=== PATIENT | male | born 1940 | race Caucasian/White ===

== ENCOUNTER 2017-06-04 19:51 | Emergency (ER) | payer MEDICARE, OTHER ==
[2017-06-04 20:18] VITALS: BP 134/57; PULSE 78; TEMP 98
[2017-06-04 20:57] VITALS: RESP 22
--- NOTE | 2017-06-04 21:20 | ED ---
General Adult HPI - General Chief complaint: Upper Respiratory Infection Stated complaint: SOB Time Seen by Provider: 06/04/17 20:15 Source: patient, RN notes reviewed Mode of arrival: ambulatory Limitations: no limitations - History of Present Illness Initial comments: This is a 77-year-old male who presents emergency department stating that he has a sinus infection. Patient states the drainage is making him cough and when he coughs short of breath. Patient states when he is not coughing is not short of breath. Patient states he lies back and it does get worse because of drainage gets worse. Patient states his been ongoing for 3 days. Patient denies any fever chills. Patient denies any chest pain or palpitations. Patient denies any abdominal pain patient denies nausea vomiting diarrhea. Patient states she's not taking anything [id number] at this time. - Related Data Home Medications Medication Instructions Recorded Confirmed Ranitidine HCl 150 mg PO BID 11/23/15 06/04/17 Tamsulosin [Flomax] 0.4 mg PO DAILY 11/23/15 06/04/17 Albuterol Sulfate [Proair Hfa] 2 puff INHALATION RT-Q4H PRN 11/24/15 06/04/17 Allopurinol [Zyloprim] 100 mg PO DAILY 11/24/15 06/04/17 Atorvastatin [Lipitor] 20 mg PO DAILY 11/24/15 06/04/17 Celecoxib [CeleBREX] 200 mg PO DAILY 11/24/15 06/04/17 Finasteride [Proscar] 5 mg PO DAILY 11/24/15 06/04/17 Fluticasone Propionate 1 - 2 sprays EA NOSTRIL DAILY PRN 11/24/15 06/04/17 Lisinopril [Prinivil] 10 mg PO DAILY 06/04/17 06/04/17 Losartan Potassium 50 mg PO DAILY 06/04/17 06/04/17 Previous Rx's Medication Instructions Recorded Levofloxacin [Levaquin] 750 mg PO DAILY #10 tab 06/04/17 Allergies Allergy/AdvReac Type Severity Reaction Status Date / Time No Known Allergies Allergy Verified 11/23/15 19:53 Review of Systems ROS Statement: Those systems with pertinent positive or pertinent negative responses have been documented in the HPI. ROS Other: All systems not noted in ROS Statement are negative. Past Medical History Past Medical History: GERD/Reflux, Hyperlipidemia, Prostate Disorder History of Any Multi-Drug Resistant Organisms: None Reported Past Surgical History: Orthopedic Surgery, Prostate Surgery Additional Past Surgical History / Comment(s): scopes bilat knees Past Anesthesia/Blood Transfusion Reactions: No Reported Reaction Past Psychological History: No Psychological Hx Reported Smoking Status: Former smoker Past Alcohol Use History: Occasional Past Drug Use History: None Reported - Past Family History Father Family Medical History: Pneumonia General Exam - General Exam Comments Initial Comments: GENERAL: Patient is well-developed and well-nourished. Patient is nontoxic and well- hydrated and is in mild distress. ENT: Neck is soft and supple. No significant lymphadenopathy is noted. Oropharynx is clear. Moist mucous membranes. Neck has full range of motion without eliciting any pain. Patient has some facial tenderness over the frontomaxillary sinuses. EYES: The sclera were anicteric and conjunctiva were pink and moist. Extraocular movements were intact and pupils were equal round and reactive to light. Eyelids were unremarkable. PULMONARY: Unlabored respirations. Good breath sounds bilaterally. No audible rales rhonchi or wheezing was noted. CARDIOVASCULAR: There is a regular rate and rhythm without any murmurs gallops or rubs. ABDOMEN: Soft and nontender with normal bowel sounds. No palpable organomegaly was noted. There is no palpable pulsatile mass. SKIN: Skin is clear with no lesions or rashes and otherwise unremarkable. NEUROLOGIC: Patient is alert and oriented x3. Cranial nerves II through XII are grossly intact. Motor and sensory are also intact. Normal speech, volume and content. Symmetrical smile. MUSCULOSKELETAL: Normal extremities with adequate strength and full range of motion. LYMPHATICS: No significant lymphadenopathy is noted PSYCHIATRIC: Normal psychiatric evaluation. Normal interpersonal interactions appears functionally intact in deals appropriately with others. No signs of depression. No signs of anxiety. Limitations: no limitations Course Vital Signs 06/04/17 06/04/17 20:15 20:55 Temperature 98.0 F Pulse Rate 78 Respiratory 18 22 Rate Blood Pressure 134/57 O2 Sat by Pulse 96 Oximetry Disposition Clinical Impression: Sinusitis Disposition: HOME SELF-CARE Condition: Good Instructions: Sinusitis (ED) Additional Instructions: Patient should take a decongestant along with the antibiotic. Prescriptions: Levofloxacin [Levaquin] 750 mg PO DAILY #10 tab Referrals: Abner Davenport MD [Primary Care Provider] - 1-2 days Time of Disposition: 21:19
== END 2017-06-04 21:33 | disposition home or self-care (01) ==
LOC: EC 19:51
DX: J32.9 Chronic sinusitis, unspecified (principal); E78.5 Hyperlipidemia, unspecified; K21.9 Gastro-esophageal reflux disease without esophagitis; Z83.6 Family history of other diseases of the respiratory system; Z87.891 Personal history of nicotine dependence; Z79.899 Other long term (current) drug therapy
CPT/HCPCS: 99283

== ENCOUNTER 2017-06-05 19:01 | Inpatient (IN) | payer MEDICARE, OTHER ==
[2017-06-05] MEDS ORDERED: ACETAMINOPHEN TAB 500 MG TAB PO STA (19:44)
[2017-06-05] MEDS ORDERED: IPRATROPIUM-ALBUTEROL 3 ML NEB INHALATION STA (19:44)
--- NOTE | 2017-06-05 19:50 | ED ---
General Adult HPI - General Chief complaint: Upper Respiratory Infection Stated complaint: JASON Time Seen by Provider: 06/05/17 19:27 Source: patient, family, RN notes reviewed, old records reviewed Mode of arrival: ambulatory Limitations: no limitations - History of Present Illness Initial comments: Chief complaint and history of present illness a 77-year-old male who was seen emergency room recently placed on Levaquin because sinusitis. The patient took 1 pill yesterday 1 pill today. He continues to cough. Complains discomfort to the chest wall with coughing. No radiation of pain. Feel short of breath with coughing. Denies fever - Related Data Home Medications Medication Instructions Recorded Confirmed Ranitidine HCl 150 mg PO BID 11/23/15 06/05/17 Tamsulosin [Flomax] 0.4 mg PO DAILY 11/23/15 06/05/17 Albuterol Sulfate [Proair Hfa] 2 puff INHALATION RT-Q4H PRN 11/24/15 06/05/17 Allopurinol [Zyloprim] 100 mg PO DAILY 11/24/15 06/05/17 Atorvastatin [Lipitor] 20 mg PO DAILY 11/24/15 06/05/17 Celecoxib [CeleBREX] 200 mg PO DAILY 11/24/15 06/05/17 Finasteride [Proscar] 5 mg PO DAILY 11/24/15 06/05/17 Fluticasone Propionate 1 - 2 sprays EA NOSTRIL DAILY PRN 11/24/15 06/05/17 Losartan Potassium 50 mg PO DAILY 06/04/17 06/05/17 metroNIDAZOLE 0.75% CREAM 1 applic TOPICAL HS 06/05/17 06/05/17 [Metrocream] Previous Rx's Medication Instructions Recorded Levofloxacin [Levaquin] 750 mg PO DAILY #10 tab 06/04/17 Allergies Allergy/AdvReac Type Severity Reaction Status Date / Time No Known Allergies Allergy Verified 06/05/17 19:43 Review of Systems ROS Statement: Those systems with pertinent positive or pertinent negative responses have been documented in the HPI. Review of systems. No headache or visual acuity changes he does complain of sinus pressure. Complains chest wall pain with frequent deep coughing mildly productive. No radiation of pain otherwise. No nausea no vomiting no diarrhea no neuro deficits complained of. All systems are reviewed. Past medical problems significant for GERD, leaky valve, hyperlipidemia and benign prostatic hypertrophy. The patient's surgeries include arthroscopic surgery for meniscus removal, prostate surgery for BPH,. The patient's family history significant for lung cancer. He states quit smoking 40 years ago denies any ALLERGIES drinks beer . ROS Other: All systems not noted in ROS Statement are negative. Past Medical History Past Medical History: GERD/Reflux, Hyperlipidemia, Prostate Disorder History of Any Multi-Drug Resistant Organisms: None Reported Past Surgical History: Orthopedic Surgery, Prostate Surgery Additional Past Surgical History / Comment(s): scopes bilat knees Past Anesthesia/Blood Transfusion Reactions: No Reported Reaction Past Psychological History: No Psychological Hx Reported Smoking Status: Former smoker Past Alcohol Use History: Occasional Past Drug Use History: None Reported - Past Family History Father Family Medical History: Pneumonia General Exam - General Exam Comments Initial Comments: General: The patient is awake and alert, frequent deep coughs, these cause anterior chest wall pain. A deep breath or dry cough causes pain to. No sweats no nausea no vomiting. No radiation of chest discomfort. Vital signs shows temperature 97.4 pulse 72 respiratory rate 18 pulse ox 97% room air blood pressure 121/60 Eye: Pupils are equal, round and reactive to light, extra-ocular movements are intact ; there is normal conjunctiva bilaterally. No signs of icterus. Ears, nose, mouth and throat: There are moist mucous membranes and no oral lesions. Neck: The neck is supple, there is no tenderness, no anterior cervical lymphadenopathy. Cardiovascular: There is a regular rate and rhythm. No murmur, rub or gallop is appreciated. Respiratory: Lungs are clear to auscultation, respirations are non-labored, breath sounds are equal. No wheezes, stridor, rales, or rhonchi. Frequent harsh cough with anterior chest wall pain all coughing. Gastrointestinal: Soft, non-distended, non-tender abdomen without masses or organomegaly noted. There is no rebound or guarding present. No CVA tenderness. Bowel sounds are unremarkable. Back: There is no tenderness to palpation in the midline. There is no obvious deformity. No rashes noted. Musculoskeletal: Normal ROM, no tenderness, There is no pedal edema. There is no calf tenderness or swelling. Sensation intact. Pulses equal bilaterally 2+. Neurological: CN II-XII intact, legs mildly swollen but no edema.. Coordination appears grossly intact. Speech is normal. Skin: Skin is warm and dry and no rashes or lesions are noted. Psychiatric: Cooperative, no complaints of anxiety or depression. Limitations: no limitations Course Vital Signs 06/05/17 06/05/17 06/05/17 19:05 20:35 20:43 Temperature 97.4 F L Pulse Rate 72 64 67 Respiratory 18 Rate Blood Pressure 121/60 O2 Sat by Pulse 97 Oximetry EKG Findings - EKG Comments: EKG Findings:: EKG was done in 1917 shows occasional PVCs sinus rhythm. Incomplete right bundle branch block. Some ST-T wave changes with flipped T waves in V4 5 and 6. Rate 63 PA interval is 162 QRS and 96 QT 428 QTc 437. This EKG was compared to one done on 11/23/2015 and the rest similar except for the ischemic changes laterally. Medical Decision Making - Medical Decision Making Medical decision making; this is a 77-year-old male here with his . The patient was diagnosis sinusitis yesterday and placed on Levaquin. Patient reports he continues to cough and has chest wall pain with coughing which is reproducible. Denies fever. Labs were drawn showing white count 6.5 hemoglobin 12 hematocrit 37. Potassium 3.8 BUN at 22 creatinine 1.17 the GFR greater than 60. Influenza AB reported to be negative. The patient's CK 677 MB is mildly elevated 3.2 and a troponin of 0.028. Chest x-ray is done and reviewed by radiologist's chest x-ray done AP and lateral view. Findings there is no heart failure nor confluent pneumonic infiltrate. There are no hilar masses. Costophrenic angles are clear. There are chest leads. Bony thorax intact. Impression no active cardiopulmonary disease. Atheromatous aorta. No change. As read by Dr. Gordon has had cardiac problems in the past. Today's EKG does show strain pattern some ischemic changes on V4 5 and 6. Thickening consideration with this chest discomfort and mildly elevated MB and troponin though still within normal range the patient will be started on nitro paste, heparin and admitted for repeat cardiac enzymes. And cardiology consultation. - Lab Data Result diagrams: 06/05/17 19:59 06/05/17 19:59 Lab Results 06/05/17 06/05/17 06/05/17 Range/Units 19:59 19:59 19:59 WBC 6.5 (3.8-10.6) k/uL RBC 4.08 L (4.30-5.90) m/uL Hgb 12.7 L (13.0-17.5) gm/dL Hct 37.7 L (39.0-53.0) % MCV 92.3 (80.0-100.0) fL MCH 31.0 (25.0-35.0) pg MCHC 33.6 (31.0-37.0) g/dL RDW 14.4 (11.5-15.5) % Plt Count 162 (150-450) k/uL Neutrophils % 68 % Lymphocytes % 15 % Monocytes % 10 % Eosinophils % 4 % Basophils % 1 % Neutrophils # 4.4 (1.3-7.7) k/uL Lymphocytes # 1.0 (1.0-4.8) k/uL Monocytes # 0.7 (0-1.0) k/uL Eosinophils # 0.3 (0-0.7) k/uL Basophils # 0.0 (0-0.2) k/uL Sodium 140 (137-145) mmol/L Potassium 3.8 (3.5-5.1) mmol/L Chloride 107 (98-107) mmol/L Carbon Dioxide 26 (22-30) mmol/L Anion Gap 7 mmol/L BUN 22 H (9-20) mg/dL Creatinine 1.17 (0.66-1.25) mg/dL Est GFR (MDRD) Af Amer >60 (>60 ml/min/1.73 sqM) Est GFR (MDRD) Non-Af >60 (>60 ml/min/1.73 sqM) Glucose 112 H (74-99) mg/dL Calcium 9.1 (8.4-10.2) mg/dL Total Creatine Kinase 677 H (55-170) U/L CK-MB (CK-2) 3.2 H* (0.0-2.4) ng/mL CK-MB (CK-2) Rel Index 0.5 Troponin I 0.028 (0.000-0.034) ng/mL Influenza Type A RNA (Not Detectd) Influenza Type B (PCR) (Not Detectd) 06/05/17 Range/Units 19:59 WBC (3.8-10.6) k/uL RBC (4.30-5.90) m/uL Hgb (13.0-17.5) gm/dL Hct (39.0-53.0) % MCV (80.0-100.0) fL MCH (25.0-35.0) pg MCHC (31.0-37.0) g/dL RDW (11.5-15.5) % Plt Count (150-450) k/uL Neutrophils % % Lymphocytes % % Monocytes % % Eosinophils % % Basophils % % Neutrophils # (1.3-7.7) k/uL Lymphocytes # (1.0-4.8) k/uL Monocytes # (0-1.0) k/uL Eosinophils # (0-0.7) k/uL Basophils # (0-0.2) k/uL Sodium (137-145) mmol/L Potassium (3.5-5.1) mmol/L Chloride (98-107) mmol/L Carbon Dioxide (22-30) mmol/L Anion Gap mmol/L BUN (9-20) mg/dL Creatinine (0.66-1.25) mg/dL Est GFR (MDRD) Af Amer (>60 ml/min/1.73 sqM) Est GFR (MDRD) Non-Af (>60 ml/min/1.73 sqM) Glucose (74-99) mg/dL Calcium (8.4-10.2) mg/dL Total Creatine Kinase (55-170) U/L CK-MB (CK-2) (0.0-2.4) ng/mL CK-MB (CK-2) Rel Index Troponin I (0.000-0.034) ng/mL Influenza Type A RNA Not Detected (Not Detectd) Influenza Type B (PCR) Not Detected (Not Detectd) Disposition Clinical Impression: Unstable angina Disposition: ADMITTED IP TO THIS HOSP Condition: Fair Referrals: Abner Davenport MD [Primary Care Provider] - 1-2 days
[2017-06-05 20:12] LABS: Basophils % (A) 1 %; Eosinophils # (A) 0.3 k/uL (0-0.7); Eosinophils % (A) 4 %; HCT 37.7 % (39.0-53.0); HGB 12.7 gm/dL (13.0-17.5); Lymphocytes % (A) 15 %; MCHC 33.6 g/dL (31.0-37.0); MCV 92.3 fL (80.0-100.0); Mean Platelet Volume 8.3; Monocytes # (A) 0.7 k/uL (0-1.0); Monocytes % (A) 10 %; Neutrophils # (A) 4.4 k/uL (1.3-7.7); Neutrophils % (A) 68 %; Platelet Count 162 k/uL (150-450); RBC 4.08 m/uL (4.30-5.90); RDW 14.4 % (11.5-15.5); WBC 6.5 k/uL (3.8-10.6)
--- NOTE | 2017-06-05 20:15 | XR ---
EXAMINATION TYPE: XR chest 2V DATE OF EXAM: 06/05/2017 COMPARISON: 11/23/2015 HISTORY: Cough TECHNIQUE: Frontal and lateral views of the chest are obtained. FINDINGS: There is no heart failure nor confluent pneumonic infiltrate. There are no hilar masses. C ostophrenic angles are clear. There are chest leads. Bony thorax is intact. IMPRESSION: No active cardiopulmonary disease. Atheromatous aorta. No change.
[2017-06-05 20:24] LABS: Anion Gap 7 mmol/L; Blood Urea Nitrogen 22 mg/dL (9-20); Calcium 9.1 mg/dL (8.4-10.2); Carbon Dioxide 26 mmol/L (22-30); Chloride 107 mmol/L (98-107); Glucose 112 mg/dL (74-99); Potassium 3.8 mmol/L (3.5-5.1); Sodium 140 mmol/L (137-145)
[2017-06-05 20:39] LABS: Troponin I 0.028 ng/mL (0.000-0.034)
[2017-06-05 20:49] LABS: Creatine Kinase MB 3.2 ng/mL (0.0-2.4)
[2017-06-05] MEDS ORDERED: HEPARIN SODIUM,PORCINE 5,000 UNIT/ML 1 ML VIAL IV ONE (21:02)
[2017-06-05] MEDS ORDERED: ACETAMINOPHEN TAB 325 MG TAB PO PRN (21:05)
[2017-06-05] MEDS ORDERED: NALOXONE 0.4 MG/ML 1 ML VIAL IV PRN (21:05)
[2017-06-05] MEDS ORDERED: ALBUTEROL NEBULIZED 2.5 MG/3 ML INHALATION PRN (21:11)
[2017-06-05] MEDS ORDERED: FLUTICASONE 50MCG/SPRAY NASAL 16GM EA NOSTRIL PRN (21:11)
[2017-06-05] MEDS: NITROGLYCERIN OINT 1 INCH/GM PACKET TOPICAL SCH (21:18)
[2017-06-05] MEDS: HEPARIN SOD,PORK IN 0.45% NACL 25,000 UNIT in 0.45% NACL 1 500ML.BAG IV SCH (21:18)
[2017-06-05] MEDS ORDERED: HYDROcodone/APAP 5-325MG 1 EACH TAB PO PRN (23:02)
--- NOTE | 2017-06-05 23:36 | HP ---
HISTORY AND PHYSICAL I am covering for Dr. Abner Davenport. DATE OF SERVICE: 06/05/2017 CHIEF COMPLAINT: Chest pain. HISTORY OF PRESENT ILLNESS: This 77-year-old gentleman with past medical history of hyperlipidemia, CAD, GERD, DJD being followed by Dr. Abner Davenport in the outpatient setting, also had previously multiple mild valvular abnormalities, including mild mitral regurgitation, moderate aortic regurgitation as well as some thickening of the mitral valve and aortic valve sclerosis also on the previous 2D echo. The patient had upper respiratory symptoms and cough and some shortness of breath for the last 2 days. Subsequently today, the patient had pains especially felt in the front of the chest with some pressure type of feeling and the patient came to [facility] and admitted for further evaluation and treatment. The patient was recently started on Levaquin for a sinusitis from the ER. The initial labs show hemoglobin 12.7 and creatine kinase 677. Influenza is negative. Troponin 0.028 and EKG showed incomplete right bundle block and ST changes also. The chest x-ray showed no active pulmonary disease. There is no history of fever, rigors. No history of headache, loss of consciousness, seizures. PAST MEDICAL HISTORY: History of GERD, hyperlipidemia, history of prostate disorder, mild valvular abnormalities previously on the 2D echo. MEDICATIONS PRIOR TO ADMISSION: 1. Metro cream 1 application topically at bedtime. 2. Flomax 0.4 mg daily. 3. Ranitidine 150 mg b.i.d. 4. Losartan 50 mg p.o. daily. 5. Levaquin 750 daily. 6. Fluticasone 1-2 sprays daily p.r.n. 7. Proscar 5 mg p.o. daily. 8. Celebrex 200 mg p.o. daily. 9. Lipitor 20 mg daily. 10.Zyloprim 100 mg p.o. daily. 11.ProAir HFA 2 puffs q.4h p.r.n. ALLERGIES: None. FAMILY HISTORY: History of asthma, pneumonia, DJD. SOCIAL HISTORY: History of alcohol, previous history of smoking. REVIEW OF SYSTEMS: ENT: No diminished hearing, diminished vision. CARDIOVASCULAR: As mentioned earlier. RESPIRATORY: As mentioned earlier. GI: No nausea, vomiting. : No dysuria. NERVOUS: No numbness, weakness. ALLERGY/IMMUNOLOGY: No asthma or hay fever. MUSCULOSKELETAL: As mentioned earlier. HEMATOLOGY/ONCOLOGY: No history of anemia. ENDOCRINE: No history of diabetes, hypothyroidism. CONSTITUTIONAL: As mentioned earlier. DERMATOLOGY: Negative. RHEUMATOLOGY: Negative. PSYCHIATRY: As mentioned earlier. PHYSICAL EXAMINATION: Alert, oriented x3. Pulse 68, blood pressure 123/59, respirations 20, temperature 96.3, pulse ox 94% on 2L. HEENT: Conjunctivae normal. Oral mucosa moist. NECK: No jugular venous distention. No carotid bruits. No lymph node enlargement. CARDIOVASCULAR: S1, S2 muffled. RESPIRATORY: Breath sounds diminished in the bases. Bilateral scattered rhonchi and crackles. ABDOMEN: Soft, nontender. No mass palpable. LEGS: No edema. No swelling. NERVOUS SYSTEM: Higher functions as mentioned earlier. Moves all 4 limbs. No focal deficits. LYMPHATIC: No lymphadenopathy in neck or axillae. SKIN: No ulcer, rash or bleeding. LABS: Hemoglobin 12.7. Troponins are noted. Creatine kinase 677. ASSESSMENT: 1. Chest pain, possible unstable angina. 2. Upper respiratory infection on Levaquin. 3. Increased creatine kinase with troponin 0.028. 4. ST changes on the EKG. 5. Mild mitral regurgitation, moderate aortic regurgitation, mild mitral valve thickening and aortic sclerosis on the previous 2D echocardiogram. 6. Hyperlipidemia. 7. History of prostate disorder. 8. History of gastroesophageal reflux disease. 9. History of degenerative joint disease. 10.Remote history of nicotine dependence. RECOMMENDATIONS AND DISCUSSION: In this 77-year-old gentleman who presented with multiple complex medical issues, will monitor the patient closely, continue the current medical management, symptomatic treatment. Continue with IV heparin protocol. Cardiology consultation. Resume the home medications. Prognosis guarded. Recommend close followup with Dr. Davenport in the outpatient setting. Further recommendations to follow. MMODL / IJN: [id number] /
[2017-06-06] MEDS: ALPRAZolam 0.25 MG TAB PO PRN ×2 (00:12→23:59)
[2017-06-06 03:18] LABS: Basophils % (A) 0 %; Eosinophils # (A) 0.3 k/uL (0-0.7); Eosinophils % (A) 5 %; HCT 38.2 % (39.0-53.0); HGB 12.7 gm/dL (13.0-17.5); Lymphocytes # (A) 1.1 k/uL (1.0-4.8); Lymphocytes % (A) 19 %; MCH 31.1 pg (25.0-35.0); MCHC 33.4 g/dL (31.0-37.0); MCV 93.1 fL (80.0-100.0); Mean Platelet Volume 7.4; Monocytes # (A) 0.5 k/uL (0-1.0); Monocytes % (A) 9 %; Neutrophils # (A) 3.7 k/uL (1.3-7.7); Neutrophils % (A) 65 %; Platelet Count 163 k/uL (150-450); WBC 5.7 k/uL (3.8-10.6)
[2017-06-06 03:27] LABS: Anion Gap 8 mmol/L; Blood Urea Nitrogen 18 mg/dL (9-20); Calcium 8.9 mg/dL (8.4-10.2); Carbon Dioxide 23 mmol/L (22-30); Chloride 110 mmol/L (98-107); Glucose 97 mg/dL (74-99); Potassium 4.2 mmol/L (3.5-5.1); Sodium 141 mmol/L (137-145)
[2017-06-06 03:54] LABS: Troponin I 0.023 ng/mL (0.000-0.034)
[2017-06-06 04:32] LABS: INR 1.1 (<1.2); Prothrombin Time 10.8 sec (9.0-12.0)
[2017-06-06] MEDS: NITROGLYCERIN OINT 1 INCH/GM PACKET TOPICAL SCH ×3 (06:12→23:52)
[2017-06-06] MEDS: SODIUM CHLORIDE 0.9% 1,000 ML IV SCH ×3 (06:12→23:53)
[2017-06-06] MEDS ORDERED: NON-FORMULARY DRUG (Ranitidine Hcl [Ranitidine Hcl] 150 MG) PO SCH (09:00)
[2017-06-06] MEDS: LEVOFLOXACIN 750 MG TAB PO SCH (09:04)
[2017-06-06] MEDS: ATORVASTATIN 20 MG TAB PO SCH (09:04)
[2017-06-06] MEDS: FAMOTIDINE 20 MG TAB PO SCH ×2 (09:04→23:52)
[2017-06-06] MEDS: ALLOPURINOL 100 MG TAB PO SCH (09:04)
[2017-06-06] MEDS: FINASTERIDE 5 MG TAB PO SCH (09:05)
[2017-06-06] MEDS: MELOXICAM 7.5 MG TAB PO SCH (09:06)
[2017-06-06] MEDS: LOSARTAN 50 MG TAB PO SCH (09:06)
[2017-06-06] MEDS: TAMSULOSIN 0.4 MG CAP.ER.24H PO SCH (09:09)
[2017-06-06 09:38] LABS: Troponin I 0.021 ng/mL (0.000-0.034)
[2017-06-06 09:46] LABS: Creatine Kinase MB 2.7 ng/mL (0.0-2.4)
[2017-06-06 09:52] VITALS: RESP 18
--- NOTE | 2017-06-06 10:52 | P.CRDCN ---
History of Present Illness Consult date: 06/06/17 Requesting physician: Anayeli Horta Consult reason: chest pain Chief complaint: Chest pain History of present illness: This is a pleasant 77-year-old gentleman who used to follow with Dr. Bear in the office, now follows with Dr. Gupta. He has history of hypertension, hyperlipidemia, GERD, prior history of smoking. He states that he developed upper respiratory 3 days ago, was started on Levaquin as an outpatient. He's been coughing significant amounts, nonproductive. No fever or chills. Mild shortness of breath. Presented to the hospital with these symptoms, he states that he's been experiencing chest pain, only when he coughs , worsened with coughing. The patient was examined further, he states that approximately one week ago , he had an episode while driving where he felt unwell, he did have pressure in his chest with some shortness of breath at that time. As was before his upper respiratory symptoms started. Patient states that he has had stress tests in the past, and has and told to have a leaky heart valves. He also states that multiple years ago he underwent a cardiac catheterization which did not reveal any significant obstructive disease. His EKG on arrival here showed a normal sinus rhythm with an incomplete right bundle branch block pattern and ST-T wave changes noted in the anterior lateral leads. Subsequent EKG performed this morning shows a sinus bradycardia with mild improvement in ST T changes in the anterior lateral leads , however persistence in those changes. Chest X-ray did not reveal any active cardiopulmonary disease. At pressure on arrival here 120/60 with a heart rate in the 70s, afebrile, 97% on room air. White blood cell count is normal, hemoglobin 12.7, platelet count 163. Sodium 141, potassium 4.2, BUN 18, creatinine 1.1. CK 677, 668, 660, MB 3.2, 3.0, 2.7, troponin 0.028, 0.023, 0.021. Fluids and B are negative. At the tTime of my examination this morning, patient denies any chest discomfort, states he's been up ambulating in the [place] without any difficulty, still has mild sinus congestion with occasional nonproductive cough. Past Medical History Past Medical History: GERD/Reflux, Hyperlipidemia, Prostate Disorder Additional Past Medical History / Comment(s): LEAKY VALVES History of Any Multi-Drug Resistant Organisms: None Reported Past Surgical History: Orthopedic Surgery, Prostate Surgery Additional Past Surgical History / Comment(s): scopes bilat knees Past Anesthesia/Blood Transfusion Reactions: No Reported Reaction Past Psychological History: No Psychological Hx Reported Smoking Status: Former smoker Past Alcohol Use History: Occasional Past Drug Use History: None Reported - Past Family History Father Family Medical History: Asthma, Pneumonia Additional Family Medical History / Comment(s): ARTHRITIS Mother Additional Family Medical History / Comment(s): BRAIN ANUYRUSM Medications and Allergies Home Medications Medication Instructions Recorded Confirmed Type Ranitidine HCl 150 mg PO BID 11/23/15 06/05/17 History Tamsulosin [Flomax] 0.4 mg PO DAILY 11/23/15 06/05/17 History Albuterol Sulfate [Proair Hfa] 2 puff INHALATION RT-Q4H PRN 11/24/15 06/05/17 History Allopurinol [Zyloprim] 100 mg PO DAILY 11/24/15 06/05/17 History Atorvastatin [Lipitor] 20 mg PO DAILY 11/24/15 06/05/17 History Celecoxib [CeleBREX] 200 mg PO DAILY 11/24/15 06/05/17 History Finasteride [Proscar] 5 mg PO DAILY 11/24/15 06/05/17 History Fluticasone Propionate 1 - 2 sprays EA NOSTRIL DAILY PRN 11/24/15 06/05/17 History Levofloxacin [Levaquin] 750 mg PO DAILY #10 tab 06/04/17 06/05/17 Rx Losartan Potassium 50 mg PO DAILY 06/04/17 06/05/17 History metroNIDAZOLE 0.75% CREAM 1 applic TOPICAL HS 06/05/17 06/05/17 History [Metrocream] Allergies Allergy/AdvReac Type Severity Reaction Status Date / Time No Known Allergies Allergy Verified 06/05/17 19:43 Physical Exam Vitals: Vital Signs Temp Pulse Pulse Resp BP BP Pulse Ox 06/06/17 08:00 97.6 F 68 18 118/63 96 06/06/17 04:00 97.3 F L 63 20 134/61 93 L 06/05/17 22:25 96.3 F L 68 20 123/59 94 L 06/05/17 22:23 96.3 F L 68 20 123/59 94 L 06/05/17 21:24 69 20 136/63 96 06/05/17 20:43 67 06/05/17 20:35 64 06/05/17 19:05 97.4 F L 72 18 121/60 97 Intake and Output 06/05/17 06/06/17 06/06/17 22:59 06:59 14:59 Intake Total 183.333 125 Output Total 300 Balance -300 183.333 125 Intake: Intake, IV Titration 183.333 Amount Heparin Sod,Pork in 0.45% 183.333 NaCl 25,000 unit In 0.45 % NaCl 1 500ml.bag @ 9. 186 UNITS/KG/HR 20 mls/hr IV .Q24H [facility] Rx#: [id number] Oral 125 Output: Urine 300 Other: Voiding Method Urinal Urinal Urinal # Voids 1 Weight 108.862 kg 110.7 kg PHYSICAL EXAMINATION: HEENT: Head is atraumatic, normocephalic. Pupils equal, round. Neck is supple. There is no elevated jugular venous pressure. HEART EXAMINATION: Heart S1 S2 1 diastolic murmur is heard CHEST EXAMINATION: Lungs are clear to auscultation and precussion. No chest wall tenderness is noted on palpation or with deep breathing. ABDOMEN: Soft, nontender. Bowel sounds are heard. No organomegaly noted. EXTREMITIES: 2+ peripheral pulses with no evidence of peripheral edema and no calf tenderness noted. NEUROLOGIC patient is awake, alert and oriented -3. . Results 06/06/17 02:56 06/06/17 02:56 Cardiac Enzymes 06/05/17 06/06/17 06/06/17 Range/Units 19:59 02:56 08:39 CK-MB (CK-2) 3.2 H* 3.0 H* 2.7 H* (0.0-2.4) ng/mL Troponin I 0.028 0.023 0.021 (0.000-0.034) ng/mL Coagulation 06/06/17 06/06/17 06/06/17 Range/Units 02:56 02:56 08:39 PT 10.8 (9.0-12.0) sec APTT 35.0 H 38.9 H (22.0-30.0) sec CBC 06/05/17 06/06/17 Range/Units 19:59 02:56 WBC 6.5 5.7 (3.8-10.6) k/uL RBC 4.08 L 4.10 L (4.30-5.90) m/uL Hgb 12.7 L 12.7 L (13.0-17.5) gm/dL Hct 37.7 L 38.2 L (39.0-53.0) % Plt Count 162 163 (150-450) k/uL Comprehensive Metabolic Panel 06/05/17 06/06/17 Range/Units 19:59 02:56 Sodium 140 141 (137-145) mmol/L Potassium 3.8 4.2 (3.5-5.1) mmol/L Chloride 107 110 H (98-107) mmol/L Carbon Dioxide 26 23 (22-30) mmol/L BUN 22 H 18 (9-20) mg/dL Creatinine 1.17 1.10 (0.66-1.25) mg/dL Glucose 112 H 97 (74-99) mg/dL Calcium 9.1 8.9 (8.4-10.2) mg/dL Current Medications Generic Name Dose Route Start Last Admin Trade Name Freq PRN Reason Stop Dose Admin Acetaminophen 650 mg 06/05/17 21:05 Tylenol Tab PO Q6HR PRN Mild Pain or Fever > 100.5 Hydrocodone Bitart/Acetaminophen 1 each 06/05/17 23:02 [place] 5-325 PO Q6HR PRN Pain Albuterol Sulfate 2.5 mg 06/05/17 21:11 Ventolin Nebulized INHALATION RT-Q4H PRN Shortness Of Breath Allopurinol 100 mg 06/06/17 09:00 06/06/17 09:04 Zyloprim PO 100 mg DAILY [facility] Administration Alprazolam 0.25 mg 06/05/17 23:02 06/06/17 00:12 Xanax PO 0.25 mg TID PRN Administration Anxiety Atorvastatin Calcium 20 mg 06/06/17 09:00 06/06/17 09:04 Lipitor PO 20 mg DAILY [facility] Administration Famotidine 20 mg 06/06/17 09:00 06/06/17 09:04 Pepcid PO 20 mg BID [facility] Administration Finasteride 5 mg 06/06/17 09:00 06/06/17 09:05 Proscar PO 5 mg DAILY [facility] Administration Fluticasone Propionate 1 - 2 spray 06/05/17 21:11 Flonase Nasal [place] EA NOSTRIL DAILY PRN Allergy Symptoms Heparin Sodium/Sodium Chloride 500 mls @ 20 mls/hr 06/05/17 21:15 06/06/17 06 :28 25,000 unit/ Sodium Chloride IV 12.1 units/kg/hr .Q24H [facility] 26.34 mls/hr Protocol Titration 9.186 UNITS/KG/HR Sodium Chloride 1,000 mls @ 80 mls/hr 06/05/17 21:15 06/06/17 09:07 Saline 0.9% IV 80 mls/hr .[id number] [facility] Administration Levofloxacin 750 mg 06/06/17 09:00 06/06/17 09:04 Levaquin PO 750 mg DAILY [facility] Administration Losartan Potassium 50 mg 06/06/17 09:00 06/06/17 09:06 Cozaar PO 50 mg DAILY [facility] Administration Meloxicam 15 mg 06/06/17 09:00 06/06/17 09:06 Mobic PO 15 mg DAILY [facility] Administration Metronidazole 1 applic 06/06/17 21:30 Metrocream TOPICAL HS [facility] Naloxone HCl 0.2 mg 06/05/17 21:05 Narcan IV Q2M PRN Opioid Reversal Nitroglycerin 1 inch 06/05/17 21:00 06/06/17 06:12 Nitro-Bid Oint TOPICAL 1 inch Q8H [facility] Administration Tamsulosin HCl 0.4 mg 06/06/17 09:00 06/06/17 09:09 Flomax PO 0.4 mg DAILY [facility] Administration Temazepam 15 mg 06/05/17 23:02 Restoril PO HS PRN Insomnia Intake and Output 06/05/17 06/06/17 06/06/17 22:59 06:59 14:59 Intake Total 183.333 125 Output Total 300 Balance -300 183.333 125 Intake: Intake, IV Titration 183.333 Amount Heparin Sod,Pork in 0.45% 183.333 NaCl 25,000 unit In 0.45 % NaCl 1 500ml.bag @ 9. 186 UNITS/KG/HR 20 mls/hr IV .Q24H [facility] Rx#: [id number] Oral 125 Output: Urine 300 Other: Voiding Method Urinal Urinal Urinal # Voids 1 Weight 108.862 kg 110.7 kg 06/06/17 02:56 06/06/17 02:56 EKG Interpretations (text) EKG shows normal sinus rhythm with ST-T wave changes in the anterior lateral leads Assessment and Plan Plan: Assessment and plan #1 symptoms of sinus and upper respiratory infection, nonproductive cough, sinus congestion. Pleuritic type chest pain with coughing. Atypical for acute coronary syndrome. #2 episode of chest heaviness and pressure, approximately one week ago . EKG shows normal sinus rhythm with anterior lateral ST-T wave changes. Troponin 0.028, 0.0-3, 0.021. CK MB abnormal with a downward trend. #3 hypertension #4 hyperlipidemia #5 moderate aortic regurgitation, normal LV function by echo performed here in 2015 Plan Obtain an echocardiogram with Doppler study. Give the patient an aspirin. Continue IV heparin. Patient has been advised that he may need to undergo further testing to rule out underlying coronary artery disease. We will obtain Dr. Young's note from the office. The patient's chest pain with coughing is very atypical, he did have an episode of chest discomfort one week ago concerning for angina. Patient does have abnormal troponins with associated EKG changes. Further recommendations to follow. DNP note has been reviewed, I agree with a documented findings and plan of care. Patient was seen and examined.
[2017-06-06] MEDS: guaiFENesin 600 MG TABLET.ER PO PRN (18:13)
[2017-06-06] MEDS: TEMAZEPAM 15 MG CAP PO PRN (23:59)
[2017-06-07] MEDS: NITROGLYCERIN OINT 1 INCH/GM PACKET TOPICAL SCH ×3 (06:06→22:12)
[2017-06-07] MEDS: HEPARIN SOD,PORK IN 0.45% NACL 25,000 UNIT in 0.45% NACL 1 500ML.BAG IV SCH (06:06)
[2017-06-07 07:00] LABS: Basophils % (A) 0 %; Eosinophils # (A) 0.3 k/uL (0-0.7); Eosinophils % (A) 6 %; HCT 36.3 % (39.0-53.0); HGB 12.1 gm/dL (13.0-17.5); Lymphocytes # (A) 1.3 k/uL (1.0-4.8); Lymphocytes % (A) 25 %; MCHC 33.3 g/dL (31.0-37.0); Mean Platelet Volume 8.1; Monocytes # (A) 0.5 k/uL (0-1.0); Monocytes % (A) 10 %; Neutrophils # (A) 2.8 k/uL (1.3-7.7); Neutrophils % (A) 55 %; Platelet Count 146 k/uL (150-450); RDW 14.1 % (11.5-15.5); WBC 5.2 k/uL (3.8-10.6)
--- NOTE | 2017-06-07 07:11 | PN ---
PROGRESS NOTE DATE OF SERVICE: 06/06/2017 This 77-year-old gentleman admitted with chest pain has more of a cough today. The patient has some ST-T changes in the EKG. No chest pain. No palpitation. Currently cardiology is following the patient closely. PHYSICAL EXAM: Alert and oriented x3. Pulse 65, blood pressure 140/67, respiration 18, temperature 98.4, pulse ox 98% on 2 L. HEENT: Conjunctivae normal. Oral mucosa moist. Neck is no jugular venous distention. No carotid bruit. No lymph node enlargement. CARDIOVASCULAR: S1, S2. RESPIRATORY: Breath sounds diminished in the bases. A few scattered rhonchi and crackles. ABDOMEN: Soft, nontender. LEGS: No edema. No swelling. CENTRAL NERVOUS SYSTEM: No focal deficits. LABS: WBC 5.8, hemoglobin 12.7, sodium 140, potassium 4.2, creatine kinase 660. ASSESSMENT: 1. Chest pain possible unstable angina possibly musculoskeletal. 2. Upper respiratory infection on Levaquin. 3. Increased creatine kinase with troponin 0.028. 4. ST changes in the EKG. 5. Mild mitral regurgitation, moderate aortic regurgitation, mild mitral valve thickening and aortic stenosis in the previous 2D echo. 6. Hyperlipidemia. 7. History of prostate disorder. 8. History of gastroesophageal reflux disease. 9. History of degenerative joint disease. 10.Remote history of nicotine dependence. RECOMMENDATIONS AND DISCUSSION: I recommend to continue current management and symptomatic treatment. The cough has features more like a bronchitis at this time, but however the possibility of underlying heart disease needs to be considered and ruled out. Will closely follow with Cardiology, who is evaluating the patient closely. Prognosis guarded. Discussed with the patient who understands and further recommendations to follow. MMODL / IJN: [id number] /
[2017-06-07 07:24] LABS: Anion Gap 6 mmol/L; Blood Urea Nitrogen 14 mg/dL (9-20); Carbon Dioxide 26 mmol/L (22-30); Chloride 110 mmol/L (98-107); Glucose 92 mg/dL (74-99); Potassium 4.1 mmol/L (3.5-5.1); Sodium 142 mmol/L (137-145)
[2017-06-07] MEDS: MELOXICAM 7.5 MG TAB PO SCH (08:43)
[2017-06-07] MEDS: TAMSULOSIN 0.4 MG CAP.ER.24H PO SCH (08:43)
[2017-06-07] MEDS: FINASTERIDE 5 MG TAB PO SCH (08:44)
[2017-06-07] MEDS: LEVOFLOXACIN 750 MG TAB PO SCH (08:44)
[2017-06-07] MEDS: ALLOPURINOL 100 MG TAB PO SCH (08:44)
[2017-06-07] MEDS: LOSARTAN 50 MG TAB PO SCH (08:45)
[2017-06-07] MEDS: ATORVASTATIN 20 MG TAB PO SCH (08:45)
[2017-06-07] MEDS: FAMOTIDINE 20 MG TAB PO SCH ×2 (08:45→22:12)
[2017-06-07] MEDS: SODIUM CHLORIDE 0.9% 1,000 ML IV SCH ×2 (08:46→22:13)
--- NOTE | 2017-06-07 13:10 | P.PN ---
Subjective Patient is doing a bit better today. He is somewhat less short of breath but he still has cough and a little bit of expectoration and is recovering from his upper respiratory infection. He has no chest discomfort no undue shortness of breath On examination he is afebrile 96.2F pulse rate in the 60s, blood pressure 141/ 64 mmHg Breath sounds are reduced bilaterally with some crackles at the bases bilaterally Heart sounds S1 and S2 are soft no murmurs no gallops no rub Abdomen is soft nontender Extremities are warm no edema Twelve-lead ECG from yesterday showed T-wave inversions which are clearly new His CPKs are elevated at 677, 668 and 660 with a corresponding troponins are 0.028, 0.023 and 0.021 The [place] curves of the troponins do not match the DeKay curves of CPK MB and the enzyme elevations do not appear cardiac. More consistent with skeletal muscle inflammation and injury He does have EKG changes and this could well be related to his flu but does not correlate with the cardiac enzyme pattern. Suggest continue symptomatic treatment for upper respiratory infection/flu, continue atorvastatin the cardiac medications Will discuss this with the cardiac team tomorrow Objective - Vital Signs Vital signs: Vital Signs Temp 96.2 F L 06/07/17 12:00 Pulse 60 06/07/17 12:00 Resp 18 06/07/17 12:00 BP 141/64 06/07/17 12:00 Pulse Ox 96 06/07/17 12:00 Intake & Output 06/06/17 06/07/17 06/07/17 18:59 06:59 18:59 Intake Total 1001.667 Output Total 300 Balance 1001.667 -300 Weight 111 kg Intake: Intake, IV Titration 316.667 Amount Heparin Sod,Pork in 0.45% 316.667 NaCl 25,000 unit In 0.45 % NaCl 1 500ml.bag @ 9. 186 UNITS/KG/HR 20 mls/hr IV .Q24H [facility] Rx#: [id number] Oral 685 Output: Urine 300 Other: Voiding Method Urinal Urinal Urinal # Voids 2 - Labs CBC & Chem 7: 06/07/17 06:09 06/07/17 06:09 Labs: Abnormal Lab Results - Last 24 Hours (Table) 06/06/17 06/07/17 06/07/17 Range/Units 18:05 06:09 06:09 RBC 3.90 L (4.30-5.90) m/uL Hgb 12.1 L (13.0-17.5) gm/dL Hct 36.3 L (39.0-53.0) % Plt Count 146 L (150-450) k/uL APTT 58.5 H (22.0-30.0) sec Chloride 110 H (98-107) mmol/L 06/07/17 Range/Units 06:09 RBC (4.30-5.90) m/uL Hgb (13.0-17.5) gm/dL Hct (39.0-53.0) % Plt Count (150-450) k/uL APTT 82.8 H (22.0-30.0) sec Chloride (98-107) mmol/L
[2017-06-07] MEDS: guaiFENesin 600 MG TABLET.ER PO PRN (15:46)
--- NOTE | 2017-06-07 19:29 | PN ---
PROGRESS NOTE DATE OF SERVICE: 06/07/2017 This 77-year-old gentleman admitted with chest pain also had ST changes in the EKG. Patient also had apparent flu-like syndrome. Influenza test negative. No chest pain. No palpitations. Incessant cough is reported. Cardiology is following the patient closely. EXAM: Alert and oriented times three. Pulse 62, blood pressure 160/58, respiration 18, temp 98.2, pulse ox 100% on 2 L. HEENT: Conjunctivae normal. Neck is no jugular venous distention. Cardiovascular: S1, S2 muffled. Respirations: Breath sounds diminished in the bases. A few scattered rhonchi and crackles. Abdomen is soft, nontender. Legs are no edema. No swelling. Central nervous system: No focal deficits. LABS: WBC 5.2, hemoglobin 12.1. Troponins are noted. Influenza negative. CK 660. ASSESSMENT: 1. Chest pain possible unstable angina possibly musculoskeletal. 2. Upper respiratory infection and flu-like syndrome on Levaquin. 3. Increased creatinine kinase with troponin at 0.028. 4. ST changes in the EKG. 5. Mild mitral regurgitation, moderate aortic regurgitation mild mitral wall thickening and aortic sclerosis in the previous 2D echo. 6. Hyperlipidemia. 7. History of prostate disorder. 8. History of gastroesophageal reflux disease. 9. History of degenerative joint disease. 10.Remote history of nicotine dependence. RECOMMENDATIONS AND DISCUSSION: Recommend to continue current medications, monitoring, symptomatic treatment. Otherwise at this time, we will monitor the patient closely. Otherwise closely monitor with Cardiology. Continue the conservative line of management. The patient has multiple complicated medical illness including acute flu-like syndrome and possible cardiac etiology. We will continue to monitor. Further recommendations to follow. MMODL / IJN: [id number] /
[2017-06-07] MEDS: TEMAZEPAM 15 MG CAP PO PRN (22:11)
[2017-06-07] MEDS: ALPRAZolam 0.25 MG TAB PO PRN (22:11)
[2017-06-08 02:14] LABS: Basophils % (A) 1 %; Eosinophils # (A) 0.2 k/uL (0-0.7); Eosinophils % (A) 5 %; HCT 35.3 % (39.0-53.0); HGB 11.4 gm/dL (13.0-17.5); Lymphocytes # (A) 1.5 k/uL (1.0-4.8); Lymphocytes % (A) 35 %; MCH 30.7 pg (25.0-35.0); MCHC 32.4 g/dL (31.0-37.0); MCV 94.8 fL (80.0-100.0); Mean Platelet Volume 8.2; Monocytes # (A) 0.4 k/uL (0-1.0); Monocytes % (A) 9 %; Neutrophils % (A) 47 %; Platelet Count 149 k/uL (150-450); RBC 3.72 m/uL (4.30-5.90); RDW 14.6 % (11.5-15.5); WBC 4.3 k/uL (3.8-10.6)
[2017-06-08 02:40] LABS: Anion Gap 6 mmol/L; Blood Urea Nitrogen 15 mg/dL (9-20); Calcium 8.6 mg/dL (8.4-10.2); Carbon Dioxide 24 mmol/L (22-30); Chloride 112 mmol/L (98-107); Glucose 97 mg/dL (74-99); Sodium 142 mmol/L (137-145)
[2017-06-08] MEDS: HEPARIN SOD,PORK IN 0.45% NACL 25,000 UNIT in 0.45% NACL 1 500ML.BAG IV SCH (07:01)
[2017-06-08] MEDS: NITROGLYCERIN OINT 1 INCH/GM PACKET TOPICAL SCH ×2 (07:01→11:57)
[2017-06-08] MEDS: LOSARTAN 50 MG TAB PO SCH (08:30)
[2017-06-08] MEDS: FINASTERIDE 5 MG TAB PO SCH (08:30)
[2017-06-08] MEDS: ALLOPURINOL 100 MG TAB PO SCH (08:30)
[2017-06-08] MEDS: ATORVASTATIN 20 MG TAB PO SCH (08:30)
[2017-06-08] MEDS: FAMOTIDINE 20 MG TAB PO SCH (08:30)
[2017-06-08] MEDS: LEVOFLOXACIN 750 MG TAB PO SCH (08:30)
[2017-06-08] MEDS: TAMSULOSIN 0.4 MG CAP.ER.24H PO SCH (08:31)
[2017-06-08] MEDS: MELOXICAM 7.5 MG TAB PO SCH (08:31)
--- NOTE | 2017-06-08 14:34 | ECHOF ---
Referral Reason:chest pain MEASUREMENTS -------- HEIGHT: 182.9 cm WEIGHT: 110.7 kg BP: 118/63 LAESV Index (A-L): 31.44 ml/m Ao Diam: 4.8 cm (2.0 - 3.7) AV Cusp: 1.7 cm (1.5 - 2.6) LA Diam: 3.2 cm (2.7 - 3.8) MV E Shane: 0.71 m/s MV DecT: 418 ms MV A Shane: 0.87 m/s MV E/A Ratio: 0.82 AR PHT: 491 ms RAP: 5.00 mmHg RVSP: 18.85 mmHg FINDINGS -------- Sinus rhythm. This was a technically difficult study with suboptimal views. The left ventricular size is normal. Overall left ventricular systolic function is low-normal with, an EF between 50 - 55 %. The right ventricle is normal in size and function. LA is midly dilated 29-33ml/m2. RA appears enlarged. 1.5mg of Definity was utilized for enhancement of images There is mild aortic valve sclerosis. There is [id number] aortic regurgitation. There is no evidence of aortic stenosis. The mitral valve leaflets are mildly thickened. Mild mitral regurgitation is present. Trace tricuspid regurgitation present. Right ventricular systolic pressure is normal at < 35 mmHg. There is no evidence of pulmonary hypertension. The pulmonic valve was not well visualized. The aortic root is mildy dilated. IVC Not well visulized. The pericardium is normal. There is no pericardial effusion. CONCLUSIONS -------- 1. Sinus rhythm. 2. This was a technically difficult study with suboptimal views. 3. The left ventricular size is normal. 4. Overall left ventricular systolic function is low-normal with, an EF between 50 - 55 %. 5. LA is midly dilated 29-33ml/m2. 6. RA appears enlarged. 7. 1.5mg of Definity was utilized for enhancement of images 8. There is mild aortic valve sclerosis. 9. There is [id number] aortic regurgitation. 10. The mitral valve leaflets are mildly thickened. 11. Mild mitral regurgitation is present. 12. Trace tricuspid regurgitation present. 13. Right ventricular systolic pressure is normal at < 35 mmHg. 14. There is no evidence of pulmonary hypertension. 15. The pulmonic valve was not well visualized. 16. IVC Not well visulized. 17. There is no pericardial effusion. MANAGER SHAREPOINT: Wesley Navarro RDCS
[2017-06-08 16:56] VITALS: BP 131/61; PULSE 67; TEMP 97.1
[2017-06-08] MEDS: SODIUM CHLORIDE 0.9% 1,000 ML IV SCH (17:14)
--- NOTE | 2017-06-08 18:04 | PN ---
PROGRESS NOTE The patient's medical records reviewed. Patient has been admitted with symptoms of upper respiratory tract infection. Patient's chest pain was clearly related to the episodes of coughing. EKG shows some mild T-wave changes in the lateral leads. Echocardiogram is normal. The patient has had elevated CPK which could be secondary to possibly most likely skeletal muscle. The 3 sets of troponin are almost flat without any significant rise and fall and it is not suggestive of acute coronary syndrome. Associated mild myocarditis cannot be entirely excluded. The patient's echocardiogram reveals normal left ventricular systolic function. We will continue the current medications and patient will be evaluated with a stress test as an outpatient. MMODL / IJN: [id number] /
--- NOTE | 2017-06-09 09:43 | DS ---
DISCHARGE SUMMARY FINAL DIAGNOSES: 1. Chest pain, possible unstable angina possibly musculoskeletal pain. 2. Upper respiratory infection with flu-like syndrome on Levaquin. 3. Increased creatine kinase with troponin at 0.028. 4. ST-T changes on the EKG. 5. Mild mitral regurgitation, moderate aortic regurgitation, mitral valve thickening and as well as aortic sclerosis on the previous 2D echo. 6. Hyperlipidemia. 7. History of prostate disorder. 8. Gastroesophageal reflux disease. 9. History of degenerative joint disease. 10.Remote history of nicotine dependence. DISCHARGE DISPOSITION: The patient will be discharged in stable condition with guarded prognosis. Cardiology cleared the patient for discharge. HISTORY OF PRESENT ILLNESS: This 77-year-old gentleman with past medical history of multiple medical problems admitted with features of chest pain and ST-T changes on the EKG and a significant upper respiratory infection. Flu was negative. Treated symptomatically. Cardiology saw the patient, recommended outpatient followup. Otherwise, the patient is able to ambulate without any symptoms. ON EXAM: Vitals are stable. CARDIOVASCULAR: S1 and S2 muffled. RESPIRATORY: A few rhonchi, no crackles. ABDOMEN: Soft. NERVOUS SYSTEM: No focal deficits. DISCHARGE ADVICE: 1. Diet is cardiac. 2. Activity limited until followup. 3. Follow up with Dr. Davenport in 2 to 3 days. 4. Follow up with Cardiology as advised. Medications are: 1. Tylenol 650 q.6 p.r.n. 2. ProAir HFA 2 puffs q.i.d. and p.r.n. 3. Zyloprim 100 mg p.o. daily. 4. Xanax 0.25 t.i.d. 5. Ecotrin 81 mg p.o. daily. 6. Lipitor 20 mg p.o. daily. 7. Celebrex 200 mg p.o. daily. 8. Proscar 5 mg p.o. daily. 9. Fluticasone 1 to 2 spaces daily. 10.Mucinex 600 mg p.o. b.i.d. 11.Levaquin 750 mg daily. 12.Losartan 50 mg p.o. daily. 13.Metronidazole cream 0.75% topically. 14.Ranitidine 150 mg p.o. b.i.d. 15.Flomax 0.4 daily noted. Once again, the patient will be discharged in stable condition with guarded prognosis. MMODL / IJN: [id number] /
== END 2017-06-08 17:41 | disposition home or self-care (01) | DRG 303 ==
LOC: EC 19:01 → 6SEL 21:11
PROVIDERS: ADMIT Family Medicine; ATTEND Family Medicine
DX: I25.110 Atherosclerotic heart disease of native coronary artery with unstable angina pectoris (principal); I08.3 Combined rheumatic disorders of mitral, aortic and tricuspid valves; I45.10 Unspecified right bundle-branch block; R00.1 Bradycardia, unspecified; R07.89 Other chest pain; E78.5 Hyperlipidemia, unspecified; I10 Essential (primary) hypertension; J06.9 Acute upper respiratory infection, unspecified; K21.9 Gastro-esophageal reflux disease without esophagitis; M19.90 Unspecified osteoarthritis, unspecified site; R74.8 Abnormal levels of other serum enzymes; N40.0 Benign prostatic hyperplasia without lower urinary tract symptoms; Z79.899 Other long term (current) drug therapy; Z87.891 Personal history of nicotine dependence
CPT/HCPCS: 36415; 71046; 80048; 82550; 82553; 84484; 85025; 85610; 85730; 87502; 93005; 93306; 94640; 94760; 96365; 96376; 99283; 99285

== ENCOUNTER → 2017-10-07 | Outpatient (CLI) | payer MEDICARE, OTHER ==
[2017-10-07 08:25] LABS: HGB 14.2 gm/dL (13.0-17.5); MCH 30.7 pg (25.0-35.0); MCHC 33.7 g/dL (31.0-37.0); Mean Platelet Volume 7.2; Platelet Count 197 k/uL (150-450); RBC 4.61 m/uL (4.30-5.90); RDW 13.4 % (11.5-15.5)
[2017-10-07 08:39] LABS: Potassium 4.7 mmol/L (3.5-5.1)
== END | disposition home or self-care (01) ==
LOC: LABPAT 07:34
PROVIDERS: ATTEND Internal Medicine Cardiovascular Disease
DX: Z01.812 Encounter for preprocedural laboratory examination (principal); I25.10 Atherosclerotic heart disease of native coronary artery without angina pectoris
CPT/HCPCS: 36415; 80051; 82565; 84520; 85027

== ENCOUNTER 2017-10-14 10:19 | Day surgery (SDC) | payer MEDICARE, OTHER ==
[~2017-10-14 10:19] MED LIST: ALPRAZolam 0.25 MG TAB PO PRN; ALPRAZolam 0.5 MG TAB PO PRN; ASPIRIN 325 MG TAB PO STA; ATORVASTATIN 80 MG TAB PO STA; NITROGLYCERIN SL TABS 0.4 MG TAB SUBLINGUAL PRN; SODIUM CHLORIDE 0.9% 1,000 ML in EMPTY BAG 1 BAG IV ONE
[2017-10-14] MEDS ORDERED: MIDAZOLAM 2 MG/2 ML VIAL IVP ONE (11:48)
[2017-10-14] MEDS ORDERED: fentaNYL (PF) 50 MCG/ML 2 ML AMP IV ONE (11:48)
[2017-10-14] MEDS ORDERED: LIDOCAINE 2% INJ 20 MG/ML SQ ONE (11:55)
[2017-10-14] MEDS ORDERED: IOPAMIDOL-370 50ML BTL INJ ONE (12:06)
[2017-10-14] MEDS ORDERED: IOPAMIDOL-370 125ML BTL INJ ONE (12:07)
[2017-10-14] MEDS ORDERED: RX INFO: IV CONTRAST WAS GIVEN 1 EACH MISC MISCELLANE PRN (12:20)
[2017-10-14] MEDS ORDERED: SODIUM CHLORIDE 0.9% 1,000 ML IV SCH (12:30)
[2017-10-14] MEDS ORDERED: ALBUTEROL NEBULIZED 2.5 MG/3 ML INHALATION PRN (13:37)
[2017-10-14] MEDS ORDERED: guaiFENesin 600 MG TABLET.ER PO PRN (13:37)
--- NOTE | 2017-10-14 16:13 | P.GSCN ---
History of Present Illness Consult date: 10/14/17 Reason for Consult: Severe aortic valve regurgitation. Requesting physician: Hima Young History of present illness: This is a 77-year-old gentleman who is followed by Dr. Abner Davenport on an outpatient basis. His past medical history is significant for essential hypertension, dyslipidemia, GERD, osteoarthritis, BPH, gout, nonsustained ventricular tachycardia, asymptomatic bilateral carotid artery stenosis, remote history of tobacco abuse quit over 40 years ago and non-rheumatologic aortic valve insufficiency. In May 2017 patient had an episode of chest pressure and subsequently underwent a 12-lead EKG which was abnormal. He also reports that he has had some episodes of dizziness, fatigue and progressive shortness of breath with exertion. He denies any complaints of fever, nausea, vomiting, diarrhea or loss of bowel and bladder function. On July 012017 the patient underwent a stress test which showed no definite ECG evidence for ischemia, although during his recovery period the patient had an episode of nonsustained ventricular tachycardia. Due to the recent symptoms of chest pressure and episode of nonsustained ventricular tachycardia the patient was recommended to undergo an elective heart catheterization. On 10/14/2017 the patient underwent a cardiac catheterization which demonstrated nonocclusive coronary arteries, and 4+ aortic valve regurgitation. Also during that heart catheterization a left ventriculogram was completed which showed an ejection fraction of 55%. The patient's last 2-D echocardiogram was completed on December 2016 which showed mild mitral valve regurgitation, moderate aortic valve regurgitation, mild tricuspid valve regurgitation, and mild pulmonic valve regurgitation. The 2-D echocardiogram also demonstrated a mildly dilated left ventricle with a normal systolic function with an ejection fraction of 55%. Subsequently due to the 4+ aortic valve regurgitation demonstrated on the cardiac catheterization a consult was placed to Dr. Dl Smith from cardiothoracic surgery for further recommendations. Review of Systems A 14 point review of systems was completed and was negative except as mentioned in the HPI. Past Medical History Past Medical History: GERD/Reflux, Hyperlipidemia, Hypertension, Osteoarthritis (OA), Prostate Disorder Additional Past Medical History / Comment(s): CURRENT: ABN STRESS TEST PER PATIENT. Gout History of Any Multi-Drug Resistant Organisms: None Reported Past Surgical History: Orthopedic Surgery, Prostate Surgery, Tonsillectomy Additional Past Surgical History / Comment(s): scopes bilat knees. BPH. Past Anesthesia/Blood Transfusion Reactions: No Reported Reaction Past Psychological History: No Psychological Hx Reported Smoking Status: Former smoker Past Alcohol Use History: Occasional Additional Past Alcohol Use History / Comment(s): QUIT ABOUT 43 YRS AGO, MOSTLY SMOKED PIPE, CIGARS Past Drug Use History: None Reported - Past Family History Father Family Medical History: Asthma, Pneumonia Additional Family Medical History / Comment(s): ARTHRITIS Mother Additional Family Medical History / Comment(s): BRAIN ANUYRUSM Medications and Allergies Home Medications Medication Instructions Recorded Confirmed Type Ranitidine HCl 150 mg PO BID 11/23/15 10/14/17 History Tamsulosin [Flomax] 0.4 mg PO HS 11/23/15 10/14/17 History Allopurinol [Zyloprim] 100 mg PO DAILY 11/24/15 10/14/17 History Atorvastatin [Lipitor] 20 mg PO QAM 11/24/15 10/14/17 History Celecoxib [CeleBREX] 200 mg PO QAM 11/24/15 10/14/17 History Finasteride [Proscar] 5 mg PO QAM 11/24/15 10/14/17 History Fluticasone Propionate 1 - 2 sprays EA NOSTRIL DAILY PRN 11/24/15 10/07/17 History Losartan Potassium 50 mg PO HS 06/04/17 10/14/17 History metroNIDAZOLE 0.75% CREAM 1 applic TOPICAL HS PRN 06/05/17 10/07/17 History [Metrocream] guaiFENesin [Mucinex] 600 mg PO Q12HR PRN #40 tablet.er 06/08/17 10/14/17 Rx Albuterol Sulfate [Proair Hfa] 2 puff INHALATION RT-Q6H PRN 10/07/17 10/14/17 History Allergies Allergy/AdvReac Type Severity Reaction Status Date / Time No Known Allergies Allergy Verified 10/07/17 10:01 Surgical - Exam Vital Signs Temp Pulse Resp BP Pulse Ox 97.8 F 68 18 135/64 96 10/14/17 10:43 10/14/17 10:43 10/14/17 10:43 10/14/17 10:43 10/14/17 10:43 - General well developed, well nourished, no distress, moderate distress, no pain, obese - Eyes PERRL, normal ocular movement - ENT normal pinna, normal nares, normal mucosa, no hearing loss, no congestion - Neck No lymphadenopathy. no masses, no bruits, trachea midline, no venous distension - Respiratory Lung sounds essentially clear throughout. Respirations are symmetrical and nonlabored. - Cardiovascular Regular rhythm and rate. S1 and S2 present, systolic murmur 1/6 present. No edema present. Peripheral pulses palpable. - Abdomen Abdomen is soft, nontender and nondistended. No organomegaly. Active bowel sounds all 4, quadrants. No guarding or rigidity. - Genitourinary Deferred - Rectum Deferred - Integumentary no rash, no growths, no abnormal pigmentation - Neurologic normal coordination, normal sensation - Musculoskeletal normal gait, normal posture - Psychiatric oriented to time, oriented to person, oriented to place, speech is normal, memory intact Results - Imaging Additional studies: Cardiac catheterization films and report was reviewed by Dr. Dl Smith. Assessment and Plan (1) Aortic valve insufficiency Current Visit: Yes Status: Acute Code(s): I35.1 - NONRHEUMATIC AORTIC (VALVE ) INSUFFICIENCY SNOMED Code(s): 41116884 (2) Hypertension Current Visit: Yes Status: Acute Code(s): I10 - ESSENTIAL (PRIMARY) HYPERTENSION SNOMED Code(s): 64670985 (3) Dyslipidemia Current Visit: Yes Status: Acute Code(s): E78.5 - HYPERLIPIDEMIA, UNSPECIFIED SNOMED Code(s): 285031431 (4) GERD (gastroesophageal reflux disease) Current Visit: Yes Status: Acute Code(s): K21.9 - GASTRO-ESOPHAGEAL REFLUX DISEASE WITHOUT ESOPHAGITIS SNOMED Code(s): 555411220 (5) BPH (benign prostatic hyperplasia) Current Visit: Yes Status: Acute Code(s): N40.0 - BENIGN PROSTATIC HYPERPLASIA WITHOUT LOWER URINRY TRACT SYMP SNOMED Code(s): 242040189 Plan: The patient was seen and examined. His chart and diagnostics were reviewed. Dr. Smith has reviewed the patient's cardiac catheterization films and has discussed the results with the patient and his family. Dr. Smith did offer the patient and elective aortic valve surgery, at this time the patient would like to wait until December 2017. The patient will follow up with Dr. Young his credit controller and will further discuss preparation for an aortic valve replacement. The patient will obtain dental clearance in the meantime and will call Dr. Smith's office to further discuss surgical options. Thank you Dr. Young for this consult and we'll look forward to working with you in the care of your patient. Time with Patient: Greater than 30
[2017-10-14 17:51] VITALS: BMI 32.5
[2017-10-14] MEDS: FAMOTIDINE 20 MG TAB PO SCH (20:33)
[2017-10-14] MEDS ORDERED: LOSARTAN 50 MG TAB PO SCH (21:00)
[2017-10-14] MEDS ORDERED: TAMSULOSIN 0.4 MG CAP.ER.24H PO SCH (21:00)
[2017-10-15 07:58] LABS: Anion Gap 9 mmol/L; Blood Urea Nitrogen 19 mg/dL (9-20); Calcium 9.1 mg/dL (8.4-10.2); Carbon Dioxide 25 mmol/L (22-30); Chloride 108 mmol/L (98-107); Glucose 89 mg/dL (74-99); Potassium 4.5 mmol/L (3.5-5.1); Sodium 142 mmol/L (137-145)
[2017-10-15 08:27] VITALS: BP 139/63; PULSE 63; RESP 18; TEMP 97.5
[2017-10-15] MEDS: FAMOTIDINE 20 MG TAB PO SCH (08:35)
[2017-10-15] MEDS ORDERED: FINASTERIDE 5 MG TAB PO SCH (09:00)
[2017-10-15] MEDS ORDERED: ATORVASTATIN 20 MG TAB PO SCH (09:00)
[2017-10-15] MEDS ORDERED: ALLOPURINOL 100 MG TAB PO SCH (09:00)
[2017-10-15] MEDS ORDERED: MELOXICAM 7.5 MG TAB PO SCH (09:00)
--- NOTE | 2017-10-15 10:13 | P.DS ---
Providers Expected date of discharge: 10/15/17 Attending physician: Cathy Hein Primary care physician: Abner Davenport [place] Course: Mr. Werner is a pleasant 77-year-old male who came to the hospital for an elective left heart catheterization. The procedure was performed yesterday via the right femoral artery and revealed non-obstructive coronary artery disease with significant aortic valve regurgitation and ejection fraction 55%. Cardiothoracic surgery was consulted for evaluation. Dr. Smith saw the patient and discussed his options for valve replacement. An elective approach was offered to the patient and his family. He is appropriate for discharge home to follow up with Dr. Young, Dr. Davenport and Dr. Smith with tenative plans for surgery in December. He has been up ambulating without difficulty and denies symptoms of chest pain, shortness of breath, dizziness, nausea, vomiting or diaphoresis. He also denies pain to the right groin or right leg. There has been no bleeding from the groin. Laboratory data from this morning reviewed, sodium 142, potassium 4.5, creatinine 0.9 with GFR 83. Blood pressure 139/63 heart rate 63 afebrile and maintaining oxygen saturation on room air. GENERAL: Well-appearing, well-nourished and in no acute distress. NECK: Supple without JVD or thyromegaly. LUNGS: Breath sounds clear to auscultation bilaterally. Respiration equal and unlabored. No wheezes, rales or rhonchi. HEART: Regular rate and rhythm without murmurs, rubs or gallops. S1 and S2 heard. EXTREMITIES: Normal range of motion, no edema. No clubbing or cyanosis. Peripheral pulses intact and strong. Right groin clean, dry and intact with no evidence of hematoma, ecchymosis or bleeding. Plan - Discharge Summary Discharge Rx Participant: No New Discharge Prescriptions: Continue Ranitidine HCl 150 mg PO BID Tamsulosin [Flomax] 0.4 mg PO HS Celecoxib [CeleBREX] 200 mg PO QAM Atorvastatin [Lipitor] 20 mg PO QAM Allopurinol [Zyloprim] 100 mg PO DAILY Finasteride [Proscar] 5 mg PO QAM Fluticasone Propionate 1 - 2 sprays EA NOSTRIL DAILY PRN PRN Reason: Allergy Symptoms Losartan Potassium 50 mg PO HS metroNIDAZOLE 0.75% CREAM [Metrocream] 1 applic TOPICAL HS PRN PRN Reason: Rash guaiFENesin [Mucinex] 600 mg PO Q12HR PRN #40 tablet.er PRN Reason: Cough Albuterol Sulfate [Proair Hfa] 2 puff INHALATION RT-Q6H PRN PRN Reason: Shortness Of Breath Or Wheezing Discharge Medication List Ranitidine HCl 150 mg PO BID 11/23/15 [History] Tamsulosin [Flomax] 0.4 mg PO HS 11/23/15 [History] Allopurinol [Zyloprim] 100 mg PO DAILY 11/24/15 [History] Atorvastatin [Lipitor] 20 mg PO QAM 11/24/15 [History] Celecoxib [CeleBREX] 200 mg PO QAM 11/24/15 [History] Finasteride [Proscar] 5 mg PO QAM 11/24/15 [History] Fluticasone Propionate 1 - 2 sprays EA NOSTRIL DAILY PRN 11/24/15 [History] Losartan Potassium 50 mg PO HS 06/04/17 [History] metroNIDAZOLE 0.75% CREAM [Metrocream] 1 applic TOPICAL HS PRN 06/05/17 [History ] guaiFENesin [Mucinex] 600 mg PO Q12HR PRN #40 tablet.er 06/08/17 [Rx] Albuterol Sulfate [Proair Hfa] 2 puff INHALATION RT-Q6H PRN 10/07/17 [History] Follow up Appointment(s)/Referral(s): Hima Young MD [STAFF PHYSICIAN] - 1 Week Dl Smith MD [STAFF PHYSICIAN] - 2 Weeks Patient Instructions/Handouts: Left Heart Catheterization (DC), Aortic Regurgitation (DC) Discharge Disposition: HOME SELF-CARE
--- NOTE | 2017-10-16 13:32 | P.PCN ---
Date of Procedure: 10/13/17 Preoperative Diagnosis: Nonsustained ventricular tachycardia, exertional shortness of breath and aortic regurgitation Postoperative Diagnosis: Normal coronary arteries. Severe aortic regurgitation of 4+. Dilated left ventricle Procedure(s) Performed: Left heart catheterization with aortic root injection Description of Procedure: HISTORY: This is a 77-year-old gentleman followed by Dr. Young. This patient has history of of rheumatic high aortic regurgitation. Recently patient has been experiencing increasing shortness of breath. He developed an episode of nonsustained V. tach on the stress test. Patient is advised to have cardiac catheterization CONSENT:I have discussed the risks, benefits and alternative therapies for the above-mentioned procedure and for both sedation/analgesia as well as necessary blood product administration, if indicated, as they pertain to this patient. The patient has indicated understanding and acceptance of the risks and procedures discussed. PROCEDURE: Patient was brought to the lab in a fasting state. Patient was given some IV sedation. The right groin is infiltrated with lidocaine and right femoral artery was entered using Seldinger technique. A 6-Chinese catheter was left in place and selective coronary arteriography and aortic root injection was performed. Patient tolerated the procedure well. Femoral angiogram was performed and Angio-Seal was applied for hemostasis. No immediate complications were noted and patient was transferred to [facility] in a stable condition Conscious Sedation: Versed 1mg Fentanyl 25 g Duration 22minutes HEMODYNAMICS: The aortic pressure is about 150/70. The left ventricle end- diastolic pressure is about 716. There was no gradient across the aortic valve SELECTIVE CORONARY ARTERIOGRAPHY: LEFT MAIN: Normal length and free of occlusive disease THE LEFT ANTERIOR DESCENDING CORONARY ARTERY: Fair caliber vessel giving rise to 2 diagonal and septal branches. The LAD and branches are free of occlusive disease THE LEFT CIRCUMFLEX AND IS CORONARY ARTERY: This is a moderate caliber vessel giving rise good-sized OM branch. Seems to be codominant be of any occlusive disease THE RIGHT CORONARY ARTERY: This is a dominant vessel giving rise to PDA and PLV. Free of any occlusive disease LEFT VENTRICULOGRAPHY: Not performed. He however left ventricle seems dilated with preserved LV function. Left ventricle is seen by aortic root injection associated with aortic regurgitation. No AORTIC ROOT INJECTION: This was performed in the left oblique projection. This revealed 4+ regurgitation with evidence of left ventricular dilation dictation. FINAL IMPRESSION: Normal coronary arteries. 4+ aortic regurgitation PLAN: Aortic valve replacement PROGNOSIS: Fair
== END 2017-10-15 10:50 | disposition home or self-care (01) ==
LOC: CATHCVL 10:19 → 3OBS 12:21 → CATHCVL 10-15 10:50
PROVIDERS: ATTEND Internal Medicine Cardiovascular Disease
DX: I35.1 Nonrheumatic aortic (valve) insufficiency (principal); I10 Essential (primary) hypertension; K21.9 Gastro-esophageal reflux disease without esophagitis; N40.0 Benign prostatic hyperplasia without lower urinary tract symptoms; I47.2 Ventricular tachycardia; Z87.891 Personal history of nicotine dependence; Z79.82 Long term (current) use of aspirin; Z79.1 Long term (current) use of non-steroidal anti-inflammatories (NSAID); Z79.899 Other long term (current) drug therapy; I65.23 Occlusion and stenosis of bilateral carotid arteries; M19.90 Unspecified osteoarthritis, unspecified site; M10.9 Gout, unspecified; Z82.61 Family history of arthritis
CPT/HCPCS: 93458; 80048; C1760; C1894; C1769; J2001; J2250; J3010; Q9967 ×2

== ENCOUNTER → 2017-11-27 | Outpatient (CLI) | payer MEDICARE, OTHER ==
--- NOTE | 2017-11-27 11:30 | ECHOF ---
Referral Reason:Aortic Valve Stenosis Insufficiency I35.2 MEASUREMENTS -------- HEIGHT: 182.9 cm WEIGHT: 110.2 kg BP: RVIDd: 3.2 cm (< 3.3) IVSd: 1.4 cm (0.6 - 1.1) LVIDd: 4.7 cm (3.9 - 5.3) LVPWd: 1.3 cm (0.6 - 1.1) IVSs: 1.7 cm LVIDs: 3.8 cm LVPWs: 1.9 cm LAESV Index (A-L): 29.81 ml/m Ao Diam: 3.3 cm (2.0 - 3.7) AV Cusp: 2.6 cm (1.5 - 2.6) LA Diam: 4.9 cm (2.7 - 3.8) MV EXCURSION: 14.447 mm (> 18.000) MV EF SLOPE: 61 mm/s (70 - 150) EPSS: 1.6 cm MV E Shane: 0.88 m/s MV DecT: 190 ms MV A Shane: 0.39 m/s MV E/A Ratio: 2.23 RAP: 5.00 mmHg RVSP: 14.73 mmHg FINDINGS -------- Undetermined rhythm. This was a techncally difficult study with suboptimal views, , Definity utilized for enhancement of i mages. The left ventricular size is normal. There is moderate concentric left ventricular hypertrophy. O verall left ventricular systolic function is low-normal with, an EF between 50 - 55 %. The right ventricle is normal in size. The left atrial size is normal. LA is midly dilated 29-33ml/m2. The right atrial size is normal. Lumason used There is mild aortic valve sclerosis. There is moderate aortic regurgitation. Mild mitral annular calcification present. Mild mitral regurgitation is present. Mild tricuspid regurgitation present. There is no evidence of pulmonary hypertension. The right v entricular systolic pressure, as measured by Doppler, is 14.73mmHg. There is no pulmonic regurgitation present. The aortic root size is normal. Echo free space indicative of a pericardial fat pad. CONCLUSIONS -------- 1. This was a techncally difficult study with suboptimal views, , Definity utilized for enhancement o f images. 2. The left ventricular size is normal. 3. There is moderate concentric left ventricular hypertrophy. 4. Overall left ventricular systolic function is low-normal with, an EF between 50 - 55 %. 5. The right ventricle is normal in size. 6. The left atrial size is normal. 7. LA is midly dilated 29-33ml/m2. 8. The right atrial size is normal. 9. Lumason used 10. There is mild aortic valve sclerosis. 11. There is moderate aortic regurgitation. 12. Mild mitral annular calcification present. 13. Mild mitral regurgitation is present. 14. Mild tricuspid regurgitation present. 15. There is no evidence of pulmonary hypertension. 16. The right ventricular systolic pressure, as measured by Doppler, is 14.73mmHg. 17. There is no pulmonic regurgitation present. 18. The aortic root size is normal. 19. Echo free space indicative of a pericardial fat pad. RADIO REPAIRER: Andree Nunn RDCS
== END | disposition home or self-care (01) ==
LOC: RADECHMAIN 09:32
PROVIDERS: ATTEND Surgery
DX: Z01.810 Encounter for preprocedural cardiovascular examination (principal); I08.3 Combined rheumatic disorders of mitral, aortic and tricuspid valves
CPT/HCPCS: C8929; Q9950; 93306

== ENCOUNTER → 2017-12-01 | Outpatient (CLI) | payer MEDICARE, OTHER ==
[2017-12-01 09:43] LABS: Appearance,Urine Clear (Clear); Bilirubin,Urine Negative (Negative); Blood,Urine Negative (Negative); Color,Urine Yellow; Glucose,Urine (UA) Negative (Negative); Ketones,Urine Negative (Negative); Leukocyte Esterase,Urine Negative (Negative); Nitrite,Urine Negative (Negative); Protein,Urine Negative (Negative); Specific Gravity,Urine 1.011 (1.001-1.035); Urobilinogen,Urine <2.0 mg/dL (<2.0)
[2017-12-01 10:02] LABS: ALT 32 U/L (21-72); AST 23 U/L (17-59); Albumin 3.7 g/dL (3.5-5.0); Alkaline Phosphatase 51 U/L (38-126); Anion Gap 5 mmol/L; Blood Urea Nitrogen 23 mg/dL (9-20); Calcium 9.3 mg/dL (8.4-10.2); Carbon Dioxide 27 mmol/L (22-30); Chloride 108 mmol/L (98-107); Cholesterol 148 mg/dL (<200); Glucose 85 mg/dL (74-99); HDL Cholesterol 53 mg/dL (40-60); LDL Cholesterol,Calculated 68 mg/dL (0-99); Potassium 4.6 mmol/L (3.5-5.1); Sodium 140 mmol/L (137-145); Total Bilirubin 0.8 mg/dL (0.2-1.3); Total Protein 6.3 g/dL (6.3-8.2); Triglycerides 133 mg/dL (<150)
[2017-12-01 10:06] LABS: HCT 40.5 % (39.0-53.0); HGB 13.5 gm/dL (13.0-17.5); MCH 30.9 pg (25.0-35.0); MCHC 33.4 g/dL (31.0-37.0); MCV 92.6 fL (80.0-100.0); Mean Platelet Volume 7.6; Partial Thromboplastin Time 22.9 sec (22.0-30.0); Platelet Count 177 k/uL (150-450); Prothrombin Time 9.9 sec (9.0-12.0); RBC 4.37 m/uL (4.30-5.90); RDW 13.2 % (11.5-15.5); WBC 5.7 k/uL (3.8-10.6)
--- NOTE | 2017-12-01 12:01 | XR ---
EXAMINATION TYPE: XR chest 2V DATE OF EXAM: 12/01/2017 COMPARISON: CXR from 06/05/2017 HISTORY: Presurgical study. TECHNIQUE: Frontal and lateral views of the chest are obtained. FINDINGS: There is no focal air space opacity, pleural effusion, or pneumothorax seen. The cardiac silhouette size is enlarged. The osseous structures are intact. IMPRESSION: Cardiomegaly without acute pulmonary process.
--- NOTE | 2017-12-01 13:04 | P.PN ---
Progress Note - Text Progress Note Date: 12/01/17 5 meter walk test completed: #1 4.82 sec #2 4.43 sec #3 4.86 sec
[2017-12-01 17:34] LABS: Hepatitis A Antibody IgM Non-Reactive (Non-Reactive); Hepatitis B Core IgM Non-Reactive (Non-Reactive)
[2017-12-01 20:15] LABS: Hemoglobin A1C 5.4 % (4.0-6.0)
--- NOTE | 2017-12-08 10:53 | P.VSCSTY ---
Greater Saphenous Vein Mapping This is bilateral lower extremity greater saphenous vein mapping. Date of service 12/01/2017 Vein quality and ultrasound appearance there was no intraluminal thrombus or wall changes. Please note that there was an area in the right mid thigh that could not be visualized.. Vein size groin right 4.7 x 5.4 groin left 4.1 x 3.8 High thigh right 4.4 x 3.5 high thigh left 2.9 x 3.4 Mid thigh right not visualized mid thigh left 2.4 x 2.9 Above-knee right 2.5 x 3.1 above-knee left 2.0 x 2.5 Below knee right 2.6 x 3.1 below-knee left 2.4 x 2.3 Mid calf right to 2.1 x 2.8 mid calf left 2.4 x 2.1 Ankle right 1.8 x 1.8 ankle left 2.5 x 2.1 Impression usable bilateral greater saphenous vein. Lower areas that may be somewhat small for use as conduit. Also please note there is an area in the mid right thigh that was unable to be visualized and is of questionable use..
== END | disposition home or self-care (01) ==
LOC: LABPAT 08:00
PROVIDERS: ATTEND Surgery
DX: Z01.818 Encounter for other preprocedural examination (principal)
CPT/HCPCS: 36415; 71046; 80053; 80061; 80074; 81003; 83036; 83735; 83880; 84443; 84484; 85027; 85610; 85730; 87070; 87086; 93005; 93970; 94150

== ENCOUNTER 2017-12-07 08:00 | Inpatient (IN) | payer MEDICARE, OTHER ==
[2017-12-09] MEDS ORDERED: MANNITOL 25% 12.5 GM/50 ML VIAL IV ONE (05:00)
[2017-12-09] MEDS ORDERED: ALBUMIN HUMAN 25% 50 ML IV ONE (05:00)
[2017-12-09] MEDS ORDERED: CALCIUM CHLORIDE 100 MG/ML 10 ML SYRINGE IV ONE (05:00)
[2017-12-09] MEDS ORDERED: NITROGLYCERIN SL TABS 0.4 MG TAB SUBLINGUAL ONE (05:00)
[2017-12-09] MEDS ORDERED: TRANEXAMIC ACID 2,000 MG in SODIUM CHLORIDE 0.9% 180 ML IV ONE (05:00)
[2017-12-09] MEDS ORDERED: NITROGLYCERIN-D5W PMX 50 MG in DEXTROSE/WATER 1 250ML.BAG IV ONE (05:00)
[2017-12-09] MEDS ORDERED: LACTATED RINGERS 1,000 ML IV ONE (05:00)
[2017-12-09] MEDS ORDERED: PROPOFOL 1,000 MG/100 ML VIAL IV ONE (05:00)
[2017-12-09] MEDS ORDERED: ceFAZolin 1,000 MG in SODIUM CHLORIDE 0.9% IRRIGATIO 1,000 ML IRRIGATION ONE (05:00)
[2017-12-09] MEDS ORDERED: ceFAZolin 2,000 MG in SODIUM CHLORIDE 0.9% 30 ML IVPB ONE ×4 (05:00)
[2017-12-09] MEDS ORDERED: SODIUM CHLORIDE 0.9% 1,000 ML IV ONE (05:00)
[2017-12-09] MEDS ORDERED: CHLORHEXIDINE GLUCONATE 15 ML CUP MUCOUS MEM ONE (05:00)
[2017-12-09] MEDS ORDERED: INSULIN REGULAR 100 UNIT in SODIUM CHLORIDE 0.9% 100 ML IV ONE (05:00)
[2017-12-09] MEDS ORDERED: PHENYLEPHRINE-0.9% NACL SYG 1 MG/10 ML SYRINGE IV ONE (05:00)
[2017-12-09] MEDS ORDERED: DEXTROSE 5% IN WATER 1,000 ML with POTASSIUM CHLORIDE 25 MEQ, SODIUM CHLORIDE 2.5MEQ/ML... IRRIGATION ONE ×6 (05:00)
[2017-12-09] MEDS ORDERED: METOPROLOL TARTRATE 12.5 MG TAB PO ONE (05:00)
[2017-12-09] MEDS ORDERED: HEPARIN SODIUM,PORCINE 5,000 UNIT in SODIUM CHLORIDE 0.9% 500 ML IV ONE (05:00)
[2017-12-09] MEDS ORDERED: DEXTROSE 5% IN WATER 1,000 ML with POTASSIUM CHLORIDE 110 MEQ, MAGNESIUM SULFATE 16 MEQ... IV ONE ×5 (05:00)
[2017-12-09] MEDS ORDERED: ALBUMIN HUMAN 5% 500 ML IVPB ONE (05:00)
[2017-12-09] MEDS ORDERED: MAGNESIUM SULFATE MG 500 MG/ML VIAL IV ONE (05:00)
[2017-12-09] MEDS ORDERED: NOREPINEPHRINE 4 MG in DEXTROSE 5% IN WATER 250 ML IV ONE ×2 (05:00)
[2017-12-09] MEDS ORDERED: CLEVIDIPINE BUTYRATE 25 MG in EMPTY BAG 1 BAG IV ONE (05:00)
[2017-12-09] MEDS ORDERED: HEPARIN SODIUM 1,000 UN/ML (10ML VL) IV ONE (05:00)
[2017-12-09] MEDS ORDERED: PROTAMINE SULFATE 250 MG in EMPTY BAG 1 BAG IV ONE (05:00)
[2017-12-09] MEDS ORDERED: MUPIROCIN 2% OINT 22 GM TUBE NASAL ONE (05:00)
[2017-12-09] MEDS ORDERED: ATORVASTATIN 10 MG TAB PO ONE (05:00)
[2017-12-09] MEDS ORDERED: PHENYLEPHRINE 40 MG in SODIUM CHLORIDE 0.9% 250 ML IV ONE (05:00)
[2017-12-09] MEDS ORDERED: PROTAMINE SULFATE 10 MG/ML 25 ML VIAL IV ONE ×2 (05:00→07:51)
[2017-12-09] MEDS ORDERED: ASPIRIN 325 MG TAB PO ONE (05:00)
[2017-12-09] MEDS ORDERED: SODIUM BICARB 8.4% 50 ML SYR (1 MEQ/ML) IV ONE (05:00)
[2017-12-09] MEDS ORDERED: NITROGLYCERIN-D5W PMX 25 MG/250 ML BTL IV ONE (05:00)
[2017-12-09] MEDS ORDERED: ePHEDrine SULFATE/0.9% NACL/PF 50 MG/5 ML SYRINGE IV ONE (07:51)
[2017-12-09] MEDS ORDERED: PROPOFOL 10 MG/ML 20 ML VIAL IV ONE (07:51)
[2017-12-09] MEDS ORDERED: TRANEXAMIC ACID 1,000 MG/10 ML VIAL ONE (07:51)
[2017-12-09] MEDS ORDERED: SODIUM CHLORIDE 0.9% IRRIG 1,000 ML BTL IRRIGATION ONE (07:51)
[2017-12-09] MEDS ORDERED: fentaNYL (PF) 50 MCG/ML 2 ML AMP ONE (07:51)
[2017-12-09] MEDS ORDERED: SODIUM CHLORIDE 0.9% 250 ML BAG ONE (07:51)
[2017-12-09] MEDS ORDERED: PHENYLEPHRINE-0.9% NACL SYG 1 MG/10 ML SYRINGE ONE (07:51)
[2017-12-09] MEDS ORDERED: fentaNYL (PF) 50 MCG/ML 50 ML VIAL ONE (07:51)
[2017-12-09] MEDS ORDERED: VECURONIUM 10 MG VIAL IV ONE (07:51)
[2017-12-09] MEDS ORDERED: CALCIUM CHLORIDE 100 MG/ML 10 ML SYRINGE ONE (07:51)
[2017-12-09] MEDS ORDERED: LIDOCAINE 2% SYG (PF) 100 MG/5 ML ONE (07:51)
[2017-12-09] MEDS ORDERED: ELECTROLYTE-R (PH 7.4) 1,000 ML IV.SOLN IV ONE (07:51)
[2017-12-09] MEDS ORDERED: MAGNESIUM SULFATE 4 MEQ/ML 2 ML VIAL ONE (07:51)
[2017-12-09] MEDS ORDERED: MIDAZOLAM 2 MG/2 ML VIAL ONE (07:51)
[2017-12-09 08:42] LABS: ABG Base Excess -1.5 mmol/L; ABG HCO3 24 mmol/L (21-25); ABG PCO2 41 mmHg (35-45); ABG PH 7.37 (7.35-7.45); ABG PO2 101 mmHg (83-108); ABG Potassium Whole Blood 4.1 mmol/L (3.4-4.5); ABG Sodium Whole Blood 141 mmol/L (135-146); ABG TCO2 25 mmol/L (19-24)
[2017-12-09 09:50] LABS: ABG Base Excess -1.9 mmol/L; ABG HCO3 24 mmol/L (21-25); ABG Oxygen Saturation 99.4 % (94-97); ABG PCO2 45 mmHg (35-45); ABG PH 7.33 (7.35-7.45); ABG PO2 180 mmHg (83-108); ABG Potassium Whole Blood 4.3 mmol/L (3.4-4.5); ABG Sodium Whole Blood 141 mmol/L (135-146); ABG TCO2 26 mmol/L (19-24)
[2017-12-09 10:27] LABS: ABG Base Excess -2.3 mmol/L; ABG HCO3 23 mmol/L (21-25); ABG PCO2 42 mmHg (35-45); ABG PH 7.35 (7.35-7.45); ABG PO2 398 mmHg (83-108); ABG Potassium Whole Blood 4.8 mmol/L (3.4-4.5); ABG Sodium Whole Blood 136 mmol/L (135-146); ABG TCO2 24 mmol/L (19-24)
[2017-12-09 10:59] LABS: ABG Base Excess 0.5 mmol/L; ABG HCO3 26 mmol/L (21-25); ABG PCO2 46 mmHg (35-45); ABG PH 7.36 (7.35-7.45); ABG PO2 325 mmHg (83-108); ABG Potassium Whole Blood 5.3 mmol/L (3.4-4.5); ABG Sodium Whole Blood 137 mmol/L (135-146); ABG TCO2 28 mmol/L (19-24)
[2017-12-09 11:26] LABS: ABG Base Excess -2.2 mmol/L; ABG HCO3 24 mmol/L (21-25); ABG Oxygen Saturation 99.9 % (94-97); ABG PCO2 45 mmHg (35-45); ABG PH 7.33 (7.35-7.45); ABG PO2 275 mmHg (83-108); ABG Potassium Whole Blood 4.9 mmol/L (3.4-4.5); ABG Sodium Whole Blood 138 mmol/L (135-146); ABG TCO2 25 mmol/L (19-24)
[2017-12-09 12:17] LABS: ABG Base Excess -2.8 mmol/L; ABG HCO3 24 mmol/L (21-25); ABG Oxygen Saturation 94.9 % (94-97); ABG PCO2 51 mmHg (35-45); ABG PH 7.28 (7.35-7.45); ABG PO2 82 mmHg (83-108); ABG Potassium Whole Blood 3.8 mmol/L (3.4-4.5); ABG Sodium Whole Blood 141 mmol/L (135-146); ABG TCO2 26 mmol/L (19-24)
[2017-12-09] MEDS ORDERED: DEXTROSE 5% IN WATER 100 ML with AMIODARONE 150 MG IV PRN (12:55)
[2017-12-09] MEDS ORDERED: INSULIN REGULAR 100 UNIT in SODIUM CHLORIDE 0.9% 100 ML IV SCH (12:55)
[2017-12-09] MEDS ORDERED: Potassium Replacement Protocol 1 EACH MISC MISCELLANE PRN (12:55)
[2017-12-09] MEDS ORDERED: IPRATROPIUM-ALBUTEROL 3 ML NEB INHALATION PRN (12:55)
[2017-12-09] MEDS ORDERED: CALCIUM CHLORIDE 1,000 MG in SODIUM CHLORIDE 0.9% 100 ML IV PRN (12:55)
[2017-12-09] MEDS ORDERED: PROPOFOL 1,000 MG in EMPTY BAG 1 BAG IV SCH (12:55)
[2017-12-09] MEDS ORDERED: METOCLOPRAMIDE 5 MG/ML 2 ML VIAL IVP PRN (12:55)
[2017-12-09] MEDS ORDERED: Phosphorus Replacement Protoco 1 EACH MISC MISCELLANE PRN (12:55)
[2017-12-09] MEDS ORDERED: NITROGLYCERIN-D5W PMX 50 MG in DEXTROSE/WATER 1 250ML.BAG IV SCH (12:55)
[2017-12-09] MEDS ORDERED: ONDANSETRON 4 MG/2 ML VIAL IVP PRN (12:55)
[2017-12-09] MEDS ORDERED: Magnesium Replacement Protocol 1 EACH MISC MISCELLANE PRN (12:55)
[2017-12-09 13:34] LABS: Glucose,Whole Blood 97 mg/dL (75-99)
[2017-12-09 13:44] LABS: Basophils % (A) 0 %; Eosinophils # (A) 0.1 k/uL (0-0.7); Eosinophils % (A) 1 %; Lymphocytes % (A) 14 %; MCH 31.6 pg (25.0-35.0); MCHC 33.9 g/dL (31.0-37.0); MCV 93.3 fL (80.0-100.0); Mean Platelet Volume 7.4; Monocytes # (A) 0.5 k/uL (0-1.0); Monocytes % (A) 6 %; Neutrophils # (A) 5.6 k/uL (1.3-7.7); Neutrophils % (A) 77 %; Platelet Count 117 k/uL (150-450); RBC 3.21 m/uL (4.30-5.90); RDW 13.7 % (11.5-15.5); WBC 7.2 k/uL (3.8-10.6)
[2017-12-09 13:52] LABS: HGB 10.2 gm/dL (13.0-17.5)
[2017-12-09 13:56] LABS: INR 1.2 (<1.2); Ionized Calcium 5.1 mg/dL (4.5-5.3); Partial Thromboplastin Time 26.3 sec (22.0-30.0); Prothrombin Time 11.4 sec (9.0-12.0)
[2017-12-09 14:03] LABS: ABG Base Excess -2.2 mmol/L; ABG HCO3 24 mmol/L (21-25); ABG PCO2 43 mmHg (35-45); ABG PH 7.34 (7.35-7.45); ABG PO2 188 mmHg (83-108); ABG TCO2 25 mmol/L (19-24)
[2017-12-09 14:05] LABS: ALT 32 U/L (21-72); AST 34 U/L (17-59); Albumin 2.5 g/dL (3.5-5.0); Alkaline Phosphatase 28 U/L (38-126); Anion Gap 4 mmol/L; Blood Urea Nitrogen 14 mg/dL (9-20); Calcium 7.8 mg/dL (8.4-10.2); Carbon Dioxide 25 mmol/L (22-30); Chloride 111 mmol/L (98-107); Glucose 97 mg/dL (74-99); Magnesium 2.5 mg/dL (1.6-2.3); Potassium 4.4 mmol/L (3.5-5.1); Sodium 140 mmol/L (137-145); Total Bilirubin 0.7 mg/dL (0.2-1.3); Total Protein 4.4 g/dL (6.3-8.2)
[2017-12-09 14:05] LABS: Glucose,Whole Blood 114 mg/dL (75-99)
[2017-12-09] MEDS: MORPHINE SULFATE 2 MG/ML SYRINGE IVP PRN ×4 (14:18→20:35)
[2017-12-09] MEDS: LACTATED RINGERS 1,000 ML IV SCH (14:28)
[2017-12-09] MEDS: ALBUMIN HUMAN 5% 250 ML in EMPTY BAG 1 BAG IVPB PRN ×2 (14:32→15:12)
--- NOTE | 2017-12-09 14:50 | XR ---
EXAMINATION TYPE: XR chest 1V portable DATE OF EXAM: 12/09/2017 COMPARISON: 12/01/2017 INDICATION: Postop cardiac surgery TECHNIQUE: Single frontal view of the chest is obtained. FINDINGS: The heart size is normal. The pulmonary vasculature is normal. Mild left perihilar infiltrate may be present. Endotracheal tube is present with the tip above the jc. Nasogastric tube transverses the thorax. Mediastinal tube is present. Dundee-Carlos catheter is present with the tip in the region of the main pul monary artery IMPRESSION: 1. Lines and catheters discussed above.
[2017-12-09] MEDS: CLEVIDIPINE BUTYRATE 25 MG in EMPTY BAG 1 BAG IV SCH (15:15)
[2017-12-09 15:16] LABS: Glucose,Whole Blood 137 mg/dL (75-99)
[2017-12-09] MEDS: ceFAZolin IN SWFI 2 GM/20 ML SYRINGE IVP SCH (15:45)
[2017-12-09] MEDS ORDERED: IPRATROPIUM-ALBUTEROL 3 ML NEB INHALATION SCH (16:00)
--- NOTE | 2017-12-09 16:06 | P.CNPUL ---
History of Present Illness Consult date: 12/09/17 Requesting physician: Dl Smith Reason for consult: other Chief complaint: Aortic valve insufficiency, status post aortic valve replacement History of present illness: Mr. Hernandez is a 77-year-old patient of Dr. Davenport, who underwent aortic valve replacement with exclusion of left atrial appendage today, on 12/09/[address] Farris, for a diagnosis of severe aortic valve insufficiency. Past medical history includes hypertension, dyslipidemia, GERD, ulcer arthritis, BPH, gout, nonsustained V. tach, asymptomatic bilateral carotid artery stenosis, remote history of smoking, and non-rheumatologic aortic valve insufficiency. Patient has had episodes of dizziness, fatigue, and progressive shortness of breath with exertion. Stress test on 07/01/2017 showed no definite ECG evidence of ischemia, the patient did have an episode of nonsustained V. tach after the procedure. Patient had an elective heart catheterization for his persisting symptoms, and on 10/14/2017, patient had a heart cath which showed nonocclusive coronary arteries, and 4+ aortic valve regurgitation, LV vent true Q low Juan Carlos showed an EF of 55%. Patient was recommended aortic valve replacement, and the patient opted for the procedure. Today worsening the patient postop after his surgery, sedated on mechanical ventilation, current vent settings SIMV mode with a rate of 12, tidal volume of 600, FiO2 of 100% and PEEP of 10. Postop blood gases showed pO2 of 188, pCO2 43, and pH of 7.34, and we recommended to decrease the FiO2 down to 60%, and subsequently down to 50%. Patient is sinus rhythm on the monitor, with a rate of 65 BPM, he has a atrioventricular epicardial wires in place connected to an external pacemaker, with a backup rate of VVI 40 BPM. Hemodynamically stable, blood pressure is 110/58, PA pressures 41/20, with a CVP of 14, cardiac outputs in index, is 6.1 and 2.6 respectively. Patient has a mediastinal chest tube, with sanguinous output, and there has been a total of 250 of sanguious output since OR exit time at 1319 p.m. patient was given 750 ML of Cell Saver, 2 L of lactated Ringer's, and 250 mL of albumin. Patient was given additional 500 mL of 5% albumin in the intensive care. His current maintenance IV is LR at a rate of 50 ML per hour, Diprivan is a 45 mics per kilo per minute, nitroglycerin is at 5 mics per minute , insulin is on hold, and clevidipine is currently on hold. Postop blood work showed WBC of 7.2, hemoglobin of 10.2, INR is 1.2, sodium is 140, potassium is 4.4, chloride is 111, BUN is 14, creatinine 0.72. Postop chest x-ray was reviewed by Dr. Mahmood, and shows endotracheal tube with the tip of above the jc, the heart size is normal, pulmonary mass culture is normal. Indwelling catheter is in place, and patient is nonoliguric. Review of Systems Patient is sedated on mechanical ventilation, review of systems obtained from chart All systems: negative Constitutional: Denies chills, Denies fever Eyes: denies blurred vision, denies pain Ears, nose, mouth and throat: Denies headache, Denies sore throat Cardiovascular: Reports dyspnea on exertion, Denies chest pain, Denies shortness of breath Respiratory: Denies cough Gastrointestinal: Denies abdominal pain, Denies diarrhea, Denies nausea, Denies vomiting Musculoskeletal: Denies myalgias Integumentary: Denies pruritus, Denies rash Neurological: Denies numbness, Denies weakness Psychiatric: Denies anxiety, Denies depression Endocrine: Denies fatigue, Denies weight change Past Medical History Past Medical History: GERD/Reflux, Hyperlipidemia, Hypertension, Osteoarthritis (OA), Prostate Disorder Additional Past Medical History / Comment(s): hx. gout, occasional SOB w/ exertion,sciatica, left leg numb/tingling-supposed to have MRI History of Any Multi-Drug Resistant Organisms: None Reported Past Surgical History: Heart Catheterization, Orthopedic Surgery, Prostate Surgery, Tonsillectomy Additional Past Surgical History / Comment(s): scopes bilat knees, TURP Past Anesthesia/Blood Transfusion Reactions: No Reported Reaction Smoking Status: Former smoker - Past Family History Father Family Medical History: Asthma, Pneumonia Additional Family Medical History / Comment(s): ARTHRITIS Mother Additional Family Medical History / Comment(s): BRAIN ANEURYSM Medications and Allergies Home Medications Medication Instructions Recorded Confirmed Type Ranitidine HCl 150 mg PO BID 11/23/15 12/09/17 History Tamsulosin [Flomax] 0.4 mg PO HS 11/23/15 12/09/17 History Allopurinol [Zyloprim] 100 mg PO DAILY 11/24/15 12/09/17 History Atorvastatin [Lipitor] 20 mg PO QAM 11/24/15 12/09/17 History Celecoxib [CeleBREX] 200 mg PO QAM 11/24/15 12/09/17 History Finasteride [Proscar] 5 mg PO QAM 11/24/15 12/09/17 History Fluticasone Propionate 1 - 2 sprays EA NOSTRIL DAILY PRN 11/24/15 12/09/17 History Losartan Potassium 50 mg PO HS 06/04/17 12/09/17 History metroNIDAZOLE 0.75% CREAM 1 applic TOPICAL HS PRN 06/05/17 12/09/17 History [Metrocream] Albuterol Sulfate [Proair Hfa] 2 puff INHALATION RT-Q6H PRN 10/07/17 12/09/17 History Allergies Allergy/AdvReac Type Severity Reaction Status Date / Time No Known Allergies Allergy Verified 12/09/17 14:20 Physical Exam Vitals: Vital Signs Temp Pulse Pulse Pulse Resp BP BP 12/09/17 15:28 62 12/09/17 15:01 66 12/09/17 15:00 72 12 12/09/17 14:30 62 12 12/09/17 14:15 63 12 12/09/17 14:00 66 12 12/09/17 13:45 65 12 12/09/17 13:30 96.4 F L 64 12 12/09/17 13:25 69 12/09/17 12:55 12/09/17 06:08 98.0 F 63 62 16 182/76 177/75 Pulse Ox 12/09/17 15:28 12/09/17 15:01 12/09/17 15:00 99 12/09/17 14:30 100 12/09/17 14:15 100 12/09/17 14:00 97 12/09/17 13:45 12/09/17 13:30 97 12/09/17 13:25 12/09/17 12:55 100 12/09/17 06:08 97 Intake and Output 12/09/17 12/09/17 12/09/17 06:59 14:59 22:59 Intake Total 107 50 Output Total 3660 290 Balance -3553 -240 Intake: IV 107 50 Lactated Ringers 1,000 ml 75 50 @ 50 mls/hr IV .Q20H [facility] Rx#:[id number] Output: Chest Tube Drainage 75 115 Mediastinal 75 115 Urine 1085 175 Estimated Blood Loss 2500 Other: Weight 111.7 kg ABP, PAP, CO, CI - Last 8 Hours Arterial Blood Pressure 110/58 Arterial Blood Pressure 108/59 Arterial Blood Pressure 117/61 Arterial Blood Pressure 134/66 Arterial Blood Pressure 143/73 Pulmonary Artery Pressure 41/20 Pulmonary Artery Pressure 38/19 Pulmonary Artery Pressure 36/18 Pulmonary Artery Pressure 36/18 Pulmonary Artery Pressure 39/20 Pulmonary Artery Pressure 46/25 Cardiac Output 6.1 Cardiac Output 6.8 Cardiac Output 6.8 Cardiac Output 6 Cardiac Output 6 Cardiac Output 6 Cardiac Index 2.6 Cardiac Index 2.9 Cardiac Index 2.6 GENERAL EXAM: Sedated, intubated, on mechanical ventilator, calm and comfortable comfortable in no apparent distress. HEAD: Normocephalic/atraumatic. EYES: Normal reaction of pupils, equal size. Conjunctiva pink, sclera white. NOSE: Clear with pink turbinates. THROAT: No erythema or exudates. NECK: No masses, no JVD, no thyroid enlargement, no adenopathy. CHEST: No chest wall deformity. Symmetrical expansion. Midsternal incision is clean dry and intact, covered with a surgical dressing, mediastinal chest tube site is clean dry and intact, atrioventricular epicardial wires are connected to an external pacemaker, with a backup rate of VVI 40 BPM. Adal rate is sinus rhythm with a rate of 65 BPM. Mediastinal chest tube is draining sanguinous drainage, there is a total of 200 and the 50th seeing this drainage in the collection chamber, and it is connected to wall suction LUNGS: Equal air entry with no crackles, wheeze, rhonchi or dullness. CVS: Regular rate and rhythm, normal S1 and S2, no gallops, no murmurs, no rubs ABDOMEN: Soft, nontender. No hepatosplenomegaly, normal bowel sounds, no guarding or rigidity. EXTREMITIES: No clubbing, no edema, no cyanosis, 2+ pulses and upper and lower extremities. MUSCULOSKELETAL: Muscle strength and tone normal. SPINE: No scoliosis or deformity SKIN: No rashes CENTRAL NERVOUS SYSTEM: Sedated. No focal deficits, tone is normal in all 4 extremities. PSYCHIATRIC: Sedated. Results - Laboratory Findings CBC and BMP: 12/09/17 13:30 12/09/17 13:30 ABG ABG pH 7.34 (7.35-7.45) L 12/09/17 13:56 ABG pCO2 43 mmHg (35-45) 12/09/17 13:56 ABG pO2 188 mmHg (83-108) H 12/09/17 13:56 ABG O2 Saturation 100.0 % (94-97) H 12/09/17 13:56 PT/INR, D-dimer PT 11.4 sec (9.0-12.0) 12/09/17 13:30 INR 1.2 (<1.2) H 12/09/17 13:30 Abnormal lab findings: Abnormal Labs 12/01/17 12/09/17 12/09/17 08:31 08:44 09:52 RBC Hgb Hct Plt Count INR ABG pH 7.33 L ABG pCO2 ABG pO2 180 H ABG HCO3 ABG Total CO2 25 H 26 H ABG O2 Saturation 98.0 H 99.4 H ABG Hematocrit ABG Potassium ABG Ionized Calcium ABG Glucose 103 H ABG Lactic Acid Hemoglobin 11.5 L 11.4 L Chloride POC Glucose (mg/dL) Calcium Magnesium Alkaline Phosphatase Total Protein Albumin Arterial Blood Potassium Arterial Blood Glucose 103 H Crossmatch See Detail 12/09/17 12/09/17 12/09/17 10:29 11:01 11:01 RBC Hgb Hct Plt Count INR ABG pH 7.33 L ABG pCO2 46 H ABG pO2 398 H 325 H 275 H ABG HCO3 26 H ABG Total CO2 28 H 25 H ABG O2 Saturation 100.0 H 100.0 H 99.9 H ABG Hematocrit 27 L 27 L 27 L ABG Potassium 4.8 H 5.3 H 4.9 H ABG Ionized Calcium 4.3 L 4.3 L 4.4 L ABG Glucose 160 H 188 H 161 H ABG Lactic Acid 2.0 H Hemoglobin 8.7 L 8.7 L 8.8 L Chloride POC Glucose (mg/dL) Calcium Magnesium Alkaline Phosphatase Total Protein Albumin Arterial Blood Potassium 4.8 H 5.3 H 4.9 H Arterial Blood Glucose 160 H 188 H 161 H Crossmatch 12/09/17 12/09/17 12/09/17 11:28 13:30 13:30 RBC 3.21 L Hgb 10.2 L D Hct 30.0 L Plt Count 117 L INR ABG pH 7.28 L ABG pCO2 51 H ABG pO2 82 L ABG HCO3 ABG Total CO2 26 H ABG O2 Saturation ABG Hematocrit 30 L ABG Potassium ABG Ionized Calcium ABG Glucose 117 H ABG Lactic Acid Hemoglobin 9.9 L Chloride 111 H POC Glucose (mg/dL) Calcium 7.8 L Magnesium 2.5 H Alkaline Phosphatase 28 L Total Protein 4.4 L Albumin 2.5 L Arterial Blood Potassium Arterial Blood Glucose 117 H Crossmatch 12/09/17 12/09/17 12/09/17 13:30 13:56 14:04 RBC Hgb Hct Plt Count INR 1.2 H ABG pH 7.34 L ABG pCO2 ABG pO2 188 H ABG HCO3 ABG Total CO2 25 H ABG O2 Saturation 100.0 H ABG Hematocrit ABG Potassium ABG Ionized Calcium ABG Glucose ABG Lactic Acid Hemoglobin Chloride POC Glucose (mg/dL) 114 H Calcium Magnesium Alkaline Phosphatase Total Protein Albumin Arterial Blood Potassium Arterial Blood Glucose Crossmatch 12/09/17 15:09 RBC Hgb Hct Plt Count INR ABG pH ABG pCO2 ABG pO2 ABG HCO3 ABG Total CO2 ABG O2 Saturation ABG Hematocrit ABG Potassium ABG Ionized Calcium ABG Glucose ABG Lactic Acid Hemoglobin Chloride POC Glucose (mg/dL) 137 H Calcium Magnesium Alkaline Phosphatase Total Protein Albumin Arterial Blood Potassium Arterial Blood Glucose Crossmatch - Diagnostic Findings Chest x-ray: report reviewed, image reviewed Assessment and Plan Plan: Assessment: #1. Severe aortic valve insufficiency, status post bioprosthetic aortic valve replacement, with exclusion of left atrial appendage, and intraoperative ODETTE with bilateral pulmonary vein isolation, we'll stop the 0 #2. Routine postoperative ventilator management #3. Essential hypertension #4. Hyperlipidemia #5. Remote history of smoking, preop bedside spirometry showed normal lung function, with FEV1 of 3.14 L or 94% of predicted #6. GERD/reflux #7. Benign prostatic hyperplasia #8. Osteoarthritis Plan: Continue weaning FiO2 to keep O2 sat at 92-94%, his PEEP remains at 10 for increased chest tube output, which is now tapering down, otherwise patient remains stable, we'll proceed with the spontaneous breathing trial once the patient is awake, and following commands. Continue nebulized bronchodilators, incentive spirometry after extubation. Deep breathing coughing. Continue close hemodynamic monitoring, urine output, chest tube output, repeat CBC, and BMP per CT surgery protocol, and daily. Daily chest x-rays. I performed a history & physical examination of the patient and discussed their management with my nurse practitioner, Amaris Rangel. I reviewed the nurse practitioner's note and agree with the documented findings and plan of care. Lung sounds are clear. The findings and the impression was discussed with the patient. I attest to the documentation by the nurse practitioner. Time with Patient: Greater than 30
[2017-12-09 16:13] LABS: Glucose,Whole Blood 133 mg/dL (75-99)
[2017-12-09] MEDS ORDERED: ALBUMIN HUMAN 5% 250 ML IVPB ONE (16:17)
[2017-12-09 16:20] LABS: Basophils % (A) 0 %; Eosinophils % (A) 0 %; HCT 27.7 % (39.0-53.0); HGB 9.4 gm/dL (13.0-17.5); Lymphocytes # (A) 0.4 k/uL (1.0-4.8); Lymphocytes % (A) 8 %; MCH 31.1 pg (25.0-35.0); MCV 91.4 fL (80.0-100.0); Mean Platelet Volume 9.9; Monocytes # (A) 0.4 k/uL (0-1.0); Monocytes % (A) 8 %; Neutrophils # (A) 4.5 k/uL (1.3-7.7); Neutrophils % (A) 83 %; Platelet Count 100 k/uL (150-450); RBC 3.03 m/uL (4.30-5.90); RDW 13.4 % (11.5-15.5); WBC 5.5 k/uL (3.8-10.6)
--- NOTE | 2017-12-09 16:43 | OP ---
OPERATIVE REPORT DATE OF THE SURGERY: 12/09/2017. SURGEON: Dr. Smith. HIGHWAY PAINTER HELPER: Phan Hamilton Nurse practitioner and Massimo ARELLANO. PREOPERATIVE DIAGNOSES: 1. Severe aortic valve regurgitation. 2. Mild left ventricular dysfunction. 3. Supraventricular tachycardia. 4. Obesity. 5. Hypertension. 6. Hyperlipidemia. POSTOPERATIVE DIAGNOSES: 1. Severe aortic valve regurgitation. 2. Mild left ventricular dysfunction. 3. Supraventricular tachycardia. 4. Obesity. 5. Hypertension. 6. Hyperlipidemia. PROCEDURE: 1. Aortic valve replacement using a 27 mm Inspiris Bovine bioprosthesis. 2. Exclusion of the left atrial appendage using a 45 mm AtriClip. 3. Partial sternal plating. 4. Intraoperative transesophageal echocardiogram and epiaortic scanning. INDICATION FOR SURGERY: The patient is a 77-year-old gentleman of Dr. Young who is known to have severe aortic valve regurgitation and has been followed. The patient failed the stress test as his effort was suboptimal. He underwent a ODETTE that confirmed severe aortic valve regurgitation. There was mild mitral valve regurgitation. His cardiac catheterization had showed normal coronaries and a mildly dilated ascending aorta. A devoted CT chest showed mild dilatation of the root at 4.2 cm and normal size ascending aorta. The patient is brought in today for aortic valve replacement using bioprosthesis. The SDS risk was discussed with him. He understood it and agreed to proceed. DESCRIPTION OF THE PROCEDURE: The patient in supine position. The right internal jugular Erie-Carlos catheter and right radial arterial line were placed in the preoperative holding area. Subsequently, he was brought to the operating room. Normal PA pressure and good cardiac index. General endotracheal anesthesia was induced uneventfully. A Trinidad catheter was inserted. The chest, abdomen and both lower extremities were prepped and draped using ChloraPrep. Ioban was used to cover the skin. Patient received 2 g of cefazolin intravenously. Transesophageal echocardiogram confirmed the preoperative finding with severe aortic valve regurgitation and mild mitral valve regurgitation with mild left ventricular dysfunction. Midline sternotomy was performed and no bone wax was used. Both pleura remained intact. Mediastinal fat was transected between 2 ties and epiaortic scanning revealed concentric intimal thickening but no protruding atheroma in the ascending aorta. Pericardium was opened in an inverted T-fashion and a pericardial cradle was created. Findings included an enlarged heart, short soft aorta of normal size. The root was mildly dilated once the aorta was opened subsequently, in the case. After systemic heparinization after placement of respective pledgeted pursestring, aortic cannulation with a 21-Citizen [place] soft flow cannula, venous cannulation via the right atrial appendage with a dual stage cannula was performed. Antegrade as well as retrograde cardioplegia catheter were placed. Cardiopulmonary bypass was initiated and patient temperature was allowed to drift down to 34 degrees Celsius. During 75 mm of aortic clamping myocardial protection was achieved at an initial dose of 1.5 L of combined antegrade and retrograde cardioplegia with adequate arrest at 500 mL in view of his severe aortic valve regurgitation. All subsequent doses were given retrograde at 15 minute interval. The last dose was 1 L of warmed blood via the retrograde route. We started by clipping the left atrial appendage using a 45 mm AtriClip. The aorta was opened in a hockey-stick fashion and inspection revealed a trileaflet floppy aortic valve. There was mild dilatation of the root. There was some shrinking of the right coronary cusp. Both coronary ostia were normal position. The valve was excised and it was sized to a 27 mm bovine Inspiris prosthesis which was selected and prepared on the back table. We passed a total of 18 sutures of pledgeted 2-0 Tycron with pledgets on the ventricular side all along the aortic anulus. Those were passed, respectively and symmetrically into the valve cuff which was seated nicely in a supra-annular position. All the needles were cut and the suture tied using the core knot device. Both coronary ostia were clear. The valve appeared to be sitting in a good position. Thorough irrigation was performed. Rewarming was started as we closed the aortotomy using Prolene 4-0 pledgeted on each corner and in 2 layers, the 1st layer in a horizontal mattress and the 2nd layer in an [id number] technique. CO2 was flowing over the field as long as the aorta was open. Warm blood was given at this point. The patient was given lidocaine and magnesium and de-airing maneuvers were followed before unclamping the aorta. I reinforced the aortotomy with Coseal. After a period of reperfusion, we were able to wean off the coronary bypass without the need of any inotropic support. ODETTE showed normal functioning aortic valve with no paravalvular leak and very minimal gradient. De-airing was adequate. Test was then full dose protamine was given. The retrograde cannulation site and the right atrial appendage venous cannulation site needed to be reinforced as the tissue were friable. Two monopolar atrial pace wires were affixed to the Specter purse string of the right atrium and 1 bipolar ventricular pacing wires was driven via the inferior aspect of the right ventricle. 136 Citizen [place] chest tube was placed substernally. The pericardial fat was approximated over the heart and over the aorta. After ensuring adequate hemostasis and hemodynamics and after correct sponge, instrument, and needle count, the sternum was closed using 5 [id number] Pionneer cable reinforced by 2 V shaped plates ([employer]), one at the level of the manubrium and one at the level of the mid sternal body. Thorough irrigation of cefazolin followed. The rest of the closure proceeded in layers. Skin glue was applied. Patient did not receive any blood bank product but received 700 mL of Cell Saver blood. He was sent to the ICU in normal sinus rhythm, excellent hemodynamics on no drips. MMODL / IJN: [id number] / WILFRID
[2017-12-09] MEDS ORDERED: KETOROLAC 30 MG/ML 1 ML VIAL IVP STA (16:50)
[2017-12-09 17:10] LABS: Glucose,Whole Blood 135 mg/dL (75-99)
[2017-12-09] MEDS: ACETAMINOPHEN IV (For NPO) 1,000 MG in EMPTY BAG 1 BAG IVPB SCH (17:16)
[2017-12-09 18:09] LABS: Glucose,Whole Blood 131 mg/dL (75-99)
[2017-12-09 18:19] LABS: ABG Base Excess -1.4 mmol/L; ABG HCO3 23 mmol/L (21-25); ABG Oxygen Saturation 98.9 % (94-97); ABG PCO2 34 mmHg (35-45); ABG PH 7.44 (7.35-7.45); ABG PO2 117 mmHg (83-108); ABG TCO2 24 mmol/L (19-24)
--- NOTE | 2017-12-09 18:31 | P.PN ---
Progress Note - Text Procedure performed: Transesophageal echocardiography Indication for the procedure: Aortic valve replacement surgery, ischemia monitoring, assessment of valvular function, intracardiac air monitoring, assessment of regional wall motion abnormalities and hemodynamic monitoring. Probe insertion: Under general anesthesia, uneventful. Pre-bypass findings: Left ventricle is moderately hypertrophied and LV ejection fraction is approximately 55 - 60%. No regional wall motion abnormalities observed. Left atrium Normal in size. No thrombus seen in the appendage. Right atrium normal in size. No patent foramen ovale or ASD seen. Right ventricle normal in structure and function. Aortic while appears to be sclerotic. There is moderate to severe aortic regurgitation seen. The right coronary cusp appears to be fibrosed. Mitral valve normal in anatomy and mild calcification seen.. Mild mitral regurgitation seen. Trivial tricuspid regurgitation seen. Pulmonic valve appears to be normal. Descending aorta grade 2 atheroma seen. No pericardial effusion noted. Post-bypass findings: There is a new bioprosthetic valve in the aortic position. No paravalvular leak noted. The valve seems to be seated well and gradient across the prostatic valve is 5 mmHg (mean). LV ejection fraction is 55-60%. No new regional wall motion abnormalities seen. Rest of the examination is same as pre -bypass.
[2017-12-09 19:33] LABS: Glucose,Whole Blood 148 mg/dL (75-99)
[2017-12-09] MEDS: IPRATROPIUM-ALBUTEROL 3 ML NEB INHALATION SCH ×2 (19:37)
[2017-12-09 19:57] LABS: Basophils % (A) 0 %; Eosinophils % (A) 0 %; HCT 26.8 % (39.0-53.0); HGB 9.3 gm/dL (13.0-17.5); Lymphocytes # (A) 0.4 k/uL (1.0-4.8); Lymphocytes % (A) 7 %; MCHC 34.7 g/dL (31.0-37.0); MCV 92.2 fL (80.0-100.0); Mean Platelet Volume 7.8; Monocytes # (A) 0.4 k/uL (0-1.0); Monocytes % (A) 6 %; Neutrophils # (A) 4.8 k/uL (1.3-7.7); Neutrophils % (A) 85 %; Platelet Count 114 k/uL (150-450); RBC 2.91 m/uL (4.30-5.90); RDW 13.8 % (11.5-15.5); WBC 5.6 k/uL (3.8-10.6)
[2017-12-09] MEDS: MUPIROCIN 2% OINT 22 GM TUBE NASAL SCH (20:07)
[2017-12-09 20:53] LABS: Glucose,Whole Blood 138 mg/dL (75-99)
[2017-12-09] MEDS ORDERED: HEPARIN SODIUM,PORCINE 5,000 UNIT/ML 1 ML VIAL ONE (23:00)
[2017-12-09 23:09] LABS: Glucose,Whole Blood 134 mg/dL (75-99)
[2017-12-09 23:09] LABS: Glucose,Whole Blood 137 mg/dL (75-99)
[2017-12-10 03:44] LABS: Glucose,Whole Blood 137 mg/dL (75-99)
[2017-12-10 03:44] LABS: Glucose,Whole Blood 135 mg/dL (75-99)
[2017-12-10 03:44] LABS: Glucose,Whole Blood 138 mg/dL (75-99)
[2017-12-10 03:56] LABS: Glucose,Whole Blood 133 mg/dL (75-99)
[2017-12-10] MEDS ORDERED: ALBUMIN HUMAN 5% 250 ML IVPB ONE (04:04)
[2017-12-10 04:54] LABS: Basophils % (A) 0 %; Eosinophils % (A) 0 %; HCT 25.3 % (39.0-53.0); HGB 8.7 gm/dL (13.0-17.5); Lymphocytes # (A) 0.5 k/uL (1.0-4.8); Lymphocytes % (A) 9 %; MCH 31.5 pg (25.0-35.0); MCHC 34.3 g/dL (31.0-37.0); MCV 91.8 fL (80.0-100.0); Mean Platelet Volume 8.1; Monocytes # (A) 0.5 k/uL (0-1.0); Monocytes % (A) 10 %; Neutrophils # (A) 4.5 k/uL (1.3-7.7); Neutrophils % (A) 79 %; Platelet Count 104 k/uL (150-450); RBC 2.76 m/uL (4.30-5.90); RDW 13.9 % (11.5-15.5); WBC 5.7 k/uL (3.8-10.6)
[2017-12-10] MEDS ORDERED: ALBUMIN HUMAN 5% 250 ML in EMPTY BAG 1 BAG IVPB ONE ×2 (05:00→08:27)
[2017-12-10 05:17] LABS: Ionized Calcium 4.9 mg/dL (4.5-5.3)
[2017-12-10 05:24] LABS: Glucose,Whole Blood 132 mg/dL (75-99)
[2017-12-10 05:49] LABS: INR 1.1 (<1.2); Partial Thromboplastin Time 25.8 sec (22.0-30.0); Prothrombin Time 10.7 sec (9.0-12.0)
[2017-12-10 05:50] LABS: ALT 30 U/L (21-72); AST 39 U/L (17-59); Albumin 2.9 g/dL (3.5-5.0); Alkaline Phosphatase 26 U/L (38-126); Anion Gap 6 mmol/L; Blood Urea Nitrogen 17 mg/dL (9-20); Calcium 8.1 mg/dL (8.4-10.2); Carbon Dioxide 24 mmol/L (22-30); Chloride 108 mmol/L (98-107); Glucose 112 mg/dL (74-99); Magnesium 2.2 mg/dL (1.6-2.3); Potassium 4.3 mmol/L (3.5-5.1); Sodium 138 mmol/L (137-145); Total Bilirubin 0.9 mg/dL (0.2-1.3); Total Protein 4.7 g/dL (6.3-8.2)
[2017-12-10] MEDS: ACETAMINOPHEN IV (For NPO) 1,000 MG in EMPTY BAG 1 BAG IVPB SCH ×4 (06:18→19:03)
[2017-12-10] MEDS: ceFAZolin IN SWFI 2 GM/20 ML SYRINGE IVP SCH ×2 (06:18→10:15)
[2017-12-10] MEDS: HEPARIN SODIUM,PORCINE 5,000 UNIT/ML 1 ML VIAL SQ SCH ×4 (06:18→20:16)
[2017-12-10 06:28] LABS: Glucose,Whole Blood 128 mg/dL (75-99)
[2017-12-10] MEDS: IPRATROPIUM-ALBUTEROL 3 ML NEB INHALATION SCH ×4 (07:19→19:32)
[2017-12-10 07:39] LABS: Glucose,Whole Blood 117 mg/dL (75-99)
--- NOTE | 2017-12-10 07:43 | P.PN ---
Subjective Progress Note Date: 12/10/17 Principal diagnosis: Status post aortic valve replacement Progress note dated 12/10/2017 77-year-old male who is postop day #1 status post aortic valve replacement for aortic valve insufficiency. He had a bile is prostatic aortic valve replacement. He also had excision of left atrial appendage. He had an intraoperative ODETTE. The patient was on the ventilator post operatively and was able to be extubated within 6 hours. The patient has a history of essential hypertension hyperlipidemia remote history of tobacco use GERD and BPH and DJD. Currently the patient is doing relatively well. Resting comfortably. Working on deep breathing coughing clearing his secretions as well as incentive spirometer. Current laboratory data includes a white count of 5.7 hemoglobin 8.7 hematocrit 25.3 platelet count 104,000. PT INR and PTT are normal. Sodium and potassium are normal. Chlorides 108 CO2 24 BUN and creatinine were normal. Chest x-ray has not yet been done. Objective - Vital Signs Vital signs: Vital Signs Temp 96.4 F L 12/09/17 13:30 Pulse 70 12/10/17 07:31 Resp 22 12/10/17 07:21 BP 100/55 12/10/17 07:00 Pulse Ox 97 12/10/17 07:00 Intake & Output 12/09/17 12/10/17 12/10/17 18:59 06:59 18:59 Intake Total 052.377 1555.903 Output Total 4520 1390 Balance -3972.217 330.903 Weight 111.7 kg 115.5 kg Intake: IV 502 1068 0.9NS Pressure Bag 45 108 ACETAMINOPHEN IV (For NPO 100 200 ) 1,000 mg In Empty Bag 1 bag @ 400 mls/hr IVPB Q6HR [facility] Rx#:[id number] Cardiac Output 50 160 Lactated Ringers 1,000 ml 275 600 @ 50 mls/hr IV .Q20H [facility] Rx#:[id number] Intake, IV Titration 45.783 12.903 Amount Insulin Regular 100 unit 8.380 In Sodium Chloride 0.9% 100 ml @ Per Protocol IV .Q0M [facility] Rx#:[id number] Propofol 1,000 mg In 45.783 4.523 Empty Bag 1 bag @ Titrate IV .Q0M [facility]LE Rx#: [id number] Oral 390 Albumin 250 Albumin Human 5% 250 ml 250 In Empty Bag 1 bag @ 250 mls/hr IVPB Q1HR PRN Rx#: [id number] Output: Chest Tube Drainage 470 760 Mediastinal 470 760 Urine 1550 630 Estimated Blood Loss 2500 Other: Voiding Method Indwelling Catheter Indwelling Catheter # Bowel Movements 0 ABP, PAP, CO, CI - Last Documented Arterial Blood Pressure 124/54 Pulmonary Artery Pressure 35/15 Cardiac Output 7.5 Cardiac Index 3.2 - Exam No acute distress, oriented 3. Nasal O2 in place. HEENT examination is grossly unremarkable. Mucous membranes are moist. No oral lesions. Neck supple. Full range of motion. No adenopathy thyromegaly or neck vein distention. Cardiovascular examination reveals regular rhythm rate. S1-S2 normal. No S3 or S4. No discernible murmur noted. Lungs reveal mostly clear breath sounds. A few scattered rhonchi noted. The patient doesn't really take deep breaths. Breath sounds equal bilaterally. Abdomen soft bowel sounds are heard. No masses or tenderness. Extremities are intact. No cyanosis clubbing or edema. Skin is without rash or lesion. Neurologic examination is brief but nonfocal. - Labs CBC & Chem 7: 12/10/17 04:30 12/10/17 04:30 Labs: Abnormal Lab Results - Last 24 Hours (Table) 12/01/17 12/09/17 12/09/17 Range/Units 08:31 08:44 09:52 RBC (4.30-5.90) m/uL Hgb (13.0-17.5) gm/dL Hct (39.0-53.0) % Plt Count (150-450) k/uL Lymphocytes # (1.0-4.8) k/uL INR (<1.2) ABG pH 7.33 L (7.35-7.45) ABG pCO2 (35-45) mmHg ABG pO2 180 H (83-108) mmHg ABG HCO3 (21-25) mmol/L ABG Total CO2 25 H 26 H (19-24) mmol/L ABG O2 Saturation 98.0 H 99.4 H (94-97) % ABG Hematocrit (34.0-46.0) % ABG Potassium (3.4-4.5) mmol/L ABG Ionized Calcium (4.5-5.3) mg/dL ABG Glucose 103 H (75-99) mg/dL ABG Lactic Acid (0.5-1.6) mmol/L Hemoglobin 11.5 L 11.4 L (13.0-17.5) gm/dL Chloride (98-107) mmol/L Glucose (74-99) mg/dL POC Glucose (mg/dL) (75-99) mg/dL Calcium (8.4-10.2) mg/dL Magnesium (1.6-2.3) mg/dL Alkaline Phosphatase (38-126) U/L Total Protein (6.3-8.2) g/dL Albumin (3.5-5.0) g/dL Arterial Blood Potassium (3.4-4.5) mmol/L Arterial Blood Glucose 103 H (75-99) mg/dL Crossmatch See Detail 12/09/17 12/09/17 12/09/17 Range/Units 10:29 11:01 11:01 RBC (4.30-5.90) m/uL Hgb (13.0-17.5) gm/dL Hct (39.0-53.0) % Plt Count (150-450) k/uL Lymphocytes # (1.0-4.8) k/uL INR (<1.2) ABG pH 7.33 L (7.35-7.45) ABG pCO2 46 H (35-45) mmHg ABG pO2 398 H 325 H 275 H (83-108) mmHg ABG HCO3 26 H (21-25) mmol/L ABG Total CO2 28 H 25 H (19-24) mmol/L ABG O2 Saturation 100.0 H 100.0 H 99.9 H (94-97) % ABG Hematocrit 27 L 27 L 27 L (34.0-46.0) % ABG Potassium 4.8 H 5.3 H 4.9 H (3.4-4.5) mmol/L ABG Ionized Calcium 4.3 L 4.3 L 4.4 L (4.5-5.3) mg/dL ABG Glucose 160 H 188 H 161 H (75-99) mg/dL ABG Lactic Acid 2.0 H (0.5-1.6) mmol/L Hemoglobin 8.7 L 8.7 L 8.8 L (13.0-17.5) gm/dL Chloride (98-107) mmol/L Glucose (74-99) mg/dL POC Glucose (mg/dL) (75-99) mg/dL Calcium (8.4-10.2) mg/dL Magnesium (1.6-2.3) mg/dL Alkaline Phosphatase (38-126) U/L Total Protein (6.3-8.2) g/dL Albumin (3.5-5.0) g/dL Arterial Blood Potassium 4.8 H 5.3 H 4.9 H (3.4-4.5) mmol/L Arterial Blood Glucose 160 H 188 H 161 H (75-99) mg/dL Crossmatch 12/09/17 12/09/17 12/09/17 Range/Units 11:28 13:30 13:30 RBC 3.21 L (4.30-5.90) m/uL Hgb 10.2 L D (13.0-17.5) gm/dL Hct 30.0 L (39.0-53.0) % Plt Count 117 L (150-450) k/uL Lymphocytes # (1.0-4.8) k/uL INR (<1.2) ABG pH 7.28 L (7.35-7.45) ABG pCO2 51 H (35-45) mmHg ABG pO2 82 L (83-108) mmHg ABG HCO3 (21-25) mmol/L ABG Total CO2 26 H (19-24) mmol/L ABG O2 Saturation (94-97) % ABG Hematocrit 30 L (34.0-46.0) % ABG Potassium (3.4-4.5) mmol/L ABG Ionized Calcium (4.5-5.3) mg/dL ABG Glucose 117 H (75-99) mg/dL ABG Lactic Acid (0.5-1.6) mmol/L Hemoglobin 9.9 L (13.0-17.5) gm/dL Chloride 111 H (98-107) mmol/L Glucose (74-99) mg/dL POC Glucose (mg/dL) (75-99) mg/dL Calcium 7.8 L (8.4-10.2) mg/dL Magnesium 2.5 H (1.6-2.3) mg/dL Alkaline Phosphatase 28 L (38-126) U/L Total Protein 4.4 L (6.3-8.2) g/dL Albumin 2.5 L (3.5-5.0) g/dL Arterial Blood Potassium (3.4-4.5) mmol/L Arterial Blood Glucose 117 H (75-99) mg/dL Crossmatch 12/09/17 12/09/17 12/09/17 Range/Units 13:30 13:56 14:04 RBC (4.30-5.90) m/uL Hgb (13.0-17.5) gm/dL Hct (39.0-53.0) % Plt Count (150-450) k/uL Lymphocytes # (1.0-4.8) k/uL INR 1.2 H (<1.2) ABG pH 7.34 L (7.35-7.45) ABG pCO2 (35-45) mmHg ABG pO2 188 H (83-108) mmHg ABG HCO3 (21-25) mmol/L ABG Total CO2 25 H (19-24) mmol/L ABG O2 Saturation 100.0 H (94-97) % ABG Hematocrit (34.0-46.0) % ABG Potassium (3.4-4.5) mmol/L ABG Ionized Calcium (4.5-5.3) mg/dL ABG Glucose (75-99) mg/dL ABG Lactic Acid (0.5-1.6) mmol/L Hemoglobin (13.0-17.5) gm/dL Chloride (98-107) mmol/L Glucose (74-99) mg/dL POC Glucose (mg/dL) 114 H (75-99) mg/dL Calcium (8.4-10.2) mg/dL Magnesium (1.6-2.3) mg/dL Alkaline Phosphatase (38-126) U/L Total Protein (6.3-8.2) g/dL Albumin (3.5-5.0) g/dL Arterial Blood Potassium (3.4-4.5) mmol/L Arterial Blood Glucose (75-99) mg/dL Crossmatch 12/09/17 12/09/17 12/09/17 Range/Units 15:09 16:11 16:15 RBC 3.03 L (4.30-5.90) m/uL Hgb 9.4 L (13.0-17.5) gm/dL Hct 27.7 L (39.0-53.0) % Plt Count 100 L (150-450) k/uL Lymphocytes # 0.4 L (1.0-4.8) k/uL INR (<1.2) ABG pH (7.35-7.45) ABG pCO2 (35-45) mmHg ABG pO2 (83-108) mmHg ABG HCO3 (21-25) mmol/L ABG Total CO2 (19-24) mmol/L ABG O2 Saturation (94-97) % ABG Hematocrit (34.0-46.0) % ABG Potassium (3.4-4.5) mmol/L ABG Ionized Calcium (4.5-5.3) mg/dL ABG Glucose (75-99) mg/dL ABG Lactic Acid (0.5-1.6) mmol/L Hemoglobin (13.0-17.5) gm/dL Chloride (98-107) mmol/L Glucose (74-99) mg/dL POC Glucose (mg/dL) 137 H 133 H (75-99) mg/dL Calcium (8.4-10.2) mg/dL Magnesium (1.6-2.3) mg/dL Alkaline Phosphatase (38-126) U/L Total Protein (6.3-8.2) g/dL Albumin (3.5-5.0) g/dL Arterial Blood Potassium (3.4-4.5) mmol/L Arterial Blood Glucose (75-99) mg/dL Crossmatch 12/09/17 12/09/17 12/09/17 Range/Units 17:08 18:06 18:18 RBC (4.30-5.90) m/uL Hgb (13.0-17.5) gm/dL Hct (39.0-53.0) % Plt Count (150-450) k/uL Lymphocytes # (1.0-4.8) k/uL INR (<1.2) ABG pH (7.35-7.45) ABG pCO2 34 L (35-45) mmHg ABG pO2 117 H (83-108) mmHg ABG HCO3 (21-25) mmol/L ABG Total CO2 (19-24) mmol/L ABG O2 Saturation 98.9 H (94-97) % ABG Hematocrit (34.0-46.0) % ABG Potassium (3.4-4.5) mmol/L ABG Ionized Calcium (4.5-5.3) mg/dL ABG Glucose (75-99) mg/dL ABG Lactic Acid (0.5-1.6) mmol/L Hemoglobin (13.0-17.5) gm/dL Chloride (98-107) mmol/L Glucose (74-99) mg/dL POC Glucose (mg/dL) 135 H 131 H (75-99) mg/dL Calcium (8.4-10.2) mg/dL Magnesium (1.6-2.3) mg/dL Alkaline Phosphatase (38-126) U/L Total Protein (6.3-8.2) g/dL Albumin (3.5-5.0) g/dL Arterial Blood Potassium (3.4-4.5) mmol/L Arterial Blood Glucose (75-99) mg/dL Crossmatch 12/09/17 12/09/17 12/09/17 Range/Units 19:30 19:34 20:52 RBC 2.91 L (4.30-5.90) m/uL Hgb 9.3 L (13.0-17.5) gm/dL Hct 26.8 L (39.0-53.0) % Plt Count 114 L (150-450) k/uL Lymphocytes # 0.4 L (1.0-4.8) k/uL INR (<1.2) ABG pH (7.35-7.45) ABG pCO2 (35-45) mmHg ABG pO2 (83-108) mmHg ABG HCO3 (21-25) mmol/L ABG Total CO2 (19-24) mmol/L ABG O2 Saturation (94-97) % ABG Hematocrit (34.0-46.0) % ABG Potassium (3.4-4.5) mmol/L ABG Ionized Calcium (4.5-5.3) mg/dL ABG Glucose (75-99) mg/dL ABG Lactic Acid (0.5-1.6) mmol/L Hemoglobin (13.0-17.5) gm/dL Chloride (98-107) mmol/L Glucose (74-99) mg/dL POC Glucose (mg/dL) 148 H 138 H (75-99) mg/dL Calcium (8.4-10.2) mg/dL Magnesium (1.6-2.3) mg/dL Alkaline Phosphatase (38-126) U/L Total Protein (6.3-8.2) g/dL Albumin (3.5-5.0) g/dL Arterial Blood Potassium (3.4-4.5) mmol/L Arterial Blood Glucose (75-99) mg/dL Crossmatch 12/09/17 12/09/17 12/10/17 Range/Units 22:06 23:07 00:18 RBC (4.30-5.90) m/uL Hgb (13.0-17.5) gm/dL Hct (39.0-53.0) % Plt Count (150-450) k/uL Lymphocytes # (1.0-4.8) k/uL INR (<1.2) ABG pH (7.35-7.45) ABG pCO2 (35-45) mmHg ABG pO2 (83-108) mmHg ABG HCO3 (21-25) mmol/L ABG Total CO2 (19-24) mmol/L ABG O2 Saturation (94-97) % ABG Hematocrit (34.0-46.0) % ABG Potassium (3.4-4.5) mmol/L ABG Ionized Calcium (4.5-5.3) mg/dL ABG Glucose (75-99) mg/dL ABG Lactic Acid (0.5-1.6) mmol/L Hemoglobin (13.0-17.5) gm/dL Chloride (98-107) mmol/L Glucose (74-99) mg/dL POC Glucose (mg/dL) 137 H 134 H 138 H (75-99) mg/dL Calcium (8.4-10.2) mg/dL Magnesium (1.6-2.3) mg/dL Alkaline Phosphatase (38-126) U/L Total Protein (6.3-8.2) g/dL Albumin (3.5-5.0) g/dL Arterial Blood Potassium (3.4-4.5) mmol/L Arterial Blood Glucose (75-99) mg/dL Crossmatch 12/10/17 12/10/17 12/10/17 Range/Units 01:28 02:42 03:55 RBC (4.30-5.90) m/uL Hgb (13.0-17.5) gm/dL Hct (39.0-53.0) % Plt Count (150-450) k/uL Lymphocytes # (1.0-4.8) k/uL INR (<1.2) ABG pH (7.35-7.45) ABG pCO2 (35-45) mmHg ABG pO2 (83-108) mmHg ABG HCO3 (21-25) mmol/L ABG Total CO2 (19-24) mmol/L ABG O2 Saturation (94-97) % ABG Hematocrit (34.0-46.0) % ABG Potassium (3.4-4.5) mmol/L ABG Ionized Calcium (4.5-5.3) mg/dL ABG Glucose (75-99) mg/dL ABG Lactic Acid (0.5-1.6) mmol/L Hemoglobin (13.0-17.5) gm/dL Chloride (98-107) mmol/L Glucose (74-99) mg/dL POC Glucose (mg/dL) 137 H 135 H 133 H (75-99) mg/dL Calcium (8.4-10.2) mg/dL Magnesium (1.6-2.3) mg/dL Alkaline Phosphatase (38-126) U/L Total Protein (6.3-8.2) g/dL Albumin (3.5-5.0) g/dL Arterial Blood Potassium (3.4-4.5) mmol/L Arterial Blood Glucose (75-99) mg/dL Crossmatch 12/10/17 12/10/17 12/10/17 Range/Units 04:30 04:30 05:22 RBC 2.76 L (4.30-5.90) m/uL Hgb 8.7 L (13.0-17.5) gm/dL Hct 25.3 L (39.0-53.0) % Plt Count 104 L (150-450) k/uL Lymphocytes # 0.5 L (1.0-4.8) k/uL INR (<1.2) ABG pH (7.35-7.45) ABG pCO2 (35-45) mmHg ABG pO2 (83-108) mmHg ABG HCO3 (21-25) mmol/L ABG Total CO2 (19-24) mmol/L ABG O2 Saturation (94-97) % ABG Hematocrit (34.0-46.0) % ABG Potassium (3.4-4.5) mmol/L ABG Ionized Calcium (4.5-5.3) mg/dL ABG Glucose (75-99) mg/dL ABG Lactic Acid (0.5-1.6) mmol/L Hemoglobin (13.0-17.5) gm/dL Chloride 108 H (98-107) mmol/L Glucose 112 H (74-99) mg/dL POC Glucose (mg/dL) 132 H (75-99) mg/dL Calcium 8.1 L (8.4-10.2) mg/dL Magnesium (1.6-2.3) mg/dL Alkaline Phosphatase 26 L (38-126) U/L Total Protein 4.7 L (6.3-8.2) g/dL Albumin 2.9 L (3.5-5.0) g/dL Arterial Blood Potassium (3.4-4.5) mmol/L Arterial Blood Glucose (75-99) mg/dL Crossmatch 12/10/17 Range/Units 06:27 RBC (4.30-5.90) m/uL Hgb (13.0-17.5) gm/dL Hct (39.0-53.0) % Plt Count (150-450) k/uL Lymphocytes # (1.0-4.8) k/uL INR (<1.2) ABG pH (7.35-7.45) ABG pCO2 (35-45) mmHg ABG pO2 (83-108) mmHg ABG HCO3 (21-25) mmol/L ABG Total CO2 (19-24) mmol/L ABG O2 Saturation (94-97) % ABG Hematocrit (34.0-46.0) % ABG Potassium (3.4-4.5) mmol/L ABG Ionized Calcium (4.5-5.3) mg/dL ABG Glucose (75-99) mg/dL ABG Lactic Acid (0.5-1.6) mmol/L Hemoglobin (13.0-17.5) gm/dL Chloride (98-107) mmol/L Glucose (74-99) mg/dL POC Glucose (mg/dL) 128 H (75-99) mg/dL Calcium (8.4-10.2) mg/dL Magnesium (1.6-2.3) mg/dL Alkaline Phosphatase (38-126) U/L Total Protein (6.3-8.2) g/dL Albumin (3.5-5.0) g/dL Arterial Blood Potassium (3.4-4.5) mmol/L Arterial Blood Glucose (75-99) mg/dL Crossmatch Assessment and Plan Assessment: Assessment Postop day #1 status post aortic valve replacement secondary to aortic insufficiency Postoperative respiratory failure, resolved, extubated within 6 hours. Status post left atrial appendage excision History of essential hypertension History of hyperlipidemia Previous history of tobacco use. History of GERD BPH by history DJD Plan: Plan dated 12/10/2017 The patient remains on breathing treatments. We'll recommend incentive spirometry use every hour. Chest x-rays yet to be done. In addition, the patient will need deep breathing coughing and clearing secretions to be a priority. We'll continue to watch the patient very carefully. Prognosis is guarded. Patient has done well in the first postoperative day. Additional recommendations and suggestions are forthcoming. Critical care time 33 minute Time with Patient: Greater than 30
[2017-12-10] MEDS ORDERED: FUROSEMIDE 10 MG/ML 2 ML VIAL IV ONE (07:52)
[2017-12-10 08:07] LABS: Glucose,Whole Blood 115 mg/dL (75-99)
[2017-12-10] MEDS ORDERED: ALBUMIN HUMAN 5% 250 ML in EMPTY BAG 1 BAG IVPB STA ×3 (08:29→15:21)
[2017-12-10 09:05] LABS: Glucose,Whole Blood 153 mg/dL (75-99)
--- NOTE | 2017-12-10 09:12 | CONS ---
CONSULTATION Mr. Hernandez is a 77-year-old male who has underwent aortic valve replacement yesterday. He is extubated in bed, hemodynamically stable. He has been followed by Dr. Young on a regular basis and has a history of severe aortic regurgitation with progressive symptoms of dyspnea. He had no evidence of obstructive coronary artery disease. He had mild dilatation of the ascending aorta. He has some chest soreness this morning but no other symptoms. Hemodynamically, he is stable and he is in sinus mechanism. His coronary risk factors are remarkable for history of hyperlipidemia, hypertension. He is nonsmoker, nondiabetic. MEDICATION: Preoperatively included losartan, Proscar, Celebrex, Lipitor 20 mg daily, allopurinol, albuterol, and Flomax. REVIEW OF SYSTEMS: RESPIRATORY SYSTEM: He has some dyspnea on exertion, but no history of documented obstructive lung disease. GI SYSTEM: No recent GI bleed. No peptic ulcer disease. SYSTEM: No dysuria or hematuria. NERVOUS SYSTEM: No history of stroke or seizure. PHYSICAL EXAMINATION: A 77-year-old male, alert, oriented, in no apparent distress. Blood pressure 140/50 with a heart rate in 70s. HEAD: Normocephalic. EYES: Sclerae nonicteric. NECK: [place] catheter noted in the right IJ. LUNGS: With mild decrease in breath sounds at bases, no wheezes. HEART: Regular rate and rhythm. S1, S2. No S3 with a systolic murmur and a rub. ABDOMEN: Soft, nontender. Positive bowel sounds. EXTREMITIES: No edema. LAB DATA: Revealed BUN and creatinine 17 and 0.7, potassium of 4.3, hemoglobin of 8.7. IMPRESSION: 1. Status post aortic valve replacement for severe aortic regurgitation. 2. History of hypertension. 3. History of hyperlipidemia. RECOMMENDATION: From the cardiac standpoint, he is stable. Will continue incentive spirometry. Increase his level of activity and depending on his progress, further recommendation will be made. Thank you for this consult. Will follow with you. MMODL / IJN: [id number] /
--- NOTE | 2017-12-10 09:48 | P.PN ---
Subjective Progress Note Date: 12/10/17 Principal diagnosis: Severe aortic valve regurgitation. Mild left ventricular dysfunction. Supraventricular tachycardia. Obesity. Hypertension. Hyperlipidemia. GERD. Osteoporosis. BPH. Gout. Previous tobacco dependence with preoperative FEV1 94% of predicted. POD #1 aortic valve replacement using a 27 mm Inspiris bovine bioprosthesis. Exclusion of the left atrial appendage using a 45 mm Atriclip. Partial sternal plating. Intraoperative transesophageal echocardiogram and epi-aortic scanning. Postoperative diagnosis, normochromic anemia, an expected outcome of surgery secondary to cardiopulmonary bypass and hemodilution. Postoperative thrombocytopenia, an expected outcome of surgery. Patient is currently sitting up in the chair in no acute distress. Does complain of some chest discomfort. Was successfully extubated last night at 1830. Hemodynamically stable. Objective - Vital Signs Vital signs: Vital Signs Temp 96.4 F L 12/09/17 13:30 Pulse 70 12/10/17 07:31 Resp 22 12/10/17 07:21 BP 100/55 12/10/17 07:00 Pulse Ox 97 12/10/17 07:00 Intake & Output 12/09/17 12/10/17 12/10/17 18:59 06:59 18:59 Intake Total 547.079 0673.903 43.956 Output Total 4520 1390 Balance -3972.217 330.903 43.956 Weight 111.7 kg 115.5 kg Intake: IV 502 1068 0.9NS Pressure Bag 45 108 ACETAMINOPHEN IV (For NPO 100 200 ) 1,000 mg In Empty Bag 1 bag @ 400 mls/hr IVPB Q6HR [facility] Rx#:[id number] Cardiac Output 50 160 Lactated Ringers 1,000 ml 275 600 @ 50 mls/hr IV .Q20H [facility] Rx#:[id number] Intake, IV Titration 45.783 12.903 43.956 Amount Insulin Regular 100 unit 8.380 15.956 In Sodium Chloride 0.9% 100 ml @ Per Protocol IV .Q0M [facility] Rx#:[id number] Nitroglycerin-D5w Pmx 50 28 mg In Dextrose/Water 1 250ml.bag @ 5 MCG/MIN 1.5 mls/hr IV .Q24H [facility] Rx#: [id number] Propofol 1,000 mg In 45.783 4.523 Empty Bag 1 bag @ Titrate IV .Q0M [facility] Rx#: [id number] Oral 390 Albumin 250 Albumin Human 5% 250 ml 250 In Empty Bag 1 bag @ 250 mls/hr IVPB Q1HR PRN Rx#: [id number] Output: Chest Tube Drainage 470 760 Mediastinal 470 760 Urine 1550 630 Estimated Blood Loss 2500 Other: Voiding Method Indwelling Catheter Indwelling Catheter # Bowel Movements 0 ABP, PAP, CO, CI - Last Documented Arterial Blood Pressure 124/54 Pulmonary Artery Pressure 35/15 Cardiac Output 7.5 Cardiac Index 3.2 - Constitutional General appearance: Present: cooperative, no acute distress, obese - Respiratory Details: Lungs sounds diminished bilaterally. Respirations even, nonlabored. Currently on 3 L nasal cannula with oxygen saturation 98%. Able to achieve 3130-4952 mL on his incentive spirometry. Weak cough. - Cardiovascular Details: S1, S2 present. Regular rate and rhythm, sinus rhythm on telemetry. Sternum stable. A/V epicardial make pacemaker wires present, connected to generator, VVI mode with backup rate of 40 bpm. Palpable peripheral pulses bilaterally. No edema present. No calf pain or tenderness noted. Right internal jugular Clemons/Cordis, right radial arterial line present. Last CO/CI 7.5/3.2 on no inotropes. Heart hugger in place with patient demonstrating appropriate use. Antiembolism stockings, SCDs present. - Gastrointestinal Gastrointestinal Comment(s): Abdomen soft, nontender, nondistended, obese. Hypoactive bowel sounds present 4 quadrants. Tolerating clear liquids. Negative flatus. - Genitourinary Genitourinary Comment(s): Trinidad present draining clear, yellow urine. Output 60 mL/h overnight. - Integumentary Integumentary Comment(s): Skin is warm and dry with evidence of good perfusion. Anterior chest incision well approximated and covered with dry intact dressing. - Neurologic Neurologic: Present: CNII-XII intact - Musculoskeletal Musculoskeletal: Present: generalized weakness, strength equal bilaterally - Psychiatric Psychiatric: Present: A&O x's 3, appropriate affect, intact judgment & insight - Allied health notes Allied health notes reviewed: nursing - Labs CBC & Chem 7: 12/10/17 04:30 12/10/17 04:30 Labs: Abnormal Lab Results - Last 24 Hours (Table) 12/01/17 12/09/17 12/09/17 Range/Units 08:31 09:52 10:29 RBC (4.30-5.90) m/uL Hgb (13.0-17.5) gm/dL Hct (39.0-53.0) % Plt Count (150-450) k/uL Lymphocytes # (1.0-4.8) k/uL INR (<1.2) ABG pH 7.33 L (7.35-7.45) ABG pCO2 (35-45) mmHg ABG pO2 180 H 398 H (83-108) mmHg ABG HCO3 (21-25) mmol/L ABG Total CO2 26 H (19-24) mmol/L ABG O2 Saturation 99.4 H 100.0 H (94-97) % ABG Hematocrit 27 L (34.0-46.0) % ABG Potassium 4.8 H (3.4-4.5) mmol/L ABG Ionized Calcium 4.3 L (4.5-5.3) mg/dL ABG Glucose 103 H 160 H (75-99) mg/dL ABG Lactic Acid (0.5-1.6) mmol/L Hemoglobin 11.4 L 8.7 L (13.0-17.5) gm/dL Chloride (98-107) mmol/L Glucose (74-99) mg/dL POC Glucose (mg/dL) (75-99) mg/dL Calcium (8.4-10.2) mg/dL Magnesium (1.6-2.3) mg/dL Alkaline Phosphatase (38-126) U/L Total Protein (6.3-8.2) g/dL Albumin (3.5-5.0) g/dL Arterial Blood Potassium 4.8 H (3.4-4.5) mmol/L Arterial Blood Glucose 103 H 160 H (75-99) mg/dL Crossmatch See Detail 12/09/17 12/09/17 12/09/17 Range/Units 11:01 11:01 11:28 RBC (4.30-5.90) m/uL Hgb (13.0-17.5) gm/dL Hct (39.0-53.0) % Plt Count (150-450) k/uL Lymphocytes # (1.0-4.8) k/uL INR (<1.2) ABG pH 7.33 L 7.28 L (7.35-7.45) ABG pCO2 46 H 51 H (35-45) mmHg ABG pO2 325 H 275 H 82 L (83-108) mmHg ABG HCO3 26 H (21-25) mmol/L ABG Total CO2 28 H 25 H 26 H (19-24) mmol/L ABG O2 Saturation 100.0 H 99.9 H (94-97) % ABG Hematocrit 27 L 27 L 30 L (34.0-46.0) % ABG Potassium 5.3 H 4.9 H (3.4-4.5) mmol/L ABG Ionized Calcium 4.3 L 4.4 L (4.5-5.3) mg/dL ABG Glucose 188 H 161 H 117 H (75-99) mg/dL ABG Lactic Acid 2.0 H (0.5-1.6) mmol/L Hemoglobin 8.7 L 8.8 L 9.9 L (13.0-17.5) gm/dL Chloride (98-107) mmol/L Glucose (74-99) mg/dL POC Glucose (mg/dL) (75-99) mg/dL Calcium (8.4-10.2) mg/dL Magnesium (1.6-2.3) mg/dL Alkaline Phosphatase (38-126) U/L Total Protein (6.3-8.2) g/dL Albumin (3.5-5.0) g/dL Arterial Blood Potassium 5.3 H 4.9 H (3.4-4.5) mmol/L Arterial Blood Glucose 188 H 161 H 117 H (75-99) mg/dL Crossmatch 12/09/17 12/09/17 12/09/17 Range/Units 13:30 13:30 13:30 RBC 3.21 L (4.30-5.90) m/uL Hgb 10.2 L D (13.0-17.5) gm/dL Hct 30.0 L (39.0-53.0) % Plt Count 117 L (150-450) k/uL Lymphocytes # (1.0-4.8) k/uL INR 1.2 H (<1.2) ABG pH (7.35-7.45) ABG pCO2 (35-45) mmHg ABG pO2 (83-108) mmHg ABG HCO3 (21-25) mmol/L ABG Total CO2 (19-24) mmol/L ABG O2 Saturation (94-97) % ABG Hematocrit (34.0-46.0) % ABG Potassium (3.4-4.5) mmol/L ABG Ionized Calcium (4.5-5.3) mg/dL ABG Glucose (75-99) mg/dL ABG Lactic Acid (0.5-1.6) mmol/L Hemoglobin (13.0-17.5) gm/dL Chloride 111 H (98-107) mmol/L Glucose (74-99) mg/dL POC Glucose (mg/dL) (75-99) mg/dL Calcium 7.8 L (8.4-10.2) mg/dL Magnesium 2.5 H (1.6-2.3) mg/dL Alkaline Phosphatase 28 L (38-126) U/L Total Protein 4.4 L (6.3-8.2) g/dL Albumin 2.5 L (3.5-5.0) g/dL Arterial Blood Potassium (3.4-4.5) mmol/L Arterial Blood Glucose (75-99) mg/dL Crossmatch 12/09/17 12/09/17 12/09/17 Range/Units 13:56 14:04 15:09 RBC (4.30-5.90) m/uL Hgb (13.0-17.5) gm/dL Hct (39.0-53.0) % Plt Count (150-450) k/uL Lymphocytes # (1.0-4.8) k/uL INR (<1.2) ABG pH 7.34 L (7.35-7.45) ABG pCO2 (35-45) mmHg ABG pO2 188 H (83-108) mmHg ABG HCO3 (21-25) mmol/L ABG Total CO2 25 H (19-24) mmol/L ABG O2 Saturation 100.0 H (94-97) % ABG Hematocrit (34.0-46.0) % ABG Potassium (3.4-4.5) mmol/L ABG Ionized Calcium (4.5-5.3) mg/dL ABG Glucose (75-99) mg/dL ABG Lactic Acid (0.5-1.6) mmol/L Hemoglobin (13.0-17.5) gm/dL Chloride (98-107) mmol/L Glucose (74-99) mg/dL POC Glucose (mg/dL) 114 H 137 H (75-99) mg/dL Calcium (8.4-10.2) mg/dL Magnesium (1.6-2.3) mg/dL Alkaline Phosphatase (38-126) U/L Total Protein (6.3-8.2) g/dL Albumin (3.5-5.0) g/dL Arterial Blood Potassium (3.4-4.5) mmol/L Arterial Blood Glucose (75-99) mg/dL Crossmatch 12/09/17 12/09/17 12/09/17 Range/Units 16:11 16:15 17:08 RBC 3.03 L (4.30-5.90) m/uL Hgb 9.4 L (13.0-17.5) gm/dL Hct 27.7 L (39.0-53.0) % Plt Count 100 L (150-450) k/uL Lymphocytes # 0.4 L (1.0-4.8) k/uL INR (<1.2) ABG pH (7.35-7.45) ABG pCO2 (35-45) mmHg ABG pO2 (83-108) mmHg ABG HCO3 (21-25) mmol/L ABG Total CO2 (19-24) mmol/L ABG O2 Saturation (94-97) % ABG Hematocrit (34.0-46.0) % ABG Potassium (3.4-4.5) mmol/L ABG Ionized Calcium (4.5-5.3) mg/dL ABG Glucose (75-99) mg/dL ABG Lactic Acid (0.5-1.6) mmol/L Hemoglobin (13.0-17.5) gm/dL Chloride (98-107) mmol/L Glucose (74-99) mg/dL POC Glucose (mg/dL) 133 H 135 H (75-99) mg/dL Calcium (8.4-10.2) mg/dL Magnesium (1.6-2.3) mg/dL Alkaline Phosphatase (38-126) U/L Total Protein (6.3-8.2) g/dL Albumin (3.5-5.0) g/dL Arterial Blood Potassium (3.4-4.5) mmol/L Arterial Blood Glucose (75-99) mg/dL Crossmatch 12/09/17 12/09/17 12/09/17 Range/Units 18:06 18:18 19:30 RBC (4.30-5.90) m/uL Hgb (13.0-17.5) gm/dL Hct (39.0-53.0) % Plt Count (150-450) k/uL Lymphocytes # (1.0-4.8) k/uL INR (<1.2) ABG pH (7.35-7.45) ABG pCO2 34 L (35-45) mmHg ABG pO2 117 H (83-108) mmHg ABG HCO3 (21-25) mmol/L ABG Total CO2 (19-24) mmol/L ABG O2 Saturation 98.9 H (94-97) % ABG Hematocrit (34.0-46.0) % ABG Potassium (3.4-4.5) mmol/L ABG Ionized Calcium (4.5-5.3) mg/dL ABG Glucose (75-99) mg/dL ABG Lactic Acid (0.5-1.6) mmol/L Hemoglobin (13.0-17.5) gm/dL Chloride (98-107) mmol/L Glucose (74-99) mg/dL POC Glucose (mg/dL) 131 H 148 H (75-99) mg/dL Calcium (8.4-10.2) mg/dL Magnesium (1.6-2.3) mg/dL Alkaline Phosphatase (38-126) U/L Total Protein (6.3-8.2) g/dL Albumin (3.5-5.0) g/dL Arterial Blood Potassium (3.4-4.5) mmol/L Arterial Blood Glucose (75-99) mg/dL Crossmatch 12/09/17 12/09/17 12/09/17 Range/Units 19:34 20:52 22:06 RBC 2.91 L (4.30-5.90) m/uL Hgb 9.3 L (13.0-17.5) gm/dL Hct 26.8 L (39.0-53.0) % Plt Count 114 L (150-450) k/uL Lymphocytes # 0.4 L (1.0-4.8) k/uL INR (<1.2) ABG pH (7.35-7.45) ABG pCO2 (35-45) mmHg ABG pO2 (83-108) mmHg ABG HCO3 (21-25) mmol/L ABG Total CO2 (19-24) mmol/L ABG O2 Saturation (94-97) % ABG Hematocrit (34.0-46.0) % ABG Potassium (3.4-4.5) mmol/L ABG Ionized Calcium (4.5-5.3) mg/dL ABG Glucose (75-99) mg/dL ABG Lactic Acid (0.5-1.6) mmol/L Hemoglobin (13.0-17.5) gm/dL Chloride (98-107) mmol/L Glucose (74-99) mg/dL POC Glucose (mg/dL) 138 H 137 H (75-99) mg/dL Calcium (8.4-10.2) mg/dL Magnesium (1.6-2.3) mg/dL Alkaline Phosphatase (38-126) U/L Total Protein (6.3-8.2) g/dL Albumin (3.5-5.0) g/dL Arterial Blood Potassium (3.4-4.5) mmol/L Arterial Blood Glucose (75-99) mg/dL Crossmatch 12/09/17 12/10/17 12/10/17 Range/Units 23:07 00:18 01:28 RBC (4.30-5.90) m/uL Hgb (13.0-17.5) gm/dL Hct (39.0-53.0) % Plt Count (150-450) k/uL Lymphocytes # (1.0-4.8) k/uL INR (<1.2) ABG pH (7.35-7.45) ABG pCO2 (35-45) mmHg ABG pO2 (83-108) mmHg ABG HCO3 (21-25) mmol/L ABG Total CO2 (19-24) mmol/L ABG O2 Saturation (94-97) % ABG Hematocrit (34.0-46.0) % ABG Potassium (3.4-4.5) mmol/L ABG Ionized Calcium (4.5-5.3) mg/dL ABG Glucose (75-99) mg/dL ABG Lactic Acid (0.5-1.6) mmol/L Hemoglobin (13.0-17.5) gm/dL Chloride (98-107) mmol/L Glucose (74-99) mg/dL POC Glucose (mg/dL) 134 H 138 H 137 H (75-99) mg/dL Calcium (8.4-10.2) mg/dL Magnesium (1.6-2.3) mg/dL Alkaline Phosphatase (38-126) U/L Total Protein (6.3-8.2) g/dL Albumin (3.5-5.0) g/dL Arterial Blood Potassium (3.4-4.5) mmol/L Arterial Blood Glucose (75-99) mg/dL Crossmatch 12/10/17 12/10/17 12/10/17 Range/Units 02:42 03:55 04:30 RBC 2.76 L (4.30-5.90) m/uL Hgb 8.7 L (13.0-17.5) gm/dL Hct 25.3 L (39.0-53.0) % Plt Count 104 L (150-450) k/uL Lymphocytes # 0.5 L (1.0-4.8) k/uL INR (<1.2) ABG pH (7.35-7.45) ABG pCO2 (35-45) mmHg ABG pO2 (83-108) mmHg ABG HCO3 (21-25) mmol/L ABG Total CO2 (19-24) mmol/L ABG O2 Saturation (94-97) % ABG Hematocrit (34.0-46.0) % ABG Potassium (3.4-4.5) mmol/L ABG Ionized Calcium (4.5-5.3) mg/dL ABG Glucose (75-99) mg/dL ABG Lactic Acid (0.5-1.6) mmol/L Hemoglobin (13.0-17.5) gm/dL Chloride (98-107) mmol/L Glucose (74-99) mg/dL POC Glucose (mg/dL) 135 H 133 H (75-99) mg/dL Calcium (8.4-10.2) mg/dL Magnesium (1.6-2.3) mg/dL Alkaline Phosphatase (38-126) U/L Total Protein (6.3-8.2) g/dL Albumin (3.5-5.0) g/dL Arterial Blood Potassium (3.4-4.5) mmol/L Arterial Blood Glucose (75-99) mg/dL Crossmatch 12/10/17 12/10/17 12/10/17 Range/Units 04:30 05:22 06:27 RBC (4.30-5.90) m/uL Hgb (13.0-17.5) gm/dL Hct (39.0-53.0) % Plt Count (150-450) k/uL Lymphocytes # (1.0-4.8) k/uL INR (<1.2) ABG pH (7.35-7.45) ABG pCO2 (35-45) mmHg ABG pO2 (83-108) mmHg ABG HCO3 (21-25) mmol/L ABG Total CO2 (19-24) mmol/L ABG O2 Saturation (94-97) % ABG Hematocrit (34.0-46.0) % ABG Potassium (3.4-4.5) mmol/L ABG Ionized Calcium (4.5-5.3) mg/dL ABG Glucose (75-99) mg/dL ABG Lactic Acid (0.5-1.6) mmol/L Hemoglobin (13.0-17.5) gm/dL Chloride 108 H (98-107) mmol/L Glucose 112 H (74-99) mg/dL POC Glucose (mg/dL) 132 H 128 H (75-99) mg/dL Calcium 8.1 L (8.4-10.2) mg/dL Magnesium (1.6-2.3) mg/dL Alkaline Phosphatase 26 L (38-126) U/L Total Protein 4.7 L (6.3-8.2) g/dL Albumin 2.9 L (3.5-5.0) g/dL Arterial Blood Potassium (3.4-4.5) mmol/L Arterial Blood Glucose (75-99) mg/dL Crossmatch 12/10/17 12/10/17 Range/Units 07:37 08:05 RBC (4.30-5.90) m/uL Hgb (13.0-17.5) gm/dL Hct (39.0-53.0) % Plt Count (150-450) k/uL Lymphocytes # (1.0-4.8) k/uL INR (<1.2) ABG pH (7.35-7.45) ABG pCO2 (35-45) mmHg ABG pO2 (83-108) mmHg ABG HCO3 (21-25) mmol/L ABG Total CO2 (19-24) mmol/L ABG O2 Saturation (94-97) % ABG Hematocrit (34.0-46.0) % ABG Potassium (3.4-4.5) mmol/L ABG Ionized Calcium (4.5-5.3) mg/dL ABG Glucose (75-99) mg/dL ABG Lactic Acid (0.5-1.6) mmol/L Hemoglobin (13.0-17.5) gm/dL Chloride (98-107) mmol/L Glucose (74-99) mg/dL POC Glucose (mg/dL) 117 H 115 H (75-99) mg/dL Calcium (8.4-10.2) mg/dL Magnesium (1.6-2.3) mg/dL Alkaline Phosphatase (38-126) U/L Total Protein (6.3-8.2) g/dL Albumin (3.5-5.0) g/dL Arterial Blood Potassium (3.4-4.5) mmol/L Arterial Blood Glucose (75-99) mg/dL Crossmatch - Imaging and Cardiology Chest x-ray: image reviewed Assessment and Plan (1) Severe aortic valve regurgitation Current Visit: Yes Status: Chronic Code(s): I35.1 - NONRHEUMATIC AORTIC ( VALVE) INSUFFICIENCY SNOMED Code(s): 87640043 (2) Supraventricular tachycardia Current Visit: No Status: Resolved Code(s): I47.1 - SUPRAVENTRICULAR TACHYCARDIA SNOMED Code(s): 8404912 (3) Obesity (BMI 30-39.9) Current Visit: Yes Status: Chronic Code(s): E66.9 - OBESITY, UNSPECIFIED SNOMED Code(s): 008718863 (4) Osteoarthritis Current Visit: Yes Status: Chronic Code(s): M19.90 - UNSPECIFIED OSTEOARTHRITIS, UNSPECIFIED SITE SNOMED Code(s): 035148170 (5) Tobacco dependence in remission Current Visit: No Status: Resolved Code(s): F17.201 - NICOTINE DEPENDENCE, UNSPECIFIED, IN REMISSION SNOMED Code(s): 237207160 (6) BPH (benign prostatic hyperplasia) Current Visit: Yes Status: Chronic Code(s): N40.0 - BENIGN PROSTATIC HYPERPLASIA WITHOUT LOWER URINRY TRACT SYMP SNOMED Code(s): 689365070 (7) Dyslipidemia Current Visit: Yes Status: Chronic Code(s): E78.5 - HYPERLIPIDEMIA, UNSPECIFIED SNOMED Code(s): 779943904 (8) GERD (gastroesophageal reflux disease) Current Visit: Yes Status: Chronic Code(s): K21.9 - GASTRO-ESOPHAGEAL REFLUX DISEASE WITHOUT ESOPHAGITIS SNOMED Code(s): 488577978 (9) Hypertension Current Visit: Yes Status: Chronic Code(s): I10 - ESSENTIAL (PRIMARY) HYPERTENSION SNOMED Code(s): 57796121 Plan: 1. Continue aspirin, statin, Plavix, heparin subcu, beta too. Will increase beta too therapy as tolerated. 2. Wean O2 as tolerated. Encourage incentive spirometry use 10 times every hour. 3. Encourage continued smoking cessation. 4. Increase activity, ambulate as tolerated. PT/OT/cardiac rehab consulted. 5. Will monitor daily labs and x-rays. 6. GI/DVT prophylaxis. 7. Pain medication with current medication regimen. 8. Insulin management per primary care service. 10. Bronchodilators per pulmonology. 11. Discontinue Clemons-Carlos catheter. Connected Cordis to continue CVP monitoring. 12. More recommendations to follow. Time with Patient: Greater than 30
[2017-12-10 10:12] LABS: Glucose,Whole Blood 154 mg/dL (75-99)
[2017-12-10] MEDS: ASPIRIN 325 MG TAB PO SCH (10:15)
[2017-12-10] MEDS: MUPIROCIN 2% OINT 22 GM TUBE NASAL SCH ×2 (10:15→20:16)
[2017-12-10] MEDS: ATORVASTATIN 40 MG TAB PO SCH (10:15)
[2017-12-10] MEDS: CLOPIDOGREL 75 MG TAB PO SCH (10:15)
[2017-12-10] MEDS: PANTOPRAZOLE 40 MG/10 ML VIAL IVP SCH (10:15)
[2017-12-10 10:19] LABS: HCT 23.8 % (39.0-53.0); HGB 8.2 gm/dL (13.0-17.5); MCH 31.7 pg (25.0-35.0); MCHC 34.3 g/dL (31.0-37.0); MCV 92.5 fL (80.0-100.0); Mean Platelet Volume 7.9; Platelet Count 103 k/uL (150-450); RBC 2.58 m/uL (4.30-5.90); RDW 13.9 % (11.5-15.5); WBC 5.8 k/uL (3.8-10.6)
[2017-12-10 11:01] LABS: Glucose,Whole Blood 132 mg/dL (75-99)
--- NOTE | 2017-12-10 11:06 | XR ---
EXAMINATION TYPE: XR chest 1V portable DATE OF EXAM: 12/10/2017 COMPARISON: 12/09/2017 HISTORY: SOB, Follow Up FINDINGS: Indwelling tubes and catheters are unchanged. Pulmonary venous congestion without overt failure. Stable appearance of the cardio-mediastinal structures at this time. Pleural effusion unchanged. IMPRESSION: 1. 1. Pulmonary venous congestion with cardiomegaly. No evidence for overt failure at this time. Ind welling tubes and catheters are unchanged.
[2017-12-10] MEDS: METOPROLOL TARTRATE 12.5 MG TAB PO SCH ×2 (11:38→21:03)
--- NOTE | 2017-12-10 11:47 | P.CONS ---
History of Present Illness - History of Present Illness 77-year-old male is postoperative for aortic valve insufficiency he is post bioprosthetic aortic valve replacement. Patient has been extubated continues to be in ICU sitting in chair at bedside Review of Systems Constitutional: Reports weakness Cardiovascular: Reports chest pain Past Medical History Past Medical History: GERD/Reflux, Hyperlipidemia, Hypertension, Osteoarthritis (OA), Prostate Disorder Additional Past Medical History / Comment(s): hx. gout, occasional SOB w/ exertion,sciatica, left leg numb/tingling-supposed to have MRI History of Any Multi-Drug Resistant Organisms: None Reported Past Surgical History: Heart Catheterization, Orthopedic Surgery, Prostate Surgery, Tonsillectomy Additional Past Surgical History / Comment(s): scopes bilat knees, TURP Past Anesthesia/Blood Transfusion Reactions: No Reported Reaction Smoking Status: Former smoker - Past Family History Father Family Medical History: Asthma, Pneumonia Additional Family Medical History / Comment(s): ARTHRITIS Mother Additional Family Medical History / Comment(s): BRAIN ANEURYSM Medications and Allergies Home Medications Medication Instructions Recorded Confirmed Type Ranitidine HCl 150 mg PO BID 11/23/15 12/09/17 History Tamsulosin [Flomax] 0.4 mg PO HS 11/23/15 12/09/17 History Allopurinol [Zyloprim] 100 mg PO DAILY 11/24/15 12/09/17 History Atorvastatin [Lipitor] 20 mg PO QAM 11/24/15 12/09/17 History Celecoxib [CeleBREX] 200 mg PO QAM 11/24/15 12/09/17 History Finasteride [Proscar] 5 mg PO QAM 11/24/15 12/09/17 History Fluticasone Propionate 1 - 2 sprays EA NOSTRIL DAILY PRN 11/24/15 12/09/17 History Losartan Potassium 50 mg PO HS 06/04/17 12/09/17 History metroNIDAZOLE 0.75% CREAM 1 applic TOPICAL HS PRN 06/05/17 12/09/17 History [Metrocream] Albuterol Sulfate [Proair Hfa] 2 puff INHALATION RT-Q6H PRN 10/07/17 12/09/17 History Allergies Allergy/AdvReac Type Severity Reaction Status Date / Time No Known Allergies Allergy Verified 12/09/17 14:20 Physical Exam Vitals: Vital Signs Temp Pulse Pulse Pulse Resp BP Pulse Ox 12/10/17 11:36 74 12/10/17 11:22 84 20 12/10/17 07:31 70 12/10/17 07:21 64 22 12/10/17 07:00 68 18 100/55 97 12/10/17 06:30 61 16 100/55 97 12/10/17 06:00 65 18 100/55 96 12/10/17 05:30 61 16 100/55 98 12/10/17 05:00 61 16 97/53 96 12/10/17 04:30 59 L 97/53 97 12/10/17 04:00 59 L 62 18 97/53 97 12/10/17 03:30 64 97 12/10/17 03:00 61 96 12/10/17 02:30 60 96 12/10/17 02:00 58 L 97 12/10/17 01:30 56 L 97 12/10/17 01:00 58 L 16 95 12/10/17 00:30 60 97 12/10/17 00:00 61 62 18 97 12/09/17 23:30 61 12/09/17 23:00 62 98 12/09/17 22:30 63 98 12/09/17 22:00 61 99 12/09/17 21:30 63 100 12/09/17 21:21 64 100 12/09/17 21:00 65 14 99 12/09/17 20:30 66 12 100 12/09/17 20:00 66 62 14 100 12/09/17 19:52 68 12/09/17 19:37 61 12/09/17 19:30 61 16 98 12/09/17 19:00 62 20 99 12/09/17 18:30 63 100 12/09/17 18:00 62 17 97 12/09/17 17:30 61 17 98 12/09/17 17:00 62 15 97 12/09/17 16:30 64 16 98 12/09/17 16:00 61 63 62 15 100 12/09/17 15:30 62 16 100 12/09/17 15:28 62 12/09/17 15:01 66 12/09/17 15:00 72 12 99 12/09/17 14:30 62 12 100 12/09/17 14:15 63 12 100 12/09/17 14:00 66 12 97 12/09/17 13:45 65 12 12/09/17 13:30 96.4 F L 64 12 97 12/09/17 13:25 69 12/09/17 12:55 100 Intake and Output 12/09/17 12/10/17 12/10/17 22:59 06:59 14:59 Intake Total 893.112 2507 47.698 Output Total 1670 580 Balance -899.314 792 47.698 Intake: IV 712 732 0.9NS Pressure Bag 72 72 ACETAMINOPHEN IV (For NPO 100 200 ) 1,000 mg In Empty Bag 1 bag @ 400 mls/hr IVPB Q6HR [facility] Rx#:[id number] Cardiac Output 140 60 Lactated Ringers 1,000 ml 400 400 @ 50 mls/hr IV .Q20H [facility] Rx#:[id number] Intake, IV Titration 58.686 47.698 Amount Insulin Regular 100 unit 8.380 19.698 In Sodium Chloride 0.9% 100 ml @ Per Protocol IV .Q0M [facility] Rx#:[id number] Nitroglycerin-D5w Pmx 50 28 mg In Dextrose/Water 1 250ml.bag @ 5 MCG/MIN 1.5 mls/hr IV .Q24H [facility] Rx#: [id number] Propofol 1,000 mg In 50.306 Empty Bag 1 bag @ Titrate IV .Q0M [facility] Rx#: [id number] Oral 390 Albumin 250 Albumin Human 5% 250 ml 250 In Empty Bag 1 bag @ 250 mls/hr IVPB Q1HR PRN Rx#: [id number] Output: Chest Tube Drainage 915 240 Mediastinal 915 240 Urine 755 340 Other: Voiding Method Indwelling Catheter Indwelling Catheter # Bowel Movements 0 Weight 111.7 kg 115.5 kg ABP, PAP, CO, CI - Last 8 Hours Arterial Blood Pressure 124/54 Arterial Blood Pressure 119/46 Arterial Blood Pressure 119/49 Arterial Blood Pressure 115/42 Arterial Blood Pressure 121/47 Arterial Blood Pressure 104/47 Arterial Blood Pressure 95/47 Pulmonary Artery Pressure 35/15 Pulmonary Artery Pressure 32/15 Pulmonary Artery Pressure 34/13 Pulmonary Artery Pressure 32/14 Pulmonary Artery Pressure 33/15 Pulmonary Artery Pressure 33/14 Pulmonary Artery Pressure 31/12 Cardiac Output 7.5 Cardiac Output 7.5 Cardiac Output 7.5 Cardiac Output 7.1 Cardiac Output 7.1 Cardiac Output 7.1 Cardiac Output 7.1 Cardiac Index 3.2 Cardiac Index 3.1 - Constitutional General appearance: mild distress, obese - EENT Eyes: PERRLA Ears: bilateral: normal - Neck Neck: normal ROM - Respiratory Respiratory: bilateral: diminished - Cardiovascular Rhythm: regular - Gastrointestinal General gastrointestinal: soft - Genitourinary Holey catheter - Integumentary Integumentary: normal - Neurologic Neurologic: CNII-XII intact - Musculoskeletal Musculoskeletal: generalized weakness - Psychiatric Psychiatric: A&O x's 3, appropriate affect, intact judgment & insight Results CBC & Chem 7: 12/10/17 09:38 12/10/17 04:30 Labs: Abnormal Lab Results - Last 24 Hours (Table) 12/01/17 12/09/17 12/09/17 Range/Units 08:31 09:52 10:29 RBC (4.30-5.90) m/uL Hgb (13.0-17.5) gm/dL Hct (39.0-53.0) % Plt Count (150-450) k/uL Lymphocytes # (1.0-4.8) k/uL INR (<1.2) ABG pH 7.33 L (7.35-7.45) ABG pCO2 (35-45) mmHg ABG pO2 180 H 398 H (83-108) mmHg ABG HCO3 (21-25) mmol/L ABG Total CO2 26 H (19-24) mmol/L ABG O2 Saturation 99.4 H 100.0 H (94-97) % ABG Hematocrit 27 L (34.0-46.0) % ABG Potassium 4.8 H (3.4-4.5) mmol/L ABG Ionized Calcium 4.3 L (4.5-5.3) mg/dL ABG Glucose 103 H 160 H (75-99) mg/dL ABG Lactic Acid (0.5-1.6) mmol/L Hemoglobin 11.4 L 8.7 L (13.0-17.5) gm/dL Chloride (98-107) mmol/L Glucose (74-99) mg/dL POC Glucose (mg/dL) (75-99) mg/dL Calcium (8.4-10.2) mg/dL Magnesium (1.6-2.3) mg/dL Alkaline Phosphatase (38-126) U/L Total Protein (6.3-8.2) g/dL Albumin (3.5-5.0) g/dL Arterial Blood Potassium 4.8 H (3.4-4.5) mmol/L Arterial Blood Glucose 103 H 160 H (75-99) mg/dL Crossmatch See Detail 12/09/17 12/09/17 12/09/17 Range/Units 11:01 11:01 11:28 RBC (4.30-5.90) m/uL Hgb (13.0-17.5) gm/dL Hct (39.0-53.0) % Plt Count (150-450) k/uL Lymphocytes # (1.0-4.8) k/uL INR (<1.2) ABG pH 7.33 L 7.28 L (7.35-7.45) ABG pCO2 46 H 51 H (35-45) mmHg ABG pO2 325 H 275 H 82 L (83-108) mmHg ABG HCO3 26 H (21-25) mmol/L ABG Total CO2 28 H 25 H 26 H (19-24) mmol/L ABG O2 Saturation 100.0 H 99.9 H (94-97) % ABG Hematocrit 27 L 27 L 30 L (34.0-46.0) % ABG Potassium 5.3 H 4.9 H (3.4-4.5) mmol/L ABG Ionized Calcium 4.3 L 4.4 L (4.5-5.3) mg/dL ABG Glucose 188 H 161 H 117 H (75-99) mg/dL ABG Lactic Acid 2.0 H (0.5-1.6) mmol/L Hemoglobin 8.7 L 8.8 L 9.9 L (13.0-17.5) gm/dL Chloride (98-107) mmol/L Glucose (74-99) mg/dL POC Glucose (mg/dL) (75-99) mg/dL Calcium (8.4-10.2) mg/dL Magnesium (1.6-2.3) mg/dL Alkaline Phosphatase (38-126) U/L Total Protein (6.3-8.2) g/dL Albumin (3.5-5.0) g/dL Arterial Blood Potassium 5.3 H 4.9 H (3.4-4.5) mmol/L Arterial Blood Glucose 188 H 161 H 117 H (75-99) mg/dL Crossmatch 12/09/17 12/09/17 12/09/17 Range/Units 13:30 13:30 13:30 RBC 3.21 L (4.30-5.90) m/uL Hgb 10.2 L D (13.0-17.5) gm/dL Hct 30.0 L (39.0-53.0) % Plt Count 117 L (150-450) k/uL Lymphocytes # (1.0-4.8) k/uL INR 1.2 H (<1.2) ABG pH (7.35-7.45) ABG pCO2 (35-45) mmHg ABG pO2 (83-108) mmHg ABG HCO3 (21-25) mmol/L ABG Total CO2 (19-24) mmol/L ABG O2 Saturation (94-97) % ABG Hematocrit (34.0-46.0) % ABG Potassium (3.4-4.5) mmol/L ABG Ionized Calcium (4.5-5.3) mg/dL ABG Glucose (75-99) mg/dL ABG Lactic Acid (0.5-1.6) mmol/L Hemoglobin (13.0-17.5) gm/dL Chloride 111 H (98-107) mmol/L Glucose (74-99) mg/dL POC Glucose (mg/dL) (75-99) mg/dL Calcium 7.8 L (8.4-10.2) mg/dL Magnesium 2.5 H (1.6-2.3) mg/dL Alkaline Phosphatase 28 L (38-126) U/L Total Protein 4.4 L (6.3-8.2) g/dL Albumin 2.5 L (3.5-5.0) g/dL Arterial Blood Potassium (3.4-4.5) mmol/L Arterial Blood Glucose (75-99) mg/dL Crossmatch 12/09/17 12/09/17 12/09/17 Range/Units 13:56 14:04 15:09 RBC (4.30-5.90) m/uL Hgb (13.0-17.5) gm/dL Hct (39.0-53.0) % Plt Count (150-450) k/uL Lymphocytes # (1.0-4.8) k/uL INR (<1.2) ABG pH 7.34 L (7.35-7.45) ABG pCO2 (35-45) mmHg ABG pO2 188 H (83-108) mmHg ABG HCO3 (21-25) mmol/L ABG Total CO2 25 H (19-24) mmol/L ABG O2 Saturation 100.0 H (94-97) % ABG Hematocrit (34.0-46.0) % ABG Potassium (3.4-4.5) mmol/L ABG Ionized Calcium (4.5-5.3) mg/dL ABG Glucose (75-99) mg/dL ABG Lactic Acid (0.5-1.6) mmol/L Hemoglobin (13.0-17.5) gm/dL Chloride (98-107) mmol/L Glucose (74-99) mg/dL POC Glucose (mg/dL) 114 H 137 H (75-99) mg/dL Calcium (8.4-10.2) mg/dL Magnesium (1.6-2.3) mg/dL Alkaline Phosphatase (38-126) U/L Total Protein (6.3-8.2) g/dL Albumin (3.5-5.0) g/dL Arterial Blood Potassium (3.4-4.5) mmol/L Arterial Blood Glucose (75-99) mg/dL Crossmatch 12/09/17 12/09/17 12/09/17 Range/Units 16:11 16:15 17:08 RBC 3.03 L (4.30-5.90) m/uL Hgb 9.4 L (13.0-17.5) gm/dL Hct 27.7 L (39.0-53.0) % Plt Count 100 L (150-450) k/uL Lymphocytes # 0.4 L (1.0-4.8) k/uL INR (<1.2) ABG pH (7.35-7.45) ABG pCO2 (35-45) mmHg ABG pO2 (83-108) mmHg ABG HCO3 (21-25) mmol/L ABG Total CO2 (19-24) mmol/L ABG O2 Saturation (94-97) % ABG Hematocrit (34.0-46.0) % ABG Potassium (3.4-4.5) mmol/L ABG Ionized Calcium (4.5-5.3) mg/dL ABG Glucose (75-99) mg/dL ABG Lactic Acid (0.5-1.6) mmol/L Hemoglobin (13.0-17.5) gm/dL Chloride (98-107) mmol/L Glucose (74-99) mg/dL POC Glucose (mg/dL) 133 H 135 H (75-99) mg/dL Calcium (8.4-10.2) mg/dL Magnesium (1.6-2.3) mg/dL Alkaline Phosphatase (38-126) U/L Total Protein (6.3-8.2) g/dL Albumin (3.5-5.0) g/dL Arterial Blood Potassium (3.4-4.5) mmol/L Arterial Blood Glucose (75-99) mg/dL Crossmatch 12/09/17 12/09/17 12/09/17 Range/Units 18:06 18:18 19:30 RBC (4.30-5.90) m/uL Hgb (13.0-17.5) gm/dL Hct (39.0-53.0) % Plt Count (150-450) k/uL Lymphocytes # (1.0-4.8) k/uL INR (<1.2) ABG pH (7.35-7.45) ABG pCO2 34 L (35-45) mmHg ABG pO2 117 H (83-108) mmHg ABG HCO3 (21-25) mmol/L ABG Total CO2 (19-24) mmol/L ABG O2 Saturation 98.9 H (94-97) % ABG Hematocrit (34.0-46.0) % ABG Potassium (3.4-4.5) mmol/L ABG Ionized Calcium (4.5-5.3) mg/dL ABG Glucose (75-99) mg/dL ABG Lactic Acid (0.5-1.6) mmol/L Hemoglobin (13.0-17.5) gm/dL Chloride (98-107) mmol/L Glucose (74-99) mg/dL POC Glucose (mg/dL) 131 H 148 H (75-99) mg/dL Calcium (8.4-10.2) mg/dL Magnesium (1.6-2.3) mg/dL Alkaline Phosphatase (38-126) U/L Total Protein (6.3-8.2) g/dL Albumin (3.5-5.0) g/dL Arterial Blood Potassium (3.4-4.5) mmol/L Arterial Blood Glucose (75-99) mg/dL Crossmatch 12/09/17 12/09/17 12/09/17 Range/Units 19:34 20:52 22:06 RBC 2.91 L (4.30-5.90) m/uL Hgb 9.3 L (13.0-17.5) gm/dL Hct 26.8 L (39.0-53.0) % Plt Count 114 L (150-450) k/uL Lymphocytes # 0.4 L (1.0-4.8) k/uL INR (<1.2) ABG pH (7.35-7.45) ABG pCO2 (35-45) mmHg ABG pO2 (83-108) mmHg ABG HCO3 (21-25) mmol/L ABG Total CO2 (19-24) mmol/L ABG O2 Saturation (94-97) % ABG Hematocrit (34.0-46.0) % ABG Potassium (3.4-4.5) mmol/L ABG Ionized Calcium (4.5-5.3) mg/dL ABG Glucose (75-99) mg/dL ABG Lactic Acid (0.5-1.6) mmol/L Hemoglobin (13.0-17.5) gm/dL Chloride (98-107) mmol/L Glucose (74-99) mg/dL POC Glucose (mg/dL) 138 H 137 H (75-99) mg/dL Calcium (8.4-10.2) mg/dL Magnesium (1.6-2.3) mg/dL Alkaline Phosphatase (38-126) U/L Total Protein (6.3-8.2) g/dL Albumin (3.5-5.0) g/dL Arterial Blood Potassium (3.4-4.5) mmol/L Arterial Blood Glucose (75-99) mg/dL Crossmatch 12/09/17 12/10/17 12/10/17 Range/Units 23:07 00:18 01:28 RBC (4.30-5.90) m/uL Hgb (13.0-17.5) gm/dL Hct (39.0-53.0) % Plt Count (150-450) k/uL Lymphocytes # (1.0-4.8) k/uL INR (<1.2) ABG pH (7.35-7.45) ABG pCO2 (35-45) mmHg ABG pO2 (83-108) mmHg ABG HCO3 (21-25) mmol/L ABG Total CO2 (19-24) mmol/L ABG O2 Saturation (94-97) % ABG Hematocrit (34.0-46.0) % ABG Potassium (3.4-4.5) mmol/L ABG Ionized Calcium (4.5-5.3) mg/dL ABG Glucose (75-99) mg/dL ABG Lactic Acid (0.5-1.6) mmol/L Hemoglobin (13.0-17.5) gm/dL Chloride (98-107) mmol/L Glucose (74-99) mg/dL POC Glucose (mg/dL) 134 H 138 H 137 H (75-99) mg/dL Calcium (8.4-10.2) mg/dL Magnesium (1.6-2.3) mg/dL Alkaline Phosphatase (38-126) U/L Total Protein (6.3-8.2) g/dL Albumin (3.5-5.0) g/dL Arterial Blood Potassium (3.4-4.5) mmol/L Arterial Blood Glucose (75-99) mg/dL Crossmatch 12/10/17 12/10/17 12/10/17 Range/Units 02:42 03:55 04:30 RBC 2.76 L (4.30-5.90) m/uL Hgb 8.7 L (13.0-17.5) gm/dL Hct 25.3 L (39.0-53.0) % Plt Count 104 L (150-450) k/uL Lymphocytes # 0.5 L (1.0-4.8) k/uL INR (<1.2) ABG pH (7.35-7.45) ABG pCO2 (35-45) mmHg ABG pO2 (83-108) mmHg ABG HCO3 (21-25) mmol/L ABG Total CO2 (19-24) mmol/L ABG O2 Saturation (94-97) % ABG Hematocrit (34.0-46.0) % ABG Potassium (3.4-4.5) mmol/L ABG Ionized Calcium (4.5-5.3) mg/dL ABG Glucose (75-99) mg/dL ABG Lactic Acid (0.5-1.6) mmol/L Hemoglobin (13.0-17.5) gm/dL Chloride (98-107) mmol/L Glucose (74-99) mg/dL POC Glucose (mg/dL) 135 H 133 H (75-99) mg/dL Calcium (8.4-10.2) mg/dL Magnesium (1.6-2.3) mg/dL Alkaline Phosphatase (38-126) U/L Total Protein (6.3-8.2) g/dL Albumin (3.5-5.0) g/dL Arterial Blood Potassium (3.4-4.5) mmol/L Arterial Blood Glucose (75-99) mg/dL Crossmatch 12/10/17 12/10/17 12/10/17 Range/Units 04:30 05:22 06:27 RBC (4.30-5.90) m/uL Hgb (13.0-17.5) gm/dL Hct (39.0-53.0) % Plt Count (150-450) k/uL Lymphocytes # (1.0-4.8) k/uL INR (<1.2) ABG pH (7.35-7.45) ABG pCO2 (35-45) mmHg ABG pO2 (83-108) mmHg ABG HCO3 (21-25) mmol/L ABG Total CO2 (19-24) mmol/L ABG O2 Saturation (94-97) % ABG Hematocrit (34.0-46.0) % ABG Potassium (3.4-4.5) mmol/L ABG Ionized Calcium (4.5-5.3) mg/dL ABG Glucose (75-99) mg/dL ABG Lactic Acid (0.5-1.6) mmol/L Hemoglobin (13.0-17.5) gm/dL Chloride 108 H (98-107) mmol/L Glucose 112 H (74-99) mg/dL POC Glucose (mg/dL) 132 H 128 H (75-99) mg/dL Calcium 8.1 L (8.4-10.2) mg/dL Magnesium (1.6-2.3) mg/dL Alkaline Phosphatase 26 L (38-126) U/L Total Protein 4.7 L (6.3-8.2) g/dL Albumin 2.9 L (3.5-5.0) g/dL Arterial Blood Potassium (3.4-4.5) mmol/L Arterial Blood Glucose (75-99) mg/dL Crossmatch 12/10/17 12/10/17 12/10/17 Range/Units 07:37 08:05 09:04 RBC (4.30-5.90) m/uL Hgb (13.0-17.5) gm/dL Hct (39.0-53.0) % Plt Count (150-450) k/uL Lymphocytes # (1.0-4.8) k/uL INR (<1.2) ABG pH (7.35-7.45) ABG pCO2 (35-45) mmHg ABG pO2 (83-108) mmHg ABG HCO3 (21-25) mmol/L ABG Total CO2 (19-24) mmol/L ABG O2 Saturation (94-97) % ABG Hematocrit (34.0-46.0) % ABG Potassium (3.4-4.5) mmol/L ABG Ionized Calcium (4.5-5.3) mg/dL ABG Glucose (75-99) mg/dL ABG Lactic Acid (0.5-1.6) mmol/L Hemoglobin (13.0-17.5) gm/dL Chloride (98-107) mmol/L Glucose (74-99) mg/dL POC Glucose (mg/dL) 117 H 115 H 153 H (75-99) mg/dL Calcium (8.4-10.2) mg/dL Magnesium (1.6-2.3) mg/dL Alkaline Phosphatase (38-126) U/L Total Protein (6.3-8.2) g/dL Albumin (3.5-5.0) g/dL Arterial Blood Potassium (3.4-4.5) mmol/L Arterial Blood Glucose (75-99) mg/dL Crossmatch 12/10/17 12/10/17 12/10/17 Range/Units 09:38 10:11 11:00 RBC 2.58 L (4.30-5.90) m/uL Hgb 8.2 L (13.0-17.5) gm/dL Hct 23.8 L (39.0-53.0) % Plt Count 103 L (150-450) k/uL Lymphocytes # (1.0-4.8) k/uL INR (<1.2) ABG pH (7.35-7.45) ABG pCO2 (35-45) mmHg ABG pO2 (83-108) mmHg ABG HCO3 (21-25) mmol/L ABG Total CO2 (19-24) mmol/L ABG O2 Saturation (94-97) % ABG Hematocrit (34.0-46.0) % ABG Potassium (3.4-4.5) mmol/L ABG Ionized Calcium (4.5-5.3) mg/dL ABG Glucose (75-99) mg/dL ABG Lactic Acid (0.5-1.6) mmol/L Hemoglobin (13.0-17.5) gm/dL Chloride (98-107) mmol/L Glucose (74-99) mg/dL POC Glucose (mg/dL) 154 H 132 H (75-99) mg/dL Calcium (8.4-10.2) mg/dL Magnesium (1.6-2.3) mg/dL Alkaline Phosphatase (38-126) U/L Total Protein (6.3-8.2) g/dL Albumin (3.5-5.0) g/dL Arterial Blood Potassium (3.4-4.5) mmol/L Arterial Blood Glucose (75-99) mg/dL Crossmatch Chest x-ray: report reviewed Assessment and Plan Plan: Assessment Postoperative bioprosthetic aortic valve replacement for severe aortic valve insufficiency Hypertension Hyperlipidemia GERD History of BPH Osteoarthritis Plan We'll continue to monitor patient's condition has consultation with pulmonology and cardiology
[2017-12-10 12:09] LABS: Glucose,Whole Blood 128 mg/dL (75-99)
[2017-12-10] MEDS ORDERED: HYDROcodone/APAP 5-325MG 1 EACH TAB PO PRN (12:19)
[2017-12-10 13:10] LABS: Glucose,Whole Blood 179 mg/dL (75-99)
[2017-12-10 14:16] LABS: Glucose,Whole Blood 140 mg/dL (75-99)
[2017-12-10] MEDS: CLEVIDIPINE BUTYRATE 25 MG in EMPTY BAG 1 BAG IV SCH (14:35)
[2017-12-10 15:10] LABS: Glucose,Whole Blood 127 mg/dL (75-99)
[2017-12-10 16:00] LABS: Glucose,Whole Blood 113 mg/dL (75-99)
[2017-12-10] MEDS: KETOROLAC 30 MG/ML 1 ML VIAL IVP SCH ×2 (16:08→22:03)
[2017-12-10 17:06] LABS: Glucose,Whole Blood 115 mg/dL (75-99)
[2017-12-10 18:03] LABS: Glucose,Whole Blood 163 mg/dL (75-99)
[2017-12-10 19:08] LABS: Glucose,Whole Blood 143 mg/dL (75-99)
[2017-12-10] MEDS: LACTATED RINGERS 1,000 ML IV SCH (19:45)
[2017-12-10 19:59] LABS: Glucose,Whole Blood 124 mg/dL (75-99)
[2017-12-10 20:15] LABS: HCT 22.2 % (39.0-53.0); HGB 7.7 gm/dL (13.0-17.5); MCH 32.4 pg (25.0-35.0); MCHC 34.8 g/dL (31.0-37.0); Mean Platelet Volume 8.5; RBC 2.39 m/uL (4.30-5.90); RDW 13.8 % (11.5-15.5); WBC 5.7 k/uL (3.8-10.6)
[2017-12-10] MEDS: TAMSULOSIN 0.4 MG CAP.ER.24H PO SCH (20:16)
[2017-12-10] MEDS: SENNOSIDES-DOCUSATE SODIUM 1 EACH TAB PO SCH (20:16)
[2017-12-10 20:30] LABS: Platelet Count 90 k/uL (150-450)
[2017-12-10 21:03] LABS: Glucose,Whole Blood 114 mg/dL (75-99)
[2017-12-10 22:02] LABS: Glucose,Whole Blood 129 mg/dL (75-99)
[2017-12-10 23:12] LABS: Glucose,Whole Blood 125 mg/dL (75-99)
[2017-12-10] MEDS: BENZOCAINE/MENTHOL LOZENG 1 EACH LOZENGE MUCOUS MEM PRN (23:17)
[2017-12-11 00:08] LABS: Glucose,Whole Blood 124 mg/dL (75-99)
[2017-12-11] MEDS: KETOROLAC 30 MG/ML 1 ML VIAL IVP SCH ×5 (00:58→23:28)
[2017-12-11 02:08] LABS: Glucose,Whole Blood 124 mg/dL (75-99)
[2017-12-11 04:12] LABS: Glucose,Whole Blood 125 mg/dL (75-99)
[2017-12-11 04:24] LABS: Basophils % (A) 0 %; Eosinophils # (A) 0.1 k/uL (0-0.7); Eosinophils % (A) 1 %; HGB 8.4 gm/dL (13.0-17.5); Lymphocytes # (A) 0.9 k/uL (1.0-4.8); Lymphocytes % (A) 14 %; MCH 31.5 pg (25.0-35.0); MCHC 33.5 g/dL (31.0-37.0); MCV 94.2 fL (80.0-100.0); Monocytes # (A) 0.5 k/uL (0-1.0); Monocytes % (A) 9 %; Neutrophils # (A) 4.4 k/uL (1.3-7.7); Neutrophils % (A) 72 %; RBC 2.65 m/uL (4.30-5.90); RDW 13.7 % (11.5-15.5); WBC 6.1 k/uL (3.8-10.6)
[2017-12-11 04:25] LABS: Ionized Calcium 4.9 mg/dL (4.5-5.3)
[2017-12-11] MEDS: HEPARIN SODIUM,PORCINE 5,000 UNIT/ML 1 ML VIAL SQ SCH ×4 (04:30→20:33)
[2017-12-11 04:35] LABS: Platelet Count 95 k/uL (150-450)
[2017-12-11 04:50] LABS: ALT 30 U/L (21-72); AST 42 U/L (17-59); Albumin 3.2 g/dL (3.5-5.0); Alkaline Phosphatase 30 U/L (38-126); Anion Gap 5 mmol/L; Blood Urea Nitrogen 19 mg/dL (9-20); Calcium 8.4 mg/dL (8.4-10.2); Carbon Dioxide 25 mmol/L (22-30); Chloride 104 mmol/L (98-107); Glucose 108 mg/dL (74-99); Magnesium 2.3 mg/dL (1.6-2.3); Potassium 4.4 mmol/L (3.5-5.1); Sodium 134 mmol/L (137-145); Total Bilirubin 0.9 mg/dL (0.2-1.3); Total Protein 5.1 g/dL (6.3-8.2)
[2017-12-11 06:21] LABS: Glucose,Whole Blood 116 mg/dL (75-99)
[2017-12-11 07:15] LABS: Glucose,Whole Blood 115 mg/dL (75-99)
--- NOTE | 2017-12-11 07:20 | XR ---
EXAMINATION TYPE: XR chest 1V portable DATE OF EXAM: 12/11/2017 COMPARISON: 12/10/2017 HISTORY: Postoperative cardiac surgery. TECHNIQUE: Single frontal view of the chest is obtained. FINDINGS: There is redemonstration of marked cardiomegaly. [place]-Carlos catheter has been removed in th e interim with internal jugular catheter sheath remaining. Degree of pulmonary vascular congestion is mild and similar. Mediastinal drain and postoperative changes the chest are again present. No pneumo thorax or sizable pleural effusion. IMPRESSION: Removal of the [place]-Carlos catheter. Similar mild pulmonary vascular congestion and cardio megaly in comparison to the exam of 12/10/2017.
[2017-12-11] MEDS: HYDROcodone/APAP 5-325MG 1 EACH TAB PO PRN ×2 (07:57→19:57)
[2017-12-11] MEDS: MAGNESIUM HYDROXIDE 2,400 MG/10 ML CUP PO PRN (07:58)
[2017-12-11] MEDS: CLOPIDOGREL 75 MG TAB PO SCH (07:59)
[2017-12-11] MEDS: ASPIRIN 325 MG TAB PO SCH (07:59)
[2017-12-11] MEDS: PANTOPRAZOLE 40 MG/10 ML VIAL IVP SCH (07:59)
[2017-12-11] MEDS: METOPROLOL TARTRATE 12.5 MG TAB PO SCH ×2 (07:59→21:30)
[2017-12-11] MEDS: ATORVASTATIN 40 MG TAB PO SCH (07:59)
[2017-12-11] MEDS: MUPIROCIN 2% OINT 22 GM TUBE NASAL SCH ×2 (08:00→20:34)
[2017-12-11] MEDS: INSULN ASP PRT/INSULIN ASPART 100 UNIT/ML 10 ML VIAL SQ SCH (08:06)
[2017-12-11] MEDS: IPRATROPIUM-ALBUTEROL 3 ML NEB INHALATION SCH ×4 (08:07→20:48)
[2017-12-11] MEDS: AMIODARONE 450 MG in DEXTROSE 5% IN WATER 250 ML IV SCH ×4 (08:36→17:29)
[2017-12-11] MEDS: ALLOPURINOL 100 MG TAB PO SCH (08:37)
--- NOTE | 2017-12-11 09:25 | PN ---
PROGRESS NOTE Mr. Hernandez is a 77-year-old male who presented to undergo aortic valve replacement. He is feeling dyspneic this morning. He has a chest wall tenderness. He has no cough. No fever. He denies any dizziness or palpitation. He went in atrial fibrillation this morning. Otherwise, hemodynamically stable. He continues on aspirin once a day, Plavix 75 mg daily, Lipitor 40 mg daily, and metoprolol tartrate 12.5 mg twice a day. PHYSICAL EXAMINATION: Blood pressure 120/60 with a heart rate in the 80s. Lungs with a few crackles at the bases. HEART: Irregular, regular. S1, S2. No S3 with systolic murmur, no diastolic murmur appreciated. ABDOMEN: Soft, nontender. EXTREMITIES: No significant edema. IMPRESSION: 1. Status post aortic valve replacement. 2. Atrial fibrillation of new onset post surgically. 3. Hyperlipidemia. RECOMMENDATION: From the cardiac standpoint, will follow his rate. Amiodarone has been added to his regimen. If he does not convert to sinus mechanism, then I believe anticoagulation should be initiated and Plavix and aspirin can be stopped since he has no history of obstructive coronary artery disease. MMODL / IJN: [id number] /
--- NOTE | 2017-12-11 09:40 | P.PN ---
Subjective Progress Note Date: 12/11/17 Principal diagnosis: Severe aortic insufficiency, status post aortic valve replacement, postop day 2 Mr. Hernandez is a 77-year-old patient of Dr. Davenport, who underwent aortic valve replacement with exclusion of left atrial appendage today, on 12/09/[address] Farris, for a diagnosis of severe aortic valve insufficiency. Past medical history includes hypertension, dyslipidemia, GERD, ulcer arthritis, BPH, gout, nonsustained V. tach, asymptomatic bilateral carotid artery stenosis, remote history of smoking, and non-rheumatologic aortic valve insufficiency. Patient has had episodes of dizziness, fatigue, and progressive shortness of breath with exertion. Stress test on 07/01/2017 showed no definite ECG evidence of ischemia, the patient did have an episode of nonsustained V. tach after the procedure. Patient had an elective heart catheterization for his persisting symptoms, and on 10/14/2017, patient had a heart cath which showed nonocclusive coronary arteries, and 4+ aortic valve regurgitation, LV vent true Q low Juan Carlos showed an EF of 55%. Patient was recommended aortic valve replacement, and the patient opted for the procedure. Today worsening the patient postop after his surgery, sedated on mechanical ventilation, current vent settings SIMV mode with a rate of 12, tidal volume of 600, FiO2 of 100% and PEEP of 10. Postop blood gases showed pO2 of 188, pCO2 43, and pH of 7.34, and we recommended to decrease the FiO2 down to 60%, and subsequently down to 50%. Patient is sinus rhythm on the monitor, with a rate of 65 BPM, he has a atrioventricular epicardial wires in place connected to an external pacemaker, with a backup rate of VVI 40 BPM. Hemodynamically stable, blood pressure is 110/58, PA pressures 41/20, with a CVP of 14, cardiac outputs in index, is 6.1 and 2.6 respectively. Patient has a mediastinal chest tube, with sanguinous output, and there has been a total of 250 of sanguious output since OR exit time at 1319 p.m. patient was given 750 ML of Cell Saver, 2 L of lactated Ringer's, and 250 mL of albumin. Patient was given additional 500 mL of 5% albumin in the intensive care. His current maintenance IV is LR at a rate of 50 ML per hour, Diprivan is a 45 mics per kilo per minute, nitroglycerin is at 5 mics per minute , insulin is on hold, and clevidipine is currently on hold. Postop blood work showed WBC of 7.2, hemoglobin of 10.2, INR is 1.2, sodium is 140, potassium is 4.4, chloride is 111, BUN is 14, creatinine 0.72. Postop chest x-ray was reviewed by Dr. Mahmood, and shows endotracheal tube with the tip of above the jc, the heart size is normal, pulmonary mass culture is normal. Indwelling catheter is in place, and patient is nonoliguric. Progress note dated 12/10/2017 77-year-old male who is postop day #1 status post aortic valve replacement for aortic valve insufficiency. He had a bile is prostatic aortic valve replacement. He also had excision of left atrial appendage. He had an intraoperative ODETTE. The patient was on the ventilator post operatively and was able to be extubated within 6 hours. The patient has a history of essential hypertension hyperlipidemia remote history of tobacco use GERD and BPH and DJD. Currently the patient is doing relatively well. Resting comfortably. Working on deep breathing coughing clearing his secretions as well as incentive spirometer. Current laboratory data includes a white count of 5.7 hemoglobin 8.7 hematocrit 25.3 platelet count 104,000. PT INR and PTT are normal. Sodium and potassium are normal. Chlorides 108 CO2 24 BUN and creatinine were normal. Chest x-ray has not yet been done. On 12/11/2017 patient seen in follow-up in the intensive care unit. He states he couldn't sleep very well last night, could not get comfortable, feels a bit dyspneic, but no acute distress. Able to achieve 1250 on his incentive spirometry today. Lung sounds are clear, no crackles, no wheezes, no rhonchi. Pulse ox on 3 L per nasal cannula is 96%, patient is afebrile, hemodynamically stable, significant went into atrial fibrillation this morning, and he will be started on amiodarone drip per CT surgery. Today's chest x-ray has been reviewed by Dr. Jeffers, and shows mild pulmonary vascular congestion and cardiomegaly and what to previous chest x-ray from 12/10/2017. Today's labs have been reviewed, WBC 6.1, hemoglobin is 8.4, urine is 134, the rest of the electrolytes and renal profile are wall within normal limits. CT surgery gave patient a dose of IV Lasix yesterday. Mediastinal chest tube drainage is minimal, around 10 ML per hour. Is nonoliguric. Tolerating oral intake. Abdomen is distended, patient had a bowel movement, but bowel sounds positive 4. Objective - Vital Signs Vital signs: Vital Signs Temp 98.4 F 12/11/17 04:00 Pulse 89 12/11/17 08:24 Resp 13 12/11/17 07:00 BP 106/69 12/11/17 07:00 Pulse Ox 96 12/11/17 08:15 Intake & Output 12/10/17 12/11/17 12/11/17 18:59 06:59 18:59 Intake Total 1901.307 434.833 36 Output Total 539 900 45 Balance 1362.307 -465.167 -9 Weight 115.5 kg 116.4 kg Intake: IV 1645 432 36 0.9NS Pressure Bag 105 72 6 ACETAMINOPHEN IV (For NPO 200 ) 1,000 mg In Empty Bag 1 bag @ 400 mls/hr IVPB Q6HR [facility] Rx#:[id number] Albumin Human 5% 250 ml 750 In Empty Bag 1 bag @ 250 mls/hr IVPB Q1HR PRN Rx#: [id number] Cardiac Output 10 Lactated Ringers 1,000 ml 580 360 30 @ 20 mls/hr IV .Q24H [facility] Rx#:[id number] Intake, IV Titration 56.307 2.833 Amount Insulin Regular 100 unit 28.307 2.833 In Sodium Chloride 0.9% 100 ml @ Per Protocol IV .Q0M [facility] Rx#:[id number] Nitroglycerin-D5w Pmx 50 28 mg In Dextrose/Water 1 250ml.bag @ 5 MCG/MIN 1.5 mls/hr IV .Q24H [facility] Rx#: [id number] Oral 200 Output: Chest Tube Drainage 162 110 10 Mediastinal 162 110 10 Urine 377 790 35 Other: Voiding Method Indwelling Catheter Indwelling Catheter ABP, PAP, CO, CI - Last Documented Arterial Blood Pressure 120/60 Pulmonary Artery Pressure 32/13 Cardiac Output 6.9 Cardiac Index 3.2 - Exam GENERAL EXAM: Awake, alert, 77-year-old obese white male, in no acute distress comfortable in no apparent distress. HEAD: Normocephalic/atraumatic. EYES: Normal reaction of pupils, equal size. Conjunctiva pink, sclera white. NOSE: Clear with pink turbinates. THROAT: No erythema or exudates. NECK: No masses, no JVD, no thyroid enlargement, no adenopathy. CHEST: No chest wall deformity. Symmetrical expansion. Midsternal incision is clean dry and intact, covered with a surgical dressing, mediastinal chest tube site is clean dry and intact, atrioventricular epicardial wires are connected to an external pacemaker, with a backup rate of VVI 40 BPM. Patient is in A. fib with a controlled rate. Mediastinal chest tube is draining small amountsanguinous drainage LUNGS: Equal air entry with no crackles, wheeze, rhonchi or dullness. CVS: Irregular rate and rhythm, normal S1 and S2, no gallops, no murmurs, no rubs ABDOMEN: Soft, nontender. No hepatosplenomegaly, normal bowel sounds, no guarding or rigidity. EXTREMITIES: No clubbing, no edema, no cyanosis, 2+ pulses and upper and lower extremities. MUSCULOSKELETAL: Muscle strength and tone normal. SPINE: No scoliosis or deformity SKIN: No rashes CENTRAL NERVOUS SYSTEM:No focal deficits, tone is normal in all 4 extremities. - Labs CBC & Chem 7: 12/11/17 04:00 12/11/17 04:00 Labs: Abnormal Lab Results - Last 24 Hours (Table) 12/10/17 12/10/17 12/10/17 Range/Units 09:38 10:11 11:00 RBC 2.58 L (4.30-5.90) m/uL Hgb 8.2 L (13.0-17.5) gm/dL Hct 23.8 L (39.0-53.0) % Plt Count 103 L (150-450) k/uL Lymphocytes # (1.0-4.8) k/uL Sodium (137-145) mmol/L Glucose (74-99) mg/dL POC Glucose (mg/dL) 154 H 132 H (75-99) mg/dL Alkaline Phosphatase (38-126) U/L Total Protein (6.3-8.2) g/dL Albumin (3.5-5.0) g/dL 12/10/17 12/10/17 12/10/17 Range/Units 12:08 13:08 14:14 RBC (4.30-5.90) m/uL Hgb (13.0-17.5) gm/dL Hct (39.0-53.0) % Plt Count (150-450) k/uL Lymphocytes # (1.0-4.8) k/uL Sodium (137-145) mmol/L Glucose (74-99) mg/dL POC Glucose (mg/dL) 128 H 179 H 140 H (75-99) mg/dL Alkaline Phosphatase (38-126) U/L Total Protein (6.3-8.2) g/dL Albumin (3.5-5.0) g/dL 12/10/17 12/10/17 12/10/17 Range/Units 15:09 15:59 17:05 RBC (4.30-5.90) m/uL Hgb (13.0-17.5) gm/dL Hct (39.0-53.0) % Plt Count (150-450) k/uL Lymphocytes # (1.0-4.8) k/uL Sodium (137-145) mmol/L Glucose (74-99) mg/dL POC Glucose (mg/dL) 127 H 113 H 115 H (75-99) mg/dL Alkaline Phosphatase (38-126) U/L Total Protein (6.3-8.2) g/dL Albumin (3.5-5.0) g/dL 12/10/17 12/10/17 12/10/17 Range/Units 18:01 19:06 19:57 RBC (4.30-5.90) m/uL Hgb (13.0-17.5) gm/dL Hct (39.0-53.0) % Plt Count (150-450) k/uL Lymphocytes # (1.0-4.8) k/uL Sodium (137-145) mmol/L Glucose (74-99) mg/dL POC Glucose (mg/dL) 163 H 143 H 124 H (75-99) mg/dL Alkaline Phosphatase (38-126) U/L Total Protein (6.3-8.2) g/dL Albumin (3.5-5.0) g/dL 12/10/17 12/10/17 12/10/17 Range/Units 20:00 21:02 22:01 RBC 2.39 L (4.30-5.90) m/uL Hgb 7.7 L (13.0-17.5) gm/dL Hct 22.2 L (39.0-53.0) % Plt Count 90 L (150-450) k/uL Lymphocytes # (1.0-4.8) k/uL Sodium (137-145) mmol/L Glucose (74-99) mg/dL POC Glucose (mg/dL) 114 H 129 H (75-99) mg/dL Alkaline Phosphatase (38-126) U/L Total Protein (6.3-8.2) g/dL Albumin (3.5-5.0) g/dL 12/10/17 12/11/17 12/11/17 Range/Units 23:11 00:07 02:07 RBC (4.30-5.90) m/uL Hgb (13.0-17.5) gm/dL Hct (39.0-53.0) % Plt Count (150-450) k/uL Lymphocytes # (1.0-4.8) k/uL Sodium (137-145) mmol/L Glucose (74-99) mg/dL POC Glucose (mg/dL) 125 H 124 H 124 H (75-99) mg/dL Alkaline Phosphatase (38-126) U/L Total Protein (6.3-8.2) g/dL Albumin (3.5-5.0) g/dL 12/11/17 12/11/17 12/11/17 Range/Units 04:00 04:00 04:10 RBC 2.65 L (4.30-5.90) m/uL Hgb 8.4 L (13.0-17.5) gm/dL Hct 25.0 L (39.0-53.0) % Plt Count 95 L (150-450) k/uL Lymphocytes # 0.9 L (1.0-4.8) k/uL Sodium 134 L (137-145) mmol/L Glucose 108 H (74-99) mg/dL POC Glucose (mg/dL) 125 H (75-99) mg/dL Alkaline Phosphatase 30 L (38-126) U/L Total Protein 5.1 L (6.3-8.2) g/dL Albumin 3.2 L (3.5-5.0) g/dL 12/11/17 12/11/17 Range/Units 06:19 07:13 RBC (4.30-5.90) m/uL Hgb (13.0-17.5) gm/dL Hct (39.0-53.0) % Plt Count (150-450) k/uL Lymphocytes # (1.0-4.8) k/uL Sodium (137-145) mmol/L Glucose (74-99) mg/dL POC Glucose (mg/dL) 116 H 115 H (75-99) mg/dL Alkaline Phosphatase (38-126) U/L Total Protein (6.3-8.2) g/dL Albumin (3.5-5.0) g/dL Assessment and Plan Plan: Assessment: #1. Severe aortic valve insufficiency, status post bioprosthetic aortic valve replacement, with exclusion of left atrial appendage, and intraoperative ODETTE with bilateral pulmonary vein isolation, we'll stop the 2 #2. Routine postoperative ventilator management #3. New onset atrial fibrillation, with controlled rate #4. Essential hypertension #5. Hyperlipidemia #6. Remote history of smoking, preop bedside spirometry showed normal lung function, with FEV1 of 3.14 L or 94% of predicted #7. GERD/reflux #8. Benign prostatic hyperplasia #9. Osteoarthritis Plan: Continue encouraging pulmonary toileting, deep breathing and coughing, incentive spirometry, ambulation. Patient has been started on amiodarone drip for atrial fibrillation. Patient is feeling a bit more short of breath today, CT surgery is dosing the IV diuretics. Today's chest x-ray has been reviewed, and shows mild pulmonary vessel congestion. Maintain pain control. Continue to follow. I performed a history & physical examination of the patient and discussed their management with my nurse practitioner, Amaris Rangel. I reviewed the nurse practitioner's note and agree with the documented findings and plan of care. Lung sounds are clear. The findings and the impression was discussed with the patient. I attest to the documentation by the nurse practitioner. Time with Patient: Greater than 30
[2017-12-11] MEDS: INSULIN ASPART 100 UNIT/ML 1 ML 10 ML VIAL SQ SCH ×5 (09:56→23:44)
[2017-12-11] MEDS: LACTATED RINGERS 1,000 ML IV SCH (09:56)
[2017-12-11] MEDS: FINASTERIDE 5 MG TAB PO SCH (09:56)
--- NOTE | 2017-12-11 10:07 | P.PN ---
Subjective Progress Note Date: 12/11/17 Principal diagnosis: Severe aortic valve regurgitation. Mild left ventricular dysfunction. Supraventricular tachycardia. Obesity. Hypertension. Hyperlipidemia. GERD. Osteoporosis. BPH. Gout. Previous tobacco dependence with preoperative FEV1 94% of predicted. POD #2 aortic valve replacement using a 27 mm Inspiris bovine bioprosthesis. Exclusion of the left atrial appendage using a 45 mm Atriclip. Partial sternal plating. Intraoperative transesophageal echocardiogram and epi-aortic scanning. Postoperative diagnosis, normochromic anemia, an expected outcome of surgery secondary to cardiopulmonary bypass and hemodilution. Postoperative thrombocytopenia, an expected outcome of surgery. Postoperative atrial fibrillation, an unexpected but potential outcome of surgery. Patient is currently sitting up in the chair in no acute distress. Did have some chest discomfort this morning which is better with pain medication. Does complain of difficulty breathing, pain in lateral superior side of left leg. Patient is going in and out of atrial fibrillation, controlled rate. Objective - Vital Signs Vital signs: Vital Signs Temp 97.6 F 12/11/17 08:00 Pulse 76 12/11/17 09:00 Resp 9 L 12/11/17 09:00 BP 113/61 12/11/17 09:00 Pulse Ox 94 L 12/11/17 09:00 Intake & Output 12/10/17 12/11/17 12/11/17 18:59 06:59 18:59 Intake Total 1901.307 434.833 252 Output Total 539 900 105 Balance 1362.307 -465.167 147 Weight 115.5 kg 116.4 kg Intake: IV 1645 432 252 0.9NS Pressure Bag 105 72 12 ACETAMINOPHEN IV (For NPO 200 ) 1,000 mg In Empty Bag 1 bag @ 400 mls/hr IVPB Q6HR [facility] Rx#:[id number] Albumin Human 5% 250 ml 750 In Empty Bag 1 bag @ 250 mls/hr IVPB Q1HR PRN Rx#: [id number] Cardiac Output 10 Dextrose 5% in Water 100 150 ml @ 618 mls/hr IV .Q10M PRN with Amiodarone 150 mg Rx#:[id number] Lactated Ringers 1,000 ml 580 360 90 @ 20 mls/hr IV .Q24H [facility] Rx#:[id number] Intake, IV Titration 56.307 2.833 Amount Insulin Regular 100 unit 28.307 2.833 In Sodium Chloride 0.9% 100 ml @ Per Protocol IV .Q0M [facility] Rx#:[id number] Nitroglycerin-D5w Pmx 50 28 mg In Dextrose/Water 1 250ml.bag @ 5 MCG/MIN 1.5 mls/hr IV .Q24H [facility] Rx#: [id number] Oral 200 Output: Chest Tube Drainage 162 110 10 Mediastinal 162 110 10 Urine 377 790 95 Other: Voiding Method Indwelling Catheter Indwelling Catheter ABP, PAP, CO, CI - Last Documented Arterial Blood Pressure 116/57 Pulmonary Artery Pressure 32/13 Cardiac Output 6.9 Cardiac Index 3.2 - Constitutional General appearance: Present: cooperative, no acute distress, obese - Respiratory Details: Lungs sounds diminished bilaterally with fine crackles in the bases. Respirations even, slightly labored. Currently on 2 L nasal cannula with oxygen saturation 100%. Able to achieve 1000 mL on his incentive spirometry. Weak cough. - Cardiovascular Details: S1, S2 present. Irregular rate and rhythm, controlled atrial fibrillation on telemetry. Sternum stable. A/V epicardial make pacemaker wires present, grounded. Palpable peripheral pulses bilaterally. Bilateral lower extremity edema present. No calf pain or tenderness noted. Right internal jugular Cordis , right radial arterial line present. Heart hugger in place with patient demonstrating appropriate use. Antiembolism stockings, SCDs present. Mediastinal chest tube present to continuous wall suction, 70 mL serous edematous drainage overnight, 300 mL in the last 24 hours. - Gastrointestinal Gastrointestinal Comment(s): Abdomen soft, nontender, slightly distended, obese. Hypoactive bowel sounds present 4 quadrants. Tolerating clear liquids. Negative flatus. - Genitourinary Genitourinary Comment(s): Trinidad present draining clear, yellow urine. Output 35-60 mL/h overnight. - Integumentary Integumentary Comment(s): Skin is warm and dry with evidence of good perfusion. Anterior chest incision well approximated and covered with dry intact dressing. - Neurologic Neurologic: Present: CNII-XII intact - Musculoskeletal Musculoskeletal: Present: generalized weakness, strength equal bilaterally - Psychiatric Psychiatric: Present: A&O x's 3, appropriate affect - Allied health notes Allied health notes reviewed: nursing - Labs CBC & Chem 7: 12/11/17 04:00 12/11/17 04:00 Labs: Abnormal Lab Results - Last 24 Hours (Table) 12/10/17 12/10/17 12/10/17 Range/Units 09:38 10:11 11:00 RBC 2.58 L (4.30-5.90) m/uL Hgb 8.2 L (13.0-17.5) gm/dL Hct 23.8 L (39.0-53.0) % Plt Count 103 L (150-450) k/uL Lymphocytes # (1.0-4.8) k/uL Sodium (137-145) mmol/L Glucose (74-99) mg/dL POC Glucose (mg/dL) 154 H 132 H (75-99) mg/dL Alkaline Phosphatase (38-126) U/L Total Protein (6.3-8.2) g/dL Albumin (3.5-5.0) g/dL 12/10/17 12/10/17 12/10/17 Range/Units 12:08 13:08 14:14 RBC (4.30-5.90) m/uL Hgb (13.0-17.5) gm/dL Hct (39.0-53.0) % Plt Count (150-450) k/uL Lymphocytes # (1.0-4.8) k/uL Sodium (137-145) mmol/L Glucose (74-99) mg/dL POC Glucose (mg/dL) 128 H 179 H 140 H (75-99) mg/dL Alkaline Phosphatase (38-126) U/L Total Protein (6.3-8.2) g/dL Albumin (3.5-5.0) g/dL 12/10/17 12/10/17 12/10/17 Range/Units 15:09 15:59 17:05 RBC (4.30-5.90) m/uL Hgb (13.0-17.5) gm/dL Hct (39.0-53.0) % Plt Count (150-450) k/uL Lymphocytes # (1.0-4.8) k/uL Sodium (137-145) mmol/L Glucose (74-99) mg/dL POC Glucose (mg/dL) 127 H 113 H 115 H (75-99) mg/dL Alkaline Phosphatase (38-126) U/L Total Protein (6.3-8.2) g/dL Albumin (3.5-5.0) g/dL 12/10/17 12/10/17 12/10/17 Range/Units 18:01 19:06 19:57 RBC (4.30-5.90) m/uL Hgb (13.0-17.5) gm/dL Hct (39.0-53.0) % Plt Count (150-450) k/uL Lymphocytes # (1.0-4.8) k/uL Sodium (137-145) mmol/L Glucose (74-99) mg/dL POC Glucose (mg/dL) 163 H 143 H 124 H (75-99) mg/dL Alkaline Phosphatase (38-126) U/L Total Protein (6.3-8.2) g/dL Albumin (3.5-5.0) g/dL 12/10/17 12/10/17 12/10/17 Range/Units 20:00 21:02 22:01 RBC 2.39 L (4.30-5.90) m/uL Hgb 7.7 L (13.0-17.5) gm/dL Hct 22.2 L (39.0-53.0) % Plt Count 90 L (150-450) k/uL Lymphocytes # (1.0-4.8) k/uL Sodium (137-145) mmol/L Glucose (74-99) mg/dL POC Glucose (mg/dL) 114 H 129 H (75-99) mg/dL Alkaline Phosphatase (38-126) U/L Total Protein (6.3-8.2) g/dL Albumin (3.5-5.0) g/dL 12/10/17 12/11/17 12/11/17 Range/Units 23:11 00:07 02:07 RBC (4.30-5.90) m/uL Hgb (13.0-17.5) gm/dL Hct (39.0-53.0) % Plt Count (150-450) k/uL Lymphocytes # (1.0-4.8) k/uL Sodium (137-145) mmol/L Glucose (74-99) mg/dL POC Glucose (mg/dL) 125 H 124 H 124 H (75-99) mg/dL Alkaline Phosphatase (38-126) U/L Total Protein (6.3-8.2) g/dL Albumin (3.5-5.0) g/dL 12/11/17 12/11/17 12/11/17 Range/Units 04:00 04:00 04:10 RBC 2.65 L (4.30-5.90) m/uL Hgb 8.4 L (13.0-17.5) gm/dL Hct 25.0 L (39.0-53.0) % Plt Count 95 L (150-450) k/uL Lymphocytes # 0.9 L (1.0-4.8) k/uL Sodium 134 L (137-145) mmol/L Glucose 108 H (74-99) mg/dL POC Glucose (mg/dL) 125 H (75-99) mg/dL Alkaline Phosphatase 30 L (38-126) U/L Total Protein 5.1 L (6.3-8.2) g/dL Albumin 3.2 L (3.5-5.0) g/dL 12/11/17 12/11/17 Range/Units 06:19 07:13 RBC (4.30-5.90) m/uL Hgb (13.0-17.5) gm/dL Hct (39.0-53.0) % Plt Count (150-450) k/uL Lymphocytes # (1.0-4.8) k/uL Sodium (137-145) mmol/L Glucose (74-99) mg/dL POC Glucose (mg/dL) 116 H 115 H (75-99) mg/dL Alkaline Phosphatase (38-126) U/L Total Protein (6.3-8.2) g/dL Albumin (3.5-5.0) g/dL - Imaging and Cardiology Chest x-ray: report reviewed, image reviewed Assessment and Plan (1) Severe aortic valve regurgitation Current Visit: Yes Status: Chronic Code(s): I35.1 - NONRHEUMATIC AORTIC ( VALVE) INSUFFICIENCY SNOMED Code(s): 55112145 (2) Supraventricular tachycardia Current Visit: No Status: Resolved Code(s): I47.1 - SUPRAVENTRICULAR TACHYCARDIA SNOMED Code(s): 8391933 (3) Obesity (BMI 30-39.9) Current Visit: Yes Status: Chronic Code(s): E66.9 - OBESITY, UNSPECIFIED SNOMED Code(s): 800264259 (4) Osteoarthritis Current Visit: Yes Status: Chronic Code(s): M19.90 - UNSPECIFIED OSTEOARTHRITIS, UNSPECIFIED SITE SNOMED Code(s): 566301840 (5) Tobacco dependence in remission Current Visit: No Status: Resolved Code(s): F17.201 - NICOTINE DEPENDENCE, UNSPECIFIED, IN REMISSION SNOMED Code(s): 413600234 (6) BPH (benign prostatic hyperplasia) Current Visit: Yes Status: Chronic Code(s): N40.0 - BENIGN PROSTATIC HYPERPLASIA WITHOUT LOWER URINRY TRACT SYMP SNOMED Code(s): 517766870 (7) Dyslipidemia Current Visit: Yes Status: Chronic Code(s): E78.5 - HYPERLIPIDEMIA, UNSPECIFIED SNOMED Code(s): 878797423 (8) GERD (gastroesophageal reflux disease) Current Visit: Yes Status: Chronic Code(s): K21.9 - GASTRO-ESOPHAGEAL REFLUX DISEASE WITHOUT ESOPHAGITIS SNOMED Code(s): 639128883 (9) Hypertension Current Visit: Yes Status: Chronic Code(s): I10 - ESSENTIAL (PRIMARY) HYPERTENSION SNOMED Code(s): 16878375 Plan: 1. Continue aspirin, statin, Plavix, heparin subcu, beta too. Will increase beta too therapy as tolerated. 2. Continue amiodarone for A. fib prophylaxis. Will transition to oral amiodarone. No anticoagulation needed unless patient is in atrial fibrillation greater than 24 hours. Left atrial appendage was clipped. 3. Will give IV Lasix 20 mg 1 today. 4. Wean O2 as tolerated. Encourage incentive spirometry use 10 times every hour. 5. Encourage continued smoking cessation. 6. Increase activity, ambulate as tolerated. PT/OT/cardiac rehab consulted. 7. Will monitor daily labs and x-rays. 8. GI/DVT prophylaxis. 9. Pain medication with current medication regimen. 10. Insulin management per primary care service. 11. Bronchodilators per pulmonology. 12. More recommendations to follow. Time with Patient: Greater than 30
[2017-12-11] MEDS ORDERED: FUROSEMIDE 10 MG/ML 2 ML VIAL IV ONE (10:15)
[2017-12-11] MEDS: METHYL SALICYLATE/MENTHOL CREAM 5 OZ TOPICAL PRN ×3 (10:27→20:34)
[2017-12-11] MEDS: CLEVIDIPINE BUTYRATE 25 MG in EMPTY BAG 1 BAG IV SCH (11:10)
[2017-12-11 11:51] LABS: Glucose,Whole Blood 111 mg/dL (75-99)
[2017-12-11] MEDS: BISACODYL 10 MG SUPP RECTAL PRN (15:04)
[2017-12-11 17:00] LABS: Glucose,Whole Blood 108 mg/dL (75-99)
[2017-12-11] MEDS: SENNOSIDES-DOCUSATE SODIUM 1 EACH TAB PO SCH (20:34)
[2017-12-11] MEDS: TAMSULOSIN 0.4 MG CAP.ER.24H PO SCH (21:28)
[2017-12-11] MEDS: BENZOCAINE/MENTHOL LOZENG 1 EACH LOZENGE MUCOUS MEM PRN (23:28)
[2017-12-11 23:45] LABS: Glucose,Whole Blood 98 mg/dL (75-99)
[2017-12-11] MEDS: INSULIN NPH 300 UNIT/3 ML VIAL SQ SCH (23:45)
[2017-12-12] MEDS: HYDROcodone/APAP 5-325MG 1 EACH TAB PO PRN (00:32)
[2017-12-12] MEDS: INSULIN ASPART 100 UNIT/ML 1 ML 10 ML VIAL SQ SCH ×6 (03:11→21:26)
[2017-12-12 03:12] LABS: Glucose,Whole Blood 109 mg/dL (75-99)
[2017-12-12] MEDS: HEPARIN SODIUM,PORCINE 5,000 UNIT/ML 1 ML VIAL SQ SCH ×3 (04:30→20:23)
[2017-12-12 06:04] LABS: Basophils % (A) 0 %; Eosinophils # (A) 0.1 k/uL (0-0.7); Eosinophils % (A) 1 %; HCT 23.2 % (39.0-53.0); HGB 7.9 gm/dL (13.0-17.5); Lymphocytes # (A) 0.9 k/uL (1.0-4.8); Lymphocytes % (A) 13 %; MCH 32.1 pg (25.0-35.0); MCHC 34.2 g/dL (31.0-37.0); Mean Platelet Volume 7.8; Monocytes # (A) 0.7 k/uL (0-1.0); Monocytes % (A) 10 %; Neutrophils % (A) 72 %; Platelet Count 110 k/uL (150-450); RBC 2.47 m/uL (4.30-5.90); RDW 13.7 % (11.5-15.5)
[2017-12-12 06:05] LABS: Calcium 8.3 mg/dL (8.4-10.2); Potassium 4.6 mmol/L (3.5-5.1); Total Bilirubin 0.8 mg/dL (0.2-1.3); Total Protein 5.1 g/dL (6.3-8.2)
[2017-12-12] MEDS: AMIODARONE 450 MG in DEXTROSE 5% IN WATER 250 ML IV SCH ×4 (06:13→09:07)
[2017-12-12] MEDS: KETOROLAC 30 MG/ML 1 ML VIAL IVP SCH ×4 (06:45→23:54)
--- NOTE | 2017-12-12 06:46 | XR ---
EXAMINATION TYPE: XR chest 1V portable DATE OF EXAM: 12/12/2017 HISTORY: post cardiac surgery. REFERENCE: Previous study dated 12/11/2017. FINDINGS: There has been a midline sternotomy. A right internal jugular sheath remains in place. The heart is enlarged. Pulmonary vasculature has improved. There are small, bilateral effusions. Ther e is some atelectasis at the left lung base. IMPRESSION: CONTINUING POSTOPERATIVE CHANGE WITH SMALL, BILATERAL EFFUSIONS AND LEFT BASILAR ATELECTASIS.
[2017-12-12 06:55] LABS: Glucose,Whole Blood 108 mg/dL (75-99)
--- NOTE | 2017-12-12 07:53 | P.PN ---
Subjective This is a pleasant 77 years old male with past medical history of GERD, hyperlipidemia, hypertension, arthritis, prostate disorder, gout, occasional dyspnea. See at the care of the left leg. Status post cardiac cath. Exit smoker. Who presents for valve disease. he is postoperative for aortic valve insufficiency he is post bioprosthetic aortic valve replacement. Patient has been extubated continues to be in ICU sitting in chair at bedside. His prostatic cardiac cath on 09/2017. And at that time he was recommended to have aortic valve replacement and repair for severe aortic valve regurgitation. At that time his ejection fraction was 55% 12/11/2017 Patient remains in the ICU. And a critical case but more stable. He got extubated.. Labs are reviewed and showing sodium 134. Creatinine 0.8. Liver function tests were unremarkable. Mildly hyperglycemic at 124. INR is 1.1. No leukocytosis with WBC 7.0K. Hemoglobin 7.9 and platelets low at 110. Chest x-ray: Removal of the Hornbeck scans catheter. Similar mild pulmonary vascular congestion and cardiomegaly in comparison to the exam of 12/10/2017. Cardiology on the case well as pulmonary. Discussed the case with the vascular surgery team patient possible transfer to the floor tomorrow Objective - Vital Signs Vital signs: Vital Signs Temp 98.6 F 12/11/17 16:00 Pulse 76 12/11/17 21:01 Resp 19 12/11/17 19:00 BP 109/64 12/11/17 19:00 Pulse Ox 96 12/11/17 19:00 Intake & Output 12/11/17 12/11/17 12/12/17 06:59 18:59 06:59 Intake Total 434.833 799.000 33 Output Total 900 430 Balance -465.167 369.000 33 Weight 116.4 kg Intake: IV 432 549 33 0.9NS Pressure Bag 72 39 3 Dextrose 5% in Water 100 150 ml @ 618 mls/hr IV .Q10M PRN with Amiodarone 150 mg Rx#:[id number] Lactated Ringers 1,000 ml 360 360 30 @ 20 mls/hr IV .Q24H [facility] Rx#:[id number] Intake, IV Titration 2.833 250.000 Amount Amiodarone 450 mg In 250.000 Dextrose 5% in Water 250 ml @ 1 MG/MIN 33.33 mls/ hr IV .Q7H31M [facility] Rx#: [id number] Insulin Regular 100 unit 2.833 In Sodium Chloride 0.9% 100 ml @ Per Protocol IV .Q0M [facility] Rx#:[id number] Output: Chest Tube Drainage 110 50 Mediastinal 110 50 Urine 790 380 Other: Voiding Method Indwelling Catheter Bedside Commode Urinal ABP, PAP, CO, CI - Last Documented Arterial Blood Pressure 94/82 Pulmonary Artery Pressure 32/13 Cardiac Output 6.9 Cardiac Index 3.2 - Exam GENERAL: The patient is alert and oriented x3, not in any acute distress. Well developed, well nourished. HEENT: Pupils are round and equally reacting to light. EOMI. No scleral icterus. No conjunctival pallor. Normocephalic, atraumatic. No pharyngeal erythema. No thyromegaly. CARDIOVASCULAR: S1 and S2 present. No murmurs, rubs, or gallops. PULMONARY: Chest is clear to auscultation, no wheezing or crackles. ABDOMEN: Soft, nontender, nondistended, normoactive bowel sounds. No palpable organomegaly. MUSCULOSKELETAL: No joint swelling or deformity. EXTREMITIES: No cyanosis, clubbing, or pedal edema. NEUROLOGICAL: Gross neurological examination did not reveal any focal deficits. SKIN: No rashes. - Labs CBC & Chem 7: 12/12/17 05:15 12/12/17 05:15 Labs: Abnormal Lab Results - Last 24 Hours (Table) 12/11/17 12/11/17 12/11/17 Range/Units 00:07 02:07 04:00 RBC (4.30-5.90) m/uL Hgb (13.0-17.5) gm/dL Hct (39.0-53.0) % Plt Count (150-450) k/uL Lymphocytes # (1.0-4.8) k/uL Sodium 134 L (137-145) mmol/L Glucose 108 H (74-99) mg/dL POC Glucose (mg/dL) 124 H 124 H (75-99) mg/dL Alkaline Phosphatase 30 L (38-126) U/L Total Protein 5.1 L (6.3-8.2) g/dL Albumin 3.2 L (3.5-5.0) g/dL 12/11/17 12/11/17 12/11/17 Range/Units 04:00 04:10 06:19 RBC 2.65 L (4.30-5.90) m/uL Hgb 8.4 L (13.0-17.5) gm/dL Hct 25.0 L (39.0-53.0) % Plt Count 95 L (150-450) k/uL Lymphocytes # 0.9 L (1.0-4.8) k/uL Sodium (137-145) mmol/L Glucose (74-99) mg/dL POC Glucose (mg/dL) 125 H 116 H (75-99) mg/dL Alkaline Phosphatase (38-126) U/L Total Protein (6.3-8.2) g/dL Albumin (3.5-5.0) g/dL 12/11/17 12/11/17 12/11/17 Range/Units 07:13 11:50 16:58 RBC (4.30-5.90) m/uL Hgb (13.0-17.5) gm/dL Hct (39.0-53.0) % Plt Count (150-450) k/uL Lymphocytes # (1.0-4.8) k/uL Sodium (137-145) mmol/L Glucose (74-99) mg/dL POC Glucose (mg/dL) 115 H 111 H 108 H (75-99) mg/dL Alkaline Phosphatase (38-126) U/L Total Protein (6.3-8.2) g/dL Albumin (3.5-5.0) g/dL Assessment and Plan Assessment: Assessment Postoperative bioprosthetic aortic valve replacement for severe aortic valve regurgitation Hypertension Hyperlipidemia GERD BPH Ulcer arthritis Plan: Continue with the same treatment. Continuous treatment. Labs and medication were reviewed. Continue with insulin. Patient diuretic Lasix 20 mg 1 dose for patient has some pulmonary congestion on the chest x-ray however patient is saturating high 90s on oxygen via nasal cannula at 2 L/m. Resume her stop his home medication. Patient and aspirin GI prophylaxis with Protonix and DVT prophylaxis with subcutaneous heparin. Electrolyte replacement as per protocol. Monitor labs and vitals. Patient blood sugars are acceptable at this point. Running between 115 and 124. Further recommendation is made on the clinical course of the patient's
[2017-12-12] MEDS: INSULN ASP PRT/INSULIN ASPART 100 UNIT/ML 10 ML VIAL SQ SCH (08:00)
[2017-12-12] MEDS: PANTOPRAZOLE 40 MG TABLET PO SCH (08:13)
[2017-12-12] MEDS: METOPROLOL TARTRATE 12.5 MG TAB PO SCH ×2 (08:13→20:23)
[2017-12-12] MEDS: ALLOPURINOL 100 MG TAB PO SCH (08:13)
[2017-12-12] MEDS: MUPIROCIN 2% OINT 22 GM TUBE NASAL SCH ×2 (08:13→20:24)
[2017-12-12] MEDS: ASPIRIN 325 MG TAB PO SCH (08:13)
[2017-12-12] MEDS: CLOPIDOGREL 75 MG TAB PO SCH (08:13)
[2017-12-12] MEDS: FINASTERIDE 5 MG TAB PO SCH (08:13)
[2017-12-12] MEDS: ATORVASTATIN 40 MG TAB PO SCH (08:14)
--- NOTE | 2017-12-12 09:01 | P.PN ---
Subjective Progress Note Date: 12/12/17 Principal diagnosis: Status post aortic valve replacement Progress note dated 12/10/2017 77-year-old male who is postop day #1 status post aortic valve replacement for aortic valve insufficiency. He had a bile is prostatic aortic valve replacement. He also had excision of left atrial appendage. He had an intraoperative ODETTE. The patient was on the ventilator post operatively and was able to be extubated within 6 hours. The patient has a history of essential hypertension hyperlipidemia remote history of tobacco use GERD and BPH and DJD. Currently the patient is doing relatively well. Resting comfortably. Working on deep breathing coughing clearing his secretions as well as incentive spirometer. Current laboratory data includes a white count of 5.7 hemoglobin 8.7 hematocrit 25.3 platelet count 104,000. PT INR and PTT are normal. Sodium and potassium are normal. Chlorides 108 CO2 24 BUN and creatinine were normal. Chest x-ray has not yet been done. Progress note dated 12/12/2017 This is a 77-year-old male who is postop day #3, status post aortic valve replacement for aortic valve insufficiency. The patient had a bioprosthetic aortic valve replacement. He also had a left atrial appendage excision, an intraoperative transesophageal echocardiogram. The patient has a history of essential hypertension, hyperlipidemia, remote history of tobacco use, GERD, BPH and degenerative joint disease. Currently, the patient is on O2 at 2 L by nasal cannula and lactated Ringer's at 40 mL an hour. The patient is able get 1250 mL on his incentive spirometer. Other than for some surgical site pain, the patient seemed be doing relatively well. Denies any shortness of breath cough wheezing phlegm production. He denies any chest pressure or palpitations. No nausea vomiting or diarrhea. Not having any urinary complaints. Objective - Vital Signs Vital signs: Vital Signs Temp 98.4 F 12/12/17 04:00 Pulse 69 12/12/17 08:00 Resp 24 12/12/17 08:00 BP 119/70 12/12/17 08:00 Pulse Ox 96 12/12/17 08:00 Intake & Output 12/11/17 12/12/17 12/12/17 18:59 06:59 18:59 Intake Total 633.315 9157.137 48.272 Output Total 430 470 Balance 369.000 618.137 48.272 Weight 117.2 kg Intake: IV 549 396 33 0.9NS Pressure Bag 39 36 3 Dextrose 5% in Water 100 150 ml @ 618 mls/hr IV .Q10M PRN with Amiodarone 150 mg Rx#:[id number] Lactated Ringers 1,000 ml 360 360 30 @ 20 mls/hr IV .Q24H [facility] Rx#:[id number] Intake, IV Titration 250.000 212.137 15.272 Amount Amiodarone 450 mg In 250.000 212.137 15.272 Dextrose 5% in Water 250 ml @ 1 MG/MIN 33.33 mls/ hr IV .Q7H31M [facility] Rx#: [id number] Oral 480 Output: Chest Tube Drainage 50 Mediastinal 50 Urine 380 250 Post Void Residual 220 Other: Voiding Method Bedside Commode Bedside Commode Urinal Urinal # Bowel Movements 1 ABP, PAP, CO, CI - Last Documented Arterial Blood Pressure 110/62 Pulmonary Artery Pressure 32/13 Cardiac Output 6.9 Cardiac Index 3.2 - Exam No acute distress, oriented 3. Nasal O2 in place at 2 L. HEENT examination is grossly unremarkable. Mucous membranes are moist. No oral lesions. Neck supple. Full range of motion. No adenopathy thyromegaly or neck vein distention. Cardiovascular examination reveals regular rhythm rate. S1-S2 normal. No S3 or S4. No discernible murmur noted. Lungs reveal mostly clear breath sounds. A few scattered rhonchi noted. There are no wheezes or crackles. Sounds are noted to be equal bilaterally. Abdomen soft bowel sounds are heard. No masses or tenderness. Extremities are intact. No cyanosis clubbing or edema. Skin is without rash or lesion. Neurologic examination is brief but nonfocal. - Labs CBC & Chem 7: 12/12/17 05:15 12/12/17 05:15 Labs: Abnormal Lab Results - Last 24 Hours (Table) 12/11/17 12/11/17 12/12/17 Range/Units 11:50 16:58 03:11 RBC (4.30-5.90) m/uL Hgb (13.0-17.5) gm/dL Hct (39.0-53.0) % Plt Count (150-450) k/uL Lymphocytes # (1.0-4.8) k/uL Sodium (137-145) mmol/L BUN (9-20) mg/dL POC Glucose (mg/dL) 111 H 108 H 109 H (75-99) mg/dL Calcium (8.4-10.2) mg/dL Total Protein (6.3-8.2) g/dL Albumin (3.5-5.0) g/dL 12/12/17 12/12/17 12/12/17 Range/Units 05:15 05:15 06:53 RBC 2.47 L (4.30-5.90) m/uL Hgb 7.9 L (13.0-17.5) gm/dL Hct 23.2 L (39.0-53.0) % Plt Count 110 L (150-450) k/uL Lymphocytes # 0.9 L (1.0-4.8) k/uL Sodium 130 L (137-145) mmol/L BUN 27 H (9-20) mg/dL POC Glucose (mg/dL) 108 H (75-99) mg/dL Calcium 8.3 L (8.4-10.2) mg/dL Total Protein 5.1 L (6.3-8.2) g/dL Albumin 3.0 L (3.5-5.0) g/dL Assessment and Plan Assessment: Assessment Postop day #3 status post aortic valve replacement secondary to aortic insufficiency Postoperative ventilator management, with extubation within 6 hours.. Status post left atrial appendage excision History of essential hypertension History of hyperlipidemia Previous history of tobacco use. History of GERD BPH by history DJD Plan: Plan dated 12/10/2017 The patient remains on breathing treatments. We'll recommend incentive spirometry use every hour. Chest x-rays yet to be done. In addition, the patient will need deep breathing coughing and clearing secretions to be a priority. We'll continue to watch the patient very carefully. Prognosis is guarded. Patient has done well in the first postoperative day. Additional recommendations and suggestions are forthcoming. Critical care time 33 minute Plan dated 12/12/2017 The patient continues to show steady improvement. He still on O2 at 2 L. He is getting lactated Ringer's IV at 40 mL now her. Is able get 1250 mL on his incentive spirometer. Chest x-ray show some bibasilar atelectasis and small bilateral effusions. White count is 7 hemoglobin 7.9 hematocrit 23.1 platelet count 110,000. Sodium 130 with a normal potassium chloride CO2 anion gap. BUN and creatinine were 27 and 1.0 respectively. Medications are reviewed. The patient is encouraged to continue to use incentive spirometer every hour and continue to clear secretions by deep breathing and coughing. Critical care time 31 minutes Time with Patient: Greater than 30
[2017-12-12] MEDS ORDERED: SODIUM CHLORIDE 0.65% NASAL SPRAY 44 ML BTL NASAL PRN (09:06)
[2017-12-12] MEDS: IPRATROPIUM-ALBUTEROL 3 ML NEB INHALATION SCH ×4 (09:12→20:01)
[2017-12-12] MEDS: METHYL SALICYLATE/MENTHOL CREAM 5 OZ TOPICAL PRN ×2 (09:31→16:22)
[2017-12-12] MEDS: HYDROcodone/APAP 7.5-325MG 1 EACH TAB PO PRN (09:36)
[2017-12-12] MEDS: AMIODARONE 200 MG TAB PO SCH ×2 (09:37→21:45)
--- NOTE | 2017-12-12 10:10 | PN ---
PROGRESS NOTE Mr. Hernandez is a 77-year-old male who underwent aortic valve replacement. He is feeling better today. His breathing is stable. He denies chest pain. He denies any dizziness or palpitation. He denies any nausea or vomiting. He continues to be on amiodarone 400 mg twice a day, aspirin once a day, Lipitor 40 mg daily, Plavix 75 mg daily, metoprolol tartrate 12.5 mg twice a day. PHYSICAL EXAMINATION: Blood pressure 119/70 with a heart rate in 50s. Lungs with mild decrease in breath sounds at the bases. HEART: Regular rate and rhythm, S1, S2, plus rub and a systolic murmur. ABDOMEN: Soft nontender. EXTREMITIES: No edema. IMPRESSION: 1. Status post aortic valve replacement. 2. Atrial fibrillation, back in sinus mechanism. 3. Hyperlipidemia. RECOMMENDATION: From the cardiac standpoint, we will continue present therapy. Continue his level of activity and depending on his progress, further recommendations will be made. MMODL / IJN: [id number] /
[2017-12-12] MEDS ORDERED: METOCLOPRAMIDE 5 MG/ML 2 ML VIAL IVP STA (10:16)
--- NOTE | 2017-12-12 10:33 | P.PN ---
Subjective Progress Note Date: 12/12/17 Principal diagnosis: Severe aortic valve regurgitation. Mild left ventricular dysfunction. Supraventricular tachycardia. Obesity. Hypertension. Hyperlipidemia. GERD. Osteoporosis. BPH. Gout. Previous tobacco dependence with preoperative FEV1 94% of predicted. POD #3 aortic valve replacement using a 27 mm Inspiris bovine bioprosthesis. Exclusion of the left atrial appendage using a 45 mm Atriclip. Partial sternal plating. Intraoperative transesophageal echocardiogram and epi-aortic scanning. Postoperative diagnosis, normochromic anemia, an expected outcome of surgery secondary to cardiopulmonary bypass and hemodilution. Postoperative thrombocytopenia, an expected outcome of surgery. Postoperative atrial fibrillation, an unexpected but potential outcome of surgery. Patient is currently sitting up in the chair in no acute distress. States he still has chest discomfort, but does feel better than yesterday with removal of his mediastinal chest tube. No new complaints. Converted to sinus rhythm. Objective - Vital Signs Vital signs: Vital Signs Temp 98.4 F 12/12/17 04:00 Pulse 54 L 12/12/17 09:28 Resp 18 12/12/17 09:00 BP 119/70 12/12/17 08:00 Pulse Ox 96 12/12/17 09:00 Intake & Output 12/11/17 12/12/17 12/12/17 18:59 06:59 18:59 Intake Total 919.138 7165.137 114.272 Output Total 430 470 Balance 369.000 618.137 114.272 Weight 117.2 kg Intake: IV 549 396 99 0.9NS Pressure Bag 39 36 9 Dextrose 5% in Water 100 150 ml @ 618 mls/hr IV .Q10M PRN with Amiodarone 150 mg Rx#:[id number] Lactated Ringers 1,000 ml 360 360 90 @ 20 mls/hr IV .Q24H [facility] Rx#:[id number] Intake, IV Titration 250.000 212.137 15.272 Amount Amiodarone 450 mg In 250.000 212.137 15.272 Dextrose 5% in Water 250 ml @ 1 MG/MIN 33.33 mls/ hr IV .Q7H31M [facility] Rx#: [id number] Oral 480 Output: Chest Tube Drainage 50 Mediastinal 50 Urine 380 250 Post Void Residual 220 Other: Voiding Method Bedside Commode Bedside Commode Urinal Urinal # Bowel Movements 1 ABP, PAP, CO, CI - Last Documented Arterial Blood Pressure 119/54 Pulmonary Artery Pressure 32/13 Cardiac Output 6.9 Cardiac Index 3.2 - Constitutional General appearance: Present: cooperative, no acute distress, obese - Respiratory Details: Lungs sounds diminished bilaterally. Respirations even, slightly labored. Currently on 2 L nasal cannula with oxygen saturation 97%. Able to achieve 1500 mL on his incentive spirometry. Weak cough. - Cardiovascular Details: S1, S2 present. Regular rate and rhythm, sinus rhythm on telemetry. Sternum stable. A/V epicardial make pacemaker wires present, grounded. Palpable peripheral pulses bilaterally. Bilateral lower extremity edema present. No calf pain or tenderness noted. Right internal jugular Cordis, right radial arterial line present. Heart hugger in place with patient demonstrating appropriate use. Antiembolism stockings, SCDs present. - Gastrointestinal Gastrointestinal Comment(s): Abdomen soft, nontender, slightly distended, obese. Active bowel sounds present 4 quadrants. Tolerating diet. Positive bowel movement - Genitourinary Genitourinary Comment(s): Patient with void, straight cathed 1 for 250 mL. PVR this morning for 150 mL. - Integumentary Integumentary Comment(s): Skin is warm and dry with evidence of good perfusion. Anterior chest incision well approximated and covered with dry intact dressing. - Neurologic Neurologic: Present: CNII-XII intact - Musculoskeletal Musculoskeletal: Present: gait normal, strength equal bilaterally - Psychiatric Psychiatric: Present: A&O x's 3, appropriate affect, intact judgment & insight - Allied health notes Allied health notes reviewed: nursing - Labs CBC & Chem 7: 12/12/17 05:15 12/12/17 05:15 Labs: Abnormal Lab Results - Last 24 Hours (Table) 12/11/17 12/11/17 12/12/17 Range/Units 11:50 16:58 03:11 RBC (4.30-5.90) m/uL Hgb (13.0-17.5) gm/dL Hct (39.0-53.0) % Plt Count (150-450) k/uL Lymphocytes # (1.0-4.8) k/uL Sodium (137-145) mmol/L BUN (9-20) mg/dL POC Glucose (mg/dL) 111 H 108 H 109 H (75-99) mg/dL Calcium (8.4-10.2) mg/dL Total Protein (6.3-8.2) g/dL Albumin (3.5-5.0) g/dL 12/12/17 12/12/17 12/12/17 Range/Units 05:15 05:15 06:53 RBC 2.47 L (4.30-5.90) m/uL Hgb 7.9 L (13.0-17.5) gm/dL Hct 23.2 L (39.0-53.0) % Plt Count 110 L (150-450) k/uL Lymphocytes # 0.9 L (1.0-4.8) k/uL Sodium 130 L (137-145) mmol/L BUN 27 H (9-20) mg/dL POC Glucose (mg/dL) 108 H (75-99) mg/dL Calcium 8.3 L (8.4-10.2) mg/dL Total Protein 5.1 L (6.3-8.2) g/dL Albumin 3.0 L (3.5-5.0) g/dL - Imaging and Cardiology Chest x-ray: report reviewed, image reviewed Assessment and Plan (1) Severe aortic valve regurgitation Current Visit: Yes Status: Chronic Code(s): I35.1 - NONRHEUMATIC AORTIC ( VALVE) INSUFFICIENCY SNOMED Code(s): 83897940 (2) Supraventricular tachycardia Current Visit: No Status: Resolved Code(s): I47.1 - SUPRAVENTRICULAR TACHYCARDIA SNOMED Code(s): 0651994 (3) Obesity (BMI 30-39.9) Current Visit: Yes Status: Chronic Code(s): E66.9 - OBESITY, UNSPECIFIED SNOMED Code(s): 530222380 (4) Osteoarthritis Current Visit: Yes Status: Chronic Code(s): M19.90 - UNSPECIFIED OSTEOARTHRITIS, UNSPECIFIED SITE SNOMED Code(s): 236621068 (5) Tobacco dependence in remission Current Visit: No Status: Resolved Code(s): F17.201 - NICOTINE DEPENDENCE, UNSPECIFIED, IN REMISSION SNOMED Code(s): 609048690 (6) BPH (benign prostatic hyperplasia) Current Visit: Yes Status: Chronic Code(s): N40.0 - BENIGN PROSTATIC HYPERPLASIA WITHOUT LOWER URINRY TRACT SYMP SNOMED Code(s): 045822347 (7) Dyslipidemia Current Visit: Yes Status: Chronic Code(s): E78.5 - HYPERLIPIDEMIA, UNSPECIFIED SNOMED Code(s): 543992973 (8) GERD (gastroesophageal reflux disease) Current Visit: Yes Status: Chronic Code(s): K21.9 - GASTRO-ESOPHAGEAL REFLUX DISEASE WITHOUT ESOPHAGITIS SNOMED Code(s): 052426071 (9) Hypertension Current Visit: Yes Status: Chronic Code(s): I10 - ESSENTIAL (PRIMARY) HYPERTENSION SNOMED Code(s): 77582464 Plan: 1. Continue aspirin, statin, Plavix, heparin subcu, beta too. Will increase beta too therapy as tolerated. 2. Continue amiodarone for A. fib prophylaxis. No anticoagulation needed unless patient is in atrial fibrillation greater than 24 hours. Left atrial appendage was clipped. 3. Wean O2 as tolerated. Encourage incentive spirometry use 10 times every hour. 4. Encourage continued smoking cessation. 5. Increase activity, ambulate as tolerated. PT/OT/cardiac rehab consulted. 6. Will monitor daily labs and x-rays. 7. GI/DVT prophylaxis. 8. Pain medication with current medication regimen, pain medication increased. 9. Insulin management per primary care service. 10. Bronchodilators per pulmonology. 11. Post void residual to be measured every 6 hours, straight cathed for greater than 300 mL. If patient requires straight cath more than twice, [place] may be reinserted. Patient is on Flomax and Proscar per her home dosage. 12. May transfer to [address] [place] [address] when bed available. Time with Patient: Greater than 30
[2017-12-12] MEDS: BENZOCAINE/MENTHOL LOZENG 1 EACH LOZENGE MUCOUS MEM PRN (11:09)
[2017-12-12 12:12] LABS: Glucose,Whole Blood 88 mg/dL (75-99)
[2017-12-12] MEDS ORDERED: ALPRAZolam 0.25 MG TAB PO STA (12:16)
[2017-12-12] MEDS: LACTATED RINGERS 1,000 ML IV SCH (16:18)
[2017-12-12 18:19] LABS: Glucose,Whole Blood 89 mg/dL (75-99)
[2017-12-12] MEDS: TAMSULOSIN 0.4 MG CAP.ER.24H PO SCH (20:24)
[2017-12-12] MEDS: SENNOSIDES-DOCUSATE SODIUM 1 EACH TAB PO SCH (20:24)
[2017-12-12 20:44] LABS: Glucose,Whole Blood 114 mg/dL (75-99)
--- NOTE | 2017-12-12 21:39 | P.PN ---
Subjective This is a pleasant 77 years old male with past medical history of GERD, hyperlipidemia, hypertension, arthritis, prostate disorder, gout, occasional dyspnea. See at the care of the left leg. Status post cardiac cath. Exit smoker. Who presents for valve disease. he is postoperative for aortic valve insufficiency he is post bioprosthetic aortic valve replacement. Patient has been extubated continues to be in ICU sitting in chair at bedside. His prostatic cardiac cath on 09/2017. And at that time he was recommended to have aortic valve replacement and repair for severe aortic valve regurgitation. At that time his ejection fraction was 55% 12/11/2017 Patient remains in the ICU. And a critical case but more stable. He got extubated.. Labs are reviewed and showing sodium 134. Creatinine 0.8. Liver function tests were unremarkable. Mildly hyperglycemic at 124. INR is 1.1. No leukocytosis with WBC 7.0K. Hemoglobin 7.9 and platelets low at 110. Chest x-ray: Removal of the Penrose scans catheter. Similar mild pulmonary vascular congestion and cardiomegaly in comparison to the exam of 12/10/2017. Cardiology on the case well as pulmonary. Discussed the case with the vascular surgery team patient possible transfer to the floor tomorrow 12/12/2017 pt is sitting in bed , denies chest pain or dyspnea for me, no change in urine or bowel habits , pt is afebrile, BP is stable , he was noted to be alittle tachypnic however he is saturating well at high 90s on 2 L via nasal cannula . Na is trending down 134 to 130 , monitor Na closely , creatinine 1.0. glucose is controlled . Hb 7.9 REVIEW OF SYSTEMS: CONSTITUTIONAL: No fever, no malaise, no fatigue. HEENT: No recent visual problems or hearing problems. Denied any sore throat. CARDIOVASCULAR: No orthopnea, PND, no palpitations, no syncope. PULMONARY: No shortness of breath, no cough, no hemoptysis. GASTROINTESTINAL: No diarrhea, no nausea, no vomiting, no abdominal pain. Normoactive bowel sounds. NEUROLOGICAL: No headaches, no weakness, no numbness. HEMATOLOGICAL: Denies any bleeding or petechiae. GENITOURINARY: Denies any burning micturition, frequency, or urgency. MUSCULOSKELETAL/RHEUMATOLOGICAL: Denies any joint pain, swelling, or any muscle pain. ENDOCRINE: Denies any polyuria or polydipsia. Objective - Vital Signs Vital signs: Vital Signs Temp 97.9 F 12/12/17 18:45 Pulse 69 12/12/17 20:10 Resp 17 12/12/17 18:00 BP 126/74 12/12/17 18:45 Pulse Ox 98 12/12/17 18:45 Intake & Output 12/12/17 12/12/17 12/13/17 06:59 18:59 06:59 Intake Total 1088.137 250.272 600 Output Total 470 476 Balance 618.137 -225.728 600 Weight 117.2 kg 117.2 kg Intake: IV 396 235 0.9NS Pressure Bag 36 15 Lactated Ringers 1,000 ml 360 220 @ 20 mls/hr IV .Q24H [facility] Rx#:[id number] Intake, IV Titration 212.137 15.272 Amount Amiodarone 450 mg In 212.137 15.272 Dextrose 5% in Water 250 ml @ 1 MG/MIN 33.33 mls/ hr IV .Q7H31M [facility] Rx#: [id number] Oral 480 600 Output: Urine 250 476 Post Void Residual 220 Other: Voiding Method Bedside Commode Bedside Commode Urinal Urinal # Voids 1 1 # Bowel Movements 1 1 1 ABP, PAP, CO, CI - Last Documented Arterial Blood Pressure 109/46 Pulmonary Artery Pressure 32/13 Cardiac Output 6.9 Cardiac Index 3.2 - Exam GENERAL: The patient is alert and oriented x3, not in any acute distress. Well developed, well nourished. HEENT: Pupils are round and equally reacting to light. EOMI. No scleral icterus. No conjunctival pallor. Normocephalic, atraumatic. No pharyngeal erythema. No thyromegaly. CARDIOVASCULAR: S1 and S2 present. No murmurs, rubs, or gallops. PULMONARY: Chest is clear to auscultation, no wheezing or crackles. ABDOMEN: Soft, nontender, nondistended, normoactive bowel sounds. No palpable organomegaly. MUSCULOSKELETAL: No joint swelling or deformity. EXTREMITIES: No cyanosis, clubbing, or pedal edema. NEUROLOGICAL: Gross neurological examination did not reveal any focal deficits. SKIN: No rashes. - Labs CBC & Chem 7: 12/12/17 05:15 12/12/17 05:15 Labs: Abnormal Lab Results - Last 24 Hours (Table) 12/12/17 12/12/17 12/12/17 Range/Units 03:11 05:15 05:15 RBC 2.47 L (4.30-5.90) m/uL Hgb 7.9 L (13.0-17.5) gm/dL Hct 23.2 L (39.0-53.0) % Plt Count 110 L (150-450) k/uL Lymphocytes # 0.9 L (1.0-4.8) k/uL Sodium 130 L (137-145) mmol/L BUN 27 H (9-20) mg/dL POC Glucose (mg/dL) 109 H (75-99) mg/dL Calcium 8.3 L (8.4-10.2) mg/dL Total Protein 5.1 L (6.3-8.2) g/dL Albumin 3.0 L (3.5-5.0) g/dL 12/12/17 12/12/17 Range/Units 06:53 20:43 RBC (4.30-5.90) m/uL Hgb (13.0-17.5) gm/dL Hct (39.0-53.0) % Plt Count (150-450) k/uL Lymphocytes # (1.0-4.8) k/uL Sodium (137-145) mmol/L BUN (9-20) mg/dL POC Glucose (mg/dL) 108 H 114 H (75-99) mg/dL Calcium (8.4-10.2) mg/dL Total Protein (6.3-8.2) g/dL Albumin (3.5-5.0) g/dL Assessment and Plan Assessment: Assessment Postoperative bioprosthetic aortic valve replacement for severe aortic valve regurgitation Hypertension Hyperlipidemia GERD BPH arthritis Plan: Continue with the same treatment. Continuous treatment. Labs and medication were reviewed. Continue with insulin. sugar is controlled . Resume his home medication. Patient and aspirin and statin, Plavix. GI prophylaxis with Protonix and DVT prophylaxis with subcutaneous heparin. Electrolyte replacement as per protocol. Monitor labs and vitals. Patient blood sugars are acceptable at this point. Pain management . pt is on bladder scan too . management of anemia and decision of blood transfusion if needed is deferred to the primary team upon their request. Further recommendation is made on the clinical course of the patient's PT/OT: pending thank you for consulting us.
[2017-12-12] MEDS: INSULIN NPH 300 UNIT/3 ML VIAL SQ SCH (21:45)
[2017-12-12] MEDS: ALPRAZolam 0.25 MG TAB PO PRN (23:54)
[2017-12-13 02:16] LABS: Glucose,Whole Blood 95 mg/dL (75-99)
[2017-12-13] MEDS: INSULIN ASPART 100 UNIT/ML 1 ML 10 ML VIAL SQ SCH ×6 (02:49→21:54)
[2017-12-13] MEDS: HYDROcodone/APAP 7.5-325MG 1 EACH TAB PO PRN ×3 (03:45→22:05)
[2017-12-13] MEDS: HEPARIN SODIUM,PORCINE 5,000 UNIT/ML 1 ML VIAL SQ SCH ×2 (03:45→12:25)
[2017-12-13 05:52] LABS: Glucose,Whole Blood 100 mg/dL (75-99)
[2017-12-13] MEDS: KETOROLAC 30 MG/ML 1 ML VIAL IVP SCH ×4 (06:38→23:41)
--- NOTE | 2017-12-13 07:04 | XR ---
EXAMINATION TYPE: XR chest 2V DATE OF EXAM: 12/13/2017 HISTORY: post cardiac surgery. REFERENCE: Previous study dated 12/12/2017. FINDINGS: There has been a midline sternotomy. The patient's right internal jugular catheter has been removed. The heart is enlarged. There is left basilar atelectasis. The right lung is clear. I suspect a small left effusion. IMPRESSION: POSTOPERATIVE CHANGES DESCRIBED.
[2017-12-13] MEDS: INSULN ASP PRT/INSULIN ASPART 100 UNIT/ML 10 ML VIAL SQ SCH (07:29)
[2017-12-13 07:35] LABS: HCT 23.9 % (39.0-53.0); HGB 7.7 gm/dL (13.0-17.5); MCH 30.3 pg (25.0-35.0); MCHC 32.2 g/dL (31.0-37.0); Mean Platelet Volume 7.9; Platelet Count 152 k/uL (150-450); RBC 2.54 m/uL (4.30-5.90); RDW 13.5 % (11.5-15.5); WBC 5.6 k/uL (3.8-10.6)
[2017-12-13 07:40] LABS: Albumin 3.1 g/dL (3.5-5.0); Calcium 8.3 mg/dL (8.4-10.2); Potassium 4.4 mmol/L (3.5-5.1); Total Bilirubin 0.7 mg/dL (0.2-1.3); Total Protein 5.1 g/dL (6.3-8.2)
[2017-12-13 08:15] LABS: Glucose,Whole Blood 127 mg/dL (75-99)
[2017-12-13] MEDS: IPRATROPIUM-ALBUTEROL 3 ML NEB INHALATION SCH ×4 (08:25→20:07)
[2017-12-13] MEDS: ASCORBIC ACID 500 MG TAB PO SCH ×2 (08:46→17:52)
[2017-12-13] MEDS: ALLOPURINOL 100 MG TAB PO SCH (08:46)
[2017-12-13] MEDS: FERROUS SULFATE 325 MG TAB PO SCH ×2 (08:46→17:52)
[2017-12-13] MEDS: ATORVASTATIN 40 MG TAB PO SCH (08:47)
[2017-12-13] MEDS: AMIODARONE 200 MG TAB PO SCH ×2 (08:47→22:05)
[2017-12-13] MEDS: ASPIRIN 81 MG PO SCH (08:47)
[2017-12-13] MEDS: METOPROLOL TARTRATE 12.5 MG TAB PO SCH ×2 (08:47→22:05)
[2017-12-13] MEDS: CLOPIDOGREL 75 MG TAB PO SCH (08:47)
[2017-12-13] MEDS: FINASTERIDE 5 MG TAB PO SCH (08:48)
[2017-12-13] MEDS: PANTOPRAZOLE 40 MG TABLET PO SCH (08:48)
--- NOTE | 2017-12-13 08:59 | P.PN ---
Subjective Progress Note Date: 12/13/17 Principal diagnosis: Severe aortic valve regurgitation. Mild left ventricular dysfunction. Supraventricular tachycardia. Obesity. Hypertension. Hyperlipidemia. GERD. Osteoporosis. BPH. Gout. Previous tobacco dependence with preoperative FEV1 94% of predicted. POD #4 aortic valve replacement using a 27 mm Inspiris bovine bioprosthesis. Exclusion of the left atrial appendage using a 45 mm Atriclip. Partial sternal plating. Intraoperative transesophageal echocardiogram and epi-aortic scanning. Postoperative diagnosis, normochromic anemia, an expected outcome of surgery secondary to cardiopulmonary bypass and hemodilution. Postoperative thrombocytopenia, an expected outcome of surgery. Postoperative atrial fibrillation, an unexpected but potential outcome of surgery. Patient is currently sitting up in the chair in no acute distress. States pain is controlled on current medications. Was started on Xanax yesterday for anxiety and he feels this has helped. He was transferred from ICU to [address] [place] [address] yesterday. Just called from nursing staff stating patient go up to use the bathroom, had to be helped back to bed as he was short of breath and diaphoretic, stool appeared to have blood per staff. Patient did go back into controlled atrial fibrillation last night. Objective - Vital Signs Vital signs: Vital Signs Temp 96.9 F L 12/13/17 08:00 Pulse 72 12/13/17 08:36 Resp 18 12/13/17 04:00 BP 99/56 12/13/17 08:00 Pulse Ox 98 12/13/17 08:00 Intake & Output 12/12/17 12/13/17 12/13/17 18:59 06:59 18:59 Intake Total 250.272 600 Output Total 476 184 Balance -225.728 416 Weight 117.2 kg 121.4 kg Intake: IV 235 0.9NS Pressure Bag 15 Lactated Ringers 1,000 ml 220 @ 20 mls/hr IV .Q24H [facility] Rx#:[id number] Intake, IV Titration 15.272 Amount Amiodarone 450 mg In 15.272 Dextrose 5% in Water 250 ml @ 1 MG/MIN 33.33 mls/ hr IV .Q7H31M [facility] Rx#: [id number] Oral 600 Output: Urine 476 Post Void Residual 184 Other: Voiding Method Bedside Commode Toilet Urinal Urinal # Voids 1 1 # Bowel Movements 1 1 ABP, PAP, CO, CI - Last Documented Arterial Blood Pressure 109/46 Pulmonary Artery Pressure 32/13 Cardiac Output 6.9 Cardiac Index 3.2 - Constitutional General appearance: Present: cooperative, no acute distress, obese - Respiratory Details: Lungs sounds diminished bilaterally. Respirations even, slightly labored. Currently on 2 L nasal cannula with oxygen saturation 99%. Able to achieve 1250 -1500 mL on his incentive spirometry. Weak cough. - Cardiovascular Details: S1, S2 present. Irregular rate and rhythm, atrial fibrillation on telemetry. Sternum stable. A/V epicardial make pacemaker wires present, grounded. Palpable peripheral pulses bilaterally. Bilateral lower extremity edema present. No calf pain or tenderness noted. Heart hugger in place with patient demonstrating appropriate use. Antiembolism stockings, SCDs present. - Gastrointestinal Gastrointestinal Comment(s): Abdomen soft, nontender, slightly distended, obese. Active bowel sounds present 4 quadrants. Tolerating diet. Positive bowel movement, appeared to have blood in it this morning per staff. - Genitourinary Genitourinary Comment(s): Patient has voided, did need to have straight cath completed last night. - Integumentary Integumentary Comment(s): Skin is warm and dry with evidence of good perfusion. Anterior chest incision well approximated and covered with dry intact dressing. - Neurologic Neurologic: Present: CNII-XII intact - Musculoskeletal Musculoskeletal: Present: gait normal, strength equal bilaterally - Psychiatric Psychiatric: Present: A&O x's 3, appropriate affect, intact judgment & insight - Allied health notes Allied health notes reviewed: nursing - Labs CBC & Chem 7: 12/13/17 06:16 12/13/17 06:16 Labs: Abnormal Lab Results - Last 24 Hours (Table) 12/12/17 12/13/17 12/13/17 Range/Units 20:43 05:51 06:16 RBC 2.54 L (4.30-5.90) m/uL Hgb 7.7 L (13.0-17.5) gm/dL Hct 23.9 L (39.0-53.0) % Sodium (137-145) mmol/L Chloride (98-107) mmol/L BUN (9-20) mg/dL POC Glucose (mg/dL) 114 H 100 H (75-99) mg/dL Calcium (8.4-10.2) mg/dL Total Protein (6.3-8.2) g/dL Albumin (3.5-5.0) g/dL 12/13/17 12/13/17 Range/Units 06:16 08:13 RBC (4.30-5.90) m/uL Hgb (13.0-17.5) gm/dL Hct (39.0-53.0) % Sodium 129 L (137-145) mmol/L Chloride 97 L (98-107) mmol/L BUN 32 H (9-20) mg/dL POC Glucose (mg/dL) 127 H (75-99) mg/dL Calcium 8.3 L (8.4-10.2) mg/dL Total Protein 5.1 L (6.3-8.2) g/dL Albumin 3.1 L (3.5-5.0) g/dL - Imaging and Cardiology Chest x-ray: report reviewed, image reviewed Assessment and Plan (1) Severe aortic valve regurgitation Current Visit: Yes Status: Chronic Code(s): I35.1 - NONRHEUMATIC AORTIC ( VALVE) INSUFFICIENCY SNOMED Code(s): 15471253 (2) Supraventricular tachycardia Current Visit: No Status: Resolved Code(s): I47.1 - SUPRAVENTRICULAR TACHYCARDIA SNOMED Code(s): 2168442 (3) Obesity (BMI 30-39.9) Current Visit: Yes Status: Chronic Code(s): E66.9 - OBESITY, UNSPECIFIED SNOMED Code(s): 557770629 (4) Osteoarthritis Current Visit: Yes Status: Chronic Code(s): M19.90 - UNSPECIFIED OSTEOARTHRITIS, UNSPECIFIED SITE SNOMED Code(s): 738862582 (5) Tobacco dependence in remission Current Visit: No Status: Resolved Code(s): F17.201 - NICOTINE DEPENDENCE, UNSPECIFIED, IN REMISSION SNOMED Code(s): 503028034 (6) BPH (benign prostatic hyperplasia) Current Visit: Yes Status: Chronic Code(s): N40.0 - BENIGN PROSTATIC HYPERPLASIA WITHOUT LOWER URINRY TRACT SYMP SNOMED Code(s): 239636661 (7) Dyslipidemia Current Visit: Yes Status: Chronic Code(s): E78.5 - HYPERLIPIDEMIA, UNSPECIFIED SNOMED Code(s): 248970835 (8) GERD (gastroesophageal reflux disease) Current Visit: Yes Status: Chronic Code(s): K21.9 - GASTRO-ESOPHAGEAL REFLUX DISEASE WITHOUT ESOPHAGITIS SNOMED Code(s): 929434537 (9) Hypertension Current Visit: Yes Status: Chronic Code(s): I10 - ESSENTIAL (PRIMARY) HYPERTENSION SNOMED Code(s): 18489598 Plan: 1. Continue low-dose aspirin, statin, Plavix, heparin subcu, beta too. Will increase beta too therapy as tolerated. 2. Continue amiodarone for A. fib prophylaxis. Will give additional IV bolus amiodarone today as patient is back in atrial fibrillation. Left atrial appendage was clipped. Patient will need anticoagulation, Eliquis to be started , but will get stool sample for occult blood first. 3. Wean O2 as tolerated. Encourage incentive spirometry use 10 times every hour. 4. Encourage continued smoking cessation. 5. Increase activity, ambulate as tolerated. PT/OT/cardiac rehab consulted. 6. Will monitor daily labs and x-rays. Iron and vitamin C started. 7. GI/DVT prophylaxis. 8. Pain medication with current medication regimen, pain medication increased. 9. Insulin management per primary care service. 10. Bronchodilators per pulmonology. 11. Post void residual to be measured every 6 hours, straight cathed for greater than 300 mL. If patient requires straight cath more than twice, [place] may be reinserted. Patient is on Flomax and Proscar per her home dosage. 12. Will discontinue epicardial pacemaker wires today. Time with Patient: Greater than 30
[2017-12-13 11:37] LABS: Glucose,Whole Blood 60 mg/dL (75-99)
[2017-12-13 12:00] LABS: Glucose,Whole Blood 76 mg/dL (75-99)
--- NOTE | 2017-12-13 12:29 | P.PN ---
Subjective Progress Note Date: 12/13/17 Principal diagnosis: Status post aortic valve replacement Progress note dated 12/10/2017 77-year-old male who is postop day #1 status post aortic valve replacement for aortic valve insufficiency. He had a bile is prostatic aortic valve replacement. He also had excision of left atrial appendage. He had an intraoperative ODETTE. The patient was on the ventilator post operatively and was able to be extubated within 6 hours. The patient has a history of essential hypertension hyperlipidemia remote history of tobacco use GERD and BPH and DJD. Currently the patient is doing relatively well. Resting comfortably. Working on deep breathing coughing clearing his secretions as well as incentive spirometer. Current laboratory data includes a white count of 5.7 hemoglobin 8.7 hematocrit 25.3 platelet count 104,000. PT INR and PTT are normal. Sodium and potassium are normal. Chlorides 108 CO2 24 BUN and creatinine were normal. Chest x-ray has not yet been done. Progress note dated 12/12/2017 This is a 77-year-old male who is postop day #3, status post aortic valve replacement for aortic valve insufficiency. The patient had a bioprosthetic aortic valve replacement. He also had a left atrial appendage excision, an intraoperative transesophageal echocardiogram. The patient has a history of essential hypertension, hyperlipidemia, remote history of tobacco use, GERD, BPH and degenerative joint disease. Currently, the patient is on O2 at 2 L by nasal cannula and lactated Ringer's at 40 mL an hour. The patient is able get 1250 mL on his incentive spirometer. Other than for some surgical site pain, the patient seemed be doing relatively well. Denies any shortness of breath cough wheezing phlegm production. He denies any chest pressure or palpitations. No nausea vomiting or diarrhea. Not having any urinary complaints. Progress note dated 12/13/2017 77-year-old male postop day #4, status post aortic valve replacement. The patient had aortic valve insufficiency. He is doing better. He was transferred out of the ICU yesterday. At the same time of his aortic valve replacement, he had a left atrial appendage excision and an intraoperative transesophageal echocardiogram. The patient is denying any major issues at this time. State. Surgical site pain/discomfort. Doing about 1500 MLS on his incentive spirometer. Not receiving any additional IV fluids. Still on nasal O2 at 2 L. Vital signs are otherwise stable. In addition, he has a history of essential hypertension, hyperlipidemia, remote history of tobacco use, GERD, BPH and DJD. Not sure about discharge date at this time. White count 5.6 hemoglobin 7.7 hematocrit 23.9 platelet count 152,000. Sodium 129 potassium 4.4 chloride is 97 CO2 24 BUN and creatinine were 32 and 1.17 respectively. Objective - Vital Signs Vital signs: Vital Signs Temp 96.9 F L 12/13/17 08:00 Pulse 72 12/13/17 08:36 Resp 18 12/13/17 04:00 BP 99/56 12/13/17 08:00 Pulse Ox 98 12/13/17 08:00 Intake & Output 12/12/17 12/13/17 12/13/17 18:59 06:59 18:59 Intake Total 250.272 600 Output Total 476 184 Balance -225.728 416 Weight 117.2 kg 121.4 kg Intake: IV 235 0.9NS Pressure Bag 15 Lactated Ringers 1,000 ml 220 @ 20 mls/hr IV .Q24H [facility] Rx#:[id number] Intake, IV Titration 15.272 Amount Amiodarone 450 mg In 15.272 Dextrose 5% in Water 250 ml @ 1 MG/MIN 33.33 mls/ hr IV .Q7H31M [facility] Rx#: [id number] Oral 600 Output: Urine 476 Post Void Residual 184 Other: Voiding Method Bedside Commode Toilet Toilet Urinal Urinal Urinal # Voids 1 1 # Bowel Movements 1 1 ABP, PAP, CO, CI - Last Documented Arterial Blood Pressure 109/46 Pulmonary Artery Pressure 32/13 Cardiac Output 6.9 Cardiac Index 3.2 - Exam No acute distress, oriented 3. Nasal O2 in place at 2 L. HEENT examination is grossly unremarkable. Mucous membranes are moist. No oral lesions. Neck supple. Full range of motion. No adenopathy thyromegaly or neck vein distention. Cardiovascular examination reveals regular rhythm rate. S1-S2 normal. No S3 or S4. No discernible murmur noted. Lungs reveal mostly clear breath sounds although there are some diffuse bilateral rhonchi and a few scattered crackles. No wheezes are appreciated. Breath sounds are equal bilaterally.. Abdomen soft bowel sounds are heard. No masses or tenderness. Extremities are intact. No cyanosis clubbing or edema. Skin is without rash or lesion. Neurologic examination is brief but nonfocal. - Labs CBC & Chem 7: 12/13/17 06:16 12/13/17 06:16 Labs: Abnormal Lab Results - Last 24 Hours (Table) 12/12/17 12/13/17 12/13/17 Range/Units 20:43 05:51 06:16 RBC 2.54 L (4.30-5.90) m/uL Hgb 7.7 L (13.0-17.5) gm/dL Hct 23.9 L (39.0-53.0) % Sodium (137-145) mmol/L Chloride (98-107) mmol/L BUN (9-20) mg/dL POC Glucose (mg/dL) 114 H 100 H (75-99) mg/dL Calcium (8.4-10.2) mg/dL Total Protein (6.3-8.2) g/dL Albumin (3.5-5.0) g/dL 12/13/17 12/13/17 12/13/17 Range/Units 06:16 08:13 11:35 RBC (4.30-5.90) m/uL Hgb (13.0-17.5) gm/dL Hct (39.0-53.0) % Sodium 129 L (137-145) mmol/L Chloride 97 L (98-107) mmol/L BUN 32 H (9-20) mg/dL POC Glucose (mg/dL) 127 H 60 L (75-99) mg/dL Calcium 8.3 L (8.4-10.2) mg/dL Total Protein 5.1 L (6.3-8.2) g/dL Albumin 3.1 L (3.5-5.0) g/dL Assessment and Plan Assessment: Assessment Postop day #4 status post aortic valve replacement secondary to aortic insufficiency Postoperative ventilator management, with extubation within 6 hours. Ongoing hypoxemia Status post left atrial appendage excision History of essential hypertension History of hyperlipidemia Previous history of tobacco use. History of GERD BPH by history DJD Plan: Plan dated 12/10/2017 The patient remains on breathing treatments. We'll recommend incentive spirometry use every hour. Chest x-rays yet to be done. In addition, the patient will need deep breathing coughing and clearing secretions to be a priority. We'll continue to watch the patient very carefully. Prognosis is guarded. Patient has done well in the first postoperative day. Additional recommendations and suggestions are forthcoming. Critical care time 33 minute Plan dated 12/12/2017 The patient continues to show steady improvement. He still on O2 at 2 L. He is getting lactated Ringer's IV at 40 mL now her. Is able get 1250 mL on his incentive spirometer. Chest x-ray show some bibasilar atelectasis and small bilateral effusions. White count is 7 hemoglobin 7.9 hematocrit 23.1 platelet count 110,000. Sodium 130 with a normal potassium chloride CO2 anion gap. BUN and creatinine were 27 and 1.0 respectively. Medications are reviewed. The patient is encouraged to continue to use incentive spirometer every hour and continue to clear secretions by deep breathing and coughing. Critical care time 31 minutes Plan dated 12/13/2017 The patient remains on oxygen. We recommend deep breathing coughing and clearing secretions. Chest x-rays still does show some bilateral bibasilar atelectasis. He is doing reasonably well on his incentive spirometer may encourage every hour. He continues on breathing treatments. Additional recommendations and suggestions are forthcoming. Discharge is up to cardiothoracic surgery. Time with Patient: Less than 30
--- NOTE | 2017-12-13 13:43 | P.PN ---
Subjective Mr. Werner is seen and examined sitting up in the chair. He has converted into atrial fibrillation and has been maintaining this rhythm for the previous 12 hours. There was an episode of bright red blood noted in his stool per nursing staff there for anticoagulation will not be started until stool sample has been obtained. This is for CT surgery. Amiodarone has been increased. He complains of shortness of breath with exertion and a mild sharp pain at the right sternal border. He feels his breathing is worsening gets up and moves around back and forth to the bathroom and improves when he sits down. Blood pressure 99/56 heart rate 77 afebrile maintaining oxygen saturation on nasal cannula. Hemoglobin 7.7, platelets 152, sodium 129, potassium 4.4, creatinine 1.17. Objective - Vital Signs Vital signs: Vital Signs Temp 96.9 F L 12/13/17 08:00 Pulse 68 12/13/17 13:29 Resp 18 12/13/17 04:00 BP 99/56 12/13/17 08:00 Pulse Ox 98 12/13/17 08:00 Intake & Output 12/12/17 12/13/17 12/13/17 18:59 06:59 18:59 Intake Total 250.272 600 Output Total 476 184 Balance -225.728 416 Weight 117.2 kg 121.4 kg Intake: IV 235 0.9NS Pressure Bag 15 Lactated Ringers 1,000 ml 220 @ 20 mls/hr IV .Q24H [facility] Rx#:[id number] Intake, IV Titration 15.272 Amount Amiodarone 450 mg In 15.272 Dextrose 5% in Water 250 ml @ 1 MG/MIN 33.33 mls/ hr IV .Q7H31M [facility] Rx#: [id number] Oral 600 Output: Urine 476 Post Void Residual 184 Other: Voiding Method Bedside Commode Toilet Toilet Urinal Urinal Urinal # Voids 1 1 # Bowel Movements 1 1 ABP, PAP, CO, CI - Last Documented Arterial Blood Pressure 109/46 Pulmonary Artery Pressure 32/13 Cardiac Output 6.9 Cardiac Index 3.2 - Exam GENERAL: Well-appearing, well-nourished and in no acute distress. NECK: Supple without JVD or thyromegaly. LUNGS: Breath sounds clear to auscultation bilaterally. Respiration equal and unlabored. No wheezes, rales or rhonchi. HEART: Irregular rate and rhythm with systolic murmur, no rubs or gallops. S1 and S2 heard. Her current place. EXTREMITIES: Normal range of motion, trace bilateral lower extremity nonpitting edema. No clubbing or cyanosis. Peripheral pulses intact. - Labs CBC & Chem 7: 12/13/17 06:16 12/13/17 06:16 Labs: Abnormal Lab Results - Last 24 Hours (Table) 12/12/17 12/13/17 12/13/17 Range/Units 20:43 05:51 06:16 RBC 2.54 L (4.30-5.90) m/uL Hgb 7.7 L (13.0-17.5) gm/dL Hct 23.9 L (39.0-53.0) % Sodium (137-145) mmol/L Chloride (98-107) mmol/L BUN (9-20) mg/dL POC Glucose (mg/dL) 114 H 100 H (75-99) mg/dL Calcium (8.4-10.2) mg/dL Total Protein (6.3-8.2) g/dL Albumin (3.5-5.0) g/dL 12/13/17 12/13/17 12/13/17 Range/Units 06:16 08:13 11:35 RBC (4.30-5.90) m/uL Hgb (13.0-17.5) gm/dL Hct (39.0-53.0) % Sodium 129 L (137-145) mmol/L Chloride 97 L (98-107) mmol/L BUN 32 H (9-20) mg/dL POC Glucose (mg/dL) 127 H 60 L (75-99) mg/dL Calcium 8.3 L (8.4-10.2) mg/dL Total Protein 5.1 L (6.3-8.2) g/dL Albumin 3.1 L (3.5-5.0) g/dL Assessment and Plan Assessment: ASSESSMENT Status post aortic valve replacement, bioprosthetic postoperative day #4 Paroxysmal atrial fibrillation with controlled ventricular response Dyslipidemia Normochromic normocytic anemia secondary to recent surgery Hyponatremia PLAN Obtain additional amiodarone bolus has been given per CT surgery. The patient will need to be anticoagulated, once stool for occult blood has been obtained. Further recommendations to follow based on clinical course. Nurse Practitioner note has been reviewed, I agree with a documented findings and plan of care. Patient was seen and examined.
[2017-12-13 15:04] LABS: HCT 22.9 % (39.0-53.0); HGB 7.7 gm/dL (13.0-17.5); MCHC 33.7 g/dL (31.0-37.0); MCV 94.9 fL (80.0-100.0); Mean Platelet Volume 8.1; Platelet Count 172 k/uL (150-450); RBC 2.41 m/uL (4.30-5.90); RDW 13.5 % (11.5-15.5); WBC 5.8 k/uL (3.8-10.6)
[2017-12-13 16:30] LABS: Glucose,Whole Blood 67 mg/dL (75-99)
[2017-12-13] MEDS ORDERED: APIXABAN 5 MG TAB PO SCH (21:00)
[2017-12-13 21:08] LABS: Glucose,Whole Blood 68 mg/dL (75-99)
[2017-12-13 21:34] LABS: Glucose,Whole Blood 65 mg/dL (75-99)
[2017-12-13] MEDS: INSULIN NPH 300 UNIT/3 ML VIAL SQ SCH (21:54)
[2017-12-13 21:59] LABS: Glucose,Whole Blood 60 mg/dL (75-99)
[2017-12-13] MEDS: TAMSULOSIN 0.4 MG CAP.ER.24H PO SCH (22:05)
[2017-12-13] MEDS: METHYL SALICYLATE/MENTHOL CREAM 5 OZ TOPICAL PRN (22:06)
[2017-12-13] MEDS: SENNOSIDES-DOCUSATE SODIUM 1 EACH TAB PO SCH (22:07)
[2017-12-13 22:53] LABS: Glucose,Whole Blood 99 mg/dL (75-99)
--- NOTE | 2017-12-14 00:27 | P.PN ---
Subjective This is a pleasant 77 years old male with past medical history of GERD, hyperlipidemia, hypertension, arthritis, prostate disorder, gout, occasional dyspnea. See at the care of the left leg. Status post cardiac cath. Exit smoker. Who presents for valve disease. he is postoperative for aortic valve insufficiency he is post bioprosthetic aortic valve replacement. Patient has been extubated continues to be in ICU sitting in chair at bedside. His prostatic cardiac cath on 09/2017. And at that time he was recommended to have aortic valve replacement and repair for severe aortic valve regurgitation. At that time his ejection fraction was 55% 12/11/2017 Patient remains in the ICU. And a critical case but more stable. He got extubated.. Labs are reviewed and showing sodium 134. Creatinine 0.8. Liver function tests were unremarkable. Mildly hyperglycemic at 124. INR is 1.1. No leukocytosis with WBC 7.0K. Hemoglobin 7.9 and platelets low at 110. Chest x-ray: Removal of the [place] scans catheter. Similar mild pulmonary vascular congestion and cardiomegaly in comparison to the exam of 12/10/2017. Cardiology on the case well as pulmonary. Discussed the case with the vascular surgery team patient possible transfer to the floor tomorrow 12/12/2017 pt is sitting in bed , denies chest pain or dyspnea for me, no change in urine or bowel habits , pt is afebrile, BP is stable , he was noted to be alittle tachypnic however he is saturating well at high 90s on 2 L via nasal cannula . Na is trending down 134 to 130 , monitor Na closely , creatinine 1.0. glucose is controlled . Hb 7.9 pt is lying on chair , not in distress, he states he got dizzy when he got up in the morning , but he then walk good , and feels better while sitting, no chest pain, pt states one of the aide saw blood in his stool, we checked occult blood in stool (ordered) , we recommend calling gastroenterology consult as per the primary team , check postural vitals . his glucose is running on the low side down to 60's, his insulin lowered total 8 units, monitor glucose closely. pt is noticed with slowly trending down anemia especially pt is on aspirin and plavix. REVIEW OF SYSTEMS: CONSTITUTIONAL: No fever, no malaise, no fatigue. HEENT: No recent visual problems or hearing problems. Denied any sore throat. CARDIOVASCULAR: No orthopnea, PND, no palpitations, no syncope. PULMONARY: No shortness of breath, no cough, no hemoptysis. GASTROINTESTINAL: No diarrhea, no nausea, no vomiting, no abdominal pain. Normoactive bowel sounds. NEUROLOGICAL: No headaches, no weakness, no numbness. HEMATOLOGICAL: Denies any bleeding or petechiae. GENITOURINARY: Denies any burning micturition, frequency, or urgency. MUSCULOSKELETAL/RHEUMATOLOGICAL: Denies any joint pain, swelling, or any muscle pain. ENDOCRINE: Denies any polyuria or polydipsia. Objective - Vital Signs Vital signs: Vital Signs Temp 96.9 F L 12/13/17 08:00 Pulse 68 12/13/17 13:29 Resp 18 12/13/17 04:00 BP 99/56 12/13/17 08:00 Pulse Ox 98 12/13/17 08:00 Intake & Output 12/12/17 12/13/17 12/13/17 18:59 06:59 18:59 Intake Total 250.272 600 Output Total 476 184 Balance -225.728 416 Weight 117.2 kg 121.4 kg Intake: IV 235 0.9NS Pressure Bag 15 Lactated Ringers 1,000 ml 220 @ 20 mls/hr IV .Q24H HALLE Rx#:[id number] Intake, IV Titration 15.272 Amount Amiodarone 450 mg In 15.272 Dextrose 5% in Water 250 ml @ 1 MG/MIN 33.33 mls/ hr IV .Q7H31M HALLE Rx#: [id number] Oral 600 Output: Urine 476 Post Void Residual 184 Other: Voiding Method Bedside Commode Toilet Toilet Urinal Urinal Urinal # Voids 1 1 # Bowel Movements 1 1 ABP, PAP, CO, CI - Last Documented Arterial Blood Pressure 109/46 Pulmonary Artery Pressure 32/13 Cardiac Output 6.9 Cardiac Index 3.2 - Exam GENERAL: The patient is alert and oriented x3, not in any acute distress. Well developed, well nourished. HEENT: Pupils are round and equally reacting to light. EOMI. No scleral icterus. No conjunctival pallor. Normocephalic, atraumatic. No pharyngeal erythema. No thyromegaly. CARDIOVASCULAR: S1 and S2 present. No murmurs, rubs, or gallops. PULMONARY: Chest is clear to auscultation, no wheezing or crackles. ABDOMEN: Soft, nontender, nondistended, normoactive bowel sounds. No palpable organomegaly. MUSCULOSKELETAL: No joint swelling or deformity. EXTREMITIES: No cyanosis, clubbing, or pedal edema. NEUROLOGICAL: Gross neurological examination did not reveal any focal deficits. SKIN: No rashes. - Labs CBC & Chem 7: 12/13/17 14:51 12/13/17 06:16 Labs: Abnormal Lab Results - Last 24 Hours (Table) 12/12/17 12/13/17 12/13/17 Range/Units 20:43 05:51 06:16 RBC 2.54 L (4.30-5.90) m/uL Hgb 7.7 L (13.0-17.5) gm/dL Hct 23.9 L (39.0-53.0) % Sodium (137-145) mmol/L Chloride (98-107) mmol/L BUN (9-20) mg/dL POC Glucose (mg/dL) 114 H 100 H (75-99) mg/dL Calcium (8.4-10.2) mg/dL Total Protein (6.3-8.2) g/dL Albumin (3.5-5.0) g/dL 12/13/17 12/13/17 12/13/17 Range/Units 06:16 08:13 11:35 RBC (4.30-5.90) m/uL Hgb (13.0-17.5) gm/dL Hct (39.0-53.0) % Sodium 129 L (137-145) mmol/L Chloride 97 L (98-107) mmol/L BUN 32 H (9-20) mg/dL POC Glucose (mg/dL) 127 H 60 L (75-99) mg/dL Calcium 8.3 L (8.4-10.2) mg/dL Total Protein 5.1 L (6.3-8.2) g/dL Albumin 3.1 L (3.5-5.0) g/dL Assessment and Plan Assessment: Assessment Postoperative bioprosthetic aortic valve replacement for severe aortic valve regurgitation Hypertension Hyperlipidemia GERD BPH arthritis Plan: Continue with the same treatment. Continuous symptomatic treatment. Labs and medication were reviewed . Resume his home medication. Patient is on aspirin and statin, Plavix. GI prophylaxis with Protonix and DVT prophylaxis. Electrolyte replacement as per protocol. Monitor labs and vitals. Pain management . pt is on bladder scan too . pt is noticed with slowly trending down anemia . management of anemia and decision of blood transfusion if needed is deferred to the primary team upon their request. cardiology and pulmonary team on the case -blood in his stool, please check occult blood in stool (ordered) -we recommend calling gastroenterology consult (as per the primary team) -check postural vitals: (ordered) -his glucose is running on the low side down to 60's, his insulin lowered total 8 units, monitor glucose closely Further recommendation is made on the clinical course of the patient's PT/OT: pending thank you for consulting us.
[2017-12-14 02:26] LABS: Glucose,Whole Blood 115 mg/dL (75-99)
[2017-12-14] MEDS: INSULIN ASPART 100 UNIT/ML 1 ML 10 ML VIAL SQ SCH ×6 (02:40→20:36)
[2017-12-14] MEDS: KETOROLAC 30 MG/ML 1 ML VIAL IVP SCH (06:26)
[2017-12-14] MEDS: FERROUS SULFATE 325 MG TAB PO SCH ×2 (06:27→17:30)
[2017-12-14] MEDS: ASCORBIC ACID 500 MG TAB PO SCH ×2 (06:27→17:30)
[2017-12-14 06:37] LABS: Glucose,Whole Blood 138 mg/dL (75-99)
--- NOTE | 2017-12-14 06:37 | P.CONS ---
History of Present Illness - Chief Complaint Medical debility - History of Present Illness I had the opportunity to see patient for inpatient rehab consultation with regard to cardiac debility. He was admitted to [facility] December 09 with aortic valve disease, aortic valve replacement performed by Dr. Smith. Seen in consultation by pulmonary, Dr. Jeffers, as well as Dr. solo for medical. Chest x -rays followed and note postoperative change. PT reports minimal assistance for transfers and gait 40 feet, hand-held. Frequent rests. OT prescribed. Previous functional history as elicited patient: 77-year-old right-handed white male who is lives in one floor home with . Retired. does the cooking and laundry. Patient independent with driving, tub bath, gait without device possessives have walker. History smoking around past doesn't smoke currently. Does have drink. Dr. Dee Davenport is regular doctor. Family history father was a smoker. Review of Systems Review of systems: ENT: Denies sneezes or discharge. Eyes: Denies discharge or photophobia. Cardiac: At least mild sternal discomfort. Pulmonary: At least mild shortness of breath. Gastrointestinal: Denies nausea, emesis, constipation, diarrhea. Genitourinary: Denies discharge or frequency. Musculoskeletal: Denies muscle or bone aches. Neurologic: Generalized weakness. Drags left leg due to long-standing sciatica with walking. Endocrine: Denies shakes or sweats. Oncology: Denies cancers. Dermatologic: Denies rash, itching, pruritus. ALLERGY/immunology: Denies sneezes, rashes. Past Medical History Past Medical History: GERD/Reflux, Hyperlipidemia, Hypertension, Osteoarthritis (OA), Prostate Disorder Additional Past Medical History / Comment(s): hx. gout, occasional SOB w/ exertion,sciatica, left leg numb/tingling-supposed to have MRI History of Any Multi-Drug Resistant Organisms: None Reported Past Surgical History: Heart Catheterization, Orthopedic Surgery, Prostate Surgery, Tonsillectomy Additional Past Surgical History / Comment(s): scopes bilat knees, TURP Past Anesthesia/Blood Transfusion Reactions: No Reported Reaction Smoking Status: Former smoker - Past Family History Father Family Medical History: Asthma, Pneumonia Additional Family Medical History / Comment(s): ARTHRITIS Mother Additional Family Medical History / Comment(s): BRAIN ANEURYSM Medications and Allergies Home Medications Medication Instructions Recorded Confirmed Type Ranitidine HCl 150 mg PO BID 11/23/15 12/09/17 History Tamsulosin [Flomax] 0.4 mg PO HS 11/23/15 12/09/17 History Allopurinol [Zyloprim] 100 mg PO DAILY 11/24/15 12/09/17 History Atorvastatin [Lipitor] 20 mg PO QAM 11/24/15 12/09/17 History Celecoxib [CeleBREX] 200 mg PO QAM 11/24/15 12/09/17 History Finasteride [Proscar] 5 mg PO QAM 11/24/15 12/09/17 History Fluticasone Propionate 1 - 2 sprays EA NOSTRIL DAILY PRN 11/24/15 12/09/17 History Losartan Potassium 50 mg PO HS 06/04/17 12/09/17 History metroNIDAZOLE 0.75% CREAM 1 applic TOPICAL HS PRN 06/05/17 12/09/17 History [Metrocream] Albuterol Sulfate [Proair Hfa] 2 puff INHALATION RT-Q6H PRN 10/07/17 12/09/17 History Allergies Allergy/AdvReac Type Severity Reaction Status Date / Time No Known Allergies Allergy Verified 12/09/17 14:20 Physical Exam Vitals: Vital Signs Temp Pulse Pulse Resp BP BP BP 12/14/17 04:00 73 20 124/73 117/72 12/14/17 00:00 63 20 119/68 12/13/17 20:15 70 12/13/17 20:08 68 12/13/17 20:00 96.8 F L 71 20 121/70 12/13/17 16:00 67 111/64 12/13/17 15:51 70 12/13/17 15:44 68 12/13/17 13:29 68 12/13/17 13:19 68 12/13/17 12:00 58 L 107/57 12/13/17 08:36 72 12/13/17 08:25 70 12/13/17 08:00 96.9 F L 77 99/56 Pulse Ox 12/14/17 04:00 100 12/14/17 00:00 98 12/13/17 20:15 12/13/17 20:08 12/13/17 20:00 99 12/13/17 16:00 98 12/13/17 15:51 12/13/17 15:44 12/13/17 13:29 12/13/17 13:19 12/13/17 12:00 98 12/13/17 08:36 12/13/17 08:25 12/13/17 08:00 98 Intake and Output 12/13/17 12/13/17 12/14/17 14:59 22:59 06:59 Intake Total 286 236 400 Output Total 2 1200 Balance 286 234 -800 Intake: Oral 286 236 400 Output: Urine 1200 Uretheral ([place]) 600 Stool 2 Other: Voiding Method Toilet Toilet Toilet Urinal Urinal Urinal # Voids 1 2 Skin: Good color, texture, turgor. General: Overweight build and comfortable appearance. Head: Normocephalic, atraumatic. Eyes: Symmetric. Pupils equal round. Ears: Symmetric. Hearing within normal limits. Mouth: Clear. Neck: Supple. Carotid without bruit. Cardiac: Regular rate and rhythm. Chest wound clean and dressed. Wearing harness. Lungs: Clear anteriorly and posteriorly. Abdomen: Soft active nontender. Extremities: Normal tone. Neurological: Mental status: Alert, cooperative, pleasant. Cranial nerves: Symmetric facial tone and trapezius. Motor: Normal strength and isolation all 4 limbs. Sensation: Intact throughout. DTRs: Symmetric and equal throughout. Mobility: Sits and stands with standby to contact-guard assistance. Results CBC & Chem 7: 12/13/17 14:51 12/13/17 06:16 Labs: Abnormal Lab Results - Last 24 Hours (Table) 12/13/17 12/13/17 12/13/17 Range/Units 06:16 06:16 08:13 RBC 2.54 L (4.30-5.90) m/uL Hgb 7.7 L (13.0-17.5) gm/dL Hct 23.9 L (39.0-53.0) % Sodium 129 L (137-145) mmol/L Chloride 97 L (98-107) mmol/L BUN 32 H (9-20) mg/dL POC Glucose (mg/dL) 127 H (75-99) mg/dL Calcium 8.3 L (8.4-10.2) mg/dL Total Protein 5.1 L (6.3-8.2) g/dL Albumin 3.1 L (3.5-5.0) g/dL 12/13/17 12/13/17 12/13/17 Range/Units 11:35 14:51 16:28 RBC 2.41 L (4.30-5.90) m/uL Hgb 7.7 L (13.0-17.5) gm/dL Hct 22.9 L (39.0-53.0) % Sodium (137-145) mmol/L Chloride (98-107) mmol/L BUN (9-20) mg/dL POC Glucose (mg/dL) 60 L 67 L (75-99) mg/dL Calcium (8.4-10.2) mg/dL Total Protein (6.3-8.2) g/dL Albumin (3.5-5.0) g/dL 12/13/17 12/13/17 12/13/17 Range/Units 21:07 21:31 21:57 RBC (4.30-5.90) m/uL Hgb (13.0-17.5) gm/dL Hct (39.0-53.0) % Sodium (137-145) mmol/L Chloride (98-107) mmol/L BUN (9-20) mg/dL POC Glucose (mg/dL) 68 L 65 L 60 L (75-99) mg/dL Calcium (8.4-10.2) mg/dL Total Protein (6.3-8.2) g/dL Albumin (3.5-5.0) g/dL 12/14/17 Range/Units 02:05 RBC (4.30-5.90) m/uL Hgb (13.0-17.5) gm/dL Hct (39.0-53.0) % Sodium (137-145) mmol/L Chloride (98-107) mmol/L BUN (9-20) mg/dL POC Glucose (mg/dL) 115 H (75-99) mg/dL Calcium (8.4-10.2) mg/dL Total Protein (6.3-8.2) g/dL Albumin (3.5-5.0) g/dL Assessment and Plan (1) Obesity (BMI 30-39.9) Current Visit: Yes Status: Chronic Code(s): E66.9 - OBESITY, UNSPECIFIED SNOMED Code(s): 223613220 (2) Severe aortic valve regurgitation Current Visit: Yes Status: Chronic Code(s): I35.1 - NONRHEUMATIC AORTIC ( VALVE) INSUFFICIENCY SNOMED Code(s): 20850301 Plan: Impression: 1. Cardiac debility. 2. Status post AVR. 3. Morbid obesity. 4. Hypertension. 5. Dyslipidemia. 6. Osteoarthritis. 7. GERD. Comments and plan: At this time PT ongoing and OT prescribed. Follow therapies with yourself. Discussed possible inpatient rehab with patient. Seems agreeable if necessary.
[2017-12-14 06:55] LABS: HCT 24.5 % (39.0-53.0); HGB 7.9 gm/dL (13.0-17.5); MCH 30.5 pg (25.0-35.0); MCHC 32.3 g/dL (31.0-37.0); MCV 94.4 fL (80.0-100.0); Mean Platelet Volume 7.8; Platelet Count 221 k/uL (150-450); RDW 13.6 % (11.5-15.5); WBC 6.8 k/uL (3.8-10.6)
[2017-12-14] MEDS: INSULN ASP PRT/INSULIN ASPART 100 UNIT/ML 10 ML VIAL SQ SCH (07:03)
[2017-12-14 07:10] LABS: Albumin 3.3 g/dL (3.5-5.0); Calcium 8.7 mg/dL (8.4-10.2); Potassium 4.7 mmol/L (3.5-5.1); Total Bilirubin 0.7 mg/dL (0.2-1.3); Total Protein 5.6 g/dL (6.3-8.2)
--- NOTE | 2017-12-14 07:17 | XR ---
EXAMINATION TYPE: XR chest 2V DATE OF EXAM: 12/14/2017 COMPARISON: Chest x-ray from yesterday and older studies. CT chest from one week ago. HISTORY: Post open cardiac surgery progress study. TECHNIQUE: Frontal and lateral views of the chest are obtained. FINDINGS: Overlying sternal wires are redemonstrated. There is redemonstration of metallic aortic familia ve and metallic device likely at level of mitral valve. There is persistent cardiomegaly. There is persistent patchy left basilar opacity with elevated left hemidiaphragm. Right lung remains clear. S table small to tiny bilateral pleural effusions on lateral view noted. The osseous structures are int act. Epicardial pacer wires are noted. IMPRESSION: Cardiomegaly with small to tiny bilateral pleural effusions and patchy left basilar atele ctasis and/or infiltrate all redemonstrated. No significant change.
[2017-12-14] MEDS ORDERED: HEPARIN SODIUM,PORCINE 5,000 UNIT/ML 1 ML VIAL SQ SCH (08:00)
[2017-12-14] MEDS: IPRATROPIUM-ALBUTEROL 3 ML NEB INHALATION SCH ×4 (08:29→20:23)
[2017-12-14] MEDS: FINASTERIDE 5 MG TAB PO SCH (09:01)
[2017-12-14] MEDS: CLOPIDOGREL 75 MG TAB PO SCH (09:01)
[2017-12-14] MEDS: ASPIRIN 81 MG PO SCH (09:01)
[2017-12-14] MEDS: ATORVASTATIN 40 MG TAB PO SCH (09:01)
[2017-12-14] MEDS: ALLOPURINOL 100 MG TAB PO SCH (09:01)
[2017-12-14] MEDS: AMIODARONE 200 MG TAB PO SCH ×2 (09:01→20:26)
[2017-12-14] MEDS: PANTOPRAZOLE 40 MG TABLET PO SCH ×2 (09:02→17:30)
[2017-12-14] MEDS: HYDROcodone/APAP 7.5-325MG 1 EACH TAB PO PRN ×3 (09:03→20:32)
--- NOTE | 2017-12-14 10:46 | P.PN ---
Subjective Progress Note Date: 12/14/17 Principal diagnosis: Severe aortic valve regurgitation. Mild left ventricular dysfunction. Supraventricular tachycardia. Obesity. Hypertension. Hyperlipidemia. GERD. Osteoporosis. BPH. Gout. Previous tobacco dependence with preoperative FEV1 94% of predicted. POD #5 aortic valve replacement using a 27 mm Inspiris bovine bioprosthesis. Exclusion of the left atrial appendage using a 45 mm Atriclip. Partial sternal plating. Intraoperative transesophageal echocardiogram and epi-aortic scanning. Postoperative diagnosis, normochromic anemia, an expected outcome of surgery secondary to cardiopulmonary bypass and hemodilution. Postoperative thrombocytopenia, an expected outcome of surgery. Postoperative atrial fibrillation, an unexpected but potential outcome of surgery. Patient is currently sitting up in the chair in no acute distress. States pain is controlled on current medications. Remains in atrial fibrillation with controlled ventricular response. Patient apparently had melanotic stool yesterday morning. Order placed for occult blood sample, still waiting for sample to be sent. Objective - Vital Signs Vital signs: Vital Signs Temp 96.8 F L 12/13/17 20:00 Pulse 72 12/14/17 08:40 Resp 20 12/14/17 04:00 BP 117/72 12/14/17 04:00 Pulse Ox 100 12/14/17 04:00 Intake & Output 12/13/17 12/14/17 12/14/17 18:59 06:59 18:59 Intake Total 522 400 240 Output Total 1202 Balance 522 -802 240 Intake: Oral 522 400 240 Output: Urine 1200 Uretheral ([place]) 600 Stool 2 Other: Voiding Method Toilet Toilet Urinal Urinal # Voids 2 ABP, PAP, CO, CI - Last Documented Arterial Blood Pressure 109/46 Pulmonary Artery Pressure 32/13 Cardiac Output 6.9 Cardiac Index 3.2 - Constitutional General appearance: Present: cooperative, no acute distress, obese - Respiratory Details: Lungs sounds diminished bilaterally. Respirations even, slightly labored. Currently on 2 L nasal cannula with oxygen saturation 100%. Able to achieve 1500 mL on his incentive spirometry. Weak cough. - Cardiovascular Details: S1, S2 present. Irregular rate and rhythm, atrial fibrillation on telemetry. Sternum stable. A/V epicardial make pacemaker wires present, grounded. Palpable peripheral pulses bilaterally. Bilateral lower extremity edema present. No calf pain or tenderness noted. Heart hugger in place with patient demonstrating appropriate use. Antiembolism stockings, SCDs present. - Gastrointestinal Gastrointestinal Comment(s): Abdomen soft, nontender, slightly distended, obese. Active bowel sounds present 4 quadrants. Tolerating diet. Positive bowel movement, appeared to have blood in it yesterday morning per staff. This morning patient did have stool, reported to be more mucousy in nature, sample was sent but lab did not get it. - Genitourinary Genitourinary Comment(s): Patient continues to void clear, yellow urine. - Integumentary Integumentary Comment(s): Skin is warm and dry with evidence of good perfusion. Anterior chest incision well approximated and covered with dry intact dressing. - Neurologic Neurologic: Present: CNII-XII intact - Musculoskeletal Musculoskeletal: Present: gait normal, generalized weakness, strength equal bilaterally - Psychiatric Psychiatric: Present: A&O x's 3, appropriate affect, intact judgment & insight - Allied health notes Allied health notes reviewed: nursing - Labs CBC & Chem 7: 12/14/17 05:35 12/14/17 05:35 Labs: Abnormal Lab Results - Last 24 Hours (Table) 12/13/17 12/13/17 12/13/17 Range/Units 11:35 14:51 16:28 RBC 2.41 L (4.30-5.90) m/uL Hgb 7.7 L (13.0-17.5) gm/dL Hct 22.9 L (39.0-53.0) % Sodium (137-145) mmol/L Chloride (98-107) mmol/L BUN (9-20) mg/dL Glucose (74-99) mg/dL POC Glucose (mg/dL) 60 L 67 L (75-99) mg/dL Total Protein (6.3-8.2) g/dL Albumin (3.5-5.0) g/dL 12/13/17 12/13/17 12/13/17 Range/Units 21:07 21:31 21:57 RBC (4.30-5.90) m/uL Hgb (13.0-17.5) gm/dL Hct (39.0-53.0) % Sodium (137-145) mmol/L Chloride (98-107) mmol/L BUN (9-20) mg/dL Glucose (74-99) mg/dL POC Glucose (mg/dL) 68 L 65 L 60 L (75-99) mg/dL Total Protein (6.3-8.2) g/dL Albumin (3.5-5.0) g/dL 12/14/17 12/14/17 12/14/17 Range/Units 02:05 05:35 05:35 RBC 2.60 L (4.30-5.90) m/uL Hgb 7.9 L (13.0-17.5) gm/dL Hct 24.5 L (39.0-53.0) % Sodium 130 L (137-145) mmol/L Chloride 95 L (98-107) mmol/L BUN 38 H (9-20) mg/dL Glucose 102 H (74-99) mg/dL POC Glucose (mg/dL) 115 H (75-99) mg/dL Total Protein 5.6 L (6.3-8.2) g/dL Albumin 3.3 L (3.5-5.0) g/dL 12/14/17 Range/Units 06:35 RBC (4.30-5.90) m/uL Hgb (13.0-17.5) gm/dL Hct (39.0-53.0) % Sodium (137-145) mmol/L Chloride (98-107) mmol/L BUN (9-20) mg/dL Glucose (74-99) mg/dL POC Glucose (mg/dL) 138 H (75-99) mg/dL Total Protein (6.3-8.2) g/dL Albumin (3.5-5.0) g/dL - Imaging and Cardiology Chest x-ray: report reviewed, image reviewed Assessment and Plan (1) Severe aortic valve regurgitation Current Visit: Yes Status: Chronic Code(s): I35.1 - NONRHEUMATIC AORTIC ( VALVE) INSUFFICIENCY SNOMED Code(s): 66995361 (2) Supraventricular tachycardia Current Visit: No Status: Resolved Code(s): I47.1 - SUPRAVENTRICULAR TACHYCARDIA SNOMED Code(s): 3445453 (3) Obesity (BMI 30-39.9) Current Visit: Yes Status: Chronic Code(s): E66.9 - OBESITY, UNSPECIFIED SNOMED Code(s): 675461612 (4) Osteoarthritis Current Visit: Yes Status: Chronic Code(s): M19.90 - UNSPECIFIED OSTEOARTHRITIS, UNSPECIFIED SITE SNOMED Code(s): 048246231 (5) Tobacco dependence in remission Current Visit: No Status: Resolved Code(s): F17.201 - NICOTINE DEPENDENCE, UNSPECIFIED, IN REMISSION SNOMED Code(s): 728444062 (6) BPH (benign prostatic hyperplasia) Current Visit: Yes Status: Chronic Code(s): N40.0 - BENIGN PROSTATIC HYPERPLASIA WITHOUT LOWER URINRY TRACT SYMP SNOMED Code(s): 411446019 (7) Dyslipidemia Current Visit: Yes Status: Chronic Code(s): E78.5 - HYPERLIPIDEMIA, UNSPECIFIED SNOMED Code(s): 808817953 (8) GERD (gastroesophageal reflux disease) Current Visit: Yes Status: Chronic Code(s): K21.9 - GASTRO-ESOPHAGEAL REFLUX DISEASE WITHOUT ESOPHAGITIS SNOMED Code(s): 771151479 (9) Hypertension Current Visit: Yes Status: Chronic Code(s): I10 - ESSENTIAL (PRIMARY) HYPERTENSION SNOMED Code(s): 64470657 Plan: 1. Continue low-dose aspirin, statin, heparin subcu, beta too. Will increase beta too therapy as tolerated. 2. Continue amiodarone for A. fib prophylaxis. Left atrial appendage was clipped. Patient will need anticoagulation, Eliquis to be started, but need stool sample for occult blood first. Discussed with nursing. 3. Wean O2 as tolerated. Encourage incentive spirometry use 10 times every hour. 4. Encourage continued smoking cessation. 5. Increase activity, ambulate as tolerated. PT/OT/cardiac rehab consulted. 6. Will monitor daily labs and x-rays. Continue Iron and vitamin C. 7. GI/DVT prophylaxis. 8. Pain medication with current medication regimen, pain medication increased. 9. Insulin management per primary care service. 10. Bronchodilators per pulmonology. 11. Will give 20 mg IV lasix today. 12. Will discontinue epicardial pacemaker wires today. Time with Patient: Greater than 30
[2017-12-14] MEDS: METOPROLOL TARTRATE 12.5 MG TAB PO SCH ×2 (10:54→20:32)
--- NOTE | 2017-12-14 12:11 | P.PN ---
Subjective Patient slow-moving from bed to chair. Encouraged to ambulate. Patient continues on the irregular heartbeat A. fib Objective - Vital Signs Vital signs: Vital Signs Temp 97.7 F 12/14/17 08:00 Pulse 70 12/14/17 11:22 Resp 20 12/14/17 04:00 BP 118/58 12/14/17 08:00 Pulse Ox 98 12/14/17 08:00 Intake & Output 12/13/17 12/14/17 12/14/17 18:59 06:59 18:59 Intake Total 522 400 240 Output Total 1202 Balance 522 -802 240 Intake: Oral 522 400 240 Output: Urine 1200 Uretheral ([place]) 600 Stool 2 Other: Voiding Method Toilet Toilet Toilet Urinal Urinal Urinal # Voids 2 ABP, PAP, CO, CI - Last Documented Arterial Blood Pressure 109/46 Pulmonary Artery Pressure 32/13 Cardiac Output 6.9 Cardiac Index 3.2 - Constitutional General appearance: Present: mild distress, obese - EENT Eyes: Present: PERRLA Ears: bilateral: normal - Neck Neck: Present: normal ROM - Respiratory Respiratory: bilateral: diminished - Cardiovascular Rhythm: irregularly irregular Abnormal Heart Sounds: Present: systolic murmur - Gastrointestinal General gastrointestinal: Present: soft - Integumentary Integumentary: Present: normal - Neurologic Neurologic: Present: CNII-XII intact - Musculoskeletal Musculoskeletal: Present: generalized weakness - Psychiatric Psychiatric: Present: A&O x's 3, appropriate affect, intact judgment & insight - Labs CBC & Chem 7: 12/14/17 05:35 12/14/17 05:35 Labs: Abnormal Lab Results - Last 24 Hours (Table) 12/13/17 12/13/17 12/13/17 Range/Units 14:51 16:28 21:07 RBC 2.41 L (4.30-5.90) m/uL Hgb 7.7 L (13.0-17.5) gm/dL Hct 22.9 L (39.0-53.0) % Sodium (137-145) mmol/L Chloride (98-107) mmol/L BUN (9-20) mg/dL Glucose (74-99) mg/dL POC Glucose (mg/dL) 67 L 68 L (75-99) mg/dL Total Protein (6.3-8.2) g/dL Albumin (3.5-5.0) g/dL 12/13/17 12/13/17 12/14/17 Range/Units 21:31 21:57 02:05 RBC (4.30-5.90) m/uL Hgb (13.0-17.5) gm/dL Hct (39.0-53.0) % Sodium (137-145) mmol/L Chloride (98-107) mmol/L BUN (9-20) mg/dL Glucose (74-99) mg/dL POC Glucose (mg/dL) 65 L 60 L 115 H (75-99) mg/dL Total Protein (6.3-8.2) g/dL Albumin (3.5-5.0) g/dL 12/14/17 12/14/17 12/14/17 Range/Units 05:35 05:35 06:35 RBC 2.60 L (4.30-5.90) m/uL Hgb 7.9 L (13.0-17.5) gm/dL Hct 24.5 L (39.0-53.0) % Sodium 130 L (137-145) mmol/L Chloride 95 L (98-107) mmol/L BUN 38 H (9-20) mg/dL Glucose 102 H (74-99) mg/dL POC Glucose (mg/dL) 138 H (75-99) mg/dL Total Protein 5.6 L (6.3-8.2) g/dL Albumin 3.3 L (3.5-5.0) g/dL - Imaging and Cardiology Chest x-ray: report reviewed Assessment and Plan Plan: Assessment Severe aortic valve insufficiency post bioprosthetic aortic valve replacement Anemia postoperative Hypertension Hyperlipidemia History of GERD History of BPH Osteoarthritis Paroxysmal atrial fibrillation Plan Continue consultation with cardiology pulmonology we'll monitor patient condition
[2017-12-14 12:15] LABS: Glucose,Whole Blood 91 mg/dL (75-99)
--- NOTE | 2017-12-14 15:18 | P.PN ---
Subjective Progress Note Date: 12/14/17 77-year-old male patient underwent a aortic valve replacement for severe aortic stenosis. The patient has done well postop and currently is postop day # 5. He also underwent a left atrial appendage clipping. He underwent partial sternal plating. The patient is doing well. He has no specific complaints. Postop he developed a it should fibrillation which is a expected outcome surgery. His rate is controlled for now. The patient is also on anticoagulation. No chest pain. Nausea or vomiting. He is using incentive spirometer. He has an adequate urine output. The chest x-ray from today shows cardiac regular with small bilateral pleural effusions and atelectatic changes in the lung bases bilaterally. He has trace edema lower extremities bilaterally. He has no other complaints otherwise for now. He was seen by rehabilitation. He is being considered for inpatient rehabilitation. We'll function is stable with a creatinine of 1.25. Objective - Vital Signs Vital signs: Vital Signs Temp 97.7 F 12/14/17 08:00 Pulse 70 12/14/17 11:22 Resp 20 12/14/17 04:00 BP 118/58 12/14/17 08:00 Pulse Ox 98 12/14/17 08:00 Intake & Output 12/13/17 12/14/17 12/14/17 18:59 06:59 18:59 Intake Total 522 400 480 Output Total 1202 Balance 522 -802 480 Weight 123.9 kg Intake: Oral 522 400 480 Output: Urine 1200 Uretheral ([place]) 600 Stool 2 Other: Voiding Method Toilet Toilet Toilet Urinal Urinal Urinal # Voids 2 1 ABP, PAP, CO, CI - Last Documented Arterial Blood Pressure 109/46 Pulmonary Artery Pressure 32/13 Cardiac Output 6.9 Cardiac Index 3.2 - Exam - Constitutional General appearance: Present: cooperative, no acute distress, obese - Respiratory Details: Lungs sounds diminished bilaterally. Respirations even, slightly labored. Currently on 2 L nasal cannula with oxygen saturation 100%. Able to achieve 1500 mL on his incentive spirometry. Weak cough. - Cardiovascular Details: S1, S2 present. Irregular rate and rhythm, atrial fibrillation on telemetry. Sternum stable. A/V epicardial make pacemaker wires present, grounded. Palpable peripheral pulses bilaterally. Bilateral lower extremity edema present. No calf pain or tenderness noted. Heart hugger in place with patient demonstrating appropriate use. Antiembolism stockings, SCDs present. - Gastrointestinal Gastrointestinal Comment(s): Abdomen soft, nontender, slightly distended, obese. Active bowel sounds present 4 quadrants. Tolerating diet. Positive bowel movement, appeared to have blood in it yesterday morning per staff. This morning patient did have stool, reported to be more mucousy in nature, sample was sent but lab did not get it. - Genitourinary Genitourinary Comment(s): Patient continues to void clear, yellow urine. - Integumentary Integumentary Comment(s): Skin is warm and dry with evidence of good perfusion. Anterior chest incision well approximated and covered with dry intact dressing. - Neurologic Neurologic: Present: CNII-XII intact - Musculoskeletal Musculoskeletal: Present: gait normal, generalized weakness, strength equal bilaterally - Psychiatric Psychiatric: Present: A&O x's 3, appropriate affect, intact judgment & insight - Labs CBC & Chem 7: 12/14/17 05:35 12/14/17 05:35 Labs: Abnormal Lab Results - Last 24 Hours (Table) 12/13/17 12/13/17 12/13/17 Range/Units 16:28 21:07 21:31 RBC (4.30-5.90) m/uL Hgb (13.0-17.5) gm/dL Hct (39.0-53.0) % Sodium (137-145) mmol/L Chloride (98-107) mmol/L BUN (9-20) mg/dL Glucose (74-99) mg/dL POC Glucose (mg/dL) 67 L 68 L 65 L (75-99) mg/dL Total Protein (6.3-8.2) g/dL Albumin (3.5-5.0) g/dL 12/13/17 12/14/17 12/14/17 Range/Units 21:57 02:05 05:35 RBC 2.60 L (4.30-5.90) m/uL Hgb 7.9 L (13.0-17.5) gm/dL Hct 24.5 L (39.0-53.0) % Sodium (137-145) mmol/L Chloride (98-107) mmol/L BUN (9-20) mg/dL Glucose (74-99) mg/dL POC Glucose (mg/dL) 60 L 115 H (75-99) mg/dL Total Protein (6.3-8.2) g/dL Albumin (3.5-5.0) g/dL 12/14/17 12/14/17 Range/Units 05:35 06:35 RBC (4.30-5.90) m/uL Hgb (13.0-17.5) gm/dL Hct (39.0-53.0) % Sodium 130 L (137-145) mmol/L Chloride 95 L (98-107) mmol/L BUN 38 H (9-20) mg/dL Glucose 102 H (74-99) mg/dL POC Glucose (mg/dL) 138 H (75-99) mg/dL Total Protein 5.6 L (6.3-8.2) g/dL Albumin 3.3 L (3.5-5.0) g/dL Assessment and Plan Plan: Assessment 1 aortic valve replacement for severe aortic valve regurgitation. The patient is postop day #5 2 postoperative small bilateral pleural effusion, and expected outcome of surgery 3 postoperative atrial fibrillation, and expected outcome of surgery and the rate is controlled and the patient is on anticoagulation 4 obesity with a BMI of 37.0 5 hyperlipidemia 6 BPH 7 GERD 8 hypertension 9 anemia, and expected outcome of surgery 10 renal insufficiency, watch for any acute kidney injury in the setting of cardiac surgery Plan Continue incentive spirometer. Pulmonary toileting. Wean off FiO2 as tolerated to maintain a saturation above 90%. Continue aspirin and statins. Continue beta blockers. Amiodarone 4 atrial fibrillation. Eliquis has been started. Patient was given a 20 mg of IV Lasix today. Pain is under good control. The epicardial pacemaker wires have been discontinued. The patient is being considered for inpatient rehabilitation.
--- NOTE | 2017-12-14 15:49 | P.PN ---
Subjective Progress Note Date: 12/14/17 This is a 77-year-old male patient underwent a aortic valve replacement for severe aortic stenosis. He is overall doing well. Denies any chest discomfort , breathing is stable. Continues to be in atrial fibrillation, rate under good control. On anticoagulation. Using his incentive spirometry. Objective - Vital Signs Vital signs: Vital Signs Temp 97.7 F 12/14/17 08:00 Pulse 70 12/14/17 11:22 Resp 20 12/14/17 04:00 BP 118/58 12/14/17 08:00 Pulse Ox 98 12/14/17 08:00 Intake & Output 12/13/17 12/14/17 12/14/17 18:59 06:59 18:59 Intake Total 522 400 480 Output Total 1202 Balance 522 -802 480 Weight 123.9 kg Intake: Oral 522 400 480 Output: Urine 1200 Uretheral ([place]) 600 Stool 2 Other: Voiding Method Toilet Toilet Toilet Urinal Urinal Urinal # Voids 2 1 ABP, PAP, CO, CI - Last Documented Arterial Blood Pressure 109/46 Pulmonary Artery Pressure 32/13 Cardiac Output 6.9 Cardiac Index 3.2 - Exam PHYSICAL EXAMINATION: GENERAL: 77-year-old gentleman in no acute distress at the time of my examination HEENT: Head is atraumatic, normocephalic. Pupils equal, round. Sclera anicteric. Conjunctiva are clear. Mucous membranes of the mouth are moist. Neck is supple. There is no elevated jugular venous pressure.] bruit is heard. HEART EXAMINATION: Heart S1 and S2 irregularly irregular CHEST EXAMINATION: Lungs are clear with diminished air entry to bilateral bases. Reaching 1500 on his incentive spirometry. ABDOMEN: Soft, nontender. Bowel sounds are heard. No organomegaly noted. EXTREMITIES: 2+ peripheral pulses with no evidence of peripheral edema and no calf tenderness noted. NEUROLOGIC patient is awake, alert and oriented ?-3. . - Labs CBC & Chem 7: 12/14/17 05:35 12/14/17 05:35 Labs: Abnormal Lab Results - Last 24 Hours (Table) 12/13/17 12/13/17 12/13/17 Range/Units 16:28 21:07 21:31 RBC (4.30-5.90) m/uL Hgb (13.0-17.5) gm/dL Hct (39.0-53.0) % Sodium (137-145) mmol/L Chloride (98-107) mmol/L BUN (9-20) mg/dL Glucose (74-99) mg/dL POC Glucose (mg/dL) 67 L 68 L 65 L (75-99) mg/dL Total Protein (6.3-8.2) g/dL Albumin (3.5-5.0) g/dL 12/13/17 12/14/17 12/14/17 Range/Units 21:57 02:05 05:35 RBC 2.60 L (4.30-5.90) m/uL Hgb 7.9 L (13.0-17.5) gm/dL Hct 24.5 L (39.0-53.0) % Sodium (137-145) mmol/L Chloride (98-107) mmol/L BUN (9-20) mg/dL Glucose (74-99) mg/dL POC Glucose (mg/dL) 60 L 115 H (75-99) mg/dL Total Protein (6.3-8.2) g/dL Albumin (3.5-5.0) g/dL 12/14/17 12/14/17 Range/Units 05:35 06:35 RBC (4.30-5.90) m/uL Hgb (13.0-17.5) gm/dL Hct (39.0-53.0) % Sodium 130 L (137-145) mmol/L Chloride 95 L (98-107) mmol/L BUN 38 H (9-20) mg/dL Glucose 102 H (74-99) mg/dL POC Glucose (mg/dL) 138 H (75-99) mg/dL Total Protein 5.6 L (6.3-8.2) g/dL Albumin 3.3 L (3.5-5.0) g/dL Assessment and Plan Plan: Assessment and plan #1 status post aortic valve replacement #2 obesity #3 paroxysmal atrial fibrillation, on anticoagulation #4 hyperlipidemia #5 hypertension #6 anemia Plan Cardiology's perspective, we will recommend to continue patient on his current medications. He is doing well with his spirometry. We will continue to follow. DNP note has been reviewed, I agree with a documented findings and plan of care. Patient was seen and examined.
[2017-12-14 17:07] LABS: Glucose,Whole Blood 67 mg/dL (75-99)
[2017-12-14 17:07] LABS: Glucose,Whole Blood 65 mg/dL (75-99)
[2017-12-14 17:27] LABS: Glucose,Whole Blood 66 mg/dL (75-99)
[2017-12-14 17:44] LABS: Glucose,Whole Blood 104 mg/dL (75-99)
[2017-12-14] MEDS ORDERED: WARFARIN 5 MG TAB PO ONE (18:00)
--- NOTE | 2017-12-14 20:25 | CONS ---
CONSULTATION DATE OF CONSULTATION: 12/14/2017 REQUESTING PHYSICIAN: Dr. Abner Davenport. REASON FOR CONSULTATION: Bloody stools. HISTORY OF PRESENT ILLNESS: The patient is a 77-year-old pleasant white male who was admitted on December 09 for severe aortic valvular heart disease for which he underwent aortic valve replacement and presently postop day number five. Postoperatively he developed atrial fibrillation but it is well controlled now. While in the hospital yesterday he developed some rectal bleeding and dark colored stools and hence we are consulted for GI bleed. The patient presently denies any abdominal pain. He reports no nausea, vomiting. He had one bowel movement this morning that was sent for analysis and the stool was Hemoccult positive. The patient however did not recall having any bloody bowel movements today. As per the nursing staff who witnessed the bowel movements yesterday, there was a small amount of dark maroon colored stools approximately 50 mL on 2 different occasions yesterday. The patient denies any prior history of peptic ulcer disease. He does recall having a colonoscopy about three or four years ago that was normal. PAST MEDICAL HISTORY: Significant for hypertension, hyperlipidemia, aortic valvular disease, gastroesophageal reflux disease, degenerative joint disease, prostate disorder. PAST SURGICAL HISTORY: Aortic valve replacement five days ago, prostate surgery, tonsillectomy, bilateral knee scopes, TURP. MEDICATIONS AT HOME: Zantac, Flomax, Zyloprim, Lipitor, Celebrex, Proscar, losartan, albuterol. ALLERGIES: None. SOCIAL HISTORY: No smoking or alcohol use. FAMILY HISTORY: Unremarkable. REVIEW OF SYSTEMS: Cardiopulmonary: He denies any chest pain or shortness of breath. Genitourinary: No dysuria or hematuria. Musculoskeletal: Complains of chest pain at the site of surgery. Neurology: Unremarkable. Psychiatric unremarkable. ENT vision unremarkable. GI as mentioned above. CONSTITUTIONAL: No recent weight loss. No fever, chills, night sweats. PHYSICAL EXAMINATION: He appears comfortable in no apparent distress. Vital signs stable. Blood pressure is 133/89, pulse rate is 70 and temperature 96. HEENT exam: auscultation. Decreased breath sounds bilaterally. HEART: Regular rate and rhythm. Abdomen is slightly distended. Tympanic. Bowel sounds are positive. No organomegaly. Extremities: No pedal edema. Skin no rashes. Neurologic: Alert and oriented times three. No focal deficits. LAB DATA: Done on 12/10 revealed 7.7 and today it is the WBC and platelets are within normal limits. INR is 1.1. BUN is 38, creatinine 1.25. Repeat stool for occult blood this morning was negative. IMPRESSION: This is a patient who was admitted 5 days ago for severe aortic valvular disease for which he underwent aortic valve replacement by Dr. Smith 5 days ago. Postoperative, he is recovering well and he is postop day #5. Yesterday there was some bloody bowel movements noted by the nursing staff and he had two bowel movements and today he had a small bowel movement with no blood. Stool Hemoccult was negative. Hemoglobin remains stable at 7.7 for the last 2 days duration. He has remained hemodynamically stable bleeding in the last 12 hours. It is unclear if we are dealing with an upper gastrointestinal source or bleeding from internal hemorrhoids at the present time or other etiology. In any event, he does not have any significant gastrointestinal bleed currently. RECOMMENDATIONS: 1. Continue with a cardiac diet. 2. No plans for any endoscopy intervention at the present time. 3. We will monitor him closely along with CBCs on daily basis. 4. If he manifests evidence of we will consider further workup. 5. For now . Thank you for this consultation. PATTY / RUELN: [id number] /
[2017-12-14] MEDS: TAMSULOSIN 0.4 MG CAP.ER.24H PO SCH (20:27)
[2017-12-14] MEDS: ALPRAZolam 0.25 MG TAB PO PRN (20:32)
[2017-12-14] MEDS: SENNOSIDES-DOCUSATE SODIUM 1 EACH TAB PO SCH (20:32)
[2017-12-14] MEDS: INSULIN NPH 300 UNIT/3 ML VIAL SQ SCH (20:37)
[2017-12-14 20:47] LABS: Glucose,Whole Blood 94 mg/dL (75-99)
[2017-12-14] MEDS ORDERED: APIXABAN 5 MG TAB PO SCH (21:00)
[2017-12-15] MEDS: INSULIN ASPART 100 UNIT/ML 1 ML 10 ML VIAL SQ SCH ×7 (02:35→23:50)
[2017-12-15 02:58] LABS: Glucose,Whole Blood 112 mg/dL (75-99)
[2017-12-15 06:20] LABS: Glucose,Whole Blood 115 mg/dL (75-99)
[2017-12-15] MEDS: INSULN ASP PRT/INSULIN ASPART 100 UNIT/ML 10 ML VIAL SQ SCH (06:32)
[2017-12-15] MEDS: ASCORBIC ACID 500 MG TAB PO SCH ×2 (06:43→17:14)
[2017-12-15] MEDS: FERROUS SULFATE 325 MG TAB PO SCH (06:43)
[2017-12-15] MEDS: PANTOPRAZOLE 40 MG TABLET PO SCH ×2 (06:43→17:14)
--- NOTE | 2017-12-15 06:55 | XR ---
EXAMINATION TYPE: XR chest 2V DATE OF EXAM: 12/15/2017 COMPARISON: 12/14/2017 HISTORY: 77 year-old male post cardiac surgery TECHNIQUE: AP and lateral views FINDINGS: Persistent cardiomegaly. Median sternotomy wires and prosthetic aortic valve. Mild diffuse interstiti al prominence increased in the interval possibly due to decreased lung volumes and vascular crowding. Left base underpenetrated and not well assessed. IMPRESSION: Cardiomegaly and either new hypoventilatory changes or mild pulmonary vascular congestion. Left base underpenetrated and not well assessed.
[2017-12-15 07:07] LABS: HCT 23.6 % (39.0-53.0); HGB 7.8 gm/dL (13.0-17.5); MCH 31.4 pg (25.0-35.0); MCHC 32.9 g/dL (31.0-37.0); MCV 95.6 fL (80.0-100.0); Platelet Count 243 k/uL (150-450); RBC 2.47 m/uL (4.30-5.90); RDW 14.1 % (11.5-15.5); WBC 8.9 k/uL (3.8-10.6)
[2017-12-15] MEDS: IPRATROPIUM-ALBUTEROL 3 ML NEB INHALATION SCH ×4 (07:17→21:03)
[2017-12-15] MEDS ORDERED: ACETAMINOPHEN TAB 325 MG TAB PO PRN (07:20)
[2017-12-15 07:22] LABS: Calcium 8.9 mg/dL (8.4-10.2); INR 1.1 (<1.2); Prothrombin Time 10.9 sec (9.0-12.0); Total Protein 5.2 g/dL (6.3-8.2)
[2017-12-15] MEDS ORDERED: METOCLOPRAMIDE 5 MG/ML 2 ML VIAL IVP STA (07:23)
[2017-12-15] MEDS ORDERED: BISACODYL 10 MG SUPP RECTAL SCH (08:00)
[2017-12-15] MEDS: ATORVASTATIN 40 MG TAB PO SCH (10:53)
[2017-12-15] MEDS: METOPROLOL TARTRATE 12.5 MG TAB PO SCH ×2 (10:53→20:49)
[2017-12-15] MEDS: AMIODARONE 200 MG TAB PO SCH ×2 (10:53→20:49)
[2017-12-15] MEDS: HEPARIN SODIUM,PORCINE 5,000 UNIT/ML 1 ML VIAL SQ SCH ×3 (10:54→23:50)
[2017-12-15] MEDS: ASPIRIN 81 MG PO SCH (10:54)
[2017-12-15] MEDS: FINASTERIDE 5 MG TAB PO SCH (10:54)
[2017-12-15] MEDS: ALLOPURINOL 100 MG TAB PO SCH (10:54)
--- NOTE | 2017-12-15 10:57 | P.PN ---
Subjective Progress Note Date: 12/15/17 Principal diagnosis: Rectal bleeding. Denies rectal bleeding. Status post AVR December 09 for aortic valvular disease. Hemoglobin 7.8. Atrial fibrillation warfarin monitoring. INR 1.1 today. Objective - Vital Signs Vital signs: Vital Signs Temp 98 F 12/15/17 00:00 Pulse 72 12/15/17 07:27 Resp 18 12/15/17 07:27 BP 142/59 12/15/17 04:00 Pulse Ox 100 12/15/17 07:18 Intake & Output 12/14/17 12/15/17 12/15/17 18:59 06:59 18:59 Intake Total 570 50 Output Total 3106 1000 Balance 570 -3056 -1000 Weight 120.5 kg Intake: Oral 570 50 Output: Urine 1800 1000 Uretheral ([place]) 1000 Post Void Residual 1300 Stool 6 Other: Voiding Method Toilet Toilet Urinal Urinal # Voids 0 0 # Bowel Movements 0 0 ABP, PAP, CO, CI - Last Documented Arterial Blood Pressure 109/46 Pulmonary Artery Pressure 32/13 Cardiac Output 6.9 Cardiac Index 3.2 - Exam General appearance: The patient is alert, oriented, in no acute distress. HET: Head is normocephalic and atraumatic. Pupils are equal and reactive. Oropharynx is clear without lesions. Neck: Supple without lymphadenopathy. Trachea midline. Heart: S1 S2. Regular rate and rhythm. Lungs: No crackles or wheezes are heard. Abdomen: Soft, nontender, nondistended with bowel sounds. No peritoneal signs. No palpable organomegaly or masses. Extremities: Normal skin color and turgor. No cyanosis, rash, ulceration, clubbing, or edema. Radial and pedal pulses are 2/4 bilaterally. Neurological: No focal deficits. Strength and sensation are grossly intact. - Labs CBC & Chem 7: 12/15/17 06:14 12/15/17 06:14 Labs: Abnormal Lab Results - Last 24 Hours (Table) 12/14/17 12/14/17 12/14/17 Range/Units 16:38 16:49 17:07 RBC (4.30-5.90) m/uL Hgb (13.0-17.5) gm/dL Hct (39.0-53.0) % Sodium (137-145) mmol/L BUN (9-20) mg/dL POC Glucose (mg/dL) 67 L 65 L 66 L (75-99) mg/dL Total Protein (6.3-8.2) g/dL Albumin (3.5-5.0) g/dL 12/14/17 12/15/17 12/15/17 Range/Units 17:34 02:56 06:08 RBC (4.30-5.90) m/uL Hgb (13.0-17.5) gm/dL Hct (39.0-53.0) % Sodium (137-145) mmol/L BUN (9-20) mg/dL POC Glucose (mg/dL) 104 H 112 H 115 H (75-99) mg/dL Total Protein (6.3-8.2) g/dL Albumin (3.5-5.0) g/dL 12/15/17 12/15/17 Range/Units 06:14 06:14 RBC 2.47 L (4.30-5.90) m/uL Hgb 7.8 L (13.0-17.5) gm/dL Hct 23.6 L (39.0-53.0) % Sodium 132 L (137-145) mmol/L BUN 30 H (9-20) mg/dL POC Glucose (mg/dL) (75-99) mg/dL Total Protein 5.2 L (6.3-8.2) g/dL Albumin 3.0 L (3.5-5.0) g/dL Assessment and Plan (1) Rectal bleeding Narrative/Plan: Unclear possible hemorrhoidal in nature possible upper GI source however presently not manifesting any clinical signs of active GI bleeding. Current Visit: Yes Status: Acute Code(s): K62.5 - HEMORRHAGE OF ANUS AND RECTUM SNOMED Code(s): 94174165 (2) S/P AVR (aortic valve replacement) Current Visit: Yes Status: Acute Code(s): Z95.2 - PRESENCE OF PROSTHETIC HEART VALVE SNOMED Code(s): 4231050142597 Plan: . Continue with present medical therapy and anticoagulation. CBC monitoring. If he manifests active GI bleeding will consider further workup for now continue with supportive measures. Assessment and plan a care discussed with Dr. Gardner
--- NOTE | 2017-12-15 10:58 | XR ---
EXAMINATION TYPE: XR abdomen acute w cxr DATE OF EXAM: 12/15/2017 COMPARISON: Chest 12/15/2017 HISTORY: 77 year-old male abdominal distention after open heart surgery TECHNIQUE: 4 views FINDINGS: Frontal view of the chest shows cardiomegaly and interstitial prominence similar to prior. Prosthetic aortic valve. No evidence for free intraperitoneal air. Diffuse gaseous distention of the colon with moderate stool in the cecum. Multiple phleboliths in the pelvis. IMPRESSION: 1. Stable chest from earlier today. 2. Diffuse gaseous distention of the colon. Findings suspected to represent ileus. Follow-up as indic ated.
--- NOTE | 2017-12-15 11:50 | P.PN ---
Subjective Patient resting in bed complaining of abdominal distention and pain. Patient has been given a suppository to help with constipation. Discussed with the nurse to reconsult GI if suppository not helpful. Patient encouraged to ambulate. And to use incentive spirometry Objective - Vital Signs Vital signs: Vital Signs Temp 98 F 12/15/17 00:00 Pulse 78 12/15/17 11:29 Resp 16 12/15/17 11:29 BP 142/59 12/15/17 04:00 Pulse Ox 100 12/15/17 07:18 Intake & Output 12/14/17 12/15/17 12/15/17 18:59 06:59 18:59 Intake Total 570 50 Output Total 3106 1000 Balance 570 -3056 -1000 Weight 120.5 kg Intake: Oral 570 50 Output: Urine 1800 1000 Uretheral ([place]) 1000 Post Void Residual 1300 Stool 6 Other: Voiding Method Toilet Toilet Urinal Urinal # Voids 0 0 # Bowel Movements 0 0 ABP, PAP, CO, CI - Last Documented Arterial Blood Pressure 109/46 Pulmonary Artery Pressure 32/13 Cardiac Output 6.9 Cardiac Index 3.2 - Constitutional General appearance: Present: obese - EENT Eyes: Present: PERRLA Ears: bilateral: normal - Neck Neck: Present: normal ROM - Respiratory Respiratory: negative: CTA - Cardiovascular Rhythm: irregularly irregular Abnormal Heart Sounds: Present: systolic murmur - Gastrointestinal General gastrointestinal: Present: distended, hyperactive bowel sounds - Integumentary Integumentary: Present: normal - Neurologic Neurologic: Present: CNII-XII intact - Musculoskeletal Musculoskeletal: Present: generalized weakness - Psychiatric Psychiatric: Present: A&O x's 3, appropriate affect, intact judgment & insight - Labs CBC & Chem 7: 12/15/17 06:14 12/15/17 06:14 Labs: Abnormal Lab Results - Last 24 Hours (Table) 12/14/17 12/14/17 12/14/17 Range/Units 16:38 16:49 17:07 RBC (4.30-5.90) m/uL Hgb (13.0-17.5) gm/dL Hct (39.0-53.0) % Sodium (137-145) mmol/L BUN (9-20) mg/dL POC Glucose (mg/dL) 67 L 65 L 66 L (75-99) mg/dL Total Protein (6.3-8.2) g/dL Albumin (3.5-5.0) g/dL 12/14/17 12/15/17 12/15/17 Range/Units 17:34 02:56 06:08 RBC (4.30-5.90) m/uL Hgb (13.0-17.5) gm/dL Hct (39.0-53.0) % Sodium (137-145) mmol/L BUN (9-20) mg/dL POC Glucose (mg/dL) 104 H 112 H 115 H (75-99) mg/dL Total Protein (6.3-8.2) g/dL Albumin (3.5-5.0) g/dL 12/15/17 12/15/17 Range/Units 06:14 06:14 RBC 2.47 L (4.30-5.90) m/uL Hgb 7.8 L (13.0-17.5) gm/dL Hct 23.6 L (39.0-53.0) % Sodium 132 L (137-145) mmol/L BUN 30 H (9-20) mg/dL POC Glucose (mg/dL) (75-99) mg/dL Total Protein 5.2 L (6.3-8.2) g/dL Albumin 3.0 L (3.5-5.0) g/dL - Imaging and Cardiology Chest x-ray: report reviewed Assessment and Plan Plan: Assessment severe aortic valve insufficiency post bioprosthetic aortic valve replacement Anemia postoperative Hypertension Hyperlipidemia GERD Osteoarthritis BPH urinary retention Atrial fibrillation Constipation Plan If rectal suppository on helpful for constipation and reconsult GI bleed We'll continue to monitor patient
--- NOTE | 2017-12-15 11:53 | P.PN ---
Subjective Progress Note Date: 12/15/17 Principal diagnosis: Severe aortic insufficiency, status post aortic valve replacement, postop day 2 Mr. Hernandez is a 77-year-old patient of Dr. Davenport, who underwent aortic valve replacement with exclusion of left atrial appendage today, on 12/09/[address] Farris, for a diagnosis of severe aortic valve insufficiency. Past medical history includes hypertension, dyslipidemia, GERD, ulcer arthritis, BPH, gout, nonsustained V. tach, asymptomatic bilateral carotid artery stenosis, remote history of smoking, and non-rheumatologic aortic valve insufficiency. Patient has had episodes of dizziness, fatigue, and progressive shortness of breath with exertion. Stress test on 07/01/2017 showed no definite ECG evidence of ischemia, the patient did have an episode of nonsustained V. tach after the procedure. Patient had an elective heart catheterization for his persisting symptoms, and on 10/14/2017, patient had a heart cath which showed nonocclusive coronary arteries, and 4+ aortic valve regurgitation, LV ventriculogram showed an EF of 55%. Patient was recommended aortic valve replacement, and the patient opted for the procedure. Today we are seeing the patient postop after his surgery, sedated on mechanical ventilation, current vent settings SIMV mode with a rate of 12, tidal volume of 600, FiO2 of 100% and PEEP of 10. Postop blood gases showed pO2 of 188, pCO2 43, and pH of 7.34, and we recommended to decrease the FiO2 down to 60%, and subsequently down to 50%. Patient is sinus rhythm on the monitor, with a rate of 65 BPM, he has a atrioventricular epicardial wires in place connected to an external pacemaker, with a backup rate of VVI 40 BPM. Hemodynamically stable, blood pressure is 110/58, PA pressures 41/20, with a CVP of 14, cardiac outputs in index, is 6.1 and 2.6 respectively. Patient has a mediastinal chest tube, with sanguinous output, and there has been a total of 250 of sanguious output since OR exit time at 1319 p.m. patient was given 750 ML of Cell Saver, 2 L of lactated Ringer's, and 250 mL of albumin. Patient was given additional 500 mL of 5% albumin in the intensive care. His current maintenance IV is LR at a rate of 50 ML per hour, Diprivan is a 45 mics per kilo per minute, nitroglycerin is at 5 mics per minute , insulin is on hold, and clevidipine is currently on hold. Postop blood work showed WBC of 7.2, hemoglobin of 10.2, INR is 1.2, sodium is 140, potassium is 4.4, chloride is 111, BUN is 14, creatinine 0.72. Postop chest x-ray was reviewed by Dr. Mahmood, and shows endotracheal tube with the tip of above the jc, the heart size is normal, pulmonary mass culture is normal. Indwelling catheter is in place, and patient is nonoliguric. Progress note dated 12/10/2017 77-year-old male who is postop day #1 status post aortic valve replacement for aortic valve insufficiency. He had a bile is prostatic aortic valve replacement. He also had excision of left atrial appendage. He had an intraoperative ODETTE. The patient was on the ventilator post operatively and was able to be extubated within 6 hours. The patient has a history of essential hypertension hyperlipidemia remote history of tobacco use GERD and BPH and DJD. Currently the patient is doing relatively well. Resting comfortably. Working on deep breathing coughing clearing his secretions as well as incentive spirometer. Current laboratory data includes a white count of 5.7 hemoglobin 8.7 hematocrit 25.3 platelet count 104,000. PT INR and PTT are normal. Sodium and potassium are normal. Chlorides 108 CO2 24 BUN and creatinine were normal. Chest x-ray has not yet been done. On 12/11/2017 patient seen in follow-up in the intensive care unit. He states he couldn't sleep very well last night, could not get comfortable, feels a bit dyspneic, but no acute distress. Able to achieve 1250 on his incentive spirometry today. Lung sounds are clear, no crackles, no wheezes, no rhonchi. Pulse ox on 3 L per nasal cannula is 96%, patient is afebrile, hemodynamically stable, significant went into atrial fibrillation this morning, and he will be started on amiodarone drip per CT surgery. Today's chest x-ray has been reviewed by Dr. Jeffers, and shows mild pulmonary vascular congestion and cardiomegaly and what to previous chest x-ray from 12/10/2017. Today's labs have been reviewed, WBC 6.1, hemoglobin is 8.4, urine is 134, the rest of the electrolytes and renal profile are wall within normal limits. CT surgery gave patient a dose of IV Lasix yesterday. Mediastinal chest tube drainage is minimal, around 10 ML per hour. Is nonoliguric. Tolerating oral intake. Abdomen is distended, patient had a bowel movement, but bowel sounds positive 4. On 12/15/2017 patient seen in follow-up on selective care unit. He is just returned from the radiology Department where he was having abdominal x-rays taken for abdominal distention, and constipation. It showed diffuse gaseous distention of the colon, findings suspected to represent ileus. He received Dulcolax suppository. From pulmonary standpoint he denies any worsening dyspnea , lung sounds are diminished at the bases, with some scattered rales. His chest x-ray has been reviewed, and showed cardiomegaly, hypoventilatory changes and mild pulmonary vascular congestion. He is compliant with his incentive spirometry. Remains on 2 L per nasal cannula his pulse ox 100%, hemodynamically stable, he is afebrile. Today's labs were noted, CBC is 8.9, hemoglobin is 7.8, sodium is 132, BUN is 30, creatinine is 1.13. Patient has been started on Coumadin for anticoagulation for his postoperative atrial fibrillation. His INR is 1.1. Objective - Vital Signs Vital signs: Vital Signs Temp 98 F 12/15/17 00:00 Pulse 78 12/15/17 11:29 Resp 16 12/15/17 11:29 BP 142/59 12/15/17 04:00 Pulse Ox 100 12/15/17 07:18 Intake & Output 12/14/17 12/15/17 12/15/17 18:59 06:59 18:59 Intake Total 570 50 Output Total 3106 1000 Balance 570 -3056 -1000 Weight 120.5 kg Intake: Oral 570 50 Output: Urine 1800 1000 Uretheral ([place]) 1000 Post Void Residual 1300 Stool 6 Other: Voiding Method Toilet Toilet Urinal Urinal # Voids 0 0 # Bowel Movements 0 0 ABP, PAP, CO, CI - Last Documented Arterial Blood Pressure 109/46 Pulmonary Artery Pressure 32/13 Cardiac Output 6.9 Cardiac Index 3.2 - Exam GENERAL EXAM: Awake, alert, 77-year-old obese white male, in no acute distress comfortable in no apparent distress. HEAD: Normocephalic/atraumatic. EYES: Normal reaction of pupils, equal size. Conjunctiva pink, sclera white. NOSE: Clear with pink turbinates. THROAT: No erythema or exudates. NECK: No masses, no JVD, no thyroid enlargement, no adenopathy. CHEST: No chest wall deformity. Symmetrical expansion. Midsternal incision is clean dry and intact, covered with a surgical dressing, mediastinal chest tube site is clean dry and intact. LUNGS: Lung sounds are positive for bibasilar crackles, diminished at the bases. CVS: Irregular rate and rhythm, normal S1 and S2, no gallops, no murmurs, no rubs ABDOMEN: Soft, nontender. No hepatosplenomegaly, normal bowel sounds, no guarding or rigidity. EXTREMITIES: No clubbing, no edema, no cyanosis, 2+ pulses and upper and lower extremities. MUSCULOSKELETAL: Muscle strength and tone normal. SPINE: No scoliosis or deformity SKIN: No rashes CENTRAL NERVOUS SYSTEM:No focal deficits, tone is normal in all 4 extremities. - Labs CBC & Chem 7: 12/15/17 06:14 12/15/17 06:14 Labs: Abnormal Lab Results - Last 24 Hours (Table) 12/14/17 12/14/17 12/14/17 Range/Units 16:38 16:49 17:07 RBC (4.30-5.90) m/uL Hgb (13.0-17.5) gm/dL Hct (39.0-53.0) % Sodium (137-145) mmol/L BUN (9-20) mg/dL POC Glucose (mg/dL) 67 L 65 L 66 L (75-99) mg/dL Total Protein (6.3-8.2) g/dL Albumin (3.5-5.0) g/dL 12/14/17 12/15/17 12/15/17 Range/Units 17:34 02:56 06:08 RBC (4.30-5.90) m/uL Hgb (13.0-17.5) gm/dL Hct (39.0-53.0) % Sodium (137-145) mmol/L BUN (9-20) mg/dL POC Glucose (mg/dL) 104 H 112 H 115 H (75-99) mg/dL Total Protein (6.3-8.2) g/dL Albumin (3.5-5.0) g/dL 12/15/17 12/15/17 Range/Units 06:14 06:14 RBC 2.47 L (4.30-5.90) m/uL Hgb 7.8 L (13.0-17.5) gm/dL Hct 23.6 L (39.0-53.0) % Sodium 132 L (137-145) mmol/L BUN 30 H (9-20) mg/dL POC Glucose (mg/dL) (75-99) mg/dL Total Protein 5.2 L (6.3-8.2) g/dL Albumin 3.0 L (3.5-5.0) g/dL Assessment and Plan Plan: Assessment: #1. Severe aortic valve insufficiency, status post bioprosthetic aortic valve replacement, with exclusion of left atrial appendage, and intraoperative ODETTE with bilateral pulmonary vein isolation, postop day 6 #2. New onset atrial fibrillation, with controlled rate, and unexpected but potential outcome of surgery #3. Abdominal distention, constipation, possible ileus #4. Essential hypertension #5. Hyperlipidemia #6. Remote history of smoking, preop bedside spirometry showed normal lung function, with FEV1 of 3.14 L or 94% of predicted #7. GERD/reflux #8. Benign prostatic hyperplasia #9. Osteoarthritis Plan: Denies any worsening dyspnea,he is complaining of abdominal distention and constipation today, received suppository, abdominal series showed possible ileus. Today's chest x-ray has been reviewed, shows hypoventilatory lungs, with increased vascular markings. Patient has been started on anticoagulation in the form of Coumadin, and today's INR is 1.1. Continue increasing physical activity, encourage ambulation, deep breathing and coughing and incentive spirometry use. Continue to follow I performed a history & physical examination of the patient and discussed their management with my nurse practitioner, Amaris Rangel. I reviewed the nurse practitioner's note and agree with the documented findings and plan of care. Lung sounds are clear. The findings and the impression was discussed with the patient. I attest to the documentation by the nurse practitioner. Time with Patient: Less than 30
[2017-12-15 12:12] LABS: Glucose,Whole Blood 148 mg/dL (75-99)
--- NOTE | 2017-12-15 12:53 | P.PN ---
<Ava Manriquez - Last Filed: 12/15/17 12:38> Subjective Progress Note Date: 12/15/17 Principal diagnosis: Severe aortic valve regurgitation. Mild left ventricular dysfunction. Supraventricular tachycardia. Obesity. Hypertension. Hyperlipidemia. GERD. Osteoporosis. BPH. Gout. Previous tobacco dependence with preoperative FEV1 94% of predicted. POD #6 aortic valve replacement using a 27 mm Inspiris bovine bioprosthesis. Exclusion of the left atrial appendage using a 45 mm Atriclip. Partial sternal plating. Intraoperative transesophageal echocardiogram and epi-aortic scanning. Postoperative diagnosis, normochromic anemia, an expected outcome of surgery secondary to cardiopulmonary bypass and hemodilution. Postoperative thrombocytopenia, an expected outcome of surgery. Postoperative atrial fibrillation, an unexpected but potential outcome of surgery. A short lying in bed this morning in some distress. Complained of feeling full and having back pain. His abdomen was quite a bit more distended than yesterday , slightly firm, and very tympanic. Complained of incisional type chest pain and some shortness of breath. He stated his last stool was yesterday morning and he hasn't passed much gas since yesterday. Abdominal x-ray ordered and reviewed, he was given suppository this morning and ambulated in the hallway. Subsequently he had a small stool and flatus. He was also noted to have significant urinary retention last night with need for straight catheterization 2 per nursing with more than a liter out each time, [place] reinserted. Was in and out of A. fib yesterday, normal sinus rhythm this morning. Objective - Vital Signs Vital signs: Vital Signs Temp 97.9 F 12/15/17 08:00 Pulse 78 12/15/17 11:29 Resp 16 12/15/17 11:29 BP 152/79 12/15/17 08:00 Pulse Ox 98 12/15/17 08:00 Intake & Output 12/14/17 12/15/17 12/15/17 18:59 06:59 18:59 Intake Total 570 50 Output Total 3106 1000 Balance 570 -3056 -1000 Weight 120.5 kg Intake: Oral 570 50 Output: Urine 1800 1000 Uretheral ([place]) 1000 Post Void Residual 1300 Stool 6 Other: Voiding Method Toilet Toilet Indwelling Catheter Urinal Urinal # Voids 0 0 1 # Bowel Movements 0 0 ABP, PAP, CO, CI - Last Documented Arterial Blood Pressure 109/46 Pulmonary Artery Pressure 32/13 Cardiac Output 6.9 Cardiac Index 3.2 - Constitutional Constitutional Comment(s): Moderate distress General appearance: Present: cooperative, obese - Respiratory Details: Lungs sounds diminished bilaterally. Respirations even, slightly labored. Currently on 3 L nasal cannula with oxygen saturation 99%. Unable to do incentive spirometry this morning secondary to shortness of breath, abdominal distention. - Cardiovascular Details: S1, S2 present. Regular rate and rhythm, sinus rhythm on telemetry. Sternum stable. Palpable peripheral pulses bilaterally. Bilateral lower extremity edema present. No calf pain or tenderness noted. Heart hugger in place with patient demonstrating appropriate use. Antiembolism stockings, SCDs present. - Gastrointestinal Gastrointestinal Comment(s): Abdomen soft, tender, more distended than yesterday, obese. Hypoactive bowel sounds present. Tolerating minimal diet. Suppository given, patient up to the bathroom with small stool as well as flatus. - Genitourinary Genitourinary Comment(s): [place] reinserted with clear yellow urine output. - Integumentary Integumentary Comment(s): Skin is warm and dry with evidence of good perfusion. Anterior chest incision well approximated and covered with dry intact dressing. - Neurologic Neurologic: Present: CNII-XII intact - Musculoskeletal Musculoskeletal: Present: gait normal, generalized weakness, strength equal bilaterally - Psychiatric Psychiatric: Present: A&O x's 3, appropriate affect, intact judgment & insight - Allied health notes Allied health notes reviewed: nursing - Labs CBC & Chem 7: 12/15/17 06:14 12/15/17 06:14 Labs: Abnormal Lab Results - Last 24 Hours (Table) 12/14/17 12/14/17 12/14/17 Range/Units 16:38 16:49 17:07 RBC (4.30-5.90) m/uL Hgb (13.0-17.5) gm/dL Hct (39.0-53.0) % Sodium (137-145) mmol/L BUN (9-20) mg/dL POC Glucose (mg/dL) 67 L 65 L 66 L (75-99) mg/dL Total Protein (6.3-8.2) g/dL Albumin (3.5-5.0) g/dL 07/12/15/17 12/15/17 Range/Units 17:34 02:56 06:08 RBC (4.30-5.90) m/uL Hgb (13.0-17.5) gm/dL Hct (39.0-53.0) % Sodium (137-145) mmol/L BUN (9-20) mg/dL POC Glucose (mg/dL) 104 H 112 H 115 H (75-99) mg/dL Total Protein (6.3-8.2) g/dL Albumin (3.5-5.0) g/dL 12/15/17 12/15/17 12/15/17 Range/Units 06:14 06:14 11:52 RBC 2.47 L (4.30-5.90) m/uL Hgb 7.8 L (13.0-17.5) gm/dL Hct 23.6 L (39.0-53.0) % Sodium 132 L (137-145) mmol/L BUN 30 H (9-20) mg/dL POC Glucose (mg/dL) 148 H (75-99) mg/dL Total Protein 5.2 L (6.3-8.2) g/dL Albumin 3.0 L (3.5-5.0) g/dL - Imaging and Cardiology Chest x-ray: report reviewed, image reviewed Abdominal x-ray: report reviewed, image reviewed Assessment and Plan (1) Severe aortic valve regurgitation Current Visit: Yes Status: Chronic Code(s): I35.1 - NONRHEUMATIC AORTIC ( VALVE) INSUFFICIENCY SNOMED Code(s): 19437531 (2) Supraventricular tachycardia Current Visit: No Status: Resolved Code(s): I47.1 - SUPRAVENTRICULAR TACHYCARDIA SNOMED Code(s): 5769485 (3) Obesity (BMI 30-39.9) Current Visit: Yes Status: Chronic Code(s): E66.9 - OBESITY, UNSPECIFIED SNOMED Code(s): 576282959 (4) Osteoarthritis Current Visit: Yes Status: Chronic Code(s): M19.90 - UNSPECIFIED OSTEOARTHRITIS, UNSPECIFIED SITE SNOMED Code(s): 806206854 (5) Tobacco dependence in remission Current Visit: No Status: Resolved Code(s): F17.201 - NICOTINE DEPENDENCE, UNSPECIFIED, IN REMISSION SNOMED Code(s): 804079897 (6) BPH (benign prostatic hyperplasia) Current Visit: Yes Status: Chronic Code(s): N40.0 - BENIGN PROSTATIC HYPERPLASIA WITHOUT LOWER URINRY TRACT SYMP SNOMED Code(s): 173388328 (7) Dyslipidemia Current Visit: Yes Status: Chronic Code(s): E78.5 - HYPERLIPIDEMIA, UNSPECIFIED SNOMED Code(s): 450149238 (8) GERD (gastroesophageal reflux disease) Current Visit: Yes Status: Chronic Code(s): K21.9 - GASTRO-ESOPHAGEAL REFLUX DISEASE WITHOUT ESOPHAGITIS SNOMED Code(s): 209468241 (9) Hypertension Current Visit: Yes Status: Chronic Code(s): I10 - ESSENTIAL (PRIMARY) HYPERTENSION SNOMED Code(s): 49057330 Plan: 1. Continue low-dose aspirin, statin, heparin subcu, beta too. Will increase beta too therapy as tolerated. 2. Continue amiodarone for A. fib prophylaxis. Left atrial appendage was clipped. Stool for occult blood negative, patient was started on Coumadin for anticoagulation yesterday. Goal INR 2-2.5. 3. Wean O2 as tolerated. Encourage incentive spirometry use 10 times every hour. 4. Encourage continued smoking cessation. 5. Increase activity, ambulate as tolerated. PT/OT/cardiac rehab consulted. Patient needs much encouragement to ambulate. 6. Will monitor daily labs and x-rays. 7. GI/DVT prophylaxis. 8. Pain medication with current medication regimen, narcotics discontinued. 9. Insulin management per primary care service. 10. Bronchodilators per pulmonology. 11. [place] reinserted, Dulcolax suppository given. 13. GI was consulted, we'll continue to monitor. 14. Will place consult for general surgery related to possible ileus. 15. More recommendations to follow. Time with Patient: Greater than 30 <Yasir Enciso - Last Filed: 12/15/17 15:26> Objective - Vital Signs Vital signs: Vital Signs Temp 97.2 F L 12/15/17 12:00 Pulse 82 12/15/17 12:00 Resp 18 12/15/17 12:00 BP 148/72 12/15/17 12:00 Pulse Ox 97 12/15/17 12:00 Intake & Output 12/14/17 12/15/1718 18:59 06:59 18:59 Intake Total 570 50 Output Total 3106 1500 Balance 570 -3056 -1500 Weight 120.5 kg Intake: Oral 570 50 Output: Urine 1800 1500 Uretheral ([place]) 1000 Post Void Residual 1300 Stool 6 Other: Voiding Method Toilet Toilet Indwelling Catheter Urinal Urinal # Voids 0 0 1 # Bowel Movements 0 0 ABP, PAP, CO, CI - Last Documented Arterial Blood Pressure 109/46 Pulmonary Artery Pressure 32/13 Cardiac Output 6.9 Cardiac Index 3.2 - Labs CBC & Chem 7: 12/15/17 06:14 12/15/17 06:14 Labs: Abnormal Lab Results - Last 24 Hours (Table) 12/14/17 12/14/17 12/14/17 Range/Units 16:38 16:49 17:07 RBC (4.30-5.90) m/uL Hgb (13.0-17.5) gm/dL Hct (39.0-53.0) % Sodium (137-145) mmol/L BUN (9-20) mg/dL POC Glucose (mg/dL) 67 L 65 L 66 L (75-99) mg/dL Total Protein (6.3-8.2) g/dL Albumin (3.5-5.0) g/dL 12/14/17 12/15/17 12/15/17 Range/Units 17:34 02:56 06:08 RBC (4.30-5.90) m/uL Hgb (13.0-17.5) gm/dL Hct (39.0-53.0) % Sodium (137-145) mmol/L BUN (9-20) mg/dL POC Glucose (mg/dL) 104 H 112 H 115 H (75-99) mg/dL Total Protein (6.3-8.2) g/dL Albumin (3.5-5.0) g/dL 12/15/17 12/15/17 12/15/17 Range/Units 06:14 06:14 11:52 RBC 2.47 L (4.30-5.90) m/uL Hgb 7.8 L (13.0-17.5) gm/dL Hct 23.6 L (39.0-53.0) % Sodium 132 L (137-145) mmol/L BUN 30 H (9-20) mg/dL POC Glucose (mg/dL) 148 H (75-99) mg/dL Total Protein 5.2 L (6.3-8.2) g/dL Albumin 3.0 L (3.5-5.0) g/dL
--- NOTE | 2017-12-15 13:39 | P.GSCN ---
History of Present Illness Consult date: 12/15/17 Reason for Consult: Ileus History of present illness: This is a 77-year-old male who is status post cardiac surgery. The patient has complaints of abdominal pain distention. His x-ray today shows evidence of ileus with dilated small bowel and colon. Has had some mild flatus today. Past Medical History Past Medical History: GERD/Reflux, Hyperlipidemia, Hypertension, Osteoarthritis (OA), Prostate Disorder Additional Past Medical History / Comment(s): hx. gout, occasional SOB w/ exertion,sciatica, left leg numb/tingling-supposed to have MRI History of Any Multi-Drug Resistant Organisms: None Reported Past Surgical History: Heart Catheterization, Orthopedic Surgery, Prostate Surgery, Tonsillectomy Additional Past Surgical History / Comment(s): scopes bilat knees, TURP Past Anesthesia/Blood Transfusion Reactions: No Reported Reaction Smoking Status: Former smoker - Past Family History Father Family Medical History: Asthma, Pneumonia Additional Family Medical History / Comment(s): ARTHRITIS Mother Additional Family Medical History / Comment(s): BRAIN ANEURYSM Medications and Allergies Home Medications Medication Instructions Recorded Confirmed Type Ranitidine HCl 150 mg PO BID 11/23/15 12/09/17 History Tamsulosin [Flomax] 0.4 mg PO HS 11/23/15 12/09/17 History Allopurinol [Zyloprim] 100 mg PO DAILY 11/24/15 12/09/17 History Atorvastatin [Lipitor] 20 mg PO QAM 11/24/15 12/09/17 History Celecoxib [CeleBREX] 200 mg PO QAM 11/24/15 12/09/17 History Finasteride [Proscar] 5 mg PO QAM 11/24/15 12/09/17 History Fluticasone Propionate 1 - 2 sprays EA NOSTRIL DAILY PRN 11/24/15 12/09/17 History Losartan Potassium 50 mg PO HS 06/04/17 12/09/17 History metroNIDAZOLE 0.75% CREAM 1 applic TOPICAL HS PRN 06/05/17 12/09/17 History [Metrocream] Albuterol Sulfate [Proair Hfa] 2 puff INHALATION RT-Q6H PRN 10/07/17 12/09/17 History Allergies Allergy/AdvReac Type Severity Reaction Status Date / Time No Known Allergies Allergy Verified 12/09/17 14:20 Surgical - Exam Vital Signs Temp Pulse Resp BP Pulse Ox 98.0 F 62 16 182/76 97 12/09/17 06:08 12/09/17 06:08 12/09/17 06:08 12/09/17 06:08 12/09/17 06:08 - General well developed, no distress - Eyes PERRL - ENT normal pinna - Abdomen Abdomen soft. The abdomen is quite distended. There is distention. There is no rebound or guarding. Abdomen: soft Results - Labs 12/15/17 06:14 12/15/17 06:14 Abnormal Lab Results - Last 24 Hours (Table) 12/14/17 12/14/17 12/14/17 Range/Units 16:38 16:49 17:07 RBC (4.30-5.90) m/uL Hgb (13.0-17.5) gm/dL Hct (39.0-53.0) % Sodium (137-145) mmol/L BUN (9-20) mg/dL POC Glucose (mg/dL) 67 L 65 L 66 L (75-99) mg/dL Total Protein (6.3-8.2) g/dL Albumin (3.5-5.0) g/dL 12/14/17 12/15/17 12/15/17 Range/Units 17:34 02:56 06:08 RBC (4.30-5.90) m/uL Hgb (13.0-17.5) gm/dL Hct (39.0-53.0) % Sodium (137-145) mmol/L BUN (9-20) mg/dL POC Glucose (mg/dL) 104 H 112 H 115 H (75-99) mg/dL Total Protein (6.3-8.2) g/dL Albumin (3.5-5.0) g/dL 12/15/17 12/15/17 12/15/17 Range/Units 06:14 06:14 11:52 RBC 2.47 L (4.30-5.90) m/uL Hgb 7.8 L (13.0-17.5) gm/dL Hct 23.6 L (39.0-53.0) % Sodium 132 L (137-145) mmol/L BUN 30 H (9-20) mg/dL POC Glucose (mg/dL) 148 H (75-99) mg/dL Total Protein 5.2 L (6.3-8.2) g/dL Albumin 3.0 L (3.5-5.0) g/dL Diabetes panel 12/15/17 Range/Units 06:14 Sodium 132 L (137-145) mmol/L Potassium 5.0 (3.5-5.1) mmol/L Chloride 98 (98-107) mmol/L Carbon Dioxide 25 (22-30) mmol/L BUN 30 H (9-20) mg/dL Creatinine 1.13 (0.66-1.25) mg/dL Glucose 98 (74-99) mg/dL Calcium 8.9 (8.4-10.2) mg/dL AST 43 (17-59) U/L ALT 37 (21-72) U/L Alkaline Phosphatase 68 (38-126) U/L Total Protein 5.2 L (6.3-8.2) g/dL Albumin 3.0 L (3.5-5.0) g/dL Calcium panel 12/15/17 Range/Units 06:14 Calcium 8.9 (8.4-10.2) mg/dL Albumin 3.0 L (3.5-5.0) g/dL Pituitary panel 12/15/17 Range/Units 06:14 Sodium 132 L (137-145) mmol/L Potassium 5.0 (3.5-5.1) mmol/L Chloride 98 (98-107) mmol/L Carbon Dioxide 25 (22-30) mmol/L BUN 30 H (9-20) mg/dL Creatinine 1.13 (0.66-1.25) mg/dL Glucose 98 (74-99) mg/dL Calcium 8.9 (8.4-10.2) mg/dL Adrenal panel 12/15/17 Range/Units 06:14 Sodium 132 L (137-145) mmol/L Potassium 5.0 (3.5-5.1) mmol/L Chloride 98 (98-107) mmol/L Carbon Dioxide 25 (22-30) mmol/L BUN 30 H (9-20) mg/dL Creatinine 1.13 (0.66-1.25) mg/dL Glucose 98 (74-99) mg/dL Calcium 8.9 (8.4-10.2) mg/dL Total Bilirubin 1.0 (0.2-1.3) mg/dL AST 43 (17-59) U/L ALT 37 (21-72) U/L Alkaline Phosphatase 68 (38-126) U/L Total Protein 5.2 L (6.3-8.2) g/dL Albumin 3.0 L (3.5-5.0) g/dL - Imaging Abdominal x-ray: report reviewed (Ileus pattern) Assessment and Plan Assessment: Ileus. Patient will remain on sips of clears. If he has any nausea or vomiting we'll place an NG tube. He'll be observed currently.
--- NOTE | 2017-12-15 15:32 | P.PN ---
Subjective Progress Note Date: 12/15/17 This is a 77-year-old male patient underwent a aortic valve replacement for severe aortic stenosis. He is overall doing well. Denies any chest discomfort , breathing is stable. Continues to be in atrial fibrillation, rate under good control. On anticoagulation. Using his incentive spirometry. 12/15/2017 Patient seen and examined this morning, and some mild distress, complaining of feeling full and bloated, mild abdominal discomfort. He is noted to have a distended abdomen, firm. Patient was seen earlier by nurse practitioner from cardiothoracic service and recommended to go downstairs for an acute abdominal series. This revealed diffuse gaseous distention of the colon, findings suspected to represent an ileus. Surgical consultation has been requested and patient has been encouraged to be up ambulating in the hallway as much as possible. I pressure 148/70 with a heart rate in the 70s to 80s. White blood cell count 8.9, hemoglobin 7.8, platelet count 243. Sodium 132, potassium 5.0, BUN 30, creatinine 1.3. Objective - Vital Signs Vital signs: Vital Signs Temp 97.2 F L 12/15/17 12:00 Pulse 82 12/15/17 12:00 Resp 18 12/15/17 12:00 BP 148/72 12/15/17 12:00 Pulse Ox 97 12/15/17 12:00 Intake & Output 12/14/17 12/15/17 12/15/17 18:59 06:59 18:59 Intake Total 570 50 Output Total 3106 1500 Balance 570 -3056 -1500 Weight 120.5 kg Intake: Oral 570 50 Output: Urine 1800 1500 Uretheral ([place]) 1000 Post Void Residual 1300 Stool 6 Other: Voiding Method Toilet Toilet Indwelling Catheter Urinal Urinal # Voids 0 0 1 # Bowel Movements 0 0 ABP, PAP, CO, CI - Last Documented Arterial Blood Pressure 109/46 Pulmonary Artery Pressure 32/13 Cardiac Output 6.9 Cardiac Index 3.2 - Exam PHYSICAL EXAMINATION: GENERAL: 77-year-old gentleman in no acute distress at the time of my examination HEENT: Head is atraumatic, normocephalic. Pupils equal, round. Sclera anicteric. Conjunctiva are clear. Mucous membranes of the mouth are moist. Neck is supple. There is no elevated jugular venous pressure.] bruit is heard. HEART EXAMINATION: Heart S1 and S2 irregularly irregular CHEST EXAMINATION: Lungs are clear with diminished air entry to bilateral bases. Reaching 1500 on his incentive spirometry. ABDOMEN: Distended, firm . Hypoactive bowel sounds are heard. No organomegaly noted. EXTREMITIES: 2+ peripheral pulses with no evidence of peripheral edema and no calf tenderness noted. NEUROLOGIC patient is awake, alert and oriented ?-3. . - Labs CBC & Chem 7: 12/15/17 06:14 12/15/17 06:14 Labs: Abnormal Lab Results - Last 24 Hours (Table) 12/14/17 12/14/17 12/14/17 Range/Units 16:38 16:49 17:07 RBC (4.30-5.90) m/uL Hgb (13.0-17.5) gm/dL Hct (39.0-53.0) % Sodium (137-145) mmol/L BUN (9-20) mg/dL POC Glucose (mg/dL) 67 L 65 L 66 L (75-99) mg/dL Total Protein (6.3-8.2) g/dL Albumin (3.5-5.0) g/dL 12/14/17 12/15/17 12/15/17 Range/Units 17:34 02:56 06:08 RBC (4.30-5.90) m/uL Hgb (13.0-17.5) gm/dL Hct (39.0-53.0) % Sodium (137-145) mmol/L BUN (9-20) mg/dL POC Glucose (mg/dL) 104 H 112 H 115 H (75-99) mg/dL Total Protein (6.3-8.2) g/dL Albumin (3.5-5.0) g/dL 12/15/17 12/15/17 12/15/17 Range/Units 06:14 06:14 11:52 RBC 2.47 L (4.30-5.90) m/uL Hgb 7.8 L (13.0-17.5) gm/dL Hct 23.6 L (39.0-53.0) % Sodium 132 L (137-145) mmol/L BUN 30 H (9-20) mg/dL POC Glucose (mg/dL) 148 H (75-99) mg/dL Total Protein 5.2 L (6.3-8.2) g/dL Albumin 3.0 L (3.5-5.0) g/dL Assessment and Plan Plan: Assessment and plan #1 status post aortic valve replacement #2 obesity #3 paroxysmal atrial fibrillation, on anticoagulation #4 hyperlipidemia #5 hypertension #6 anemia Plan Surgical consultation has been requested because of possible ileus. Hemodynamically the patient is stable and we will continue his current medications. DNP note has been reviewed, I agree with a documented findings and plan of care. Patient was seen and examined.
[2017-12-15 16:25] LABS: Glucose,Whole Blood 142 mg/dL (75-99)
[2017-12-15] MEDS: METHYL SALICYLATE/MENTHOL CREAM 5 OZ TOPICAL PRN (17:22)
[2017-12-15] MEDS ORDERED: WARFARIN 7.5 MG TAB PO ONE (18:00)
[2017-12-15] MEDS: INSULIN NPH 300 UNIT/3 ML VIAL SQ SCH (20:30)
[2017-12-15] MEDS: SENNOSIDES-DOCUSATE SODIUM 1 EACH TAB PO SCH (20:49)
[2017-12-15] MEDS: TAMSULOSIN 0.4 MG CAP.ER.24H PO SCH (20:50)
[2017-12-15] MEDS: BISACODYL 10 MG SUPP RECTAL PRN (20:51)
[2017-12-15] MEDS: MAGNESIUM HYDROXIDE 2,400 MG/10 ML CUP PO PRN (20:52)
[2017-12-15 21:05] LABS: Glucose,Whole Blood 122 mg/dL (75-99)
[2017-12-16 02:13] LABS: Glucose,Whole Blood 126 mg/dL (75-99)
[2017-12-16 05:35] LABS: Glucose,Whole Blood 118 mg/dL (75-99)
[2017-12-16] MEDS: INSULN ASP PRT/INSULIN ASPART 100 UNIT/ML 10 ML VIAL SQ SCH (06:01)
[2017-12-16] MEDS: INSULIN ASPART 100 UNIT/ML 1 ML 10 ML VIAL SQ SCH ×5 (06:01→21:13)
[2017-12-16] MEDS: ASCORBIC ACID 500 MG TAB PO SCH ×2 (06:14→17:35)
[2017-12-16] MEDS: PANTOPRAZOLE 40 MG TABLET PO SCH ×2 (06:14→17:35)
[2017-12-16 06:53] LABS: Basophils % (A) 0 %; Eosinophils # (A) 0.1 k/uL (0-0.7); Eosinophils % (A) 1 %; HGB 7.4 gm/dL (13.0-17.5); Lymphocytes # (A) 0.9 k/uL (1.0-4.8); Lymphocytes % (A) 10 %; MCV 93.8 fL (80.0-100.0); Mean Platelet Volume 6.9; Monocytes # (A) 0.9 k/uL (0-1.0); Monocytes % (A) 10 %; Neutrophils # (A) 6.4 k/uL (1.3-7.7); Neutrophils % (A) 75 %; Platelet Count 306 k/uL (150-450); RBC 2.45 m/uL (4.30-5.90); RDW 14.2 % (11.5-15.5); WBC 8.5 k/uL (3.8-10.6)
[2017-12-16 07:04] LABS: INR 1.6 (<1.2); Prothrombin Time 14.4 sec (9.0-12.0)
[2017-12-16 07:26] LABS: Albumin 2.8 g/dL (3.5-5.0); Calcium 8.5 mg/dL (8.4-10.2); Potassium 4.6 mmol/L (3.5-5.1); Total Bilirubin 0.9 mg/dL (0.2-1.3)
[2017-12-16] MEDS: IPRATROPIUM-ALBUTEROL 3 ML NEB INHALATION SCH ×4 (08:07→20:22)
--- NOTE | 2017-12-16 08:15 | XR ---
EXAMINATION TYPE: XR abdomen acute w cxr DATE OF EXAM: 12/16/2017 COMPARISON: 12/15/2017 HISTORY: Recent open-heart surgery. Abdominal distention. TECHNIQUE: Single frontal view of the chest and 2 views of the abdomen were obtained. FINDINGS: Chest: Cardiac silhouette is enlarged with post operative changes of the chest. Partial obscuration o f the left hemidiaphragm is likely related to cardiomegaly and copious overlying soft tissues. Left a pical pleural thickening is noted, similar to the prior. No new focal consolidation, sizable pleural effusion or pneumothorax. No pulmonary vascular congestion. Osseous structures are intact. There is redemonstration of gaseous distention of large and small bowel. No significant progression f rom the prior of 12/15/2017. No evidence of pneumoperitoneum. Phleboliths within the pelvis. Moderate femoral acetabular arthropathy and degenerative changes of the lumbosacral junction are seen. IMPRESSION: No significant progression in small or large bowel gaseous distention in comparison the prior with no new pneumoperitoneum. Findings again likely related to postoperative ileus.
[2017-12-16] MEDS: HEPARIN SODIUM,PORCINE 5,000 UNIT/ML 1 ML VIAL SQ SCH ×3 (08:47→23:25)
[2017-12-16] MEDS: METOPROLOL TARTRATE 12.5 MG TAB PO SCH (08:47)
[2017-12-16] MEDS: AMIODARONE 200 MG TAB PO SCH ×2 (08:47→20:05)
[2017-12-16] MEDS: BISACODYL 10 MG SUPP RECTAL SCH (08:47)
[2017-12-16] MEDS: ASPIRIN 81 MG PO SCH (08:47)
[2017-12-16] MEDS: FINASTERIDE 5 MG TAB PO SCH (08:47)
[2017-12-16] MEDS: ATORVASTATIN 40 MG TAB PO SCH (08:47)
[2017-12-16] MEDS: ALLOPURINOL 100 MG TAB PO SCH (08:47)
[2017-12-16] MEDS: METHYL SALICYLATE/MENTHOL CREAM 5 OZ TOPICAL PRN ×2 (08:48→20:08)
--- NOTE | 2017-12-16 10:02 | P.PN ---
Subjective Progress Note Date: 12/16/17 Principal diagnosis: Rectal bleeding. Denies rectal bleeding. Status post AVR December 09 for aortic valvular disease. Small bowel movement yesterday. Abdominal x-rays reported ileus. Hemoglobin 7.4. Atrial fibrillation warfarin monitoring. INR 1.6 today. Objective - Vital Signs Vital signs: Vital Signs Temp 98.1 F 12/16/17 08:00 Pulse 74 12/16/17 08:00 Resp 18 12/16/17 08:00 BP 131/73 12/16/17 08:00 Pulse Ox 97 12/16/17 08:00 Intake & Output 12/15/17 12/16/17 12/16/17 18:59 06:59 18:59 Intake Total 50 50 Output Total 1500 1902 Balance -1450 -1902 50 Weight 122.1 kg Intake: Oral 50 50 Output: Urine 1500 1900 Uretheral ([place]) 1000 Stool 2 Other: Voiding Method Indwelling Catheter Indwelling Catheter # Voids 2 0 ABP, PAP, CO, CI - Last Documented Arterial Blood Pressure 109/46 Pulmonary Artery Pressure 32/13 Cardiac Output 6.9 Cardiac Index 3.2 - Exam General appearance: The patient is alert, oriented, in no acute distress. HET: Head is normocephalic and atraumatic. Pupils are equal and reactive. Oropharynx is clear without lesions. Neck: Supple without lymphadenopathy. Trachea midline. Heart: S1 S2. Lungs: No crackles or wheezes are heard. Abdomen: Soft, nontender, nondistended with bowel sounds. No peritoneal signs. No palpable organomegaly or masses. Extremities: Normal skin color and turgor. No cyanosis, rash, ulceration, clubbing, or edema. Radial and pedal pulses are 2/4 bilaterally. - Labs CBC & Chem 7: 12/16/17 05:50 12/16/17 05:50 Labs: Abnormal Lab Results - Last 24 Hours (Table) 12/15/17 12/15/17 12/15/17 Range/Units 11:52 16:13 21:04 RBC (4.30-5.90) m/uL Hgb (13.0-17.5) gm/dL Hct (39.0-53.0) % Lymphocytes # (1.0-4.8) k/uL PT (9.0-12.0) sec INR (<1.2) Sodium (137-145) mmol/L BUN (9-20) mg/dL Glucose (74-99) mg/dL POC Glucose (mg/dL) 148 H 142 H 122 H (75-99) mg/dL Total Protein (6.3-8.2) g/dL Albumin (3.5-5.0) g/dL 12/16/17 12/16/17 12/16/17 Range/Units 02:12 05:33 05:50 RBC (4.30-5.90) m/uL Hgb (13.0-17.5) gm/dL Hct (39.0-53.0) % Lymphocytes # (1.0-4.8) k/uL PT 14.4 H (9.0-12.0) sec INR 1.6 H (<1.2) Sodium (137-145) mmol/L BUN (9-20) mg/dL Glucose (74-99) mg/dL POC Glucose (mg/dL) 126 H 118 H (75-99) mg/dL Total Protein (6.3-8.2) g/dL Albumin (3.5-5.0) g/dL 12/16/17 12/16/17 Range/Units 05:50 05:50 RBC 2.45 L (4.30-5.90) m/uL Hgb 7.4 L (13.0-17.5) gm/dL Hct 23.0 L (39.0-53.0) % Lymphocytes # 0.9 L (1.0-4.8) k/uL PT (9.0-12.0) sec INR (<1.2) Sodium 134 L (137-145) mmol/L BUN 22 H (9-20) mg/dL Glucose 100 H (74-99) mg/dL POC Glucose (mg/dL) (75-99) mg/dL Total Protein 5.0 L (6.3-8.2) g/dL Albumin 2.8 L (3.5-5.0) g/dL Assessment and Plan (1) Rectal bleeding Narrative/Plan: Unclear possible hemorrhoidal in nature possible upper GI source however presently not manifesting any clinical signs of active GI bleeding. Current Visit: Yes Status: Acute Code(s): K62.5 - HEMORRHAGE OF ANUS AND RECTUM SNOMED Code(s): 67076179 (2) S/P AVR (aortic valve replacement) Current Visit: Yes Status: Acute Code(s): Z95.2 - PRESENCE OF PROSTHETIC HEART VALVE SNOMED Code(s): 5208428359992 Plan: . Continue with present medical therapy and anticoagulation. CBC monitoring. Daily stool softeners. Patient was encouraged to ambulate per PT OT recommendations. If he manifests active GI bleeding will consider further workup for now continue with supportive measures. Assessment and plan a care discussed with Dr. Gardner
--- NOTE | 2017-12-16 10:51 | P.PN ---
Subjective Patient resting in bed. Patient difficult to wake this morning slurring words. Continues to be distended. Discussed with nurse patient continues to be somnolent we'll discuss with cardiac surgeon. Patient had consultation with gastroenterology and surgery regarding his ileus. May need NG tube Objective - Vital Signs Vital signs: Vital Signs Temp 98.1 F 12/16/17 08:00 Pulse 74 12/16/17 08:00 Resp 18 12/16/17 08:00 BP 131/73 12/16/17 08:00 Pulse Ox 97 12/16/17 08:00 Intake & Output 12/15/17 12/16/17 12/16/17 18:59 06:59 18:59 Intake Total 50 50 Output Total 1500 1902 Balance -1450 -1902 50 Weight 122.1 kg Intake: Oral 50 50 Output: Urine 1500 1900 Uretheral ([place]) 1000 Stool 2 Other: Voiding Method Indwelling Catheter Indwelling Catheter Indwelling Catheter # Voids 2 0 ABP, PAP, CO, CI - Last Documented Arterial Blood Pressure 109/46 Pulmonary Artery Pressure 32/13 Cardiac Output 6.9 Cardiac Index 3.2 - Constitutional General appearance: Present: mild distress, obese - EENT Eyes: Present: PERRLA Ears: bilateral: normal - Neck Neck: Present: normal ROM - Respiratory Respiratory: bilateral: CTA - Cardiovascular Rhythm: irregularly irregular Abnormal Heart Sounds: Present: systolic murmur - Gastrointestinal General gastrointestinal: Present: distended, hyperactive bowel sounds - Integumentary Integumentary: Present: normal - Neurologic Neurologic: Present: CNII-XII intact - Musculoskeletal Musculoskeletal: Present: generalized weakness - Psychiatric Psychiatric Comment(s): Patient difficult to arouse slurring some words Psychiatric: Present: A&O x's 3 - Labs CBC & Chem 7: 12/16/17 05:50 12/16/17 05:50 Labs: Abnormal Lab Results - Last 24 Hours (Table) 12/15/17 12/15/17 12/15/17 Range/Units 11:52 16:13 21:04 RBC (4.30-5.90) m/uL Hgb (13.0-17.5) gm/dL Hct (39.0-53.0) % Lymphocytes # (1.0-4.8) k/uL PT (9.0-12.0) sec INR (<1.2) Sodium (137-145) mmol/L BUN (9-20) mg/dL Glucose (74-99) mg/dL POC Glucose (mg/dL) 148 H 142 H 122 H (75-99) mg/dL Total Protein (6.3-8.2) g/dL Albumin (3.5-5.0) g/dL 12/16/17 12/16/17 12/16/17 Range/Units 02:12 05:33 05:50 RBC (4.30-5.90) m/uL Hgb (13.0-17.5) gm/dL Hct (39.0-53.0) % Lymphocytes # (1.0-4.8) k/uL PT 14.4 H (9.0-12.0) sec INR 1.6 H (<1.2) Sodium (137-145) mmol/L BUN (9-20) mg/dL Glucose (74-99) mg/dL POC Glucose (mg/dL) 126 H 118 H (75-99) mg/dL Total Protein (6.3-8.2) g/dL Albumin (3.5-5.0) g/dL 18 12/16/17 Range/Units 05:50 05:50 RBC 2.45 L (4.30-5.90) m/uL Hgb 7.4 L (13.0-17.5) gm/dL Hct 23.0 L (39.0-53.0) % Lymphocytes # 0.9 L (1.0-4.8) k/uL PT (9.0-12.0) sec INR (<1.2) Sodium 134 L (137-145) mmol/L BUN 22 H (9-20) mg/dL Glucose 100 H (74-99) mg/dL POC Glucose (mg/dL) (75-99) mg/dL Total Protein 5.0 L (6.3-8.2) g/dL Albumin 2.8 L (3.5-5.0) g/dL - Imaging and Cardiology Abdominal x-ray: report reviewed Assessment and Plan Plan: Assessment Severe aortic valve insufficiency post pro-prostatic aortic valve replacement Postoperative anemia Hypertension hyperlipidemia history of GERD Ileus postoperatively BPH with [place] Osteoarthritis atrial fibrillation Plan We'll continue to monitor patient Consultation with surgery and GI for ileus
--- NOTE | 2017-12-16 10:53 | P.PN ---
Subjective Progress Note Date: 12/16/17 Principal diagnosis: Severe aortic valve regurgitation. Mild left ventricular dysfunction. Supraventricular tachycardia. Obesity. Hypertension. Hyperlipidemia. GERD. Osteoporosis. BPH. Gout. Previous tobacco dependence with preoperative FEV1 94% of predicted. POD #6 aortic valve replacement using a 27 mm Inspiris bovine bioprosthesis. Exclusion of the left atrial appendage using a 45 mm Atriclip. Partial sternal plating. Intraoperative transesophageal echocardiogram and epi-aortic scanning. Postoperative diagnosis, normochromic anemia, an expected outcome of surgery secondary to cardiopulmonary bypass and hemodilution. Postoperative thrombocytopenia, an expected outcome of surgery. Postoperative atrial fibrillation, an unexpected but potential outcome of surgery. Postoperative urinary retention, an unexpected outcome. Postoperative ileus, an unexpected outcome. Patient laying in bed this morning in no acute distress. Abdomen still distended, but softer with loud active bowel sounds present. Patient had a small stool yesterday and has had a lot of flatus. He ambulated in the hallway of multiple times yesterday. Has been up to the bathroom this morning already without any stool with positive flatus. Does state he feels a tiny bit better. Denies chest pain. Remains in sinus rhythm. Objective - Vital Signs Vital signs: Vital Signs Temp 98.1 F 12/16/17 08:00 Pulse 74 12/16/17 08:00 Resp 18 12/16/17 08:00 BP 131/73 12/16/17 08:00 Pulse Ox 97 12/16/17 08:00 Intake & Output 12/15/17 12/16/17 12/16/17 18:59 06:59 18:59 Intake Total 50 50 Output Total 1500 1902 Balance -1450 -1902 50 Weight 122.1 kg Intake: Oral 50 50 Output: Urine 1500 1900 Uretheral ([place]) 1000 Stool 2 Other: Voiding Method Indwelling Catheter Indwelling Catheter Indwelling Catheter # Voids 2 0 ABP, PAP, CO, CI - Last Documented Arterial Blood Pressure 109/46 Pulmonary Artery Pressure 32/13 Cardiac Output 6.9 Cardiac Index 3.2 - Constitutional General appearance: Present: cooperative, no acute distress, obese - Respiratory Details: Lungs sounds diminished bilaterally. Respirations even, slightly labored. Currently on 2 L nasal cannula with oxygen saturation 97%. - Cardiovascular Details: S1, S2 present. Regular rate and rhythm, sinus rhythm on telemetry. Sternum stable. Palpable peripheral pulses bilaterally. Bilateral lower extremity edema present. No calf pain or tenderness noted. Heart hugger in place with patient demonstrating appropriate use. Antiembolism stockings, SCDs present. - Gastrointestinal Gastrointestinal Comment(s): Abdomen soft, nontender, distended, obese. Loud, active bowel sounds present. Tolerating clear liquids. - Genitourinary Genitourinary Comment(s): [place] present with clear yellow urine. Output 1900 mL overnight. - Integumentary Integumentary Comment(s): Skin is warm and dry with evidence of good perfusion. Anterior chest incision well approximated and covered with dry intact dressing. - Neurologic Neurologic: Present: CNII-XII intact - Musculoskeletal Musculoskeletal: Present: gait normal, strength equal bilaterally - Psychiatric Psychiatric: Present: A&O x's 3, appropriate affect, intact judgment & insight - Allied health notes Allied health notes reviewed: nursing - Labs CBC & Chem 7: 12/16/17 05:50 12/16/17 05:50 Labs: Abnormal Lab Results - Last 24 Hours (Table) 12/15/17 12/15/17 12/15/17 Range/Units 11:52 16:13 21:04 RBC (4.30-5.90) m/uL Hgb (13.0-17.5) gm/dL Hct (39.0-53.0) % Lymphocytes # (1.0-4.8) k/uL PT (9.0-12.0) sec INR (<1.2) Sodium (137-145) mmol/L BUN (9-20) mg/dL Glucose (74-99) mg/dL POC Glucose (mg/dL) 148 H 142 H 122 H (75-99) mg/dL Total Protein (6.3-8.2) g/dL Albumin (3.5-5.0) g/dL 12/16/17 12/16/17 12/16/17 Range/Units 02:12 05:33 05:50 RBC (4.30-5.90) m/uL Hgb (13.0-17.5) gm/dL Hct (39.0-53.0) % Lymphocytes # (1.0-4.8) k/uL PT 14.4 H (9.0-12.0) sec INR 1.6 H (<1.2) Sodium (137-145) mmol/L BUN (9-20) mg/dL Glucose (74-99) mg/dL POC Glucose (mg/dL) 126 H 118 H (75-99) mg/dL Total Protein (6.3-8.2) g/dL Albumin (3.5-5.0) g/dL 12/16/17 12/16/17 Range/Units 05:50 05:50 RBC 2.45 L (4.30-5.90) m/uL Hgb 7.4 L (13.0-17.5) gm/dL Hct 23.0 L (39.0-53.0) % Lymphocytes # 0.9 L (1.0-4.8) k/uL PT (9.0-12.0) sec INR (<1.2) Sodium 134 L (137-145) mmol/L BUN 22 H (9-20) mg/dL Glucose 100 H (74-99) mg/dL POC Glucose (mg/dL) (75-99) mg/dL Total Protein 5.0 L (6.3-8.2) g/dL Albumin 2.8 L (3.5-5.0) g/dL - Imaging and Cardiology Chest x-ray: report reviewed, image reviewed Abdominal x-ray: report reviewed, image reviewed Assessment and Plan (1) Severe aortic valve regurgitation Current Visit: Yes Status: Chronic Code(s): I35.1 - NONRHEUMATIC AORTIC ( VALVE) INSUFFICIENCY SNOMED Code(s): 25139505 (2) Supraventricular tachycardia Current Visit: No Status: Resolved Code(s): I47.1 - SUPRAVENTRICULAR TACHYCARDIA SNOMED Code(s): 3988296 (3) Obesity (BMI 30-39.9) Current Visit: Yes Status: Chronic Code(s): E66.9 - OBESITY, UNSPECIFIED SNOMED Code(s): 586940352 (4) Osteoarthritis Current Visit: Yes Status: Chronic Code(s): M19.90 - UNSPECIFIED OSTEOARTHRITIS, UNSPECIFIED SITE SNOMED Code(s): 341347458 (5) Tobacco dependence in remission Current Visit: No Status: Resolved Code(s): F17.201 - NICOTINE DEPENDENCE, UNSPECIFIED, IN REMISSION SNOMED Code(s): 774701720 (6) BPH (benign prostatic hyperplasia) Current Visit: Yes Status: Chronic Code(s): N40.0 - BENIGN PROSTATIC HYPERPLASIA WITHOUT LOWER URINRY TRACT SYMP SNOMED Code(s): 465546898 (7) Dyslipidemia Current Visit: Yes Status: Chronic Code(s): E78.5 - HYPERLIPIDEMIA, UNSPECIFIED SNOMED Code(s): 951612573 (8) GERD (gastroesophageal reflux disease) Current Visit: Yes Status: Chronic Code(s): K21.9 - GASTRO-ESOPHAGEAL REFLUX DISEASE WITHOUT ESOPHAGITIS SNOMED Code(s): 918905499 (9) Hypertension Current Visit: Yes Status: Chronic Code(s): I10 - ESSENTIAL (PRIMARY) HYPERTENSION SNOMED Code(s): 31198017 Plan: 1. Continue low-dose aspirin, statin, heparin subcu, beta too. Will increase beta too therapy as tolerated. 2. Continue amiodarone for A. fib prophylaxis. Left atrial appendage was clipped. Continue Coumadin for anticoagulation. Goal INR 2-2.5. 3. Wean O2 as tolerated. Encourage incentive spirometry use 10 times every hour. 4. Encourage continued smoking cessation. 5. Increase activity, ambulate as tolerated. PT/OT/cardiac rehab consulted. Patient needs much encouragement to ambulate. 6. Will monitor daily labs and x-rays. 7. GI/DVT prophylaxis. 8. Pain medication with current medication regimen, narcotics discontinued. 9. Insulin management per primary care service. 10. Bronchodilators per pulmonology. 11. [place] reinserted, Dulcolax suppository to be given daily until resolution of ileus. 13. GI was consulted, we'll continue to monitor. 14. Gen. surgery consulted related to ileus, will follow recommendations.. 15. More recommendations to follow. Time with Patient: Greater than 30
[2017-12-16 11:49] LABS: Glucose,Whole Blood 118 mg/dL (75-99)
[2017-12-16] MEDS: ACETAMINOPHEN TAB 325 MG TAB PO PRN ×3 (12:19→23:19)
[2017-12-16] MEDS ORDERED: METOPROLOL TARTRATE 12.5 MG TAB PO STA (12:41)
[2017-12-16] MEDS ORDERED: DEXTROSE 5% IN WATER 100 ML with AMIODARONE 150 MG IV ONE (12:42)
--- NOTE | 2017-12-16 15:02 | P.PN ---
Subjective Progress Note Date: 12/16/17 Principal diagnosis: Severe aortic insufficiency, status post aortic valve replacement, postop day 2 Mr. Hernandez is a 77-year-old patient of Dr. Davenport, who underwent aortic valve replacement with exclusion of left atrial appendage today, on 12/09/[address] Farris, for a diagnosis of severe aortic valve insufficiency. Past medical history includes hypertension, dyslipidemia, GERD, ulcer arthritis, BPH, gout, nonsustained V. tach, asymptomatic bilateral carotid artery stenosis, remote history of smoking, and non-rheumatologic aortic valve insufficiency. Patient has had episodes of dizziness, fatigue, and progressive shortness of breath with exertion. Stress test on 07/01/2017 showed no definite ECG evidence of ischemia, the patient did have an episode of nonsustained V. tach after the procedure. Patient had an elective heart catheterization for his persisting symptoms, and on 10/14/2017, patient had a heart cath which showed nonocclusive coronary arteries, and 4+ aortic valve regurgitation, LV ventriculogram showed an EF of 55%. Patient was recommended aortic valve replacement, and the patient opted for the procedure. Today we are seeing the patient postop after his surgery, sedated on mechanical ventilation, current vent settings SIMV mode with a rate of 12, tidal volume of 600, FiO2 of 100% and PEEP of 10. Postop blood gases showed pO2 of 188, pCO2 43, and pH of 7.34, and we recommended to decrease the FiO2 down to 60%, and subsequently down to 50%. Patient is sinus rhythm on the monitor, with a rate of 65 BPM, he has a atrioventricular epicardial wires in place connected to an external pacemaker, with a backup rate of VVI 40 BPM. Hemodynamically stable, blood pressure is 110/58, PA pressures 41/20, with a CVP of 14, cardiac outputs in index, is 6.1 and 2.6 respectively. Patient has a mediastinal chest tube, with sanguinous output, and there has been a total of 250 of sanguious output since OR exit time at 1319 p.m. patient was given 750 ML of Cell Saver, 2 L of lactated Ringer's, and 250 mL of albumin. Patient was given additional 500 mL of 5% albumin in the intensive care. His current maintenance IV is LR at a rate of 50 ML per hour, Diprivan is a 45 mics per kilo per minute, nitroglycerin is at 5 mics per minute , insulin is on hold, and clevidipine is currently on hold. Postop blood work showed WBC of 7.2, hemoglobin of 10.2, INR is 1.2, sodium is 140, potassium is 4.4, chloride is 111, BUN is 14, creatinine 0.72. Postop chest x-ray was reviewed by Dr. Mahmood, and shows endotracheal tube with the tip of above the jc, the heart size is normal, pulmonary mass culture is normal. Indwelling catheter is in place, and patient is nonoliguric. Progress note dated 12/10/2017 77-year-old male who is postop day #1 status post aortic valve replacement for aortic valve insufficiency. He had a bile is prostatic aortic valve replacement. He also had excision of left atrial appendage. He had an intraoperative ODETTE. The patient was on the ventilator post operatively and was able to be extubated within 6 hours. The patient has a history of essential hypertension hyperlipidemia remote history of tobacco use GERD and BPH and DJD. Currently the patient is doing relatively well. Resting comfortably. Working on deep breathing coughing clearing his secretions as well as incentive spirometer. Current laboratory data includes a white count of 5.7 hemoglobin 8.7 hematocrit 25.3 platelet count 104,000. PT INR and PTT are normal. Sodium and potassium are normal. Chlorides 108 CO2 24 BUN and creatinine were normal. Chest x-ray has not yet been done. On 12/11/2017 patient seen in follow-up in the intensive care unit. He states he couldn't sleep very well last night, could not get comfortable, feels a bit dyspneic, but no acute distress. Able to achieve 1250 on his incentive spirometry today. Lung sounds are clear, no crackles, no wheezes, no rhonchi. Pulse ox on 3 L per nasal cannula is 96%, patient is afebrile, hemodynamically stable, significant went into atrial fibrillation this morning, and he will be started on amiodarone drip per CT surgery. Today's chest x-ray has been reviewed by Dr. Jeffers, and shows mild pulmonary vascular congestion and cardiomegaly and what to previous chest x-ray from 12/10/2017. Today's labs have been reviewed, WBC 6.1, hemoglobin is 8.4, urine is 134, the rest of the electrolytes and renal profile are wall within normal limits. CT surgery gave patient a dose of IV Lasix yesterday. Mediastinal chest tube drainage is minimal, around 10 ML per hour. Is nonoliguric. Tolerating oral intake. Abdomen is distended, patient had a bowel movement, but bowel sounds positive 4. On 12/15/2017 patient seen in follow-up on selective care unit. He is just returned from the radiology Department where he was having abdominal x-rays taken for abdominal distention, and constipation. It showed diffuse gaseous distention of the colon, findings suspected to represent ileus. He received Dulcolax suppository. From pulmonary standpoint he denies any worsening dyspnea , lung sounds are diminished at the bases, with some scattered rales. His chest x-ray has been reviewed, and showed cardiomegaly, hypoventilatory changes and mild pulmonary vascular congestion. He is compliant with his incentive spirometry. Remains on 2 L per nasal cannula his pulse ox 100%, hemodynamically stable, he is afebrile. Today's labs were noted, CBC is 8.9, hemoglobin is 7.8, sodium is 132, BUN is 30, creatinine is 1.13. Patient has been started on Coumadin for anticoagulation for his postoperative atrial fibrillation. His INR is 1.1. On 12/16/2017 patient seen in follow-up on selective care unit. Patient is starting to pass gas and he had some liquid stools, his abdomen still distended , but not as tense. Present bowel sounds, is following, and patientwas started on oral feedings. No nausea, no vomiting, no diarrhea. Denies any worsening dyspnea, lung sounds are positive for bibasilar crackles, remains on 2 L per nasal cannula with pulse ox of 95%, he hemodynamically stable, afebrile. No new chest x-ray today, patient is compliant with his incentive spirometer. He has been tolerating ambulation. Patient has been started on Coumadin for anticoagulation for his postoperative atrial fibrillation, today's INR is 1.6, WBC today is 8.5, hemoglobin is 7.4, sodium is 134, the rest of electrolytes are normal, BUN is 22, creatinine is 1.05. Objective - Vital Signs Vital signs: Vital Signs Temp 99.3 F 12/16/17 12:00 Pulse 76 12/16/17 14:10 Resp 18 12/16/17 14:10 BP 101/59 12/16/17 14:10 Pulse Ox 95 12/16/17 14:10 Intake & Output 12/15/17 12/16/17 12/16/17 18:59 06:59 18:59 Intake Total 50 290 Output Total 1500 1902 Balance -1450 -1902 290 Weight 122.1 kg Intake: Oral 50 290 Output: Urine 1500 1900 Uretheral ([place]) 1000 Stool 2 Other: Voiding Method Indwelling Catheter Indwelling Catheter Indwelling Catheter # Voids 2 0 # Bowel Movements 1 ABP, PAP, CO, CI - Last Documented Arterial Blood Pressure 109/46 Pulmonary Artery Pressure 32/13 Cardiac Output 6.9 Cardiac Index 3.2 - Exam GENERAL EXAM: Awake, alert, 77-year-old obese white male, in no acute distress comfortable in no apparent distress. HEAD: Normocephalic/atraumatic. EYES: Normal reaction of pupils, equal size. Conjunctiva pink, sclera white. NOSE: Clear with pink turbinates. THROAT: No erythema or exudates. NECK: No masses, no JVD, no thyroid enlargement, no adenopathy. CHEST: No chest wall deformity. Symmetrical expansion. Midsternal incision is clean dry and intact, covered with a surgical dressing, mediastinal chest tube site is clean dry and intact. LUNGS: Lung sounds are positive for bibasilar crackles, diminished at the bases. CVS: Irregular rate and rhythm, normal S1 and S2, no gallops, no murmurs, no rubs ABDOMEN: Distended, but nontender. No hepatosplenomegaly, normal bowel sounds, no guarding or rigidity. EXTREMITIES: No clubbing, no edema, no cyanosis, 2+ pulses and upper and lower extremities. MUSCULOSKELETAL: Muscle strength and tone normal. SPINE: No scoliosis or deformity SKIN: No rashes CENTRAL NERVOUS SYSTEM:No focal deficits, tone is normal in all 4 extremities. - Labs CBC & Chem 7: 12/16/17 05:50 12/16/17 05:50 Labs: Abnormal Lab Results - Last 24 Hours (Table) 12/15/17 12/15/17 12/16/17 Range/Units 16:13 21:04 02:12 RBC (4.30-5.90) m/uL Hgb (13.0-17.5) gm/dL Hct (39.0-53.0) % Lymphocytes # (1.0-4.8) k/uL PT (9.0-12.0) sec INR (<1.2) Sodium (137-145) mmol/L BUN (9-20) mg/dL Glucose (74-99) mg/dL POC Glucose (mg/dL) 142 H 122 H 126 H (75-99) mg/dL Total Protein (6.3-8.2) g/dL Albumin (3.5-5.0) g/dL 12/16/17 12/16/17 12/16/17 Range/Units 05:33 05:50 05:50 RBC 2.45 L (4.30-5.90) m/uL Hgb 7.4 L (13.0-17.5) gm/dL Hct 23.0 L (39.0-53.0) % Lymphocytes # 0.9 L (1.0-4.8) k/uL PT 14.4 H (9.0-12.0) sec INR 1.6 H (<1.2) Sodium (137-145) mmol/L BUN (9-20) mg/dL Glucose (74-99) mg/dL POC Glucose (mg/dL) 118 H (75-99) mg/dL Total Protein (6.3-8.2) g/dL Albumin (3.5-5.0) g/dL 12/16/17 12/16/17 Range/Units 05:50 11:46 RBC (4.30-5.90) m/uL Hgb (13.0-17.5) gm/dL Hct (39.0-53.0) % Lymphocytes # (1.0-4.8) k/uL PT (9.0-12.0) sec INR (<1.2) Sodium 134 L (137-145) mmol/L BUN 22 H (9-20) mg/dL Glucose 100 H (74-99) mg/dL POC Glucose (mg/dL) 118 H (75-99) mg/dL Total Protein 5.0 L (6.3-8.2) g/dL Albumin 2.8 L (3.5-5.0) g/dL Assessment and Plan Plan: Assessment: #1. Severe aortic valve insufficiency, status post bioprosthetic aortic valve replacement, with exclusion of left atrial appendage, and intraoperative ODETTE with bilateral pulmonary vein isolation, postop day 6 #2. New onset atrial fibrillation, with controlled rate, and unexpected but potential outcome of surgery #3. Abdominal distention, constipation, possible ileus #4. Essential hypertension #5. Hyperlipidemia #6. Remote history of smoking, preop bedside spirometry showed normal lung function, with FEV1 of 3.14 L or 94% of predicted #7. GERD/reflux #8. Benign prostatic hyperplasia #9. Osteoarthritis Plan: Patient remains stable, denies any worsening dyspnea, continue encouraging since spirometry, encourage ambulation, deep breathing and coughing. No new chest x-rays today, today's labs have been reviewed. Patient is starting to pass gas, as been started on oral diet, no nausea, no vomiting. I performed a history & physical examination of the patient and discussed their management with my nurse practitioner, Amaris Rangel. I reviewed the nurse practitioner's note and agree with the documented findings and plan of care. Lung sounds are positive for bibasilar crackles. The findings and the impression was discussed with the patient. I attest to the documentation by the nurse practitioner. Time with Patient: Less than 30
--- NOTE | 2017-12-16 15:28 | P.PN ---
Subjective Progress Note Date: 12/16/17 This is a 77-year-old male patient underwent a aortic valve replacement for severe aortic stenosis. He is overall doing well. Denies any chest discomfort , breathing is stable. Continues to be in atrial fibrillation, rate under good control. On anticoagulation. Using his incentive spirometry. 12/15/2017 Patient seen and examined this morning, and some mild distress, complaining of feeling full and bloated, mild abdominal discomfort. He is noted to have a distended abdomen, firm. Patient was seen earlier by nurse practitioner from cardiothoracic service and recommended to go downstairs for an acute abdominal series. This revealed diffuse gaseous distention of the colon, findings suspected to represent an ileus. Surgical consultation has been requested and patient has been encouraged to be up ambulating in the hallway as much as possible. I pressure 148/70 with a heart rate in the 70s to 80s. White blood cell count 8.9, hemoglobin 7.8, platelet count 243. Sodium 132, potassium 5.0, BUN 30, creatinine 1.3. 12/16/2017 Patient seen and examined this morning, he has been up ambulating the hallway, passing significant amount of flatus, he did also have a small bowel movement today. In and out of atrial fibrillation today at the time of our examination in the afternoon, he was in atrial fibrillation, receiving an IV amiodarone bolus. Blood pressure 108/60 with a heart rate in the 60s. Blood cell count 7.9 , hemoglobin 9.7, platelet count 170. Objective - Vital Signs Vital signs: Vital Signs Temp 99.3 F 12/16/17 12:00 Pulse 76 12/16/17 14:10 Resp 18 12/16/17 14:10 BP 101/59 12/16/17 14:10 Pulse Ox 95 12/16/17 14:10 Intake & Output 12/15/17 12/16/17 12/16/17 18:59 06:59 18:59 Intake Total 50 290 Output Total 1500 1902 Balance -1450 -1902 290 Weight 122.1 kg Intake: Oral 50 290 Output: Urine 1500 1900 Uretheral ([place]) 1000 Stool 2 Other: Voiding Method Indwelling Catheter Indwelling Catheter Indwelling Catheter # Voids 2 0 # Bowel Movements 1 ABP, PAP, CO, CI - Last Documented Arterial Blood Pressure 109/46 Pulmonary Artery Pressure 32/13 Cardiac Output 6.9 Cardiac Index 3.2 - Exam PHYSICAL EXAMINATION: GENERAL: 77-year-old gentleman in no acute distress at the time of my examination HEENT: Head is atraumatic, normocephalic. Pupils equal, round. Sclera anicteric. Conjunctiva are clear. Mucous membranes of the mouth are moist. Neck is supple. There is no elevated jugular venous pressure.] bruit is heard. HEART EXAMINATION: Heart S1 and S2 irregularly irregular CHEST EXAMINATION: Lungs are clear with diminished air entry to bilateral bases. Reaching 1500 on his incentive spirometry. ABDOMEN: Distended, firm . Hypoactive bowel sounds are heard. No organomegaly noted. EXTREMITIES: 2+ peripheral pulses with no evidence of peripheral edema and no calf tenderness noted. NEUROLOGIC patient is awake, alert and oriented ?-3. . - Labs CBC & Chem 7: 12/16/17 05:50 12/16/17 05:50 Labs: Abnormal Lab Results - Last 24 Hours (Table) 12/15/17 12/15/17 12/16/17 Range/Units 16:13 21:04 02:12 RBC (4.30-5.90) m/uL Hgb (13.0-17.5) gm/dL Hct (39.0-53.0) % Lymphocytes # (1.0-4.8) k/uL PT (9.0-12.0) sec INR (<1.2) Sodium (137-145) mmol/L BUN (9-20) mg/dL Glucose (74-99) mg/dL POC Glucose (mg/dL) 142 H 122 H 126 H (75-99) mg/dL Total Protein (6.3-8.2) g/dL Albumin (3.5-5.0) g/dL 12/16/17 12/16/17 12/16/17 Range/Units 05:33 05:50 05:50 RBC 2.45 L (4.30-5.90) m/uL Hgb 7.4 L (13.0-17.5) gm/dL Hct 23.0 L (39.0-53.0) % Lymphocytes # 0.9 L (1.0-4.8) k/uL PT 14.4 H (9.0-12.0) sec INR 1.6 H (<1.2) Sodium (137-145) mmol/L BUN (9-20) mg/dL Glucose (74-99) mg/dL POC Glucose (mg/dL) 118 H (75-99) mg/dL Total Protein (6.3-8.2) g/dL Albumin (3.5-5.0) g/dL 12/16/17 12/16/17 Range/Units 05:50 11:46 RBC (4.30-5.90) m/uL Hgb (13.0-17.5) gm/dL Hct (39.0-53.0) % Lymphocytes # (1.0-4.8) k/uL PT (9.0-12.0) sec INR (<1.2) Sodium 134 L (137-145) mmol/L BUN 22 H (9-20) mg/dL Glucose 100 H (74-99) mg/dL POC Glucose (mg/dL) 118 H (75-99) mg/dL Total Protein 5.0 L (6.3-8.2) g/dL Albumin 2.8 L (3.5-5.0) g/dL Assessment and Plan Plan: Assessment and plan #1 status post aortic valve replacement #2 obesity #3 paroxysmal atrial fibrillation, on anticoagulation #4 hyperlipidemia #5 hypertension #6 anemia Plan From cardiology's perspective, we'll recommend to continue the patient on his current medications. He has been encouraged to continued use of his incentive spirometry and also been encouraged to continue ambulating in the hallway as tolerated.
[2017-12-16 16:17] LABS: Glucose,Whole Blood 130 mg/dL (75-99)
[2017-12-16] MEDS ORDERED: WARFARIN 7.5 MG TAB PO ONE (18:00)
--- NOTE | 2017-12-16 18:46 | P.PN ---
Progress Note - Text Progress Note Date: 12/16/17 The patient states he feels slightly less distended. He's had several small amounts of flatus today. On exam his vital signs are stable. His abdomen is soft. There is still some distention. Ileus status post coronary thoracic surgery. We will add Reglan to his IV medications.
[2017-12-16] MEDS: METOCLOPRAMIDE 5 MG/ML 2 ML VIAL IVP SCH ×2 (20:04→23:20)
[2017-12-16] MEDS: SENNOSIDES-DOCUSATE SODIUM 1 EACH TAB PO SCH (20:05)
[2017-12-16] MEDS: TAMSULOSIN 0.4 MG CAP.ER.24H PO SCH (20:05)
[2017-12-16 21:03] LABS: Glucose,Whole Blood 106 mg/dL (75-99)
[2017-12-16] MEDS: INSULIN NPH 300 UNIT/3 ML VIAL SQ SCH (22:02)
[2017-12-16] MEDS: METOPROLOL TARTRATE 25 MG TAB PO SCH (22:02)
[2017-12-16] MEDS: ALPRAZolam 0.25 MG TAB PO PRN (23:48)
[2017-12-17 02:13] LABS: Glucose,Whole Blood 103 mg/dL (75-99)
[2017-12-17] MEDS: INSULIN ASPART 100 UNIT/ML 1 ML 10 ML VIAL SQ SCH ×5 (04:44→22:15)
[2017-12-17 05:55] LABS: Glucose,Whole Blood 111 mg/dL (75-99)
[2017-12-17 06:23] LABS: Basophils % (A) 0 %; Eosinophils # (A) 0.2 k/uL (0-0.7); Eosinophils % (A) 3 %; HCT 23.6 % (39.0-53.0); HGB 7.4 gm/dL (13.0-17.5); Hypochromasia Slight; Lymphocytes % (A) 12 %; MCH 29.3 pg (25.0-35.0); MCHC 31.2 g/dL (31.0-37.0); MCV 93.7 fL (80.0-100.0); Mean Platelet Volume 6.9; Monocytes # (A) 0.6 k/uL (0-1.0); Monocytes % (A) 8 %; Neutrophils # (A) 5.9 k/uL (1.3-7.7); Neutrophils % (A) 74 %; Platelet Count 322 k/uL (150-450); RBC 2.51 m/uL (4.30-5.90); RDW 14.4 % (11.5-15.5); WBC 7.9 k/uL (3.8-10.6)
[2017-12-17 06:31] LABS: INR 2.8 (<1.2); Prothrombin Time 24.9 sec (9.0-12.0)
[2017-12-17] MEDS: ASCORBIC ACID 500 MG TAB PO SCH ×2 (06:38→17:07)
[2017-12-17] MEDS: METOCLOPRAMIDE 5 MG/ML 2 ML VIAL IVP SCH ×4 (06:38→23:11)
[2017-12-17] MEDS: PANTOPRAZOLE 40 MG TABLET PO SCH ×2 (06:38→17:07)
[2017-12-17 06:44] LABS: Albumin 2.7 g/dL (3.5-5.0); Calcium 8.5 mg/dL (8.4-10.2); Magnesium 2.2 mg/dL (1.6-2.3); Potassium 4.2 mmol/L (3.5-5.1); Total Bilirubin 0.7 mg/dL (0.2-1.3)
[2017-12-17] MEDS: INSULN ASP PRT/INSULIN ASPART 100 UNIT/ML 10 ML VIAL SQ SCH (07:16)
[2017-12-17] MEDS: METHYL SALICYLATE/MENTHOL CREAM 5 OZ TOPICAL PRN ×2 (08:02→20:28)
[2017-12-17] MEDS: SENNOSIDES-DOCUSATE SODIUM 1 EACH TAB PO SCH ×2 (08:03→20:28)
[2017-12-17] MEDS: ASPIRIN 81 MG PO SCH (08:04)
[2017-12-17] MEDS: ALLOPURINOL 100 MG TAB PO SCH (08:04)
[2017-12-17] MEDS: METOPROLOL TARTRATE 25 MG TAB PO SCH ×2 (08:04→20:28)
[2017-12-17] MEDS: FINASTERIDE 5 MG TAB PO SCH (08:04)
[2017-12-17] MEDS: ATORVASTATIN 40 MG TAB PO SCH (08:05)
[2017-12-17] MEDS: IPRATROPIUM-ALBUTEROL 3 ML NEB INHALATION SCH ×4 (08:10→19:10)
[2017-12-17 09:53] VITALS: BMI 35.4
[2017-12-17] MEDS: AMIODARONE 200 MG TAB PO SCH ×2 (10:14→20:27)
--- NOTE | 2017-12-17 10:22 | XR ---
EXAMINATION TYPE: XR chest 1V portable DATE OF EXAM: 12/17/2017 COMPARISON: 12/15/2017 INDICATION: Postop aVR TECHNIQUE: Single frontal view of the chest is obtained. FINDINGS: The heart size is enlarged. The pulmonary vasculature is normal. No suspicious focal consolidations are evident. Sternotomy wires are present. IMPRESSION: 1. Cardiomegaly.
[2017-12-17 10:47] LABS: Glucose,Whole Blood 38 mg/dL (75-99)
[2017-12-17 11:01] LABS: Glucose,Whole Blood 39 mg/dL (75-99)
[2017-12-17 11:32] LABS: Glucose,Whole Blood 78 mg/dL (75-99)
--- NOTE | 2017-12-17 11:54 | P.PN ---
Subjective Patient had hypoglycemic episode with blood sugar down 34. And present blood sugar 78. Ileus improving patient's had 3 small bowel movements has been encouraged to ambulate more Objective - Vital Signs Vital signs: Vital Signs Temp 97 F L 12/17/17 04:00 Pulse 91 12/17/17 04:00 Resp 17 12/17/17 04:00 BP 106/58 12/17/17 04:00 Pulse Ox 99 12/17/17 04:00 Intake & Output 12/16/17 12/17/17 12/17/17 18:59 06:59 18:59 Intake Total 290 450 240 Output Total 2 1004 Balance 288 -554 240 Weight 118.7 kg 118.7 kg Intake: Oral 290 450 240 Output: Urine 1000 Stool 2 4 Other: Voiding Method Indwelling Catheter Indwelling Catheter # Voids 3 # Bowel Movements 1 3 ABP, PAP, CO, CI - Last Documented Arterial Blood Pressure 109/46 Pulmonary Artery Pressure 32/13 Cardiac Output 6.9 Cardiac Index 3.2 - Constitutional General appearance: Present: obese - EENT Eyes: Present: PERRLA Ears: bilateral: normal - Neck Neck: Present: normal ROM - Respiratory Respiratory: bilateral: CTA - Cardiovascular Rhythm: irregularly irregular Abnormal Heart Sounds: Present: systolic murmur - Gastrointestinal General gastrointestinal: Present: distended, soft - Integumentary Integumentary: Present: normal - Neurologic Neurologic: Present: CNII-XII intact - Psychiatric Psychiatric: Present: A&O x's 3, appropriate affect, intact judgment & insight - Labs CBC & Chem 7: 12/17/17 05:39 12/17/17 05:39 Labs: Abnormal Lab Results - Last 24 Hours (Table) 12/16/17 12/16/17 12/17/17 Range/Units 16:15 21:02 02:12 RBC (4.30-5.90) m/uL Hgb (13.0-17.5) gm/dL Hct (39.0-53.0) % PT (9.0-12.0) sec INR (<1.2) Sodium (137-145) mmol/L POC Glucose (mg/dL) 130 H 106 H 103 H (75-99) mg/dL Total Protein (6.3-8.2) g/dL Albumin (3.5-5.0) g/dL 12/17/17 12/17/17 12/17/17 Range/Units 05:39 05:39 05:39 RBC 2.51 L (4.30-5.90) m/uL Hgb 7.4 L (13.0-17.5) gm/dL Hct 23.6 L (39.0-53.0) % PT 24.9 H (9.0-12.0) sec INR 2.8 H (<1.2) Sodium 135 L (137-145) mmol/L POC Glucose (mg/dL) (75-99) mg/dL Total Protein 5.0 L (6.3-8.2) g/dL Albumin 2.7 L (3.5-5.0) g/dL 12/17/17 12/17/17 12/17/17 Range/Units 05:54 10:46 10:59 RBC (4.30-5.90) m/uL Hgb (13.0-17.5) gm/dL Hct (39.0-53.0) % PT (9.0-12.0) sec INR (<1.2) Sodium (137-145) mmol/L POC Glucose (mg/dL) 111 H 38 L 39 L (75-99) mg/dL Total Protein (6.3-8.2) g/dL Albumin (3.5-5.0) g/dL - Imaging and Cardiology Abdominal x-ray: report reviewed Assessment and Plan Plan: Assessment Severe aortic valve insufficiency post pro-prosthetic aortic valve replacement Anemia postop Hypertension Hyperglycemia Ileus Hyperlipidemia GERD BPH Osteoarthritis Paroxysmal atrial fibrillation Plan Continue to monitor patient's diabetes We'll monitor for changes in the patient condition
[2017-12-17 12:09] LABS: Glucose,Whole Blood 67 mg/dL (75-99)
[2017-12-17] MEDS ORDERED: DEXTROSE 50%-WATER 50 ML SYRINGE IVP ONE (12:14)
--- NOTE | 2017-12-17 12:24 | P.PN ---
Subjective Progress Note Date: 12/17/17 Principal diagnosis: Severe aortic insufficiency, status post aortic valve replacement, postop day 2 Mr. Hernandez is a 77-year-old patient of Dr. Davenport, who underwent aortic valve replacement with exclusion of left atrial appendage today, on 12/09/[address] Farris, for a diagnosis of severe aortic valve insufficiency. Past medical history includes hypertension, dyslipidemia, GERD, ulcer arthritis, BPH, gout, nonsustained V. tach, asymptomatic bilateral carotid artery stenosis, remote history of smoking, and non-rheumatologic aortic valve insufficiency. Patient has had episodes of dizziness, fatigue, and progressive shortness of breath with exertion. Stress test on 07/01/2017 showed no definite ECG evidence of ischemia, the patient did have an episode of nonsustained V. tach after the procedure. Patient had an elective heart catheterization for his persisting symptoms, and on 10/14/2017, patient had a heart cath which showed nonocclusive coronary arteries, and 4+ aortic valve regurgitation, LV ventriculogram showed an EF of 55%. Patient was recommended aortic valve replacement, and the patient opted for the procedure. Today we are seeing the patient postop after his surgery, sedated on mechanical ventilation, current vent settings SIMV mode with a rate of 12, tidal volume of 600, FiO2 of 100% and PEEP of 10. Postop blood gases showed pO2 of 188, pCO2 43, and pH of 7.34, and we recommended to decrease the FiO2 down to 60%, and subsequently down to 50%. Patient is sinus rhythm on the monitor, with a rate of 65 BPM, he has a atrioventricular epicardial wires in place connected to an external pacemaker, with a backup rate of VVI 40 BPM. Hemodynamically stable, blood pressure is 110/58, PA pressures 41/20, with a CVP of 14, cardiac outputs in index, is 6.1 and 2.6 respectively. Patient has a mediastinal chest tube, with sanguinous output, and there has been a total of 250 of sanguious output since OR exit time at 1319 p.m. patient was given 750 ML of Cell Saver, 2 L of lactated Ringer's, and 250 mL of albumin. Patient was given additional 500 mL of 5% albumin in the intensive care. His current maintenance IV is LR at a rate of 50 ML per hour, Diprivan is a 45 mics per kilo per minute, nitroglycerin is at 5 mics per minute , insulin is on hold, and clevidipine is currently on hold. Postop blood work showed WBC of 7.2, hemoglobin of 10.2, INR is 1.2, sodium is 140, potassium is 4.4, chloride is 111, BUN is 14, creatinine 0.72. Postop chest x-ray was reviewed by Dr. Mahmood, and shows endotracheal tube with the tip of above the jc, the heart size is normal, pulmonary mass culture is normal. Indwelling catheter is in place, and patient is nonoliguric. Progress note dated 12/10/2017 77-year-old male who is postop day #1 status post aortic valve replacement for aortic valve insufficiency. He had a bile is prostatic aortic valve replacement. He also had excision of left atrial appendage. He had an intraoperative ODETTE. The patient was on the ventilator post operatively and was able to be extubated within 6 hours. The patient has a history of essential hypertension hyperlipidemia remote history of tobacco use GERD and BPH and DJD. Currently the patient is doing relatively well. Resting comfortably. Working on deep breathing coughing clearing his secretions as well as incentive spirometer. Current laboratory data includes a white count of 5.7 hemoglobin 8.7 hematocrit 25.3 platelet count 104,000. PT INR and PTT are normal. Sodium and potassium are normal. Chlorides 108 CO2 24 BUN and creatinine were normal. Chest x-ray has not yet been done. On 12/11/2017 patient seen in follow-up in the intensive care unit. He states he couldn't sleep very well last night, could not get comfortable, feels a bit dyspneic, but no acute distress. Able to achieve 1250 on his incentive spirometry today. Lung sounds are clear, no crackles, no wheezes, no rhonchi. Pulse ox on 3 L per nasal cannula is 96%, patient is afebrile, hemodynamically stable, significant went into atrial fibrillation this morning, and he will be started on amiodarone drip per CT surgery. Today's chest x-ray has been reviewed by Dr. Jeffers, and shows mild pulmonary vascular congestion and cardiomegaly and what to previous chest x-ray from 12/10/2017. Today's labs have been reviewed, WBC 6.1, hemoglobin is 8.4, urine is 134, the rest of the electrolytes and renal profile are wall within normal limits. CT surgery gave patient a dose of IV Lasix yesterday. Mediastinal chest tube drainage is minimal, around 10 ML per hour. Is nonoliguric. Tolerating oral intake. Abdomen is distended, patient had a bowel movement, but bowel sounds positive 4. On 12/15/2017 patient seen in follow-up on selective care unit. He is just returned from the radiology Department where he was having abdominal x-rays taken for abdominal distention, and constipation. It showed diffuse gaseous distention of the colon, findings suspected to represent ileus. He received Dulcolax suppository. From pulmonary standpoint he denies any worsening dyspnea , lung sounds are diminished at the bases, with some scattered rales. His chest x-ray has been reviewed, and showed cardiomegaly, hypoventilatory changes and mild pulmonary vascular congestion. He is compliant with his incentive spirometry. Remains on 2 L per nasal cannula his pulse ox 100%, hemodynamically stable, he is afebrile. Today's labs were noted, CBC is 8.9, hemoglobin is 7.8, sodium is 132, BUN is 30, creatinine is 1.13. Patient has been started on Coumadin for anticoagulation for his postoperative atrial fibrillation. His INR is 1.1. On 12/16/2017 patient seen in follow-up on selective care unit. Patient is starting to pass gas and he had some liquid stools, his abdomen still distended , but not as tense. Present bowel sounds, is following, and patientwas started on oral feedings. No nausea, no vomiting, no diarrhea. Denies any worsening dyspnea, lung sounds are positive for bibasilar crackles, remains on 2 L per nasal cannula with pulse ox of 95%, he hemodynamically stable, afebrile. No new chest x-ray today, patient is compliant with his incentive spirometer. He has been tolerating ambulation. Patient has been started on Coumadin for anticoagulation for his postoperative atrial fibrillation, today's INR is 1.6, WBC today is 8.5, hemoglobin is 7.4, sodium is 134, the rest of electrolytes are normal, BUN is 22, creatinine is 1.05. On 12/17/2017 patient seen and again on selective care unit. He had episode of hypoglycemia this morning, and his blood sugar was 89, he was given peanut butter and crackers, and subsequently he came up to 78, and 67, patient is currently on 3 showed protocol, and his appetite has been poor. Normally he is not on any insulin or oral hypoglycemics at home. Denies any worsening dyspnea , lung sounds are diminished, today's chest x-ray has been reviewed, and shows stable findings, focal consolidation, cardiomegaly. Hemodynamically stable, vital signs are stable, pulse ox on 2 L per nasal cannula at 97%. Tolerating oral diet, the plan is for patient to be discharged to inpatient rehab upon discharge. Objective - Vital Signs Vital signs: Vital Signs Temp 97 F L 12/17/17 04:00 Pulse 91 12/17/17 04:00 Resp 17 12/17/17 04:00 BP 106/58 12/17/17 04:00 Pulse Ox 99 12/17/17 04:00 Intake & Output 12/16/17 12/17/17 12/17/17 18:59 06:59 18:59 Intake Total 290 450 240 Output Total 2 1004 Balance 288 -554 240 Weight 118.7 kg 118.7 kg Intake: Oral 290 450 240 Output: Urine 1000 Stool 2 4 Other: Voiding Method Indwelling Catheter Indwelling Catheter # Voids 3 # Bowel Movements 1 3 ABP, PAP, CO, CI - Last Documented Arterial Blood Pressure 109/46 Pulmonary Artery Pressure 32/13 Cardiac Output 6.9 Cardiac Index 3.2 - Exam GENERAL EXAM: Awake, alert, 77-year-old obese white male, in no acute distress comfortable in no apparent distress. HEAD: Normocephalic/atraumatic. EYES: Normal reaction of pupils, equal size. Conjunctiva pink, sclera white. NOSE: Clear with pink turbinates. THROAT: No erythema or exudates. NECK: No masses, no JVD, no thyroid enlargement, no adenopathy. CHEST: No chest wall deformity. Symmetrical expansion. Midsternal incision is clean dry and intact, covered with a surgical dressing, mediastinal chest tube site is clean dry and intact. LUNGS: Lung sounds are positive for bibasilar crackles, diminished at the bases. CVS: Irregular rate and rhythm, normal S1 and S2, no gallops, no murmurs, no rubs ABDOMEN: Distended, but nontender. No hepatosplenomegaly, normal bowel sounds, no guarding or rigidity. EXTREMITIES: No clubbing, no edema, no cyanosis, 2+ pulses and upper and lower extremities. MUSCULOSKELETAL: Muscle strength and tone normal. SPINE: No scoliosis or deformity SKIN: No rashes CENTRAL NERVOUS SYSTEM:No focal deficits, tone is normal in all 4 extremities. - Labs CBC & Chem 7: 12/17/17 05:39 12/17/17 05:39 Labs: Abnormal Lab Results - Last 24 Hours (Table) 12/16/17 12/16/17 12/17/17 Range/Units 16:15 21:02 02:12 RBC (4.30-5.90) m/uL Hgb (13.0-17.5) gm/dL Hct (39.0-53.0) % PT (9.0-12.0) sec INR (<1.2) Sodium (137-145) mmol/L POC Glucose (mg/dL) 130 H 106 H 103 H (75-99) mg/dL Total Protein (6.3-8.2) g/dL Albumin (3.5-5.0) g/dL 12/17/17 12/17/17 12/17/17 Range/Units 05:39 05:39 05:39 RBC 2.51 L (4.30-5.90) m/uL Hgb 7.4 L (13.0-17.5) gm/dL Hct 23.6 L (39.0-53.0) % PT 24.9 H (9.0-12.0) sec INR 2.8 H (<1.2) Sodium 135 L (137-145) mmol/L POC Glucose (mg/dL) (75-99) mg/dL Total Protein 5.0 L (6.3-8.2) g/dL Albumin 2.7 L (3.5-5.0) g/dL 12/17/17 12/17/17 12/17/17 Range/Units 05:54 10:46 10:59 RBC (4.30-5.90) m/uL Hgb (13.0-17.5) gm/dL Hct (39.0-53.0) % PT (9.0-12.0) sec INR (<1.2) Sodium (137-145) mmol/L POC Glucose (mg/dL) 111 H 38 L 39 L (75-99) mg/dL Total Protein (6.3-8.2) g/dL Albumin (3.5-5.0) g/dL 12/17/17 Range/Units 11:51 RBC (4.30-5.90) m/uL Hgb (13.0-17.5) gm/dL Hct (39.0-53.0) % PT (9.0-12.0) sec INR (<1.2) Sodium (137-145) mmol/L POC Glucose (mg/dL) 67 L (75-99) mg/dL Total Protein (6.3-8.2) g/dL Albumin (3.5-5.0) g/dL Assessment and Plan Plan: Assessment: #1. Severe aortic valve insufficiency, status post bioprosthetic aortic valve replacement, with exclusion of left atrial appendage, and intraoperative ODETTE with bilateral pulmonary vein isolation, postop day 7 #2. New onset atrial fibrillation, with controlled rate, and unexpected but potential outcome of surgery #3. Abdominal distention, constipation, possible ileus, improved, and the patient is passing gas and having bowel movements, tolerating oral diet #4. Essential hypertension #5. Hyperlipidemia #6. Remote history of smoking, preop bedside spirometry showed normal lung function, with FEV1 of 3.14 L or 94% of predicted #7. GERD/reflux #8. Benign prostatic hyperplasia #9. Osteoarthritis Plan: Denies any worsening dyspnea, compliant with his incentive spirometer, had an episode of hypoglycemia this morning, Insulin 3 shot protocol, and his appetite has been poor. Otherwise doing well, he weaning FiO2, and encouraging incentive spirometry use. Encourage ambulation. I performed a history & physical examination of the patient and discussed their management with my nurse practitioner, Amaris Rangel. I reviewed the nurse practitioner's note and agree with the documented findings and plan of care. Lung sounds are positive for urge breath sounds. The findings and the impression was discussed with the patient. I attest to the documentation by the nurse practitioner. Time with Patient: Less than 30
[2017-12-17 12:32] LABS: Glucose,Whole Blood 63 mg/dL (75-99)
[2017-12-17 12:40] LABS: Glucose,Whole Blood 123 mg/dL (75-99)
--- NOTE | 2017-12-17 12:50 | P.PN ---
Progress Note - Text Progress Note Date: 12/17/17 The patient resting in his bed. Apparently had a hypoglycemic episode this morning. He's had 2 bowel movements and is having flatus. On exam his vital signs are stable. His abdomen soft. Resolving ileus. Patient will have his diet advanced. We will see when necessary.
--- NOTE | 2017-12-17 15:16 | P.PN ---
Subjective Progress Note Date: 12/17/17 This is a 77-year-old male patient underwent a aortic valve replacement for severe aortic stenosis. He is overall doing well. Denies any chest discomfort , breathing is stable. Continues to be in atrial fibrillation, rate under good control. On anticoagulation. Using his incentive spirometry. 12/15/2017 Patient seen and examined this morning, and some mild distress, complaining of feeling full and bloated, mild abdominal discomfort. He is noted to have a distended abdomen, firm. Patient was seen earlier by nurse practitioner from cardiothoracic service and recommended to go downstairs for an acute abdominal series. This revealed diffuse gaseous distention of the colon, findings suspected to represent an ileus. Surgical consultation has been requested and patient has been encouraged to be up ambulating in the hallway as much as possible. I pressure 148/70 with a heart rate in the 70s to 80s. White blood cell count 8.9, hemoglobin 7.8, platelet count 243. Sodium 132, potassium 5.0, BUN 30, creatinine 1.3. 12/16/2017 Patient seen and examined this morning, he has been up ambulating the hallway, passing significant amount of flatus, he did also have a small bowel movement today. In and out of atrial fibrillation today at the time of our examination in the afternoon, he was in atrial fibrillation, receiving an IV amiodarone bolus. Blood pressure 108/60 with a heart rate in the 60s. Blood cell count 7.9 , hemoglobin 9.7, platelet count 170. 12/17/2017 A shunt seen and examined this morning, sitting up in the chair at bedside. Still has mild abdominal bloating but overall doing much better. Objective - Vital Signs Vital signs: Vital Signs Temp 97 F L 12/17/17 04:00 Pulse 91 12/17/17 04:00 Resp 17 12/17/17 04:00 BP 106/58 12/17/17 04:00 Pulse Ox 99 12/17/17 04:00 Intake & Output 12/16/17 12/17/17 12/17/17 18:59 06:59 18:59 Intake Total 290 450 480 Output Total 2 1004 Balance 288 -554 480 Weight 118.7 kg 118.7 kg Intake: Oral 290 450 480 Output: Urine 1000 Stool 2 4 Other: Voiding Method Indwelling Catheter Indwelling Catheter # Voids 3 # Bowel Movements 1 3 ABP, PAP, CO, CI - Last Documented Arterial Blood Pressure 109/46 Pulmonary Artery Pressure 32/13 Cardiac Output 6.9 Cardiac Index 3.2 - Exam PHYSICAL EXAMINATION: GENERAL: 77-year-old gentleman in no acute distress at the time of my examination HEENT: Head is atraumatic, normocephalic. Pupils equal, round. Sclera anicteric. Conjunctiva are clear. Mucous membranes of the mouth are moist. Neck is supple. There is no elevated jugular venous pressure.] bruit is heard. HEART EXAMINATION: Heart S1 and S2 irregularly irregular CHEST EXAMINATION: Lungs are clear with diminished air entry to bilateral bases. Reaching 1500 on his incentive spirometry. ABDOMEN: Distended, firm . Hypoactive bowel sounds are heard. No organomegaly noted. EXTREMITIES: 2+ peripheral pulses with no evidence of peripheral edema and no calf tenderness noted. NEUROLOGIC patient is awake, alert and oriented ?-3. . - Labs CBC & Chem 7: 12/17/17 05:39 12/17/17 05:39 Labs: Abnormal Lab Results - Last 24 Hours (Table) 12/16/17 12/16/17 12/17/17 Range/Units 16:15 21:02 02:12 RBC (4.30-5.90) m/uL Hgb (13.0-17.5) gm/dL Hct (39.0-53.0) % PT (9.0-12.0) sec INR (<1.2) Sodium (137-145) mmol/L POC Glucose (mg/dL) 130 H 106 H 103 H (75-99) mg/dL Total Protein (6.3-8.2) g/dL Albumin (3.5-5.0) g/dL 12/17/17 12/17/17 12/17/17 Range/Units 05:39 05:39 05:39 RBC 2.51 L (4.30-5.90) m/uL Hgb 7.4 L (13.0-17.5) gm/dL Hct 23.6 L (39.0-53.0) % PT 24.9 H (9.0-12.0) sec INR 2.8 H (<1.2) Sodium 135 L (137-145) mmol/L POC Glucose (mg/dL) (75-99) mg/dL Total Protein 5.0 L (6.3-8.2) g/dL Albumin 2.7 L (3.5-5.0) g/dL 12/17/17 12/17/17 12/17/17 Range/Units 05:54 10:46 10:59 RBC (4.30-5.90) m/uL Hgb (13.0-17.5) gm/dL Hct (39.0-53.0) % PT (9.0-12.0) sec INR (<1.2) Sodium (137-145) mmol/L POC Glucose (mg/dL) 111 H 38 L 39 L (75-99) mg/dL Total Protein (6.3-8.2) g/dL Albumin (3.5-5.0) g/dL 12/17/17 12/17/17 12/17/17 Range/Units 11:51 12:12 12:35 RBC (4.30-5.90) m/uL Hgb (13.0-17.5) gm/dL Hct (39.0-53.0) % PT (9.0-12.0) sec INR (<1.2) Sodium (137-145) mmol/L POC Glucose (mg/dL) 67 L 63 L 123 H (75-99) mg/dL Total Protein (6.3-8.2) g/dL Albumin (3.5-5.0) g/dL Assessment and Plan Plan: Assessment and plan #1 status post aortic valve replacement #2 obesity #3 paroxysmal atrial fibrillation, on anticoagulation #4 hyperlipidemia #5 hypertension #6 anemia Plan From cardiology's perspective, we'll recommend to continue the patient on his current medications. He has been encouraged to continued use of his incentive spirometry and also been encouraged to continue ambulating in the hallway as tolerated. DNP note has been reviewed, I agree with a documented findings and plan of care. Patient was seen and examined.
[2017-12-17] MEDS: BISACODYL 10 MG SUPP RECTAL SCH (15:40)
[2017-12-17 16:58] LABS: Glucose,Whole Blood 122 mg/dL (75-99)
[2017-12-17] MEDS: TAMSULOSIN 0.4 MG CAP.ER.24H PO SCH (20:28)
[2017-12-17 21:09] LABS: Glucose,Whole Blood 128 mg/dL (75-99)
[2017-12-17] MEDS: ACETAMINOPHEN TAB 325 MG TAB PO PRN (23:11)
[2017-12-18 02:20] LABS: Glucose,Whole Blood 105 mg/dL (75-99)
[2017-12-18] MEDS: INSULIN ASPART 100 UNIT/ML 1 ML 10 ML VIAL SQ SCH ×5 (02:33→21:35)
[2017-12-18 06:01] LABS: Glucose,Whole Blood 110 mg/dL (75-99)
[2017-12-18 06:26] LABS: Basophils % (A) 0 %; Eosinophils # (A) 0.3 k/uL (0-0.7); Eosinophils % (A) 3 %; HCT 24.1 % (39.0-53.0); HGB 7.8 gm/dL (13.0-17.5); Hypochromasia Slight; Lymphocytes # (A) 1.2 k/uL (1.0-4.8); Lymphocytes % (A) 14 %; MCH 30.8 pg (25.0-35.0); MCHC 32.2 g/dL (31.0-37.0); MCV 95.6 fL (80.0-100.0); Monocytes # (A) 0.6 k/uL (0-1.0); Monocytes % (A) 7 %; Neutrophils # (A) 6.3 k/uL (1.3-7.7); Neutrophils % (A) 74 %; Platelet Count 364 k/uL (150-450); RBC 2.52 m/uL (4.30-5.90); RDW 14.9 % (11.5-15.5); WBC 8.6 k/uL (3.8-10.6)
[2017-12-18 06:31] LABS: INR 4.2 (<1.2); Prothrombin Time 38.1 sec (9.0-12.0)
[2017-12-18 06:37] LABS: ALT 54 U/L (21-72); AST 45 U/L (17-59); Albumin 2.8 g/dL (3.5-5.0); Alkaline Phosphatase 71 U/L (38-126); Anion Gap 7 mmol/L; Blood Urea Nitrogen 19 mg/dL (9-20); Calcium 8.5 mg/dL (8.4-10.2); Carbon Dioxide 27 mmol/L (22-30); Chloride 100 mmol/L (98-107); Glucose 92 mg/dL (74-99); Potassium 4.3 mmol/L (3.5-5.1); Sodium 134 mmol/L (137-145); Total Bilirubin 0.6 mg/dL (0.2-1.3); Total Protein 5.2 g/dL (6.3-8.2)
[2017-12-18] MEDS: METOCLOPRAMIDE 5 MG/ML 2 ML VIAL IVP SCH ×3 (06:53→16:24)
[2017-12-18] MEDS: ASCORBIC ACID 500 MG TAB PO SCH ×2 (06:53→16:17)
[2017-12-18] MEDS: PANTOPRAZOLE 40 MG TABLET PO SCH ×2 (06:53→16:17)
[2017-12-18] MEDS: IPRATROPIUM-ALBUTEROL 3 ML NEB INHALATION SCH ×4 (07:04→19:38)
[2017-12-18] MEDS ORDERED: FUROSEMIDE 10 MG/ML 2 ML VIAL IV ONE (09:16)
[2017-12-18] MEDS: BISACODYL 10 MG SUPP RECTAL SCH (09:32)
[2017-12-18] MEDS: ALLOPURINOL 100 MG TAB PO SCH (09:37)
[2017-12-18] MEDS: SENNOSIDES-DOCUSATE SODIUM 1 EACH TAB PO SCH ×2 (09:37→21:41)
[2017-12-18] MEDS: FINASTERIDE 5 MG TAB PO SCH (09:37)
[2017-12-18] MEDS: METOPROLOL TARTRATE 25 MG TAB PO SCH ×2 (09:38→21:41)
[2017-12-18] MEDS: ATORVASTATIN 40 MG TAB PO SCH (09:38)
[2017-12-18] MEDS: ASPIRIN 81 MG PO SCH (09:39)
[2017-12-18] MEDS: AMIODARONE 200 MG TAB PO SCH ×2 (09:39→21:41)
--- NOTE | 2017-12-18 11:17 | XR ---
EXAMINATION TYPE: XR chest 2V DATE OF EXAM: 12/18/2017 COMPARISON: 12/17/2017 INDICATION: Post cardiac surgery TECHNIQUE: Frontal and lateral views of the chest are obtained. FINDINGS: The heart size is enlarged. The pulmonary vasculature is normal. Mild lingular infiltrate is present. Some thickening along the right pleural margin near the costophr enic angle may be present. Lungs are otherwise clear. IMPRESSION: 1. Suggestion of mild subsegmental atelectasis within the lingula at the cardiac apex. 2. Pleural thickening or minimal effusion along the lateral right costophrenic angle is not excluded. Follow-up exams can be performed.
[2017-12-18] MEDS: ACETAMINOPHEN TAB 325 MG TAB PO PRN ×2 (11:35→16:30)
[2017-12-18 11:54] LABS: Glucose,Whole Blood 107 mg/dL (75-99)
--- NOTE | 2017-12-18 12:28 | P.PN ---
Subjective Progress Note Date: 12/18/17 Principal diagnosis: Severe aortic insufficiency, status post aortic valve replacement, postop day 2 Mr. Hernandez is a 77-year-old patient of Dr. Davenport, who underwent aortic valve replacement with exclusion of left atrial appendage today, on 12/09/[address] Farris, for a diagnosis of severe aortic valve insufficiency. Past medical history includes hypertension, dyslipidemia, GERD, ulcer arthritis, BPH, gout, nonsustained V. tach, asymptomatic bilateral carotid artery stenosis, remote history of smoking, and non-rheumatologic aortic valve insufficiency. Patient has had episodes of dizziness, fatigue, and progressive shortness of breath with exertion. Stress test on 07/01/2017 showed no definite ECG evidence of ischemia, the patient did have an episode of nonsustained V. tach after the procedure. Patient had an elective heart catheterization for his persisting symptoms, and on 10/14/2017, patient had a heart cath which showed nonocclusive coronary arteries, and 4+ aortic valve regurgitation, LV ventriculogram showed an EF of 55%. Patient was recommended aortic valve replacement, and the patient opted for the procedure. Today we are seeing the patient postop after his surgery, sedated on mechanical ventilation, current vent settings SIMV mode with a rate of 12, tidal volume of 600, FiO2 of 100% and PEEP of 10. Postop blood gases showed pO2 of 188, pCO2 43, and pH of 7.34, and we recommended to decrease the FiO2 down to 60%, and subsequently down to 50%. Patient is sinus rhythm on the monitor, with a rate of 65 BPM, he has a atrioventricular epicardial wires in place connected to an external pacemaker, with a backup rate of VVI 40 BPM. Hemodynamically stable, blood pressure is 110/58, PA pressures 41/20, with a CVP of 14, cardiac outputs in index, is 6.1 and 2.6 respectively. Patient has a mediastinal chest tube, with sanguinous output, and there has been a total of 250 of sanguious output since OR exit time at 1319 p.m. patient was given 750 ML of Cell Saver, 2 L of lactated Ringer's, and 250 mL of albumin. Patient was given additional 500 mL of 5% albumin in the intensive care. His current maintenance IV is LR at a rate of 50 ML per hour, Diprivan is a 45 mics per kilo per minute, nitroglycerin is at 5 mics per minute , insulin is on hold, and clevidipine is currently on hold. Postop blood work showed WBC of 7.2, hemoglobin of 10.2, INR is 1.2, sodium is 140, potassium is 4.4, chloride is 111, BUN is 14, creatinine 0.72. Postop chest x-ray was reviewed by Dr. Mahmood, and shows endotracheal tube with the tip of above the jc, the heart size is normal, pulmonary mass culture is normal. Indwelling catheter is in place, and patient is nonoliguric. Progress note dated 12/10/2017 77-year-old male who is postop day #1 status post aortic valve replacement for aortic valve insufficiency. He had a bile is prostatic aortic valve replacement. He also had excision of left atrial appendage. He had an intraoperative ODETTE. The patient was on the ventilator post operatively and was able to be extubated within 6 hours. The patient has a history of essential hypertension hyperlipidemia remote history of tobacco use GERD and BPH and DJD. Currently the patient is doing relatively well. Resting comfortably. Working on deep breathing coughing clearing his secretions as well as incentive spirometer. Current laboratory data includes a white count of 5.7 hemoglobin 8.7 hematocrit 25.3 platelet count 104,000. PT INR and PTT are normal. Sodium and potassium are normal. Chlorides 108 CO2 24 BUN and creatinine were normal. Chest x-ray has not yet been done. On 12/11/2017 patient seen in follow-up in the intensive care unit. He states he couldn't sleep very well last night, could not get comfortable, feels a bit dyspneic, but no acute distress. Able to achieve 1250 on his incentive spirometry today. Lung sounds are clear, no crackles, no wheezes, no rhonchi. Pulse ox on 3 L per nasal cannula is 96%, patient is afebrile, hemodynamically stable, significant went into atrial fibrillation this morning, and he will be started on amiodarone drip per CT surgery. Today's chest x-ray has been reviewed by Dr. Jeffers, and shows mild pulmonary vascular congestion and cardiomegaly and what to previous chest x-ray from 12/10/2017. Today's labs have been reviewed, WBC 6.1, hemoglobin is 8.4, urine is 134, the rest of the electrolytes and renal profile are wall within normal limits. CT surgery gave patient a dose of IV Lasix yesterday. Mediastinal chest tube drainage is minimal, around 10 ML per hour. Is nonoliguric. Tolerating oral intake. Abdomen is distended, patient had a bowel movement, but bowel sounds positive 4. On 12/15/2017 patient seen in follow-up on selective care unit. He is just returned from the radiology Department where he was having abdominal x-rays taken for abdominal distention, and constipation. It showed diffuse gaseous distention of the colon, findings suspected to represent ileus. He received Dulcolax suppository. From pulmonary standpoint he denies any worsening dyspnea , lung sounds are diminished at the bases, with some scattered rales. His chest x-ray has been reviewed, and showed cardiomegaly, hypoventilatory changes and mild pulmonary vascular congestion. He is compliant with his incentive spirometry. Remains on 2 L per nasal cannula his pulse ox 100%, hemodynamically stable, he is afebrile. Today's labs were noted, CBC is 8.9, hemoglobin is 7.8, sodium is 132, BUN is 30, creatinine is 1.13. Patient has been started on Coumadin for anticoagulation for his postoperative atrial fibrillation. His INR is 1.1. On 12/16/2017 patient seen in follow-up on selective care unit. Patient is starting to pass gas and he had some liquid stools, his abdomen still distended , but not as tense. Present bowel sounds, is following, and patientwas started on oral feedings. No nausea, no vomiting, no diarrhea. Denies any worsening dyspnea, lung sounds are positive for bibasilar crackles, remains on 2 L per nasal cannula with pulse ox of 95%, he hemodynamically stable, afebrile. No new chest x-ray today, patient is compliant with his incentive spirometer. He has been tolerating ambulation. Patient has been started on Coumadin for anticoagulation for his postoperative atrial fibrillation, today's INR is 1.6, WBC today is 8.5, hemoglobin is 7.4, sodium is 134, the rest of electrolytes are normal, BUN is 22, creatinine is 1.05. On 12/17/2017 patient seen and again on selective care unit. He had episode of hypoglycemia this morning, and his blood sugar was 89, he was given peanut butter and crackers, and subsequently he came up to 78, and 67, patient is currently on 3 showed protocol, and his appetite has been poor. Normally he is not on any insulin or oral hypoglycemics at home. Denies any worsening dyspnea , lung sounds are diminished, today's chest x-ray has been reviewed, and shows stable findings, focal consolidation, cardiomegaly. Hemodynamically stable, vital signs are stable, pulse ox on 2 L per nasal cannula at 97%. Tolerating oral diet, the plan is for patient to be discharged to inpatient rehab upon discharge. On 12/18/2017 patient seen in follow-up on selective care unit. He denies any worsening dyspnea, FiO2 is at 2 L per nasal cannula, and his pulse ox is 95%, but a signs are stable, diminished at the bases, with a few bibasilar crackles, today's chest x-ray has been reviewed, shows mild subsegmental atelectasis within the lingula, and minimal effusion along the lateral right costophrenic angle. His labs were normal, WBC is 8.6, hemoglobin is 7.8, INR is 4.2, sodium is 134, dressing electrolytes and renal following normal. She has received another dose of IV Lasix per CT surgery. As been ambulating, tolerating activity well. He was dynamically stable, no acute events overnight. Anticipate transfer to inpatient rehab this afternoon. Objective - Vital Signs Vital signs: Vital Signs Temp 99.2 F 12/18/17 04:00 Pulse 68 12/18/17 11:02 Resp 17 12/18/17 04:00 BP 116/58 12/18/17 04:00 Pulse Ox 95 12/18/17 04:00 Intake & Output 12/17/17 12/18/17 12/18/17 18:59 06:59 18:59 Intake Total 720 150 360 Output Total 3 701 Balance 717 -551 360 Weight 118.7 kg 118.3 kg Intake: Oral 720 150 360 Output: Urine 700 Stool 3 1 Other: Voiding Method Indwelling Catheter Indwelling Catheter # Bowel Movements 3 ABP, PAP, CO, CI - Last Documented Arterial Blood Pressure 109/46 Pulmonary Artery Pressure 32/13 Cardiac Output 6.9 Cardiac Index 3.2 - Exam GENERAL EXAM: Awake, alert, 77-year-old obese white male, in no acute distress comfortable in no apparent distress. HEAD: Normocephalic/atraumatic. EYES: Normal reaction of pupils, equal size. Conjunctiva pink, sclera white. NOSE: Clear with pink turbinates. THROAT: No erythema or exudates. NECK: No masses, no JVD, no thyroid enlargement, no adenopathy. CHEST: No chest wall deformity. Symmetrical expansion. Midsternal incision is clean dry and intact, covered with a surgical dressing, mediastinal chest tube site is clean dry and intact. LUNGS: Lung sounds are positive for bibasilar crackles, diminished at the bases. CVS: Irregular rate and rhythm, normal S1 and S2, no gallops, no murmurs, no rubs ABDOMEN: Distended, but nontender. No hepatosplenomegaly, normal bowel sounds, no guarding or rigidity. EXTREMITIES: No clubbing, no edema, no cyanosis, 2+ pulses and upper and lower extremities. MUSCULOSKELETAL: Muscle strength and tone normal. SPINE: No scoliosis or deformity SKIN: No rashes CENTRAL NERVOUS SYSTEM:No focal deficits, tone is normal in all 4 extremities. - Labs CBC & Chem 7: 12/18/17 05:49 12/18/17 05:49 Labs: Abnormal Lab Results - Last 24 Hours (Table) 12/17/17 12/17/17 12/17/17 Range/Units 12:12 12:35 16:39 RBC (4.30-5.90) m/uL Hgb (13.0-17.5) gm/dL Hct (39.0-53.0) % PT (9.0-12.0) sec INR (<1.2) Sodium (137-145) mmol/L POC Glucose (mg/dL) 63 L 123 H 122 H (75-99) mg/dL Total Protein (6.3-8.2) g/dL Albumin (3.5-5.0) g/dL 12/17/17 12/18/17 12/18/17 Range/Units 21:07 02:08 05:49 RBC (4.30-5.90) m/uL Hgb (13.0-17.5) gm/dL Hct (39.0-53.0) % PT 38.1 H (9.0-12.0) sec INR 4.2 H (<1.2) Sodium (137-145) mmol/L POC Glucose (mg/dL) 128 H 105 H (75-99) mg/dL Total Protein (6.3-8.2) g/dL Albumin (3.5-5.0) g/dL 12/18/17 12/18/17 12/18/17 Range/Units 05:49 05:49 05:59 RBC 2.52 L (4.30-5.90) m/uL Hgb 7.8 L (13.0-17.5) gm/dL Hct 24.1 L (39.0-53.0) % PT (9.0-12.0) sec INR (<1.2) Sodium 134 L (137-145) mmol/L POC Glucose (mg/dL) 110 H (75-99) mg/dL Total Protein 5.2 L (6.3-8.2) g/dL Albumin 2.8 L (3.5-5.0) g/dL 12/18/17 Range/Units 11:51 RBC (4.30-5.90) m/uL Hgb (13.0-17.5) gm/dL Hct (39.0-53.0) % PT (9.0-12.0) sec INR (<1.2) Sodium (137-145) mmol/L POC Glucose (mg/dL) 107 H (75-99) mg/dL Total Protein (6.3-8.2) g/dL Albumin (3.5-5.0) g/dL Assessment and Plan Plan: Assessment: #1. Severe aortic valve insufficiency, status post bioprosthetic aortic valve replacement, with exclusion of left atrial appendage, and intraoperative ODETTE with bilateral pulmonary vein isolation, postop day 8 #2. New onset atrial fibrillation, with controlled rate, and unexpected but potential outcome of surgery #3. Abdominal distention, constipation, possible ileus, improved, and the patient is passing gas and having bowel movements, tolerating oral diet #4. Essential hypertension #5. Hyperlipidemia #6. Remote history of smoking, preop bedside spirometry showed normal lung function, with FEV1 of 3.14 L or 94% of predicted #7. GERD/reflux #8. Benign prostatic hyperplasia #9. Osteoarthritis Plan: Continue encouraging incentive spirometry use, ambulation, pulmonary toileting. Patient was given a dose of IV Lasix per CT surgery today, no hypoglycemic episodes overnight, he is tolerating oral intake. His chest x-ray has been reviewed and showed some atelectasis within the lingula, and minimal effusion along the lateral right costophrenic angle. Patient is stable, he is anticipated to be transferred to inpatient rehab this afternoon or tomorrow I performed a history & physical examination of the patient and discussed their management with my nurse practitioner, Amaris Rangel. I reviewed the nurse practitioner's note and agree with the documented findings and plan of care. Lung sounds are positive for urge breath sounds. The findings and the impression was discussed with the patient. I attest to the documentation by the nurse practitioner. Time with Patient: Less than 30
--- NOTE | 2017-12-18 13:08 | P.PN ---
Subjective This is a pleasant 77 years old male with past medical history of GERD, hyperlipidemia, hypertension, arthritis, prostate disorder, gout, occasional dyspnea. See at the care of the left leg. Status post cardiac cath. Exit smoker. Who presents for valve disease. he is postoperative for aortic valve insufficiency he is post bioprosthetic aortic valve replacement. Patient has been extubated continues to be in ICU sitting in chair at bedside. His prostatic cardiac cath on 09/2017. And at that time he was recommended to have aortic valve replacement and repair for severe aortic valve regurgitation. At that time his ejection fraction was 55% 12/11/2017 Patient remains in the ICU. And a critical case but more stable. He got extubated.. Labs are reviewed and showing sodium 134. Creatinine 0.8. Liver function tests were unremarkable. Mildly hyperglycemic at 124. INR is 1.1. No leukocytosis with WBC 7.0K. Hemoglobin 7.9 and platelets low at 110. Chest x-ray: Removal of the [place] scans catheter. Similar mild pulmonary vascular congestion and cardiomegaly in comparison to the exam of 12/10/2017. Cardiology on the case well as pulmonary. Discussed the case with the vascular surgery team patient possible transfer to the floor tomorrow 12/12/2017 pt is sitting in bed , denies chest pain or dyspnea for me, no change in urine or bowel habits , pt is afebrile, BP is stable , he was noted to be alittle tachypnic however he is saturating well at high 90s on 2 L via nasal cannula . Na is trending down 134 to 130 , monitor Na closely , creatinine 1.0. glucose is controlled . Hb 7.9 12/13/2017 pt is lying on chair , not in distress, he states he got dizzy when he got up in the morning , but he then walk good , and feels better while sitting, no chest pain, pt states one of the aide saw blood in his stool, we checked occult blood in stool (ordered) , we recommend calling gastroenterology consult as per the primary team , check postural vitals . his glucose is running on the low side down to 60's, his insulin lowered total 8 units, monitor glucose closely. pt is noticed with slowly trending down anemia especially pt is on aspirin and plavix. 12/13/2017 pt is lying on chair , not in distress, no dizziness , and feels better while sitting, no chest pain, he has problems with moving his bowel due to his intestinal ileus, patient today he states he feels better. He had 2 bowel movements which were somewhat loose, however no diarrhea. No abdominal pain. No nausea vomiting. And patient is tolerating his diet. occult blood in stool is negative, gastroenterology consult: Is appreciated, no further workup currently . His insulin was discontinued rate for low blood sugar. His glucose is running currently between [id number] his anemia is stable with hemoglobin 7.4-7.9. pt is on aspirin and plavix., Hold Coumadin today for supratherapeutic INR at 4.2 REVIEW OF SYSTEMS: CONSTITUTIONAL: No fever, no malaise, no fatigue. HEENT: No recent visual problems or hearing problems. Denied any sore throat. CARDIOVASCULAR: No orthopnea, PND, no palpitations, no syncope. PULMONARY: No shortness of breath, no cough, no hemoptysis. GASTROINTESTINAL: No diarrhea, no nausea, no vomiting, no abdominal pain. Normoactive bowel sounds. NEUROLOGICAL: No headaches, no weakness, no numbness. HEMATOLOGICAL: Denies any bleeding or petechiae. GENITOURINARY: Denies any burning micturition, frequency, or urgency. MUSCULOSKELETAL/RHEUMATOLOGICAL: Denies any joint pain, swelling, or any muscle pain. ENDOCRINE: Denies any polyuria or polydipsia. Objective - Vital Signs Vital signs: Vital Signs Temp 99.2 F 12/18/17 04:00 Pulse 74 12/18/17 12:38 Resp 17 12/18/17 04:00 BP 116/58 12/18/17 04:00 Pulse Ox 98 12/18/17 12:38 Intake & Output 12/17/17 12/18/17 12/18/17 18:59 06:59 18:59 Intake Total 720 150 360 Output Total 3 701 Balance 717 -551 360 Weight 118.7 kg 118.3 kg Intake: Oral 720 150 360 Output: Urine 700 Stool 3 1 Other: Voiding Method Indwelling Catheter Indwelling Catheter # Bowel Movements 3 ABP, PAP, CO, CI - Last Documented Arterial Blood Pressure 109/46 Pulmonary Artery Pressure 32/13 Cardiac Output 6.9 Cardiac Index 3.2 - Exam GENERAL: The patient is alert and oriented x3, not in any acute distress. Well developed, well nourished. HEENT: Pupils are round and equally reacting to light. EOMI. No scleral icterus. No conjunctival pallor. Normocephalic, atraumatic. No pharyngeal erythema. No thyromegaly. CARDIOVASCULAR: S1 and S2 present. No murmurs, rubs, or gallops. PULMONARY: Chest is clear to auscultation, no wheezing or crackles. ABDOMEN: Soft, nontender, nondistended, normoactive bowel sounds. No palpable organomegaly. MUSCULOSKELETAL: No joint swelling or deformity. EXTREMITIES: No cyanosis, clubbing, or pedal edema. NEUROLOGICAL: Gross neurological examination did not reveal any focal deficits. SKIN: No rashes. - Labs CBC & Chem 7: 12/18/17 05:49 12/18/17 05:49 Labs: Abnormal Lab Results - Last 24 Hours (Table) 12/17/17 12/17/17 12/18/17 Range/Units 16:39 21:07 02:08 RBC (4.30-5.90) m/uL Hgb (13.0-17.5) gm/dL Hct (39.0-53.0) % PT (9.0-12.0) sec INR (<1.2) Sodium (137-145) mmol/L POC Glucose (mg/dL) 122 H 128 H 105 H (75-99) mg/dL Total Protein (6.3-8.2) g/dL Albumin (3.5-5.0) g/dL 12/18/17 12/18/17 12/18/17 Range/Units 05:49 05:49 05:49 RBC 2.52 L (4.30-5.90) m/uL Hgb 7.8 L (13.0-17.5) gm/dL Hct 24.1 L (39.0-53.0) % PT 38.1 H (9.0-12.0) sec INR 4.2 H (<1.2) Sodium 134 L (137-145) mmol/L POC Glucose (mg/dL) (75-99) mg/dL Total Protein 5.2 L (6.3-8.2) g/dL Albumin 2.8 L (3.5-5.0) g/dL 12/18/17 12/18/17 Range/Units 05:59 11:51 RBC (4.30-5.90) m/uL Hgb (13.0-17.5) gm/dL Hct (39.0-53.0) % PT (9.0-12.0) sec INR (<1.2) Sodium (137-145) mmol/L POC Glucose (mg/dL) 110 H 107 H (75-99) mg/dL Total Protein (6.3-8.2) g/dL Albumin (3.5-5.0) g/dL Assessment and Plan Assessment: Postoperative bioprosthetic aortic valve replacement for severe aortic valve regurgitation Operative atrial fibrillation, on Coumadin Hypertension Hyperlipidemia GERD BPH arthritis Intestinal ileus Plan: Continue with the same treatment. Continuous symptomatic treatment. Labs and medication were reviewed . Resume his home medication. Patient is on aspirin and statin, Plavix. GI prophylaxis with Protonix and DVT prophylaxis. Electrolyte replacement as per protocol. Monitor labs and vitals. Pain management . pt is on bladder scan too . pt is noticed with slowly trending down anemia . management of anemia and decision of blood transfusion if needed is deferred to the primary team upon their request. cardiology and pulmonary team on the case . occult blood in stool negative. gastroenterology consult is appreciated Of insulin currently, sugar is controlled. He is on Coumadin for A. fib, INR 4.2, hold Coumadin and check INR tomorrow Further recommendation is made on the clinical course of the patient's Patient is going for subacute rehab tomorrow thank you for consulting us.
--- NOTE | 2017-12-18 15:24 | P.PN ---
Subjective Progress Note Date: 12/18/17 This is a 77-year-old male patient underwent a aortic valve replacement for severe aortic stenosis. He is overall doing well. Denies any chest discomfort , breathing is stable. Continues to be in atrial fibrillation, rate under good control. On anticoagulation. Using his incentive spirometry. 12/15/2017 Patient seen and examined this morning, and some mild distress, complaining of feeling full and bloated, mild abdominal discomfort. He is noted to have a distended abdomen, firm. Patient was seen earlier by nurse practitioner from cardiothoracic service and recommended to go downstairs for an acute abdominal series. This revealed diffuse gaseous distention of the colon, findings suspected to represent an ileus. Surgical consultation has been requested and patient has been encouraged to be up ambulating in the hallway as much as possible. I pressure 148/70 with a heart rate in the 70s to 80s. White blood cell count 8.9, hemoglobin 7.8, platelet count 243. Sodium 132, potassium 5.0, BUN 30, creatinine 1.3. 12/16/2017 Patient seen and examined this morning, he has been up ambulating the hallway, passing significant amount of flatus, he did also have a small bowel movement today. In and out of atrial fibrillation today at the time of our examination in the afternoon, he was in atrial fibrillation, receiving an IV amiodarone bolus. Blood pressure 108/60 with a heart rate in the 60s. Blood cell count 7.9 , hemoglobin 9.7, platelet count 170. 12/17/2017 Patient seen and examined this morning, sitting up in the chair at bedside. Still has mild abdominal bloating but overall doing much better. 12/18/2017 seen and examined this morning, doing well overall. Anticipating transferred to rehab tomorrow. Hemodynamically stable. Abdomen is much softer today. Objective - Vital Signs Vital signs: Vital Signs Temp 99.2 F 12/18/17 04:00 Pulse 74 12/18/17 12:38 Resp 17 12/18/17 04:00 BP 116/58 12/18/17 04:00 Pulse Ox 98 12/18/17 12:38 Intake & Output 12/17/17 12/18/17 12/18/17 18:59 06:59 18:59 Intake Total 720 150 360 Output Total 3 701 Balance 717 -551 360 Weight 118.7 kg 118.3 kg Intake: Oral 720 150 360 Output: Urine 700 Stool 3 1 Other: Voiding Method Indwelling Catheter Indwelling Catheter # Bowel Movements 3 ABP, PAP, CO, CI - Last Documented Arterial Blood Pressure 109/46 Pulmonary Artery Pressure 32/13 Cardiac Output 6.9 Cardiac Index 3.2 - Exam PHYSICAL EXAMINATION: GENERAL: 77-year-old gentleman in no acute distress at the time of my examination HEENT: Head is atraumatic, normocephalic. Pupils equal, round. Sclera anicteric. Conjunctiva are clear. Mucous membranes of the mouth are moist. Neck is supple. There is no elevated jugular venous pressure.] bruit is heard. HEART EXAMINATION: Heart S1 and S2 irregularly irregular CHEST EXAMINATION: Lungs are clear with diminished air entry to bilateral bases. Reaching 1500 on his incentive spirometry. ABDOMEN: Soft , sounds are heard. No organomegaly noted. EXTREMITIES: 2+ peripheral pulses with no evidence of peripheral edema and no calf tenderness noted. NEUROLOGIC patient is awake, alert and oriented ?-3. . - Labs CBC & Chem 7: 12/18/17 05:49 12/18/17 05:49 Labs: Abnormal Lab Results - Last 24 Hours (Table) 12/17/17 12/17/17 12/18/17 Range/Units 16:39 21:07 02:08 RBC (4.30-5.90) m/uL Hgb (13.0-17.5) gm/dL Hct (39.0-53.0) % PT (9.0-12.0) sec INR (<1.2) Sodium (137-145) mmol/L POC Glucose (mg/dL) 122 H 128 H 105 H (75-99) mg/dL Total Protein (6.3-8.2) g/dL Albumin (3.5-5.0) g/dL 12/18/17 12/18/17 12/18/17 Range/Units 05:49 05:49 05:49 RBC 2.52 L (4.30-5.90) m/uL Hgb 7.8 L (13.0-17.5) gm/dL Hct 24.1 L (39.0-53.0) % PT 38.1 H (9.0-12.0) sec INR 4.2 H (<1.2) Sodium 134 L (137-145) mmol/L POC Glucose (mg/dL) (75-99) mg/dL Total Protein 5.2 L (6.3-8.2) g/dL Albumin 2.8 L (3.5-5.0) g/dL 12/18/17 12/18/17 Range/Units 05:59 11:51 RBC (4.30-5.90) m/uL Hgb (13.0-17.5) gm/dL Hct (39.0-53.0) % PT (9.0-12.0) sec INR (<1.2) Sodium (137-145) mmol/L POC Glucose (mg/dL) 110 H 107 H (75-99) mg/dL Total Protein (6.3-8.2) g/dL Albumin (3.5-5.0) g/dL Assessment and Plan Plan: Assessment and plan #1 status post aortic valve replacement #2 obesity #3 paroxysmal atrial fibrillation, on anticoagulation #4 hyperlipidemia #5 hypertension #6 anemia Plan From cardiology's perspective, we'll recommend to continue the patient on his current medications. Plan is for possible transfer to inpatient rehab tomorrow. DNP note has been reviewed, I agree with a documented findings and plan of care. Patient was seen and examined.
--- NOTE | 2017-12-18 15:43 | P.DS ---
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 surgery Do you want consulting provider notified?: Yes 12/13/17 07:35 Consult Physician Routine Consulting Provider: Jered Dewitt Consult Reason/Comments: inpatient rehab Do you want consulting provider notified?: Yes 12/15/17 12:22 Consult Physician Routine Consulting Provider: Stephen Grider Consult Reason/Comments: poss ileus post cardiac surgery Do you want consulting provider notified?: Yes Primary care physician: Abner Davenport - Discharge Diagnosis(es) (1) Severe aortic valve regurgitation Current Visit: Yes Status: Chronic (2) Supraventricular tachycardia Current Visit: No Status: Resolved (3) Obesity (BMI 30-39.9) Current Visit: Yes Status: Chronic (4) Osteoarthritis Current Visit: Yes Status: Chronic (5) Tobacco dependence in remission Current Visit: No Status: Resolved (6) BPH (benign prostatic hyperplasia) Current Visit: Yes Status: Chronic (7) Dyslipidemia Current Visit: Yes Status: Chronic (8) GERD (gastroesophageal reflux disease) Current Visit: Yes Status: Chronic (9) Hypertension Current Visit: Yes Status: Chronic Hospital Course: FINAL DIAGNOSIS: 1. Severe aortic valve regurgitation 2. Mild left ventricular dysfunction 3. Supraventricular tachycardia 4. Obesity 5. Hypertension 6. Hyperlipidemia 7. GERD 8. Osteoporosis 9. BPH 10. Gout 11. Previous tobacco dependence with preoperative FEV1 94% of predicted 12. Postoperative normal cystic, normochromic anemia 13. Postoperative thrombocytopenia 14. Postoperative atrial fibrillation 15. Postoperative urinary retention 16. Postoperative ileus PRINCIPAL PROCEDURE: 1. Aortic valve replacement using a 27 mm Inspiris bovine probably bioprosthesis 2. Exclusion of the left atrial appendage using a 45 mm AtriClip 3. Partial sternal plating 4. Intraoperative transesophageal echocardiogram 5. Epi-aortic scanning HISTORY OF PRESENT ILLNESS: This is a 77-year-old gentleman who is followed by Dr. Abner Davenport on an outpatient basis. In May 2017 the patient had an episode of chest pressure along with dizziness, fatigue, and progressive shortness of breath with exertion. He had a 12-lead EKG which was abnormal, followed by a stress test which demonstrated no definite EKG evidence of ischemia, although during his recovery the patient had an episode of nonsustained ventricular tachycardia. Subsequently he underwent heart catheterization in which demonstrated nonocclusive coronary arteries and 4+ aortic valve regurgitation. During the catheterization a left ventriculogram was completed which showed an ejection fraction of 55%. Transthoracic echo demonstrated low-normal systolic function with an EF between 50-55%, moderate aortic regurgitation, mild mitral regurgitation, and mild tricuspid regurgitation. The patient was referred to Dr. Smith from cardiothoracic surgery. He was recommended to have aortic valve replacement. All risks and benefits were explained in detail to the patient and his family, all questions were answered, and consent was obtained to proceed with surgery. The patient was expected to obtain dental clearance and once this was done the surgical date was planned. HOSPITAL COURSE: The patient was brought to the hospital on 12/09/2017, taken to the preoperative area, prepared in the usual fashion, and subsequently taken to the operating room where Dr. Smith performed an aortic valve replacement using a 27 mm Inspiris bovine probably bioprosthesis, exclusion of the left atrial appendage using a 45 mm AtriClip, partial sternal plating, intraoperative transesophageal echocardiogram, and epi-aortic scanning. Upon completion of surgery the patient was transferred to the cardiovascular intensive care unit where he was recovered, monitored hemodynamically, and where he progressed to cardiac rehabilitation phase 1. He was extubated, all lines, tubes, and drips were discontinued when appropriate, and he was transferred to [address] [place] [address] for further monitoring and rehabilitation. Postoperatively he did have anemia and thrombocytopenia which did not require any intervention, he developed atrial fibrillation which was treated with amiodarone, urinary retention with replacement of his Benoit catheter, and an ileus which resolved rather quickly. His oxygen was titrated down, he continued to work with physical and occupational therapy, he was tolerating oral diet, his pain was controlled, and he was ready to be discharged to [facility] inpatient rehab on postoperative day #10. Of note he is going to inpatient rehab with his Benoit catheter, to have bladder training done at rehab.He received written and verbal instruction regarding his medications, activity restrictions, signs and symptoms requiring physician notification, and follow-up appointments. COMPLICATIONS: The patient experienced postoperative anemia, thrombocytopenia, atrial fibrillation, urinary retention, and ileus all which were treated accordingly. Plan - Discharge Summary Discharge Rx Participant: Yes New Discharge Prescriptions: New Acetaminophen Tab [Tylenol] 650 mg PO Q4HR PRN tab PRN Reason: Fever and/ or MODERATE Pain Acetaminophen Tab [Tylenol] 325 mg PO Q4HR PRN tab PRN Reason: Fever and/ or MILD Pain ALPRAZolam [Xanax] 0.25 mg PO TID PRN #30 tab PRN Reason: Anxiety Amiodarone [Cordarone] 200 mg PO BID tab Aspirin 81 mg PO DAILY chew Atorvastatin [Lipitor] 40 mg PO DAILY tab Bisacodyl [Dulcolax] 10 mg RECTAL DAILY PRN supp PRN Reason: Constipation Furosemide [Lasix] 20 mg PO DAILY #7 tab Insulin Aspart [NovoLOG (formulary)] 0 unit SQ [id number] vial Ipratropium-Albuterol Nebulize [Duoneb 0.5 mg-3 mg/3 ml Soln] 3 ml INHALATION RT-QID ampul.neb Ipratropium-Albuterol Nebulize [Duoneb 0.5 mg-3 mg/3 ml Soln] 3 ml INHALATION RT-Q2H PRN ampul.neb PRN Reason: Shortness Of Breath Or Wheezing Metoprolol Tartrate [Lopressor] 25 mg PO BID tab Pantoprazole [Protonix] 40 mg PO AC-BID tablet.dr [place]-Docusate Sodium [Senokot-S] 2 each PO BID tab Sodium Chloride 0.65% Nasal [Deep Sea (Saline)] 2 spray NASAL QID PRN spray PRN Reason: Congestion Warfarin [Coumadin] 1 mg PO DAILY #1 tablet Continue Tamsulosin [Flomax] 0.4 mg PO HS Allopurinol [Zyloprim] 100 mg PO DAILY Finasteride [Proscar] 5 mg PO QAM Fluticasone Propionate 1 - 2 sprays EA NOSTRIL DAILY PRN PRN Reason: Allergy Symptoms Discontinued Ranitidine HCl 150 mg PO BID Celecoxib [CeleBREX] 200 mg PO QAM Atorvastatin [Lipitor] 20 mg PO QAM Losartan Potassium 50 mg PO HS metroNIDAZOLE 0.75% CREAM [Metrocream] 1 applic TOPICAL HS PRN PRN Reason: Rash Albuterol Sulfate [Proair Hfa] 2 puff INHALATION RT-Q6H PRN PRN Reason: Shortness Of Breath Or Wheezing Discharge Medication List Tamsulosin [Flomax] 0.4 mg PO HS 11/23/15 [History] Allopurinol [Zyloprim] 100 mg PO DAILY 11/24/15 [History] Finasteride [Proscar] 5 mg PO QAM 11/24/15 [History] Fluticasone Propionate 1 - 2 sprays EA NOSTRIL DAILY PRN 11/24/15 [History] ALPRAZolam [Xanax] 0.25 mg PO TID PRN #30 tab 12/18/17 [Rx] Acetaminophen Tab [Tylenol] 325 mg PO Q4HR PRN tab 12/18/17 [Rx] Acetaminophen Tab [Tylenol] 650 mg PO Q4HR PRN tab 12/18/17 [Rx] Amiodarone [Cordarone] 200 mg PO BID tab 12/18/17 [Rx] Aspirin 81 mg PO DAILY chew 12/18/17 [Rx] Atorvastatin [Lipitor] 40 mg PO DAILY tab 12/18/17 [Rx] Bisacodyl [Dulcolax] 10 mg RECTAL DAILY PRN supp 12/18/17 [Rx] Furosemide [Lasix] 20 mg PO DAILY #7 tab 12/18/17 [Rx] Insulin Aspart [NovoLOG (formulary)] 0 unit SQ [id number] vial 12/18/17 [Rx] Ipratropium-Albuterol Nebulize [Duoneb 0.5 mg-3 mg/3 ml Soln] 3 ml INHALATION RT -Q2H PRN ampul.neb 12/18/17 [Rx] Ipratropium-Albuterol Nebulize [Duoneb 0.5 mg-3 mg/3 ml Soln] 3 ml INHALATION RT -QID ampul.neb 12/18/17 [Rx] Metoprolol Tartrate [Lopressor] 25 mg PO BID tab 12/18/17 [Rx] Pantoprazole [Protonix] 40 mg PO AC-BID tablet. 12/18/17 [Rx] Sennosides-Docusate Sodium [Senokot-S] 2 each PO BID tab 12/18/17 [Rx] Sodium Chloride 0.65% Nasal [Deep Sea (Saline)] 2 spray NASAL QID PRN spray 08/02 [Rx] Warfarin [Coumadin] 1 mg PO DAILY #1 tablet 12/18/17 [Rx] Follow up Appointment(s)/Referral(s): Abner Davenport MD [Primary Care Provider] - 1 Week (To follow at [facility]. Please make appointment upon discharge from [facility].) Hima Young MD [STAFF PHYSICIAN] - 01/29/18 12:00 pm (To follow at [facility]) Dl Smith MD [STAFF PHYSICIAN] - 01/22/18 10:00 am Federico Jeffers DO [Doctor of Osteopathic Medicine] - 1 Week (To follow at [facility]. Please make appointment upon discharge from [facility].) Ambulatory/Diagnostic Orders: Complete Blood Count w/diff [LAB.AMB] Time Frame: 3 Days, Location: None Selected Comprehensive Metabolic Panel [LAB.AMB] Time Frame: 3 Days, Location: None Selected Prothrombin Time INR [LAB.AMB] Time Frame: 1 Day, Location: None Selected Patient Instructions/Handouts: Warfarin (By mouth), Vitamin K in Foods (DC) Activity/Diet/Wound Care/Special Instructions: DISCHARGE INSTRUCTIONS: Consults at [facility]: Dr. Young (cardiology associates) for cardiology, coumadin management Dr. Davenport for medical management Dr. Jeffers for pulmonology 1. No driving for 4 weeks, or until physician gives their ok. 2. The patient should sleep in their own bed, no medical bed needed. 3. Stairs are not an issue. If the bedroom is upstairs, it is advised that the patient go up at night and down in the morning for the first week. Go slowly, using handrail and take 1 step at a time. 4. RUFINO hose are to be worn for 30 days or until physician discontinues. 5. Heart hugger is to be worn 100% of the time until physician discontinues.( except when showering) 6. No lifting, pushing, or pulling more than 10 pounds for 12 weeks. The physician will advise of any restriction changes. 7. The patient is expected to continue the prescribed walking program. 8. Continue pain control per as needed orders. 9. Continue with incentive spirometry and splinting/heart hugger until otherwise directed by the physician. 10. Must shower daily using liquid antibacterial soap and a separate white washcloth for each individual incision. 11. Routine sternal incision care. No powders, lotions, ointments on incisions. 12. Please call surgeon/ORCHESTRATOR for temp greater than 101 F or purulent drainage from incisions. 13. All prescriptions given by surgeon for 30 days. Refills need to be filled through land survey technician/primary care physician. 14. A Red armband has been placed on the patient. It should be worn for 30 days post surgery and will be removed by the cardiac surgeons. If an ER visit is necessary, please make sure the number on the Red armband is called. 15. Patient to have benoit removed and trial void per facility policy/Dr. Davenport' s recommendation REHAB/HOME HEALTH SERVICES TO PROVIDE: RN SKILLED HOME CARE SERVICES FOR POST-OP SURGICAL PATIENTS WITH THE FOLLOWING: Coronary Artery Bypass Surgery (CABG), Mitral Valve Replacement/ Repair ( MVR), Aortic Valve Replacement/Repair (AVR) RN TO CONTINUE EDUCATION FROM ``ROAD TO A HEALTH HEART PATIENT EDUCATION MANUAL (GIVEN TO PATIENT IN THE HOSPITAL) MEDICATION RECONCILIATION WITH EDUCATION NEEDED ON FIRST HOME VISIT EMPHASIZE IMPORTANCE OF WEARING BREAST SUPPORT/HEART HUGGER ENCOURAGE USE OF INCENTIVE SPIROMETER 10 X EVERY HOUR WHILE AWAKE ENCOURAGE UTILIZATION OF LOWER EXTREMITY COMPRESSION STOCKINGS/RUFINO HOSE and ELEVATE LEGS ABOVE LEVEL OF HEART WHILE AT REST. ENCOURAGE AMBULATION 3-5x/day INCREASING TOLERATES, WHILE AVOID EXTREMES IN TEMPERATURE FREQUENCY: RN TO OPEN THE PATIENT WITHIN 24 HOURS OF DISCHARGE FROM THE HOSPITAL WITH TELEHEALTH INSTALLED AT [facility], RN TO VISIT 2-3 X A WEEK FOR 4 WEEKS ESTABLISHED BY PATIENT NEEDS. REMOVAL OF SUTURES: NURSING SERVICES TO REMOVE SUTURES TWO WEEKS POST SURGICAL DATE, 12/23/17. If any questions regarding suture removal please call the office at [phone]. LABORATORY: CBC, CMP TO BE DRAWN ON THE THIRD DAY HOME, (RAN STAT) FAX RESULTS TO [phone]. For patients on Coumadin, PT/INR to be drawn daily, results called to land survey technician for daily coumadin dosing. TELEHEALTH PARAMETERS: WEIGHT: NOTIFY MD OF WEIGHT GAIN OF 2 LBS IN 24 HOURS OR 5 LBS IN ONE WEEK HR: NOTIFY MD OF HR <55 BPM OR HR>100 BPM BP: NOTIFY MD IF BP <90/55 OR BP>140/100 O2 SAT: NOTIFY MD IF PO2<93% ON ROOM AIR SEND TELEHEALTH REPORT TO [employer] SUPERINTENDENT AND CARDIOVASCULAR SURGEON THE FIRST WEEK OF CARE AND THEN BI-WEEKLY. PLEASE ADDITIONALLY COMMUNICATE ANY ABNORMALS AND NEW FINDINGS TO THE SURGEONS OFFICE. Discharge Disposition: DC/TRNS INTERMEDIATE CARE FAC
[2017-12-18] MEDS: METHYL SALICYLATE/MENTHOL CREAM 5 OZ TOPICAL PRN (16:31)
--- NOTE | 2017-12-18 16:37 | P.PN ---
Subjective Progress Note Date: 12/18/17 Principal diagnosis: Severe aortic valve regurgitation. Mild left ventricular dysfunction. Supraventricular tachycardia. Obesity. Hypertension. Hyperlipidemia. GERD. Osteoporosis. BPH. Gout. Previous tobacco dependence with preoperative FEV1 94% of predicted. POD #9 aortic valve replacement using a 27 mm Inspiris bovine bioprosthesis. Exclusion of the left atrial appendage using a 45 mm Atriclip. Partial sternal plating. Intraoperative transesophageal echocardiogram and epi-aortic scanning. Postoperative diagnosis, normochromic anemia, an expected outcome of surgery secondary to cardiopulmonary bypass and hemodilution. Postoperative thrombocytopenia, an expected outcome of surgery. Postoperative atrial fibrillation, an unexpected but potential outcome of surgery. Postoperative urinary retention, an unexpected outcome. Postoperative ileus, an unexpected outcome. Patient was sitting up in a chair this morning in no acute distress. States he does feel a little bit better every day. Abdomen is much less distended, patient has had several small bowel movements and is passing a significant amount of gas. He has been ambulating in the hallway. Pain is currently controlled on ordered medication. Objective - Vital Signs Vital signs: Vital Signs Temp 99.2 F 12/18/17 04:00 Pulse 61 12/18/17 16:25 Resp 17 12/18/17 04:00 BP 116/58 12/18/17 04:00 Pulse Ox 98 12/18/17 12:38 Intake & Output 12/17/17 12/18/17 12/18/17 18:59 06:59 18:59 Intake Total 720 150 600 Output Total 3 701 1400 Balance 877 -253 -800 Weight 118.7 kg 118.3 kg Intake: Oral 720 150 600 Output: Urine 700 1400 Stool 3 1 Other: Voiding Method Indwelling Catheter Indwelling Catheter # Bowel Movements 3 ABP, PAP, CO, CI - Last Documented Arterial Blood Pressure 109/46 Pulmonary Artery Pressure 32/13 Cardiac Output 6.9 Cardiac Index 3.2 - Constitutional General appearance: Present: cooperative, no acute distress, obese - Respiratory Details: Lungs sounds diminished bilaterally. Respirations even, slightly labored. Currently on room air with oxygen saturation 98%. Able to achieve 1500 mL on his incentive spirometry. - Cardiovascular Details: S1, S2 present. Regular rate and rhythm, sinus rhythm on telemetry. Sternum stable. Palpable peripheral pulses bilaterally. Bilateral lower extremity edema present. No calf pain or tenderness noted. Heart hugger in place with patient demonstrating appropriate use. Antiembolism stockings, SCDs present. - Gastrointestinal Gastrointestinal Comment(s): abdomen soft, nontender, still slightly distended but much less, obese. Loud, active bowel sounds present. Tolerating diet. Positive bowel movements, positive flatus. - Genitourinary Genitourinary Comment(s): Trinidad present draining clear, yellow urine. Excellent diuresis with Lasix. - Integumentary Integumentary Comment(s): Skin is warm and dry with evidence of good perfusion. Anterior chest incision well approximated and covered with dry intact dressing. - Neurologic Neurologic: Present: CNII-XII intact - Musculoskeletal Musculoskeletal: Present: gait normal, strength equal bilaterally - Psychiatric Psychiatric: Present: A&O x's 3, appropriate affect, intact judgment & insight - Allied health notes Allied health notes reviewed: nursing - Labs CBC & Chem 7: 12/18/17 05:49 12/18/17 05:49 Labs: Abnormal Lab Results - Last 24 Hours (Table) 12/17/17 12/17/17 12/18/17 Range/Units 16:39 21:07 02:08 RBC (4.30-5.90) m/uL Hgb (13.0-17.5) gm/dL Hct (39.0-53.0) % PT (9.0-12.0) sec INR (<1.2) Sodium (137-145) mmol/L POC Glucose (mg/dL) 122 H 128 H 105 H (75-99) mg/dL Total Protein (6.3-8.2) g/dL Albumin (3.5-5.0) g/dL 12/18/17 12/18/17 12/18/17 Range/Units 05:49 05:49 05:49 RBC 2.52 L (4.30-5.90) m/uL Hgb 7.8 L (13.0-17.5) gm/dL Hct 24.1 L (39.0-53.0) % PT 38.1 H (9.0-12.0) sec INR 4.2 H (<1.2) Sodium 134 L (137-145) mmol/L POC Glucose (mg/dL) (75-99) mg/dL Total Protein 5.2 L (6.3-8.2) g/dL Albumin 2.8 L (3.5-5.0) g/dL 12/18/17 12/18/17 Range/Units 05:59 11:51 RBC (4.30-5.90) m/uL Hgb (13.0-17.5) gm/dL Hct (39.0-53.0) % PT (9.0-12.0) sec INR (<1.2) Sodium (137-145) mmol/L POC Glucose (mg/dL) 110 H 107 H (75-99) mg/dL Total Protein (6.3-8.2) g/dL Albumin (3.5-5.0) g/dL Assessment and Plan (1) Severe aortic valve regurgitation Current Visit: Yes Status: Chronic Code(s): I35.1 - NONRHEUMATIC AORTIC ( VALVE) INSUFFICIENCY SNOMED Code(s): 56192712 (2) Supraventricular tachycardia Current Visit: No Status: Resolved Code(s): I47.1 - SUPRAVENTRICULAR TACHYCARDIA SNOMED Code(s): 8781382 (3) Obesity (BMI 30-39.9) Current Visit: Yes Status: Chronic Code(s): E66.9 - OBESITY, UNSPECIFIED SNOMED Code(s): 118878276 (4) Osteoarthritis Current Visit: Yes Status: Chronic Code(s): M19.90 - UNSPECIFIED OSTEOARTHRITIS, UNSPECIFIED SITE SNOMED Code(s): 337245445 (5) Tobacco dependence in remission Current Visit: No Status: Resolved Code(s): F17.201 - NICOTINE DEPENDENCE, UNSPECIFIED, IN REMISSION SNOMED Code(s): 992237692 (6) BPH (benign prostatic hyperplasia) Current Visit: Yes Status: Chronic Code(s): N40.0 - BENIGN PROSTATIC HYPERPLASIA WITHOUT LOWER URINRY TRACT SYMP SNOMED Code(s): 799309660 (7) Dyslipidemia Current Visit: Yes Status: Chronic Code(s): E78.5 - HYPERLIPIDEMIA, UNSPECIFIED SNOMED Code(s): 594154615 (8) GERD (gastroesophageal reflux disease) Current Visit: Yes Status: Chronic Code(s): K21.9 - GASTRO-ESOPHAGEAL REFLUX DISEASE WITHOUT ESOPHAGITIS SNOMED Code(s): 935048925 (9) Hypertension Current Visit: Yes Status: Chronic Code(s): I10 - ESSENTIAL (PRIMARY) HYPERTENSION SNOMED Code(s): 87950728 Plan: 1. Continue low-dose aspirin, statin, heparin subcu, beta too. Will increase beta too therapy as tolerated. 2. Continue amiodarone for A. fib prophylaxis. Left atrial appendage was clipped. Continue Coumadin for anticoagulation, no Coumadin today with INR 4.2. Goal INR 2-2.5. 3. Encourage incentive spirometry use 10 times every hour. 4. Encourage continued smoking cessation. 5. Increase activity, ambulate as tolerated. PT/OT/cardiac rehab consulted. Patient needs much encouragement to ambulate. 6. Will monitor daily labs and x-rays. 7. GI/DVT prophylaxis. 8. Pain medication with current medication regimen, no narcotics. 9. Diabetic management per primary care service. 10. Bronchodilators per pulmonology. 11. Will give Lasix 20 mg daily 12. Anticipate discharge to [facility] inpatient rehab tomorrow. 13. Patient to go to rehab with [facility] intact. Voiding trial to be completed at [facility]. 14. More recommendations to follow. Time with Patient: Greater than 30
[2017-12-18 16:58] LABS: Glucose,Whole Blood 114 mg/dL (75-99)
[2017-12-18 17:46] VITALS: RESP 18
[2017-12-18 20:51] LABS: Glucose,Whole Blood 118 mg/dL (75-99)
[2017-12-18] MEDS: TAMSULOSIN 0.4 MG CAP.ER.24H PO SCH (21:41)
[2017-12-18] MEDS: ALPRAZolam 0.25 MG TAB PO PRN (22:00)
[2017-12-19] MEDS: METOCLOPRAMIDE 5 MG/ML 2 ML VIAL IVP SCH ×2 (00:36→06:57)
[2017-12-19 02:39] LABS: Glucose,Whole Blood 94 mg/dL (75-99)
[2017-12-19] MEDS: INSULIN ASPART 100 UNIT/ML 1 ML 10 ML VIAL SQ SCH ×2 (02:49→06:39)
[2017-12-19 06:10] LABS: Glucose,Whole Blood 108 mg/dL (75-99)
[2017-12-19 06:27] LABS: INR 2.9 (<1.2); Prothrombin Time 26.2 sec (9.0-12.0)
[2017-12-19 06:36] LABS: Calcium 8.5 mg/dL (8.4-10.2); Potassium 4.2 mmol/L (3.5-5.1)
[2017-12-19] MEDS: ASCORBIC ACID 500 MG TAB PO SCH (06:58)
[2017-12-19] MEDS: PANTOPRAZOLE 40 MG TABLET PO SCH (06:58)
--- NOTE | 2017-12-19 07:52 | XR ---
EXAMINATION TYPE: XR chest 2V DATE OF EXAM: 12/19/2017 HISTORY: post cardiac surgery. REFERENCE: Previous study dated 01/14/2018. FINDINGS: There has been a midline sternotomy. The heart is enlarged. Atelectatic changes in the left lingula have largely cleared. There continues be mild silhouetting of the left heart border. The rig ht lung is clear. There is a small left pleural effusion. IMPRESSION: 1. IMPROVED AERATION, LEFT LINGULA. 2. SMALL LEFT EFFUSION.
[2017-12-19 07:53] LABS: HCT 24.9 % (39.0-53.0); HGB 8.2 gm/dL (13.0-17.5); Hypochromasia Slight; MCHC 32.7 g/dL (31.0-37.0); MCV 94.6 fL (80.0-100.0); Mean Platelet Volume 7.1; Platelet Count 388 k/uL (150-450); RBC 2.63 m/uL (4.30-5.90); RDW 14.8 % (11.5-15.5); WBC 10.8 k/uL (3.8-10.6)
[2017-12-19] MEDS: AMIODARONE 200 MG TAB PO SCH (08:31)
[2017-12-19] MEDS: ASPIRIN 81 MG PO SCH (08:31)
[2017-12-19] MEDS: ALLOPURINOL 100 MG TAB PO SCH (08:31)
[2017-12-19] MEDS: SENNOSIDES-DOCUSATE SODIUM 1 EACH TAB PO SCH (08:31)
[2017-12-19] MEDS: ATORVASTATIN 40 MG TAB PO SCH (08:31)
[2017-12-19] MEDS: METOPROLOL TARTRATE 25 MG TAB PO SCH (08:32)
[2017-12-19] MEDS: BISACODYL 10 MG SUPP RECTAL SCH (08:32)
[2017-12-19] MEDS: FINASTERIDE 5 MG TAB PO SCH (08:32)
[2017-12-19 08:40] VITALS: BP 116/64; TEMP 98.1
[2017-12-19] MEDS: IPRATROPIUM-ALBUTEROL 3 ML NEB INHALATION SCH ×2 (09:11→11:35)
--- NOTE | 2017-12-19 10:11 | P.PN ---
Subjective Progress Note Date: 12/19/17 Principal diagnosis: Severe aortic valve regurgitation. Mild left ventricular dysfunction. Supraventricular tachycardia. Obesity. Hypertension. Hyperlipidemia. GERD. Osteoporosis. BPH. Gout. Previous tobacco dependence with preoperative FEV1 94% of predicted. POD #10 aortic valve replacement using a 27 mm Inspiris bovine bioprosthesis. Exclusion of the left atrial appendage using a 45 mm Atriclip. Partial sternal plating. Intraoperative transesophageal echocardiogram and epi-aortic scanning. Postoperative diagnosis, normochromic anemia, an expected outcome of surgery secondary to cardiopulmonary bypass and hemodilution. Postoperative thrombocytopenia, an expected outcome of surgery. Postoperative atrial fibrillation, an unexpected but potential outcome of surgery. Postoperative urinary retention, an unexpected outcome. Postoperative ileus, an unexpected outcome. Patient was sitting up in a chair this morning in no acute distress. States he does feel a little bit better every day. Abdomen is much less distended, patient has had several small bowel movements and is passing a significant amount of gas. He has been ambulating in the hallway. Pain is currently controlled on ordered medication. Patient is back in atrial fibrillation with a controlled response today, continue with current treatment. Objective - Vital Signs Vital signs: Vital Signs Temp 98.1 F 12/19/17 08:00 Pulse 94 12/19/17 08:00 Resp 18 12/19/17 08:00 BP 116/64 12/19/17 08:00 Pulse Ox 95 12/19/17 09:11 Intake & Output 12/18/17 12/19/17 12/19/17 18:59 06:59 18:59 Intake Total 700 240 Output Total 1403 1200 1 Balance -703 -960 -1 Weight 116.4 kg Intake: Oral 700 240 Output: Urine 1400 1200 Stool 3 1 Other: Voiding Method Indwelling Catheter Indwelling Catheter Indwelling Catheter ABP, PAP, CO, CI - Last Documented Arterial Blood Pressure 109/46 Pulmonary Artery Pressure 32/13 Cardiac Output 6.9 Cardiac Index 3.2 - Constitutional General appearance: Present: cooperative, no acute distress, obese - Respiratory Details: Lungs sounds diminished bilaterally. Respirations even, slightly labored. Currently on room air with oxygen saturation 97%. Able to achieve 1500 mL on his incentive spirometry. - Cardiovascular Details: S1, S2 present. Irregular rate and rhythm, controlled atrial fibrillation on telemetry. Sternum stable. Palpable peripheral pulses bilaterally. Trace bilateral lower extremity edema present. No calf pain or tenderness noted. Heart hugger in place with patient demonstrating appropriate use. Antiembolism stockings, SCDs present. - Gastrointestinal Gastrointestinal Comment(s): Abdomen soft, nontender, still slightly distended but much less, obese. Active bowel sounds present. Tolerating diet. Positive bowel movements, positive flatus. - Genitourinary Genitourinary Comment(s): Trinidad present draining clear, yellow urine. Output 1200 mL last night. Excellent diuresis with Lasix. - Integumentary Integumentary Comment(s): Skin is warm and dry with evidence of good perfusion. Anterior chest incision well approximated and covered with dry intact dressing. - Neurologic Neurologic: Present: CNII-XII intact - Musculoskeletal Musculoskeletal: Present: gait normal, strength equal bilaterally - Psychiatric Psychiatric: Present: A&O x's 3, appropriate affect, intact judgment & insight - Allied health notes Allied health notes reviewed: nursing - Labs CBC & Chem 7: 12/19/17 05:49 12/19/17 05:49 Labs: Abnormal Lab Results - Last 24 Hours (Table) 12/18/17 12/18/17 12/18/17 Range/Units 11:51 16:56 20:50 WBC (3.8-10.6) k/uL RBC (4.30-5.90) m/uL Hgb (13.0-17.5) gm/dL Hct (39.0-53.0) % PT (9.0-12.0) sec INR (<1.2) Sodium (137-145) mmol/L POC Glucose (mg/dL) 107 H 114 H 118 H (75-99) mg/dL 12/19/17 12/19/17 12/19/17 Range/Units 05:49 05:49 05:49 WBC 10.8 H (3.8-10.6) k/uL RBC 2.63 L (4.30-5.90) m/uL Hgb 8.2 L (13.0-17.5) gm/dL Hct 24.9 L (39.0-53.0) % PT 26.2 H (9.0-12.0) sec INR 2.9 H (<1.2) Sodium 134 L (137-145) mmol/L POC Glucose (mg/dL) (75-99) mg/dL 12/19/17 Range/Units 06:09 WBC (3.8-10.6) k/uL RBC (4.30-5.90) m/uL Hgb (13.0-17.5) gm/dL Hct (39.0-53.0) % PT (9.0-12.0) sec INR (<1.2) Sodium (137-145) mmol/L POC Glucose (mg/dL) 108 H (75-99) mg/dL - Imaging and Cardiology Chest x-ray: report reviewed, image reviewed Assessment and Plan (1) Severe aortic valve regurgitation Current Visit: Yes Status: Chronic Code(s): I35.1 - NONRHEUMATIC AORTIC ( VALVE) INSUFFICIENCY SNOMED Code(s): 66656864 (2) Supraventricular tachycardia Current Visit: No Status: Resolved Code(s): I47.1 - SUPRAVENTRICULAR TACHYCARDIA SNOMED Code(s): 1674078 (3) Obesity (BMI 30-39.9) Current Visit: Yes Status: Chronic Code(s): E66.9 - OBESITY, UNSPECIFIED SNOMED Code(s): 770425807 (4) Osteoarthritis Current Visit: Yes Status: Chronic Code(s): M19.90 - UNSPECIFIED OSTEOARTHRITIS, UNSPECIFIED SITE SNOMED Code(s): 209884684 (5) Tobacco dependence in remission Current Visit: No Status: Resolved Code(s): F17.201 - NICOTINE DEPENDENCE, UNSPECIFIED, IN REMISSION SNOMED Code(s): 763127363 (6) BPH (benign prostatic hyperplasia) Current Visit: Yes Status: Chronic Code(s): N40.0 - BENIGN PROSTATIC HYPERPLASIA WITHOUT LOWER URINRY TRACT SYMP SNOMED Code(s): 759884386 (7) Dyslipidemia Current Visit: Yes Status: Chronic Code(s): E78.5 - HYPERLIPIDEMIA, UNSPECIFIED SNOMED Code(s): 820630327 (8) GERD (gastroesophageal reflux disease) Current Visit: Yes Status: Chronic Code(s): K21.9 - GASTRO-ESOPHAGEAL REFLUX DISEASE WITHOUT ESOPHAGITIS SNOMED Code(s): 282773937 (9) Hypertension Current Visit: Yes Status: Chronic Code(s): I10 - ESSENTIAL (PRIMARY) HYPERTENSION SNOMED Code(s): 43590368 Plan: 1. Continue low-dose aspirin, statin, beta too. Will increase beta too therapy as tolerated. 2. Continue amiodarone for A. fib prophylaxis. Left atrial appendage was clipped. Continue Coumadin for anticoagulation, no Coumadin today with INR 2.9. Goal INR 2-2.5. 3. Encourage incentive spirometry use 10 times every hour. 4. Encourage continued smoking cessation. 5. Increase activity, ambulate as tolerated. PT/OT/cardiac rehab consulted. Patient needs much encouragement to ambulate. 6. GI/DVT prophylaxis. 7. Pain medication with current medication regimen, no narcotics. 8. Diabetic management per primary care service. 9. Bronchodilators per pulmonology. 10. Will give Lasix 20 mg daily 11. Anticipate discharge to [facility] inpatient rehab this afternoon. 12. Patient to go to rehab with [facility] intact. Voiding trial to be completed at [facility]. Time with Patient: Greater than 30
--- NOTE | 2017-12-19 11:12 | P.PN ---
Subjective Progress Note Date: 12/19/17 Principal diagnosis: Severe aortic insufficiency, status post aortic valve replacement. Mr. Hernandez is a 77-year-old patient of Dr. Davenport, who underwent aortic valve replacement with exclusion of left atrial appendage today, on 12/09/[address] Farris, for a diagnosis of severe aortic valve insufficiency. Past medical history includes hypertension, dyslipidemia, GERD, ulcer arthritis, BPH, gout, nonsustained V. tach, asymptomatic bilateral carotid artery stenosis, remote history of smoking, and non-rheumatologic aortic valve insufficiency. Patient has had episodes of dizziness, fatigue, and progressive shortness of breath with exertion. Stress test on 07/01/2017 showed no definite ECG evidence of ischemia, the patient did have an episode of nonsustained V. tach after the procedure. Patient had an elective heart catheterization for his persisting symptoms, and on 10/14/2017, patient had a heart cath which showed nonocclusive coronary arteries, and 4+ aortic valve regurgitation, LV ventriculogram showed an EF of 55%. Patient was recommended aortic valve replacement, and the patient opted for the procedure. Today we are seeing the patient postop after his surgery, sedated on mechanical ventilation, current vent settings SIMV mode with a rate of 12, tidal volume of 600, FiO2 of 100% and PEEP of 10. Postop blood gases showed pO2 of 188, pCO2 43, and pH of 7.34, and we recommended to decrease the FiO2 down to 60%, and subsequently down to 50%. Patient is sinus rhythm on the monitor, with a rate of 65 BPM, he has a atrioventricular epicardial wires in place connected to an external pacemaker, with a backup rate of VVI 40 BPM. Hemodynamically stable, blood pressure is 110/58, PA pressures 41/20, with a CVP of 14, cardiac outputs in index, is 6.1 and 2.6 respectively. Patient has a mediastinal chest tube, with sanguinous output, and there has been a total of 250 of sanguious output since OR exit time at 1319 p.m. patient was given 750 ML of Cell Saver, 2 L of lactated Ringer's, and 250 mL of albumin. Patient was given additional 500 mL of 5% albumin in the intensive care. His current maintenance IV is LR at a rate of 50 ML per hour, Diprivan is a 45 mics per kilo per minute, nitroglycerin is at 5 mics per minute , insulin is on hold, and clevidipine is currently on hold. Postop blood work showed WBC of 7.2, hemoglobin of 10.2, INR is 1.2, sodium is 140, potassium is 4.4, chloride is 111, BUN is 14, creatinine 0.72. Postop chest x-ray was reviewed by Dr. Mahmood, and shows endotracheal tube with the tip of above the jc, the heart size is normal, pulmonary mass culture is normal. Indwelling catheter is in place, and patient is nonoliguric. Progress note dated 12/10/2017 77-year-old male who is postop day #1 status post aortic valve replacement for aortic valve insufficiency. He had a bile is prostatic aortic valve replacement. He also had excision of left atrial appendage. He had an intraoperative ODETTE. The patient was on the ventilator post operatively and was able to be extubated within 6 hours. The patient has a history of essential hypertension hyperlipidemia remote history of tobacco use GERD and BPH and DJD. Currently the patient is doing relatively well. Resting comfortably. Working on deep breathing coughing clearing his secretions as well as incentive spirometer. Current laboratory data includes a white count of 5.7 hemoglobin 8.7 hematocrit 25.3 platelet count 104,000. PT INR and PTT are normal. Sodium and potassium are normal. Chlorides 108 CO2 24 BUN and creatinine were normal. Chest x-ray has not yet been done. On 12/11/2017 patient seen in follow-up in the intensive care unit. He states he couldn't sleep very well last night, could not get comfortable, feels a bit dyspneic, but no acute distress. Able to achieve 1250 on his incentive spirometry today. Lung sounds are clear, no crackles, no wheezes, no rhonchi. Pulse ox on 3 L per nasal cannula is 96%, patient is afebrile, hemodynamically stable, significant went into atrial fibrillation this morning, and he will be started on amiodarone drip per CT surgery. Today's chest x-ray has been reviewed by Dr. Jeffers, and shows mild pulmonary vascular congestion and cardiomegaly and what to previous chest x-ray from 12/10/2017. Today's labs have been reviewed, WBC 6.1, hemoglobin is 8.4, urine is 134, the rest of the electrolytes and renal profile are wall within normal limits. CT surgery gave patient a dose of IV Lasix yesterday. Mediastinal chest tube drainage is minimal, around 10 ML per hour. Is nonoliguric. Tolerating oral intake. Abdomen is distended, patient had a bowel movement, but bowel sounds positive 4. On 12/15/2017 patient seen in follow-up on selective care unit. He is just returned from the radiology Department where he was having abdominal x-rays taken for abdominal distention, and constipation. It showed diffuse gaseous distention of the colon, findings suspected to represent ileus. He received Dulcolax suppository. From pulmonary standpoint he denies any worsening dyspnea , lung sounds are diminished at the bases, with some scattered rales. His chest x-ray has been reviewed, and showed cardiomegaly, hypoventilatory changes and mild pulmonary vascular congestion. He is compliant with his incentive spirometry. Remains on 2 L per nasal cannula his pulse ox 100%, hemodynamically stable, he is afebrile. Today's labs were noted, CBC is 8.9, hemoglobin is 7.8, sodium is 132, BUN is 30, creatinine is 1.13. Patient has been started on Coumadin for anticoagulation for his postoperative atrial fibrillation. His INR is 1.1. On 12/16/2017 patient seen in follow-up on selective care unit. Patient is starting to pass gas and he had some liquid stools, his abdomen still distended , but not as tense. Present bowel sounds, is following, and patientwas started on oral feedings. No nausea, no vomiting, no diarrhea. Denies any worsening dyspnea, lung sounds are positive for bibasilar crackles, remains on 2 L per nasal cannula with pulse ox of 95%, he hemodynamically stable, afebrile. No new chest x-ray today, patient is compliant with his incentive spirometer. He has been tolerating ambulation. Patient has been started on Coumadin for anticoagulation for his postoperative atrial fibrillation, today's INR is 1.6, WBC today is 8.5, hemoglobin is 7.4, sodium is 134, the rest of electrolytes are normal, BUN is 22, creatinine is 1.05. On 12/17/2017 patient seen and again on selective care unit. He had episode of hypoglycemia this morning, and his blood sugar was 89, he was given peanut butter and crackers, and subsequently he came up to 78, and 67, patient is currently on 3 showed protocol, and his appetite has been poor. Normally he is not on any insulin or oral hypoglycemics at home. Denies any worsening dyspnea , lung sounds are diminished, today's chest x-ray has been reviewed, and shows stable findings, focal consolidation, cardiomegaly. Hemodynamically stable, vital signs are stable, pulse ox on 2 L per nasal cannula at 97%. Tolerating oral diet, the plan is for patient to be discharged to inpatient rehab upon discharge. On 12/18/2017 patient seen in follow-up on selective care unit. He denies any worsening dyspnea, FiO2 is at 2 L per nasal cannula, and his pulse ox is 95%, but a signs are stable, diminished at the bases, with a few bibasilar crackles, today's chest x-ray has been reviewed, shows mild subsegmental atelectasis within the lingula, and minimal effusion along the lateral right costophrenic angle. His labs were normal, WBC is 8.6, hemoglobin is 7.8, INR is 4.2, sodium is 134, dressing electrolytes and renal following normal. She has received another dose of IV Lasix per CT surgery. As been ambulating, tolerating activity well. He was dynamically stable, no acute events overnight. Anticipate transfer to inpatient rehab this afternoon. The patient is seen today 12/19/2017 in follow-up on the selective care unit. He is currently resting quite comfortably in bed. He is awake and alert in no acute distress. He is breathing easier today as compared to yesterday. Maintaining good O2 saturations in the 90s on room air. He's been afebrile. Hemodynamically stable. The plan is for inpatient rehabilitation with [place] in place. White count 10.8. Hemoglobin 8.2. INR 2.9. Creatinine 0.98. Objective - Vital Signs Vital signs: Vital Signs Temp 98.1 F 12/19/17 08:00 Pulse 94 12/19/17 08:00 Resp 18 12/19/17 08:00 BP 116/64 12/19/17 08:00 Pulse Ox 95 12/19/17 09:11 Intake & Output 08/03/18 08/04/18 08/04/18 18:59 06:59 18:59 Intake Total 700 240 Output Total 1403 1200 1 Balance -703 -960 -1 Weight 116.4 kg Intake: Oral 700 240 Output: Urine 1400 1200 Stool 3 1 Other: Voiding Method Indwelling Catheter Indwelling Catheter Indwelling Catheter ABP, PAP, CO, CI - Last Documented Arterial Blood Pressure 109/46 Pulmonary Artery Pressure 32/13 Cardiac Output 6.9 Cardiac Index 3.2 - Exam GENERAL EXAM: Awake, alert, 77-year-old obese white male, in no acute distress comfortable in no apparent distress. HEAD: Normocephalic/atraumatic. EYES: Normal reaction of pupils, equal size. Conjunctiva pink, sclera white. NOSE: Clear with pink turbinates. THROAT: No erythema or exudates. NECK: No masses, no JVD, no thyroid enlargement, no adenopathy. CHEST: No chest wall deformity. Symmetrical expansion. Midsternal incision is clean dry and intact, covered with a surgical dressing, mediastinal chest tube site is clean dry and intact. LUNGS: Lung sounds are positive for bibasilar crackles, diminished at the bases. CVS: Irregular rate and rhythm, normal S1 and S2, no gallops, no murmurs, no rubs ABDOMEN: Distended, but nontender. No hepatosplenomegaly, normal bowel sounds, no guarding or rigidity. EXTREMITIES: No clubbing, no edema, no cyanosis, 2+ pulses and upper and lower extremities. MUSCULOSKELETAL: Muscle strength and tone normal. SPINE: No scoliosis or deformity SKIN: No rashes CENTRAL NERVOUS SYSTEM:No focal deficits, tone is normal in all 4 extremities. - Labs CBC & Chem 7: 12/19/17 05:49 12/19/17 05:49 Labs: Abnormal Lab Results - Last 24 Hours (Table) 12/18/17 12/18/17 12/18/17 Range/Units 11:51 16:56 20:50 WBC (3.8-10.6) k/uL RBC (4.30-5.90) m/uL Hgb (13.0-17.5) gm/dL Hct (39.0-53.0) % PT (9.0-12.0) sec INR (<1.2) Sodium (137-145) mmol/L POC Glucose (mg/dL) 107 H 114 H 118 H (75-99) mg/dL 12/19/17 12/19/17 12/19/17 Range/Units 05:49 05:49 05:49 WBC 10.8 H (3.8-10.6) k/uL RBC 2.63 L (4.30-5.90) m/uL Hgb 8.2 L (13.0-17.5) gm/dL Hct 24.9 L (39.0-53.0) % PT 26.2 H (9.0-12.0) sec INR 2.9 H (<1.2) Sodium 134 L (137-145) mmol/L POC Glucose (mg/dL) (75-99) mg/dL 12/19/17 Range/Units 06:09 WBC (3.8-10.6) k/uL RBC (4.30-5.90) m/uL Hgb (13.0-17.5) gm/dL Hct (39.0-53.0) % PT (9.0-12.0) sec INR (<1.2) Sodium (137-145) mmol/L POC Glucose (mg/dL) 108 H (75-99) mg/dL Assessment and Plan Assessment: Assessment: #1. Severe aortic valve insufficiency, status post bioprosthetic aortic valve replacement, with exclusion of left atrial appendage, and intraoperative ODETTE with bilateral pulmonary vein isolation, postop day 8 #2. New onset atrial fibrillation, with controlled rate, and unexpected but potential outcome of surgery #3. Abdominal distention, constipation, possible ileus, improved, and the patient is passing gas and having bowel movements, tolerating oral diet #4. Essential hypertension #5. Hyperlipidemia #6. Remote history of smoking, preop bedside spirometry showed normal lung function, with FEV1 of 3.14 L or 94% of predicted #7. GERD/reflux #8. Benign prostatic hyperplasia #9. Osteoarthritis Plan: The patient was seen and evaluated by Dr. Parrish. Chest x-ray reviewed. There is improved aeration in the left lingula and a small left pleural effusion.He is stable for discharge from the pulmonary standpoint. Continue to utilize the incentive spirometer. continue bronchodilators during inpatient rehabilitation. Follow-up in our office in 1-2 weeks' time. We'll repeat a chest x-ray then. I, the cosigning physician, performed a history & physical examination of the patient. Lungs sounds with faint crackles in the posterior bases. Maintaining good O2 saturations in the 90s on room air. I discussed the assessment and plan of care with my nurse practitioner, Mala Ramirez. I attest to the above note as dictated by her.
--- NOTE | 2017-12-19 11:38 | P.PN ---
Subjective This is a pleasant 77 years old male with past medical history of GERD, hyperlipidemia, hypertension, arthritis, prostate disorder, gout, occasional dyspnea. See at the care of the left leg. Status post cardiac cath. Exit smoker. Who presents for valve disease. he is postoperative for aortic valve insufficiency he is post bioprosthetic aortic valve replacement. Patient has been extubated continues to be in ICU sitting in chair at bedside. His prostatic cardiac cath on 09/2017. And at that time he was recommended to have aortic valve replacement and repair for severe aortic valve regurgitation. At that time his ejection fraction was 55% 12/11/2017 Patient remains in the ICU. And a critical case but more stable. He got extubated.. Labs are reviewed and showing sodium 134. Creatinine 0.8. Liver function tests were unremarkable. Mildly hyperglycemic at 124. INR is 1.1. No leukocytosis with WBC 7.0K. Hemoglobin 7.9 and platelets low at 110. Chest x-ray: Removal of the Butler scans catheter. Similar mild pulmonary vascular congestion and cardiomegaly in comparison to the exam of 12/10/2017. Cardiology on the case well as pulmonary. Discussed the case with the vascular surgery team patient possible transfer to the floor tomorrow 12/12/2017 pt is sitting in bed , denies chest pain or dyspnea for me, no change in urine or bowel habits , pt is afebrile, BP is stable , he was noted to be alittle tachypnic however he is saturating well at high 90s on 2 L via nasal cannula . Na is trending down 134 to 130 , monitor Na closely , creatinine 1.0. glucose is controlled . Hb 7.9 12/13/2017 pt is lying on chair , not in distress, he states he got dizzy when he got up in the morning , but he then walk good , and feels better while sitting, no chest pain, pt states one of the aide saw blood in his stool, we checked occult blood in stool (ordered) , we recommend calling gastroenterology consult as per the primary team , check postural vitals . his glucose is running on the low side down to 60's, his insulin lowered total 8 units, monitor glucose closely. pt is noticed with slowly trending down anemia especially pt is on aspirin and plavix. 12/13/2017 pt is lying on chair , not in distress, no dizziness , and feels better while sitting, no chest pain, he has problems with moving his bowel due to his intestinal ileus, patient today he states he feels better. He had 2 bowel movements which were somewhat loose, however no diarrhea. No abdominal pain. No nausea vomiting. And patient is tolerating his diet. occult blood in stool is negative, gastroenterology consult: Is appreciated, no further workup currently . His insulin was discontinued rate for low blood sugar. His glucose is running currently between [id number] his anemia is stable with hemoglobin 7.4-7.9. pt is on aspirin and plavix., Hold Coumadin today for supratherapeutic INR at 4.2 and 2.9 and can be resumed tomorrow based upon INR we ordered c diff toxin , in view of loose stool and new mild increase in WBC. patient denies abdominal pain, no nausea vomiting. No new rash. He has some dry cough going on for a while and exertional dyspnea from his generalized weakness. But no new worsening dyspnea or chest pain. No fever. No other symptoms per patient REVIEW OF SYSTEMS: CONSTITUTIONAL: No fever, no malaise, no fatigue. HEENT: No recent visual problems or hearing problems. Denied any sore throat. CARDIOVASCULAR: No orthopnea, PND, no palpitations, no syncope. PULMONARY: No shortness of breath, no cough, no hemoptysis. GASTROINTESTINAL: No diarrhea, no nausea, no vomiting, no abdominal pain. Normoactive bowel sounds. NEUROLOGICAL: No headaches, no weakness, no numbness. HEMATOLOGICAL: Denies any bleeding or petechiae. GENITOURINARY: Denies any burning micturition, frequency, or urgency. MUSCULOSKELETAL/RHEUMATOLOGICAL: Denies any joint pain, swelling, or any muscle pain. ENDOCRINE: Denies any polyuria or polydipsia. Objective - Vital Signs Vital signs: Vital Signs Temp 98.1 F 12/19/17 08:00 Pulse 94 12/19/17 08:00 Resp 18 12/19/17 08:00 BP 116/64 12/19/17 08:00 Pulse Ox 95 12/19/17 09:11 Intake & Output 12/18/17 12/19/17 12/19/17 18:59 06:59 18:59 Intake Total 700 240 Output Total 1403 1200 1 Balance -703 -960 -1 Weight 116.4 kg Intake: Oral 700 240 Output: Urine 1400 1200 Stool 3 1 Other: Voiding Method Indwelling Catheter Indwelling Catheter Indwelling Catheter ABP, PAP, CO, CI - Last Documented Arterial Blood Pressure 109/46 Pulmonary Artery Pressure 32/13 Cardiac Output 6.9 Cardiac Index 3.2 - Exam GENERAL: The patient is alert and oriented x3, not in any acute distress. Well developed, well nourished. HEENT: Pupils are round and equally reacting to light. EOMI. No scleral icterus. No conjunctival pallor. Normocephalic, atraumatic. No pharyngeal erythema. No thyromegaly. CARDIOVASCULAR: S1 and S2 present. No murmurs, rubs, or gallops. PULMONARY: Chest is clear to auscultation, no wheezing or crackles. ABDOMEN: Soft, nontender, nondistended, normoactive bowel sounds. No palpable organomegaly. MUSCULOSKELETAL: No joint swelling or deformity. EXTREMITIES: No cyanosis, clubbing, or pedal edema. NEUROLOGICAL: Gross neurological examination did not reveal any focal deficits. SKIN: No rashes. - Labs CBC & Chem 7: 12/19/17 05:49 12/19/17 05:49 Labs: Abnormal Lab Results - Last 24 Hours (Table) 12/18/17 12/18/17 12/18/17 Range/Units 11:51 16:56 20:50 WBC (3.8-10.6) k/uL RBC (4.30-5.90) m/uL Hgb (13.0-17.5) gm/dL Hct (39.0-53.0) % PT (9.0-12.0) sec INR (<1.2) Sodium (137-145) mmol/L POC Glucose (mg/dL) 107 H 114 H 118 H (75-99) mg/dL 12/19/17 12/19/17 12/19/17 Range/Units 05:49 05:49 05:49 WBC 10.8 H (3.8-10.6) k/uL RBC 2.63 L (4.30-5.90) m/uL Hgb 8.2 L (13.0-17.5) gm/dL Hct 24.9 L (39.0-53.0) % PT 26.2 H (9.0-12.0) sec INR 2.9 H (<1.2) Sodium 134 L (137-145) mmol/L POC Glucose (mg/dL) (75-99) mg/dL 12/19/17 Range/Units 06:09 WBC (3.8-10.6) k/uL RBC (4.30-5.90) m/uL Hgb (13.0-17.5) gm/dL Hct (39.0-53.0) % PT (9.0-12.0) sec INR (<1.2) Sodium (137-145) mmol/L POC Glucose (mg/dL) 108 H (75-99) mg/dL Assessment and Plan Assessment: Postoperative bioprosthetic aortic valve replacement for severe aortic valve regurgitation Operative atrial fibrillation, on Coumadin Hypertension Hyperlipidemia GERD BPH arthritis Intestinal ileus Plan: Continue with the same treatment. Continuous symptomatic treatment. Labs and medication were reviewed . Resume his home medication. Patient is on aspirin and statin, Plavix. GI prophylaxis with Protonix and DVT prophylaxis. Electrolyte replacement as per protocol. Monitor labs and vitals. Pain management . pt is on bladder scan too . pt is noticed with slowly trending down anemia . management of anemia and decision of blood transfusion if needed is deferred to the primary team upon their request. cardiology and pulmonary team on the case . occult blood in stool negative. gastroenterology consult is appreciated. pt is Off insulin currently, sugar is controlled. He is on Coumadin for A. fib, INR 4.2 down to 2.9. ,Patient was given Coumadin 5 mg on 12/14, an 7.5 mg on and 12/16. And it was put on hold since then, we recommend to hold the Coumadin today or give a small dose and check INR tomorrow. Patient currently start Coumadin today or tomorrow with close follow- up of his INR Further recommendation is made on the clinical course of the patient's Patient is going for subacute rehab today , however he has new mild leukocytosis , no new complaint by per pt, repeat chest x-ray:improved areation, left including lingula and small left effusion (as per radiology report). We are comment checking c diff in stool (ordered) and urine-analysis and monitor WBC closely (d/w staff) thank you for consulting us. please feel free to call us or contact us for further questioning or clarification
[2017-12-19 11:45] VITALS: PULSE 71
[2017-12-19 11:59] LABS: Glucose,Whole Blood 105 mg/dL (75-99)
--- NOTE | 2017-12-19 14:15 | P.PN ---
Subjective Progress Note Date: 12/19/17 This is a 77-year-old male patient underwent a aortic valve replacement for severe aortic stenosis. He is overall doing well. Denies any chest discomfort , breathing is stable. Continues to be in atrial fibrillation, rate under good control. On anticoagulation. Using his incentive spirometry. 12/15/2017 Patient seen and examined this morning, and some mild distress, complaining of feeling full and bloated, mild abdominal discomfort. He is noted to have a distended abdomen, firm. Patient was seen earlier by nurse practitioner from cardiothoracic service and recommended to go downstairs for an acute abdominal series. This revealed diffuse gaseous distention of the colon, findings suspected to represent an ileus. Surgical consultation has been requested and patient has been encouraged to be up ambulating in the hallway as much as possible. I pressure 148/70 with a heart rate in the 70s to 80s. White blood cell count 8.9, hemoglobin 7.8, platelet count 243. Sodium 132, potassium 5.0, BUN 30, creatinine 1.3. 12/16/2017 Patient seen and examined this morning, he has been up ambulating the hallway, passing significant amount of flatus, he did also have a small bowel movement today. In and out of atrial fibrillation today at the time of our examination in the afternoon, he was in atrial fibrillation, receiving an IV amiodarone bolus. Blood pressure 108/60 with a heart rate in the 60s. Blood cell count 7.9 , hemoglobin 9.7, platelet count 170. 12/17/2017 Patient seen and examined this morning, sitting up in the chair at bedside. Still has mild abdominal bloating but overall doing much better. 12/18/2017 seen and examined this morning, doing well overall. Anticipating transferred to rehab tomorrow. Hemodynamically stable. Abdomen is much softer today. 12/19/2017 Patient seen and examined this morning, denies any chest pain or difficulty in breathing. He's been up ambulating without any difficulty. Hemodynamically stable. Being transferred to inpatient rehab today. Objective - Vital Signs Vital signs: Vital Signs Temp 98.1 F 12/19/17 08:00 Pulse 71 12/19/17 11:45 Resp 18 12/19/17 08:00 BP 116/64 12/19/17 08:00 Pulse Ox 95 12/19/17 09:11 Intake & Output 12/18/17 12/19/17 12/19/17 18:59 06:59 18:59 Intake Total 700 240 120 Output Total 1403 1200 401 Balance -703 -960 -281 Weight 116.4 kg Intake: Oral 700 240 120 Output: Urine 1400 1200 400 Stool 3 1 Other: Voiding Method Indwelling Catheter Indwelling Catheter Indwelling Catheter ABP, PAP, CO, CI - Last Documented Arterial Blood Pressure 109/46 Pulmonary Artery Pressure 32/13 Cardiac Output 6.9 Cardiac Index 3.2 - Exam PHYSICAL EXAMINATION: GENERAL: 77-year-old gentleman in no acute distress at the time of my examination HEENT: Head is atraumatic, normocephalic. Pupils equal, round. Sclera anicteric. Conjunctiva are clear. Mucous membranes of the mouth are moist. Neck is supple. There is no elevated jugular venous pressure.] bruit is heard. HEART EXAMINATION: Heart S1 and S2 irregularly irregular CHEST EXAMINATION: Lungs are clear with diminished air entry to bilateral bases. Reaching 1500 on his incentive spirometry. ABDOMEN: Soft , sounds are heard. No organomegaly noted. EXTREMITIES: 2+ peripheral pulses with no evidence of peripheral edema and no calf tenderness noted. NEUROLOGIC patient is awake, alert and oriented ?-3. . - Labs CBC & Chem 7: 12/19/17 05:49 12/19/17 05:49 Labs: Abnormal Lab Results - Last 24 Hours (Table) 12/18/17 12/18/17 12/19/17 Range/Units 16:56 20:50 05:49 WBC 10.8 H (3.8-10.6) k/uL RBC 2.63 L (4.30-5.90) m/uL Hgb 8.2 L (13.0-17.5) gm/dL Hct 24.9 L (39.0-53.0) % PT (9.0-12.0) sec INR (<1.2) Sodium (137-145) mmol/L POC Glucose (mg/dL) 114 H 118 H (75-99) mg/dL 12/19/17 12/19/17 12/19/17 Range/Units 05:49 05:49 06:09 WBC (3.8-10.6) k/uL RBC (4.30-5.90) m/uL Hgb (13.0-17.5) gm/dL Hct (39.0-53.0) % PT 26.2 H (9.0-12.0) sec INR 2.9 H (<1.2) Sodium 134 L (137-145) mmol/L POC Glucose (mg/dL) 108 H (75-99) mg/dL 12/19/17 Range/Units 11:52 WBC (3.8-10.6) k/uL RBC (4.30-5.90) m/uL Hgb (13.0-17.5) gm/dL Hct (39.0-53.0) % PT (9.0-12.0) sec INR (<1.2) Sodium (137-145) mmol/L POC Glucose (mg/dL) 105 H (75-99) mg/dL Assessment and Plan Plan: Assessment and plan #1 status post aortic valve replacement #2 obesity #3 paroxysmal atrial fibrillation, on anticoagulation #4 hyperlipidemia #5 hypertension #6 anemia Plan From cardiology's perspective, we'll recommend to continue the patient on his current medications. Patient will be transferred to inpatient rehab today. We will make a follow-up appointment in the office post discharge. DNP note has been reviewed, I agree with a documented findings and plan of care. Patient was seen and examined.
== END 2017-12-19 12:34 | DRG 220 ==
LOC: 2ORMAIN 12-09 05:36 → 6ICU 12-09 13:22 → 6SEL 12-12 18:39
PROVIDERS: ADMIT Surgery; ATTEND Surgery
PROC: 02L70CK Occlusion of Left Atrial Appendage with Extraluminal Device, Open Approach (ICD-10-PCS; principal; 2017-12-09 11:00)
PROC: 5A1221Z Performance of Cardiac Output, Continuous (ICD-10-PCS; principal; 2017-12-09 11:00)
PROC: B246ZZ4 Ultrasonography of Right and Left Heart, Transesophageal (ICD-10-PCS; principal; 2017-12-09 11:00)
PROC: 02RF08Z Replacement of Aortic Valve with Zooplastic Tissue, Open Approach (ICD-10-PCS; principal; 2017-12-09 11:00)
DX: I08.3 Combined rheumatic disorders of mitral, aortic and tricuspid valves (principal); I47.1 Supraventricular tachycardia; J98.11 Atelectasis; K56.7 Ileus, unspecified; D64.9 Anemia, unspecified; D69.59 Other secondary thrombocytopenia; E16.2 Hypoglycemia, unspecified; E66.01 Morbid (severe) obesity due to excess calories; E78.5 Hyperlipidemia, unspecified; F17.201 Nicotine dependence, unspecified, in remission; F41.9 Anxiety disorder, unspecified; I10 Essential (primary) hypertension; I48.0 Paroxysmal atrial fibrillation; I77.810 Thoracic aortic ectasia; K21.9 Gastro-esophageal reflux disease without esophagitis; M10.9 Gout, unspecified; M19.90 Unspecified osteoarthritis, unspecified site; M81.0 Age-related osteoporosis without current pathological fracture; N40.1 Benign prostatic hyperplasia with lower urinary tract symptoms; R33.8 Other retention of urine; R79.1 Abnormal coagulation profile; Z68.37 Body mass index [BMI] 37.0-37.9, adult; Z79.01 Long term (current) use of anticoagulants; Z79.02 Long term (current) use of antithrombotics/antiplatelets; Z79.82 Long term (current) use of aspirin; Z79.899 Other long term (current) drug therapy; Z82.5 Family history of asthma and other chronic lower respiratory diseases
CPT/HCPCS: 71045; 71046; 74022; 80048; 80053; 82272; 82330; 82805; 83735; 85025; 85027; 85520; 85610; 85730; 86850; 86891; 86900; 86901; 86920; 88305; 88311; 94002; 94640; 94760

== ENCOUNTER → 2017-12-07 | Day surgery (SDC) | payer MEDICARE, OTHER ==
[2017-12-04 14:12] VITALS: BMI 32.9
[2017-12-07 11:59] VITALS: BP 124/79; PULSE 60; RESP 20; TEMP 97.9
--- NOTE | 2017-12-07 14:25 | CT ---
EXAMINATION TYPE: CT chest wo con DATE OF EXAM: 12/07/2017 COMPARISON: None HISTORY: Eval. size of Ascending Aorta CT DLP: 589.9 mGycm, Automated exposure control for dose reduction was used. CONTRAST: Performed injected with 0 mL of Isovue 300. TECHNIQUE: Axial images were obtained at 5 mm thick sections. Reconstructed images are reviewed on [employer] computer in the coronal plane. FINDINGS: Portion of the thyroid visualized is normal. No suspicious lung nodules or focal infiltrates are present. Ascending thoracic aorta at the level of the aortic root is approximately 3.7 cm. The descending thor acic aorta at the level the main pulmonary artery is 3.9 cm. The distal ascending thoracic aorta just proximal to the aortic arch is 3.8 cm. The aortic arch within its midportion is 2.8 cm. The descendi ng thoracic aorta tapers normally through its visualized course and measures 2.9 cm just above the di aphragm. No enlarged mediastinal or hilar adenopathy is evident. The ascending aorta diameter at the level o f the main pulmonary artery is 3.9 cm. The main pulmonary artery diameter at the bifurcation is 3.[address] sections are obtained through the upper abdomen. Abdomen is essentially unremarkable. IMPRESSIONS: 1. Fusiform prominence of the ascending thoracic aorta discussed above.
== END ==
LOC: CATHCVL 10:46
PROVIDERS: ATTEND Internal Medicine Cardiovascular Disease
DX: I38 Endocarditis, valve unspecified (principal); I47.1 Supraventricular tachycardia
CPT/HCPCS: 71250

== ENCOUNTER 2017-12-08 06:47 | Day surgery (SDC) | payer MEDICARE, OTHER ==
[2017-12-08] MEDS ORDERED: SODIUM CHLORIDE 0.9% 500 ML IV ONE (07:10)
[2017-12-08 07:22] VITALS: TEMP 98
[2017-12-08] MEDS ORDERED: MIDAZOLAM 2 MG/2 ML VIAL ONE (07:59)
[2017-12-08] MEDS ORDERED: fentaNYL (PF) 50 MCG/ML 2 ML AMP ONE (08:00)
[2017-12-08] MEDS: BENZOCAINE SPRAY 1 CAN MUCOUS MEM ONE ×2 (08:04→08:54)
[2017-12-08] MEDS: fentaNYL (PF) 50 MCG/ML 2 ML AMP IV ONE ×2 (08:10→08:13)
[2017-12-08] MEDS: MIDAZOLAM 2 MG/2 ML VIAL IV ONE ×2 (08:10→08:13)
[2017-12-08] MEDS ORDERED: PROPOFOL 10 MG/ML 20 ML VIAL IV ONE (08:57)
[2017-12-08] MEDS ORDERED: SODIUM CHLORIDE 0.9% 1,000 ML IV SCH (09:15)
[2017-12-08 10:01] VITALS: RESP 18
[2017-12-08 10:14] VITALS: BP 138/65; PULSE 56
--- NOTE | 2017-12-14 09:08 | P.PCN ---
Date of Procedure: 12/14/17 Preoperative Diagnosis: Atrial flutter with rapid ventricular response Postoperative Diagnosis: The same Procedure(s) Performed: ODETTE followed by cardioversion Description of Procedure: INDICATION: To rule out left atrial clot before cardioversion CONSENT:. Informed consent was obtained from the patient PROCEDURE:. Patient was brought to the lab in fasting state. Patient was given IV anesthesia by department of anesthesia. The throat was sprayed with Cetacaine. A lubricated Omni probe was introduced through the oropharynx and was advanced into the esophagus. Multiple views were obtained FINDINGS:. The aortic valve is tricuspid and opens normally. There is moderate mitral regurgitation, which is central. The Pisa value was 0.7. The left atrial appendage is small and free of any clot. The interatrial septum appeared intact. There is no spontaneous shunt. saline Contrast bubble injection did not reveal any crusting of the bubbles. Left ventricle function appeared to be moderately impaired IMPRESSION:. No clot in left atrial appendage. No evidence of PFO. Moderate mitral regurgitation. Moderate impaired LV function PLAN:. Proceed with cardioversion
--- NOTE | 2017-12-14 09:09 | P.PCN ---
Date of Procedure: 12/14/17 Preoperative Diagnosis: Atrial flutter with rapid and corresponds Postoperative Diagnosis: The same Procedure(s) Performed: Cardioversion Description of Procedure: Patient is brought to the lab in a fasting state. A ODETTE examination was performed which did not reveal any clot in left atrial appendage. Anterior- posterior paddles were applied and a single shock of 50 J was applied. Patient converted to sinus rhythm. Tolerated the procedure well. Anesthesia was provided by department of anesthesia. Final impression: #1. Successful cardioversion from atrial flutter to sinus rhythm. Plan: Patient will be transferred to telemetry unit
[2017-12-14] MEDS ORDERED: SODIUM CHLORIDE 0.9% 1,000 ML IV SCH (09:15)
== END 2017-12-08 10:25 | disposition home or self-care (01) ==
LOC: CATHCVL 06:47
PROVIDERS: ATTEND Internal Medicine Cardiovascular Disease
DX: I34.0 Nonrheumatic mitral (valve) insufficiency (principal); I48.92 Unspecified atrial flutter; I51.9 Heart disease, unspecified
CPT/HCPCS: 93312; 93320; 93325; J2250; J3010; J2704

== ENCOUNTER 2018-01-02 03:37 | Emergency (ER) | payer MEDICARE, OTHER ==
[2018-01-02 03:45] VITALS: RESP 18
[2018-01-02 04:32] LABS: Basophils % (A) 1 %; Eosinophils # (A) 0.4 k/uL (0-0.7); Eosinophils % (A) 7 %; HCT 32.1 % (39.0-53.0); HGB 10.5 gm/dL (13.0-17.5); Hypochromasia Moderate; Lymphocytes % (A) 17 %; MCH 29.1 pg (25.0-35.0); MCHC 32.7 g/dL (31.0-37.0); Mean Platelet Volume 6.4; Monocytes # (A) 0.4 k/uL (0-1.0); Monocytes % (A) 7 %; Neutrophils # (A) 3.9 k/uL (1.3-7.7); Neutrophils % (A) 67 %; Platelet Count 404 k/uL (150-450); Poikilocytosis Slight; RBC 3.61 m/uL (4.30-5.90); WBC 5.8 k/uL (3.8-10.6)
[2018-01-02 04:41] LABS: Prothrombin Time 26.8 sec (9.0-12.0)
[2018-01-02 04:42] LABS: Partial Thromboplastin Time 40.7 sec (22.0-30.0)
[2018-01-02 04:53] LABS: ALT 43 U/L (21-72); AST 29 U/L (17-59); Albumin 3.4 g/dL (3.5-5.0); Alkaline Phosphatase 114 U/L (38-126); Anion Gap 9 mmol/L; Blood Urea Nitrogen 26 mg/dL (9-20); Calcium 9.1 mg/dL (8.4-10.2); Carbon Dioxide 22 mmol/L (22-30); Chloride 106 mmol/L (98-107); Glucose 98 mg/dL (74-99); Sodium 137 mmol/L (137-145); Total Bilirubin 0.7 mg/dL (0.2-1.3); Total Protein 6.5 g/dL (6.3-8.2)
--- NOTE | 2018-01-02 05:07 | XR ---
EXAM: XR Chest, 1 View CLINICAL HISTORY: ITS.REASON XR Reason: weakness TECHNIQUE: Frontal view of the chest. COMPARISON: Chest x-ray dated 12/17/17 and 12/19/17 FINDINGS: Lungs: Unremarkable. No consolidation. Pleural space: Unremarkable. No pneumothorax. Heart: Cardiomegaly. Evidence of previous CABG. Mediastinum: Unremarkable. Bones/joints: Unremarkable. IMPRESSION: Cardiomegaly. Evidence of previous CABG.
[2018-01-02 05:11] LABS: Creatine Kinase MB 1.8 ng/mL (0.0-2.4); Troponin I 0.032 ng/mL (0.000-0.034)
[2018-01-02] MEDS ORDERED: SODIUM CHLORIDE 0.9% 500 ML IV STA (05:33)
--- NOTE | 2018-01-02 07:09 | ED ---
Fall HPI - General Chief Complaint: Fall Stated Complaint: Fall Time Seen by Provider: 01/02/18 03:43 Source: patient, EMS Mode of arrival: EMS - History of Present Illness Initial Comments: This patient is 77-year-old man who presents to be evaluated after he had a fall at home. The patient had CABG, December 09, by Dr. Elizabeth, and was concerned about possibility of injuring the closure at his sternum. The patient states that the fall had happened after he had attempted to turn and his walker became tangled up and he toppled over. He does not believe that he had a syncopal episode. The patient is denying any other injury related to the fall. He has not have head or neck, back, abdomen, or other extremity pain. MD Complaint: fall Onset/Timin -: hour(s) Fall From: standing When Fall Occurred: 1 hour [employer] Fall Witnessed: yes, by family Place Fall Occurred: home Loss of Consciousness: none Prolonged Down Time?: no Symptoms Prior to Fall: none Location: chest Severity: mild Context: tripped/slipped Associated Symptoms: denies - Related Data Home Medications Medication Instructions Recorded Confirmed Tamsulosin [Flomax] 0.4 mg PO HS 11/23/15 12/09/17 Allopurinol [Zyloprim] 100 mg PO DAILY 11/24/15 12/09/17 Finasteride [Proscar] 5 mg PO QAM 11/24/15 12/09/17 Fluticasone Propionate 1 - 2 sprays EA NOSTRIL DAILY PRN 11/24/15 12/09/17 Previous Rx's Medication Instructions Recorded ALPRAZolam [Xanax] 0.25 mg PO TID PRN #30 tab 12/18/17 Acetaminophen Tab [Tylenol] 325 mg PO Q4HR PRN tab 12/18/17 Acetaminophen Tab [Tylenol] 650 mg PO Q4HR PRN tab 12/18/17 Amiodarone [Cordarone] 200 mg PO BID tab 12/18/17 Aspirin 81 mg PO DAILY chew 12/18/17 Atorvastatin [Lipitor] 40 mg PO DAILY tab 12/18/17 Bisacodyl [Dulcolax] 10 mg RECTAL DAILY PRN supp 12/18/17 Furosemide [Lasix] 20 mg PO DAILY #7 tab 12/18/17 Insulin Aspart [NovoLOG 0 unit SQ [id number] vial 12/18/17 (formulary)] Ipratropium-Albuterol Nebulize 3 ml INHALATION RT-Q2H PRN 12/18/17 [Duoneb 0.5 mg-3 mg/3 ml Soln] ampul.neb Ipratropium-Albuterol Nebulize 3 ml INHALATION RT-QID ampul.neb 12/18/17 [Duoneb 0.5 mg-3 mg/3 ml Soln] Metoprolol Tartrate [Lopressor] 25 mg PO BID tab 12/18/17 Pantoprazole [Protonix] 40 mg PO AC-BID tablet. 12/18/17 Sennosides-Docusate Sodium 2 each PO BID tab 12/18/17 [Senokot-S] Sodium Chloride 0.65% Nasal [Deep 2 spray NASAL QID PRN spray 12/18/17 Sea (Saline)] Warfarin [Coumadin] 1 mg PO DAILY #1 tablet 12/18/17 Allergies Allergy/AdvReac Type Severity Reaction Status Date / Time No Known Allergies Allergy Verified 12/09/17 14:20 Review of Systems ROS Statement: Those systems with pertinent positive or pertinent negative responses have been documented in the HPI. ROS Other: All systems not noted in ROS Statement are negative. Constitutional: Denies: fever, chills, weakness Respiratory: Denies: cough, dyspnea Cardiovascular: Reports: as per HPI, chest pain. Denies: palpitations, dyspnea on exertion, orthopnea, syncope Gastrointestinal: Denies: abdominal pain, nausea, vomiting Genitourinary: Denies: dysuria Musculoskeletal: Denies: back pain Skin: Denies: rash Neurological: Denies: headache, weakness, numbness, paresthesias, confusion, abnormal gait Past Medical History Past Medical History: GERD/Reflux, Hyperlipidemia, Hypertension, Osteoarthritis (OA), Prostate Disorder Additional Past Medical History / Comment(s): hx. gout, occasional SOB w/ exertion,sciatica, left leg numb/tingling-supposed to have MRI History of Any Multi-Drug Resistant Organisms: None Reported Past Surgical History: Heart Catheterization, Orthopedic Surgery, Prostate Surgery, Tonsillectomy Additional Past Surgical History / Comment(s): scopes bilat knees, TURP, aortic valve replacement 12/09/17. Past Anesthesia/Blood Transfusion Reactions: No Reported Reaction Past Psychological History: No Psychological Hx Reported Smoking Status: Former smoker Past Alcohol Use History: Occasional - Past Family History Father Family Medical History: Asthma, Pneumonia Additional Family Medical History / Comment(s): ARTHRITIS Mother Additional Family Medical History / Comment(s): BRAIN ANEURYSM General Exam Limitations: no limitations General appearance: alert, in no apparent distress Head exam: Present: atraumatic, normocephalic Eye exam: Present: normal appearance. Absent: scleral icterus, conjunctival injection Neck exam: Present: normal inspection, full ROM. Absent: tenderness Respiratory exam: Present: normal lung sounds bilaterally, other (The patient's surgical incision is closed, dry, intact, without any evidence of infection. No abnormal tenderness.). Absent: respiratory distress, wheezes, rales, rhonchi , stridor, chest wall tenderness Cardiovascular Exam: Present: regular rate, normal rhythm, normal heart sounds. Absent: systolic murmur, diastolic murmur, rubs, gallop GI/Abdominal exam: Present: soft. Absent: distended, tenderness, guarding, rebound, rigid, mass Extremities exam: Present: normal inspection, normal capillary refill. Absent: pedal edema, calf tenderness Back exam: Present: normal inspection. Absent: CVA tenderness (R), CVA tenderness (L), vertebral tenderness Neurological exam: Present: alert Skin exam: Present: warm, dry, intact, normal color. Absent: rash Course Vital Signs 01/02/18 01/02/18 01/02/18 03:38 06:57 07:47 Temperature 98.3 F 98.4 F 98.5 F Pulse Rate 83 70 74 Respiratory 18 18 Rate Blood Pressure 126/71 132/68 128/71 O2 Sat by Pulse 100 99 97 Oximetry Medical Decision Making - Medical Decision Making Patient is a 77-year-old man presenting to be evaluated after a low mechanism of injury fall. Given his recent surgery we did check some laboratory tests and chest x-ray. The patient's case then discussed with his cardiothoracic surgeon. The patient is stable for follow-up as an outpatient. Discussed return parameters. - Lab Data Result diagrams: 01/02/18 04:22 01/02/18 04:22 Lab Results 01/02/18 01/02/18 01/02/18 Range/Units 04:22 04:22 04:22 WBC 5.8 (3.8-10.6) k/uL RBC 3.61 L (4.30-5.90) m/uL Hgb 10.5 L (13.0-17.5) gm/dL Hct 32.1 L (39.0-53.0) % MCV 89.0 D (80.0-100.0) fL MCH 29.1 (25.0-35.0) pg MCHC 32.7 (31.0-37.0) g/dL RDW 15.0 (11.5-15.5) % Plt Count 404 (150-450) k/uL Neutrophils % 67 % Lymphocytes % 17 % Monocytes % 7 % Eosinophils % 7 % Basophils % 1 % Neutrophils # 3.9 (1.3-7.7) k/uL Lymphocytes # 1.0 (1.0-4.8) k/uL Monocytes # 0.4 (0-1.0) k/uL Eosinophils # 0.4 (0-0.7) k/uL Basophils # 0.0 (0-0.2) k/uL Hypochromasia Moderate Poikilocytosis Slight PT (9.0-12.0) sec INR (<1.2) APTT (22.0-30.0) sec Sodium 137 (137-145) mmol/L Potassium 4.0 (3.5-5.1) mmol/L Chloride 106 (98-107) mmol/L Carbon Dioxide 22 (22-30) mmol/L Anion Gap 9 mmol/L BUN 26 H (9-20) mg/dL Creatinine 0.90 (0.66-1.25) mg/dL Est GFR (CKD-EPI)AfAm >90 (>60 ml/min/1.73 sqM) Est GFR (CKD-EPI)NonAf 83 (>60 ml/min/1.73 sqM) Glucose 98 (74-99) mg/dL Plasma Lactic Acid Familia (0.7-2.0) mmol/L Calcium 9.1 (8.4-10.2) mg/dL Magnesium 2.0 (1.6-2.3) mg/dL Total Bilirubin 0.7 (0.2-1.3) mg/dL AST 29 (17-59) U/L ALT 43 (21-72) U/L Alkaline Phosphatase 114 (38-126) U/L Total Creatine Kinase 48 L (55-170) U/L CK-MB (CK-2) 1.8 (0.0-2.4) ng/mL CK-MB (CK-2) Rel Index 3.8 Troponin I 0.032 (0.000-0.034) ng/mL Total Protein 6.5 (6.3-8.2) g/dL Albumin 3.4 L (3.5-5.0) g/dL 01/02/18 01/02/18 Range/Units 04:22 04:22 WBC (3.8-10.6) k/uL RBC (4.30-5.90) m/uL Hgb (13.0-17.5) gm/dL Hct (39.0-53.0) % MCV (80.0-100.0) fL MCH (25.0-35.0) pg MCHC (31.0-37.0) g/dL RDW (11.5-15.5) % Plt Count (150-450) k/uL Neutrophils % % Lymphocytes % % Monocytes % % Eosinophils % % Basophils % % Neutrophils # (1.3-7.7) k/uL Lymphocytes # (1.0-4.8) k/uL Monocytes # (0-1.0) k/uL Eosinophils # (0-0.7) k/uL Basophils # (0-0.2) k/uL Hypochromasia Poikilocytosis PT 26.8 H (9.0-12.0) sec INR 3.0 H (<1.2) APTT 40.7 H (22.0-30.0) sec Sodium (137-145) mmol/L Potassium (3.5-5.1) mmol/L Chloride (98-107) mmol/L Carbon Dioxide (22-30) mmol/L Anion Gap mmol/L BUN (9-20) mg/dL Creatinine (0.66-1.25) mg/dL Est GFR (CKD-EPI)AfAm (>60 ml/min/1.73 sqM) Est GFR (CKD-EPI)NonAf (>60 ml/min/1.73 sqM) Glucose (74-99) mg/dL Plasma Lactic Acid Familia 0.8 (0.7-2.0) mmol/L Calcium (8.4-10.2) mg/dL Magnesium (1.6-2.3) mg/dL Total Bilirubin (0.2-1.3) mg/dL AST (17-59) U/L ALT (21-72) U/L Alkaline Phosphatase (38-126) U/L Total Creatine Kinase (55-170) U/L CK-MB (CK-2) (0.0-2.4) ng/mL CK-MB (CK-2) Rel Index Troponin I (0.000-0.034) ng/mL Total Protein (6.3-8.2) g/dL Albumin (3.5-5.0) g/dL Disposition Clinical Impression: Fall Disposition: HOME SELF-CARE Condition: Fair Instructions: Fall Prevention for Older Adults (ED) Is patient prescribed a controlled substance at d/c from ED?: No Referrals: Abner Davenport MD [Primary Care Provider] - 1-2 days
[2018-01-02 07:47] VITALS: BP 128/71; PULSE 74; TEMP 98.5
== END 2018-01-02 08:16 | disposition home or self-care (01) ==
LOC: EC 03:37
DX: S29.9XXA Unspecified injury of thorax, initial encounter (principal); M10.9 Gout, unspecified; N42.9 Disorder of prostate, unspecified; Z87.891 Personal history of nicotine dependence; Z79.899 Other long term (current) drug therapy; Z95.1 Presence of aortocoronary bypass graft; Z95.2 Presence of prosthetic heart valve; W01.0XXA Fall on same level from slipping, tripping and stumbling without subsequent striking against object, initial encounter; Y93.89 Activity, other specified; Y92.009 Unspecified place in unspecified non-institutional (private) residence as the place of occurrence of the external cause
CPT/HCPCS: 36415; 71045; 80053; 82550; 82553; 83605; 83735; 84484; 85025; 85610; 85730; 93005; 96360; 99284

== ENCOUNTER 2018-12-22 09:20 | Emergency (ER) | payer MEDICARE, OTHER ==
[2018-12-22 09:29] VITALS: RESP 18; TEMP 97.9
[2018-12-22] MEDS ORDERED: SODIUM CHLORIDE 0.9% 1,000 ML IV STA ×2 (09:53)
--- NOTE | 2018-12-22 09:57 | ED ---
Abdominal Pain HPI - General Chief Complaint: Abdominal Pain Stated Complaint: fall/chest injury-sent by [employer] Time Seen by Provider: 12/22/18 09:37 Source: patient, RN notes reviewed, old records reviewed Mode of arrival: ambulatory Limitations: no limitations - History of Present Illness Initial Comments: This is a 78-year-old male sent in by medics respiratory concern for spleen and rib injury after a fall onto his top 4 days ago. Patient reportedly fell with his left side on the edge of his porcelain tub. Patient states that he felt some ribs crack and pop. Patient is on aspirin. Patient had a chest x-ray showed an elevated left-sided hemidiaphragm. There were unable to identify any fractures. They sent him for concern for possible use clean spleen or kidney injury. He denies any changes in urination or bowel habits. Patient states pain is worse with certain movements. Patient states that he is concerned there could be any more worsening damage now that medics breath admitted for concern for spleen injury. He states he is leaving for an [employer] cruise on Thursday. - Related Data Home Medications Medication Instructions Recorded Confirmed Tamsulosin [Flomax] 0.4 mg PO HS 11/23/15 12/22/18 Allopurinol [Zyloprim] 100 mg PO DAILY 11/24/15 12/22/18 Finasteride [Proscar] 5 mg PO QAM 11/24/15 12/22/18 Fluticasone Propionate 1 - 2 sprays EA NOSTRIL DAILY PRN 11/24/15 12/22/18 Albuterol Inhaler [Ventolin Hfa 2 puff INHALATION RT-Q6H PRN 12/22/18 12/22/18 Inhaler] Doxycycline Hyclate [Vibramycin] 100 mg PO DAILY 12/22/18 12/22/18 Ranitidine HCl 150 mg PO BID 12/22/18 12/22/18 Previous Rx's Medication Instructions Recorded Aspirin 81 mg PO DAILY chew 12/18/17 Atorvastatin [Lipitor] 40 mg PO DAILY tab 12/18/17 Bisacodyl [Dulcolax] 10 mg RECTAL DAILY PRN supp 12/18/17 Metoprolol Tartrate [Lopressor] 25 mg PO BID tab 12/18/17 Sodium Chloride 0.65% Nasal [Deep 2 spray NASAL QID PRN spray 12/18/17 Sea (Saline)] Allergies Allergy/AdvReac Type Severity Reaction Status Date / Time No Known Allergies Allergy Verified 12/22/18 10:15 Review of Systems ROS Statement: Those systems with pertinent positive or pertinent negative responses have been documented in the HPI. ROS Other: All systems not noted in ROS Statement are negative. Past Medical History Past Medical History: GERD/Reflux, Hyperlipidemia, Hypertension, Osteoarthritis (OA), Prostate Disorder Additional Past Medical History / Comment(s): hx. gout, occasional SOB w/exertion,sciatica, left leg numb/tingling-supposed to have MRI History of Any Multi-Drug Resistant Organisms: None Reported Past Surgical History: Heart Catheterization, Orthopedic Surgery, Prostate Surgery, Tonsillectomy Additional Past Surgical History / Comment(s): scopes bilat knees, TURP, aortic valve replacement 12/09/17. Past Anesthesia/Blood Transfusion Reactions: No Reported Reaction Past Psychological History: No Psychological Hx Reported Smoking Status: Former smoker Past Alcohol Use History: Occasional - Past Family History Father Family Medical History: Asthma, Pneumonia Additional Family Medical History / Comment(s): ARTHRITIS Mother Additional Family Medical History / Comment(s): BRAIN ANEURYSM General Exam - General Exam Comments Initial Comments: This is a 78-year-old male. Alert and oriented 3. No distress. Limitations: no limitations General appearance: alert, in no apparent distress Head exam: Present: atraumatic, normocephalic, normal inspection Eye exam: Present: normal appearance ENT exam: Present: normal exam, mucous membranes moist Neck exam: Present: normal inspection Respiratory exam: Present: normal lung sounds bilaterally, chest wall ten derness. Absent: respiratory distress, wheezes, rales, rhonchi, stridor Cardiovascular Exam: Present: regular rate, normal rhythm, normal heart sounds. Absent: systolic murmur, diastolic murmur, rubs, gallop, clicks GI/Abdominal exam: Present: soft, tenderness (Left upper quadrant tenderness. No bruising noted. Tendern over Left ribs 8-10. ), normal bowel sounds. Absent: distended, guarding, rebound, rigid Extremities exam: Present: normal inspection, full ROM, normal capillary refill. Absent: tenderness, pedal edema, joint swelling, calf tenderness Back exam: Present: normal inspection Neurological exam: Present: alert, oriented X3, CN II-XII intact Psychiatric exam: Present: normal affect, normal mood Skin exam: Present: warm, dry, intact, normal color. Absent: rash Course Vital Signs 12/22/18 09:24 Temperature 97.9 F Pulse Rate 49 L Respiratory 18 Rate Blood Pressure 144/84 O2 Sat by Pulse 99 Oximetry Medical Decision Making - Medical Decision Making This is a 78-year-old male presents today for evaluation with complaints of fall, left-sided rib and upper abdominal pain. Was sent in for [employer] for evaluation for concern for splenic injury. This fall happened 4 days ago. Vital signs are stable. Lobe labwork was reviewed and unremarkable. CT chest abdomen and pelvis was completed. There is no evidence of rib fractures or any other intra-abdominal findings. Patient's physical exam shows no significant bruising over the ribs or abdomen. He is tender over the lower ribs. Patient feels better about normal results, and will go on his vacation in 2 days. I discussed taking Motrin Tylenol for the pain. Discussing. Takes deep breaths to make sure there is no pneumonia developing. We'll discharge Patient will follow starter pack for Tylenol with codeine. All questions answered return parameters were discussed. - Lab Data Result diagrams: 12/22/18 10:00 12/22/18 10:00 Lab Results 12/22/18 12/22/18 12/22/18 Range/Units 10:00 10:00 10:00 WBC 5.6 (3.8-10.6) k/uL RBC 4.52 (4.30-5.90) m/uL Hgb 14.4 (13.0-17.5) gm/dL Hct 43.0 (39.0-53.0) % MCV 95.3 (80.0-100.0) fL MCH 31.8 (25.0-35.0) pg MCHC 33.4 (31.0-37.0) g/dL RDW 13.8 (11.5-15.5) % Plt Count 152 (150-450) k/uL Neutrophils % 52 % Lymphocytes % 32 % Monocytes % 9 % Eosinophils % 5 % Basophils % 0 % Neutrophils # 2.9 (1.3-7.7) k/uL Lymphocytes # 1.8 (1.0-4.8) k/uL Monocytes # 0.5 (0-1.0) k/uL Eosinophils # 0.3 (0-0.7) k/uL Basophils # 0.0 (0-0.2) k/uL Sodium 140 (137-145) mmol/L Potassium 5.2 H (3.5-5.1) mmol/L Chloride 107 (98-107) mmol/L Carbon Dioxide 24 (22-30) mmol/L Anion Gap 9 mmol/L BUN 22 H (9-20) mg/dL Creatinine 0.88 (0.66-1.25) mg/dL Est GFR (CKD-EPI)AfAm >90 (>60 ml/min/1.73 sqM) Est GFR (CKD-EPI)NonAf 84 (>60 ml/min/1.73 sqM) Glucose 88 (74-99) mg/dL Calcium 9.5 (8.4-10.2) mg/dL Total Bilirubin 1.1 (0.2-1.3) mg/dL AST 37 (17-59) U/L ALT 27 (21-72) U/L Alkaline Phosphatase 62 (38-126) U/L Total Protein 7.4 (6.3-8.2) g/dL Albumin 4.0 (3.5-5.0) g/dL Amylase 42 (30-110) U/L Lipase 141 (23-300) U/L Urine Color Yellow Urine Appearance Clear (Clear) Urine pH 6.5 (5.0-8.0) Ur Specific [place] 1.015 (1.001-1.035) Urine Protein Negative (Negative) Urine Glucose (UA) Negative (Negative) Urine Ketones Negative (Negative) Urine Blood Negative (Negative) Urine Nitrite Negative (Negative) Urine Bilirubin Negative (Negative) Urine Urobilinogen <2.0 (<2.0) mg/dL Ur Leukocyte Esterase Negative (Negative) - Radiology Data Radiology results: report reviewed CT of the pelvis shows no acute posterior medical findings. CT of the abdomen shows no acute inter abdominal process related to trauma. 2.1 cm cyst on the upper right kidney. CT of the chest shows no acute changes. Disposition Clinical Impression: Rib contusion, Fall Disposition: HOME SELF-CARE Condition: Good Instructions (If sedation given, give patient instructions): Rib Contusion (ED) Additional Instructions: Patient has a take frequent deep breaths to ensure no development of pneumonia. Rest, remain hydrated. Have close follow-up with her primary care physician. Take motrin for pain. Is patient prescribed a controlled substance at d/c from ED?: No Referrals: Abner Davenport MD [Primary Care Provider] - 1-2 days Time of Disposition: 12:00
[2018-12-22 10:11] LABS: Appearance,Urine Clear (Clear); Basophils % (A) 0 %; Bilirubin,Urine Negative (Negative); Blood,Urine Negative (Negative); Color,Urine Yellow; Eosinophils # (A) 0.3 k/uL (0-0.7); Eosinophils % (A) 5 %; Glucose,Urine (UA) Negative (Negative); HGB 14.4 gm/dL (13.0-17.5); Ketones,Urine Negative (Negative); Leukocyte Esterase,Urine Negative (Negative); Lymphocytes # (A) 1.8 k/uL (1.0-4.8); Lymphocytes % (A) 32 %; MCH 31.8 pg (25.0-35.0); MCHC 33.4 g/dL (31.0-37.0); MCV 95.3 fL (80.0-100.0); Mean Platelet Volume 7.5; Monocytes # (A) 0.5 k/uL (0-1.0); Monocytes % (A) 9 %; Neutrophils # (A) 2.9 k/uL (1.3-7.7); Neutrophils % (A) 52 %; Nitrite,Urine Negative (Negative); PH, Urine 6.5 (5.0-8.0); Platelet Count 152 k/uL (150-450); Protein,Urine Negative (Negative); RBC 4.52 m/uL (4.30-5.90); RDW 13.8 % (11.5-15.5); Specific Gravity,Urine 1.015 (1.001-1.035); Urobilinogen,Urine <2.0 mg/dL (<2.0); WBC 5.6 k/uL (3.8-10.6)
[2018-12-22 10:19] LABS: African American GFR (CKD) >90 (>60 ml/min/1.73 sqM); Amylase 42 U/L (30-110); Anion Gap 9 mmol/L; Blood Urea Nitrogen 22 mg/dL (9-20); Calcium 9.5 mg/dL (8.4-10.2); Carbon Dioxide 24 mmol/L (22-30); Chloride 107 mmol/L (98-107); Glucose 88 mg/dL (74-99); Sodium 140 mmol/L (137-145); Total Bilirubin 1.1 mg/dL (0.2-1.3); Total Protein 7.4 g/dL (6.3-8.2)
[2018-12-22 10:24] LABS: ALT 27 U/L (21-72); AST 37 U/L (17-59); Alkaline Phosphatase 62 U/L (38-126); Potassium 5.2 mmol/L (3.5-5.1)
--- NOTE | 2018-12-22 11:29 | CT ---
EXAMINATION TYPE: CT ChestAbdPelvis w con DATE OF EXAM: 12/22/2018 INDICATION: LUQ/left lower chest pain post fall COMPARISON: 12/07/[address] DLP: 1498.3 mGycm CONTRAST: Performed without Oral Contrast and with IV Contrast, patient injected with 100 mL of Isovue 300. TECHNIQUE: Axial images at 5 mm thick sections. Reconstructed images in the coronal plane. Delayed images through the kidneys. FINDINGS: CT CHEST: Portion of the thyroid visualized is normal. No suspicious lung nodules or focal infiltrates are present. No pneumothorax is evident. No enlarged mediastinal or hilar adenopathy is evident. The ascending aorta diameter at the level of the main pulmonary artery is 3.8 cm. The main pulmonary artery diameter at the bifurcation is 3.1 cm. Cardiac valve replacement is present at the aortic familia ve. CT ABDOMEN: No free fluid is evident. Liver: Normal Spleen: Normal. Some calcification appears to be along the posterior lateral cortex of the spleen pre sent previously. Splenule is inferior to the spleen no splenic lacerations are evident. Pancreas: Normal Adrenal glands: The adrenal glands are normal. Gallbladder: Normal Kidneys: No masses are evident. No hydronephrosis is present. Is a 2.1 cm cyst measuring 5 Hounsfie ld units at the superior pole right kidney. Delayed images were obtained through the kidneys, which remain unremarkable. Aorta: Vascular calcification is within the aorta. Inferior vena cava: Normal. CT PELVIS: Loops of bowel within the abdomen and pelvis are normal. Study is performed without oral contrast limiting bowel evaluation. Appendix: Not visualized Urinary bladder: Normal. Genitourinary structures: Prostate is prominent Osseous structures: No suspicious lytic or sclerotic lesions. No acute fractures are evident. Vertebr al body heights are preserved. Alignment is normal. Facet degenerative changes present within the low er lumbar spine IMPRESSIONS: 1. No acute posttraumatic changes.
[2018-12-22] MEDS ORDERED: ACET/COD 300 MG/30 MG STARTER PACK 6 TAB BTL PO STA (11:58)
[2018-12-22 12:26] VITALS: BP 140/71; PULSE 55
== END 2018-12-22 12:30 | disposition home or self-care (01) ==
LOC: EC 09:20
DX: S20.212A Contusion of left front wall of thorax, initial encounter (principal); K21.9 Gastro-esophageal reflux disease without esophagitis; N42.9 Disorder of prostate, unspecified; M10.9 Gout, unspecified; M19.90 Unspecified osteoarthritis, unspecified site; Z87.891 Personal history of nicotine dependence; Z79.82 Long term (current) use of aspirin; Z79.899 Other long term (current) drug therapy; W01.198A Fall on same level from slipping, tripping and stumbling with subsequent striking against other object, initial encounter
CPT/HCPCS: 36415; 80053; 82150; 83690; 85025; 81003; 71260; 74177; 99284; 96360; 96361; Q9967

== ENCOUNTER 2019-02-20 10:31 | Emergency (ER) | payer MEDICARE, OTHER ==
[2019-02-20 10:39] VITALS: RESP 16; TEMP 98.4
--- NOTE | 2019-02-20 11:11 | ED ---
General Adult HPI - General Source: patient Mode of arrival: ambulatory Limitations: no limitations <Mechelle Lewis - Last Filed: 02/20/19 19:47> <Mojgan Barton - Last Filed: 02/23/19 00:01> - General Chief complaint: Abdominal Pain Stated complaint: post hernia surgery-no bowel movement Time Seen by Provider: 02/20/19 10:55 - History of Present Illness Initial comments: Patient is a 78-year-old male, with past medical history of hypertension, gout, GERD, presenting to emergency Department with complaints of constipation 3 days. Patient states he had a hernia repair by Dr. Malin on and has yet to have a bowel movement. Patient states he is having some abdominal pressure related to the surgery but no specific abdominal pain. Patient denies fever, chills, nausea, vomiting. Patient states he is passing gas. Patient states he is taking a stool softener. Patient was taking Guys's for pain relief soon after the surgery however he has switched to Motrin. Patient has no other complaints at this time. Upon arrival to ER, vital signs are stable. (Mechelle Lewis) - Related Data Home Medications Medication Instructions Recorded Confirmed Tamsulosin [Flomax] 0.4 mg PO HS 11/23/15 02/20/19 Allopurinol [Zyloprim] 100 mg PO DAILY 11/24/15 02/20/19 Finasteride [Proscar] 5 mg PO QAM 11/24/15 02/20/19 Fluticasone Propionate 1 - 2 sprays EA NOSTRIL DAILY PRN 11/24/15 02/20/19 Ranitidine HCl 150 mg PO BID 12/22/18 02/20/19 HYDROcodone/APAP 5-325MG [[place] 1 tab PO Q6HR PRN 02/20/19 02/20/19 5-325] Ibuprofen [Motrin Ib] 400 mg PO Q6HR PRN 02/20/19 02/20/19 Sennosides/Docusate Sodium 1 tab PO BID 02/20/19 02/20/19 [Docusate Sodium-Sennosides Tab] Previous Rx's Medication Instructions Recorded Aspirin 81 mg PO DAILY chew 12/18/17 Metoprolol Tartrate [Lopressor] 25 mg PO BID tab 12/18/17 Sodium Chloride 0.65% Nasal [Deep 2 spray NASAL QID PRN spray 12/18/17 Sea (Saline)] Allergies Allergy/AdvReac Type Severity Reaction Status Date / Time No Known Allergies Allergy Verified 02/20/19 10:47 Review of Systems ROS Other: All systems not noted in ROS Statement are negative. <Mechelle Lewis - Last Filed: 02/20/19 19:47> ROS Other: All systems not noted in ROS Statement are negative. <Mojgan Barton - Last Filed: 02/23/19 00:01> ROS Statement: Those systems with pertinent positive or pertinent negative responses have been documented in the HPI. Past Medical History Past Medical History: GERD/Reflux, Hyperlipidemia, Hypertension, Osteoarthritis (OA), Prostate Disorder Additional Past Medical History / Comment(s): hx. gout, occasional SOB w/exertion,sciatica, left leg numb/tingling-supposed to have MRI History of Any Multi-Drug Resistant Organisms: None Reported Past Surgical History: Heart Catheterization, Orthopedic Surgery, Prostate Surgery, Tonsillectomy Additional Past Surgical History / Comment(s): scopes bilat knees, TURP, aortic valve replacement 12/09/17. Past Anesthesia/Blood Transfusion Reactions: No Reported Reaction Past Psychological History: No Psychological Hx Reported Smoking Status: Former smoker Past Alcohol Use History: Occasional - Past Family History Father Family Medical History: Asthma, Pneumonia Additional Family Medical History / Comment(s): ARTHRITIS Mother Additional Family Medical History / Comment(s): BRAIN ANEURYSM <Mechelle Lewis - Last Filed: 02/20/19 19:47> General Exam Limitations: no limitations <Mechelle Lewis - Last Filed: 02/20/19 19:47> - General Exam Comments Initial Comments: GENERAL: Well-appearing, well-nourished and in no acute distress. HEAD: Atraumatic, normocephalic. EYES: Pupils equal round and reactive to light, extraocular movements intact, sclera anicteric, conjunctiva are normal. ENT: TMs normal, nares patent, oropharynx clear without exudates. Moist mucous membranes. NECK: Normal range of motion, supple without lymphadenopathy or JVD. LUNGS: Breath sounds clear to auscultation bilaterally and equal. No wheezes rales or rhonchi. HEART: Regular rate and rhythm without murmurs, rubs or gallops. ABDOMEN: Pressure with palpation in the entire abdomen. 3 small incisions to the lower abdomen from recent hernia repair, no signs of infection. Soft, hyperactive bowel sounds. No guarding, no rebound. No masses appreciated. : Deferred EXTREMITIES: Normal range of motion, no pitting or edema. No clubbing or cyanosis. NEUROLOGICAL: Cranial nerves II through XII grossly intact. Normal speech, normal gait. PSYCH: Normal mood, normal affect. SKIN: Warm, Dry, normal turgor, no rashes or lesions noted. (Mechelle Lewis) Course Vital Signs 02/20/19 02/20/19 02/20/19 10:38 12:24 12:30 Temperature 98.4 F Pulse Rate 62 64 72 Respiratory 16 16 16 Rate Blood Pressure 114/76 120/78 120/78 O2 Sat by Pulse 97 98 99 Oximetry Medical Decision Making <Mechelle Lewis - Last Filed: 02/20/19 19:47> <Mojgan Barton - Last Filed: 02/23/19 00:01> - Medical Decision Making Patient is a 78-year-old male presenting with constipation 3 days. Patient had recent hernia repair. Patient is currently on stool softeners. KUB shows no acute abnormality. Discussed with patient to continue with stool softener but also added MiraLAX or a laxative. Also trial of coffee and walking. Patient is stable for discharge at this time and he is in agreement with this plan of care. Patient has follow-up with his surgeon next week. Return parameters were discussed with the patient he verbalizes understanding. Case discussed with Dr. Barton. (Mechelle Lewis) I was available for consultation in the emergency department. The history and physical exam were done by the midlevel provider. I was consulted for this patients care. I reviewed the case with the midlevel provider and based on their presentation of the patient, I agree with the assessment, medical decision making and plan of care as documented. Chart was dictated using [employer] dictation software. Attempts were made to correct any dictation errors however some typographical errors may persist. (Mojgan Barton) Disposition Is patient prescribed a controlled substance at d/c from ED?: No <Mechelle Lewis - Last Filed: 02/20/19 19:47> <Mojgan Barton - Last Filed: 02/23/19 00:01> Clinical Impression: Constipation Disposition: HOME SELF-CARE Condition: Stable Instructions (If sedation given, give patient instructions): Constipation (ED) Additional Instructions: Please return to the Emergency Department if symptoms worsen or any other concerns. Continue a stool softener. Add on MiraLAX or laxative. Increase fiber intake. Trial of coffee and walking as well. Referrals: Abner Davenport MD [Primary Care Provider] - 1-2 days
--- NOTE | 2019-02-20 11:49 | XR ---
EXAMINATION TYPE: XR KUB , 2 VIEWS DATE OF EXAM ORDERED: 02/20/2019 HISTORY: constipation . COMPARISON: Previous study dated 07/23/2012. FINDINGS: There is been a midline sternotomy. The lung bases are clear. Within the abdomen, the abdominal gas pattern is within normal limits. There is no evidence of obstru ction or free air. There are phleboliths within the pelvis. There is some feces in the right side of the colon. IMPRESSION: NO ACUTE INTRA-ABDOMINAL ABNORMALITY.
[2019-02-20 12:25] VITALS: BP 120/78
[2019-02-20 12:34] VITALS: PULSE 72
== END 2019-02-20 12:21 | disposition home or self-care (01) ==
LOC: EC 10:31
DX: K59.00 Constipation, unspecified (principal); R19.12 Hyperactive bowel sounds; K21.9 Gastro-esophageal reflux disease without esophagitis; M10.9 Gout, unspecified; M19.90 Unspecified osteoarthritis, unspecified site; N42.9 Disorder of prostate, unspecified; Z87.891 Personal history of nicotine dependence; Z79.1 Long term (current) use of non-steroidal anti-inflammatories (NSAID); Z79.899 Other long term (current) drug therapy; Z98.890 Other specified postprocedural states
CPT/HCPCS: 74018; 99284

== ENCOUNTER → 2019-11-01 | Outpatient (CLI) | payer MEDICARE, OTHER ==
--- NOTE | 2019-11-01 09:25 | XR ---
EXAMINATION TYPE: XR chest 2V DATE OF EXAM: 11/01/2019 COMPARISON: January 02, 2018 HISTORY: Shortness of breath TECHNIQUE: Frontal and lateral views of the chest are obtained. FINDINGS: Scattered senescent parenchymal changes noted. Hyperinflation compatible with COPD. No evidence for infiltrate. No evidence for atelectasis. Heart size is stable. Mediastinal structures are stable and grossly unremarkable. No evidence for hilar prominence. Degenerative changes dorsal spine. IMPRESSION: 1. No evidence for acute pulmonary disease.
--- NOTE | 2019-11-01 09:28 | XR ---
EXAMINATION TYPE: XR thoracic spine complete DATE OF EXAM: 11/01/2019 CLINICAL HISTORY: pain TECHNIQUE: Frontal, lateral, and swimmer's view of thoracic spine are obtained. COMPARISON: None. FINDINGS: Thoracic spine show satisfactory alignment without evidence of acute fracture or dislocatio n. Vertebral body heights are preserved. Moderate multilevel degenerative disc space narrowing and s pondylosis. Visualized ribs are unremarkable. IMPRESSION: No acute fracture or dislocation is seen in the thoracic spine. ICD 10 NO FRACTURE, INIT IAL EVALUATION
== END | disposition home or self-care (01) ==
LOC: RADXRMAIN 09:04
PROVIDERS: ATTEND Family Medicine
DX: I10 Essential (primary) hypertension (principal); S29.019A Strain of muscle and tendon of unspecified wall of thorax, initial encounter
CPT/HCPCS: 71046; 72072

== ENCOUNTER 2020-04-17 10:57 | Emergency (ER) | payer MEDICARE, OTHER ==
[2020-04-17 11:04] VITALS: RESP 18
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
[2020-04-17 12:35] VITALS: BP 137/84; PULSE 57; TEMP 97.3
== END 2020-04-17 12:35 | disposition home or self-care (01) ==
LOC: EC 10:57
DX: S09.90XA Unspecified injury of head, initial encounter (principal); K21.9 Gastro-esophageal reflux disease without esophagitis; E78.5 Hyperlipidemia, unspecified; I10 Essential (primary) hypertension; M19.90 Unspecified osteoarthritis, unspecified site; N42.9 Disorder of prostate, unspecified; Z79.899 Other long term (current) drug therapy; Z95.2 Presence of prosthetic heart valve; Z95.5 Presence of coronary angioplasty implant and graft; V43.52XA Car driver injured in collision with other type car in traffic accident, initial encounter; Y92.410 Unspecified street and highway as the place of occurrence of the external cause; R00.1 Bradycardia, unspecified
CPT/HCPCS: 70450; 72125; 99284

== ENCOUNTER 2020-10-26 15:51 | Emergency (ER) | payer MEDICARE, OTHER ==
[2020-10-26 16:06] VITALS: TEMP 98
[2020-10-26 17:22] LABS: ALT 24 U/L (4-49); AST 31 U/L (17-59); African American GFR (CKD) >90 (>60 ml/min/1.73 sqM); Albumin 3.6 g/dL (3.5-5.0); Alkaline Phosphatase 57 U/L (38-126); Anion Gap 7 mmol/L; Basophils % (A) 0 %; Blood Urea Nitrogen 21 mg/dL (9-20); Calcium 9.4 mg/dL (8.4-10.2); Carbon Dioxide 24 mmol/L (22-30); Chloride 108 mmol/L (98-107); Eosinophils # (A) 0.1 k/uL (0-0.7); Eosinophils % (A) 3 %; Glucose 111 mg/dL (74-99); HCT 38.6 % (39.0-53.0); HGB 12.8 gm/dL (13.0-17.5); Lymphocytes # (A) 1.4 k/uL (1.0-4.8); Lymphocytes % (A) 37 %; MCHC 33.1 g/dL (31.0-37.0); MCV 96.7 fL (80.0-100.0); Mean Platelet Volume 7.9; Monocytes # (A) 0.3 k/uL (0-1.0); Monocytes % (A) 7 %; Neutrophils % (A) 52 %; Non-African American GFR(CKD) 85 (>60 ml/min/1.73 sqM); Potassium 3.9 mmol/L (3.5-5.1); RDW 15.8 % (11.5-15.5); Sodium 139 mmol/L (137-145); Total Bilirubin 0.8 mg/dL (0.2-1.3); Total Protein 6.7 g/dL (6.3-8.2); WBC 3.8 k/uL (3.8-10.6)
[2020-10-26 18:08] LABS: Platelet Count 96 k/uL (150-450)
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
--- NOTE | 2020-10-26 19:04 | XR ---
EXAMINATION TYPE: XR chest 2V DATE OF EXAM: 10/26/2020 COMPARISON: 01/02/2018 HISTORY: Weakness TECHNIQUE: 2 views FINDINGS: There is no heart failure nor confluent pneumonic infiltrate. Costophrenic angles are clear . There are sternal wires. There are no hilar masses. Bony thorax is intact. There is cardiac valve s urgery. IMPRESSION: No active cardiopulmonary disease. No adverse change.
[2020-10-26 19:51] VITALS: BP 135/75; PULSE 55; RESP 20
== END 2020-10-26 19:51 | disposition home or self-care (01) ==
LOC: EC 15:51
DX: D64.9 Anemia, unspecified (principal); D69.6 Thrombocytopenia, unspecified; I10 Essential (primary) hypertension; E78.5 Hyperlipidemia, unspecified; K21.9 Gastro-esophageal reflux disease without esophagitis; M10.9 Gout, unspecified; M19.90 Unspecified osteoarthritis, unspecified site; Z79.1 Long term (current) use of non-steroidal anti-inflammatories (NSAID); Z79.82 Long term (current) use of aspirin; Z79.899 Other long term (current) drug therapy; Z95.2 Presence of prosthetic heart valve
CPT/HCPCS: 36415; 71046; 80053; 84484; 85025; 93005; 99285

== ENCOUNTER 2021-03-19 08:24 | Emergency (ER) | payer MEDICARE, OTHER ==
[2021-03-19 08:28] VITALS: TEMP 98.1
[2021-03-19] MEDS ORDERED: ASPIRIN 81 MG PO STA (08:57)
--- NOTE | 2021-03-19 09:50 | XR ---
EXAMINATION TYPE: XR chest 2V DATE OF EXAM: 03/19/2021 COMPARISON: 10/26/2020 INDICATION: Chest pain and short of breath TECHNIQUE: Frontal and lateral views of the chest are obtained. FINDINGS: The heart size is mildly prominent. The pulmonary vasculature is normal. The lungs are clear. 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 No acute pulmonary process. 2. Mild cardiomegaly
[2021-03-19 09:51] LABS: Basophils % (A) 0 %; Eosinophils % (A) 0 %; HCT 39.2 % (39.0-53.0); HGB 13.7 gm/dL (13.0-17.5); Lymphocytes # (A) 0.3 k/uL (1.0-4.8); Lymphocytes % (A) 9 %; MCH 34.4 pg (25.0-35.0); MCV 98.3 fL (80.0-100.0); Mean Platelet Volume 8.4; Monocytes # (A) 0.3 k/uL (0-1.0); Monocytes % (A) 7 %; Neutrophils # (A) 2.9 k/uL (1.3-7.7); Neutrophils % (A) 82 %; RBC 3.99 m/uL (4.30-5.90); RDW 14.6 % (11.5-15.5); WBC 3.6 k/uL (3.8-10.6)
[2021-03-19 10:03] LABS: ALT 26 U/L (4-49); AST 33 U/L (17-59); African American GFR (CKD) >90 (>60 ml/min/1.73 sqM); Alkaline Phosphatase 71 U/L (38-126); Anion Gap 10 mmol/L; Blood Urea Nitrogen 21 mg/dL (9-20); Calcium 9.8 mg/dL (8.4-10.2); Carbon Dioxide 22 mmol/L (22-30); Chloride 103 mmol/L (98-107); Glucose 112 mg/dL (74-99); Magnesium 1.7 mg/dL (1.6-2.3); Non-African American GFR(CKD) 82 (>60 ml/min/1.73 sqM); Potassium 4.1 mmol/L (3.5-5.1); Sodium 135 mmol/L (137-145); Total Protein 7.5 g/dL (6.3-8.2)
[2021-03-19 10:07] LABS: Partial Thromboplastin Time 22.7 sec (22.0-30.0); Prothrombin Time 10.4 sec (9.0-12.0)
[2021-03-19 10:24] LABS: Platelet Count 99 k/uL (150-450)
[2021-03-19] MEDS ORDERED: LORazepam 2 MG/ML INJ IV STA (10:41)
--- NOTE | 2021-03-19 11:11 | CT ---
EXAMINATION TYPE: CT chest angio for PE DATE OF EXAM: 03/19/2021 COMPARISON: None. HISTORY: Shortness of breath, elevated d-dimer CT DLP: 817.2 mGycm Automated exposure control for dose reduction was used. CONTRAST: CTA Chest for pulmonary embolism performed with with IV Contrast, patient injected with 100 mL of Iso hermelindo 370. MIP Images are created on CT scanner and reviewed. FINDINGS: LUNGS: Some respiratory motion artifact degradation makes evaluation suboptimal particularly for subc entimeter nodules. No suspicious focal consolidation. No pleural effusion or pneumothorax. MEDIASTINUM: There is satisfactory enhancement of the pulmonary artery and its branches, there is no CT evidence for pulmonary embolism. Satisfactory enhancement of the aorta without aneurysm or dissect ion. Bovine type arch is seen which is normal variant. Overlying sternal wires are present. There is left atrial appendage clipping and metallic aortic valve. Moderate left atrial dilatation. Mild to mo derate right ventricular dilatation. Mild to moderate right atrial dilatation. There are no greater t patel 1 cm hilar or mediastinal lymph nodes. No pericardial effusion is seen. OTHER: Small degree of subareolar flame-shaped gynecomastia is present bilaterally. Cortical thinnin g bilaterally. Mild multilevel spurring. IMPRESSION: No acute pulmonary embolism. Postsurgical changes to the heart without acute pulmonary pr ocess.
--- NOTE | 2021-03-19 12:38 | ED ---
General Adult HPI - General Chief complaint: Shortness of Breath Stated complaint: SOB Time Seen by Provider: 03/19/21 08:30 Source: patient, RN notes reviewed, old records reviewed Mode of arrival: ambulatory Limitations: no limitations - History of Present Illness Initial comments: Patient presented to emergency Department complaining of dyspnea. He is 80 with past medical history remarkable for anxiety, hypertension, GERD, prostate disorder who presents over concern for worsening dyspnea. He states it is slowly getting worse, gets worse when he thinks about a. He thinks it may be related to anxiety but was brought in by his for evaluation. Denies any cough, fevers. Denies any chest pain, abdominal pain, nausea, vomiting. There is any lightheadedness or weakness. He has no other acute complaints at this time. Denies any orthopnea or PND. Denies any lower extremity edema. His no history of blood clots. This is slowly getting getting worse over the last few weeks but he has been under more stress over the last few weeks. Patient is concerned that his dyspnea may be related to anxiety as it is present when he is more anxious. Patient presented for further evaluation. - Related Data Home Medications Medication Instructions Recorded Confirmed Tamsulosin [Flomax] 0.4 mg PO HS 11/23/15 03/19/21 Finasteride [Proscar] 5 mg PO DAILY 11/24/15 03/19/21 allopurinoL [Zyloprim] 100 mg PO DAILY 11/24/15 03/19/21 Atorvastatin [Lipitor] 20 mg PO HS 10/26/20 03/19/21 Famotidine [Pepcid] 20 mg PO BID 10/26/20 03/19/21 Metoprolol Tartrate [Lopressor] 25 mg PO DAILY 10/26/20 03/19/21 Albuterol Inhaler [Ventolin Hfa 1 puff INHALATION RT-Q6H PRN 03/19/21 03/19/21 Inhaler] Difluprednate [Durezol] 1 drop BOTH EYES QID 03/19/21 03/19/21 Previous Rx's Medication Instructions Recorded Aspirin 81 mg PO DAILY chew 12/18/17 Allergies Allergy/AdvReac Type Severity Reaction Status Date / Time No Known Allergies Allergy Verified 03/19/21 09:29 Review of Systems ROS Statement: Those systems with pertinent positive or pertinent negative responses have been documented in the HPI. Review of Systems: CONST: Denies fever EYES: Denies blurry vision ENT: Denies nasal congestion C/V: Denies Chest pain RESP: Endorses intermittent shortness of breath GI: Denies abdominal pain : Denies dysuria SKIN: Denies rash. MSK: Denies joint pain. NEURO: Denies headache PSYCH: Endorses concern for anxiety. ROS Other: All systems not noted in ROS Statement are negative. Past Medical History Past Medical History: GERD/Reflux, Hyperlipidemia, Hypertension, Osteoarthritis (OA), Prostate Disorder Additional Past Medical History / Comment(s): hx. gout, occasional SOB w/e xertion,sciatica, left leg numb/tingling-supposed to have MRI History of Any Multi-Drug Resistant Organisms: None Reported Past Surgical History: Heart Catheterization, Orthopedic Surgery, Prostate Surgery, Tonsillectomy Additional Past Surgical History / Comment(s): scopes bilat knees, TURP, aortic valve replacement 12/09/17. Past Anesthesia/Blood Transfusion Reactions: No Reported Reaction Past Psychological History: No Psychological Hx Reported Smoking Status: Former smoker Past Alcohol Use History: Daily Past Drug Use History: None Reported - Past Family History Father Family Medical History: Asthma, Pneumonia Additional Family Medical History / Comment(s): ARTHRITIS Mother Additional Family Medical History / Comment(s): BRAIN ANEURYSM General Exam - General Exam Comments Initial Comments: General: Appears in no acute distress. HEAD: Normal with no signs of head trauma. EYES: PERRLA, EOMI, conjunctiva normal, no discharge. ENT: Hearing grossly intact, normal oropharynx. RESPIRATORY: Clear breath sounds bilaterally. No wheezes, rales, or rhonchi. C/V: Regular rate and rhythm. S1 and S2 auscultated, no edema, peripheral pulses 2+ and intact throughout ABD: Abd is soft, nontender, nondistended EXT: Normal range of motion, no obvious deformity SKIN: No rashes or lesions observed on exposed skin. NEURO: Alert and oriented x 4. Cranial nerves II-XII intact. No focal sensory or strength deficits. Limitations: no limitations Course Vital Signs 03/19/21 03/19/21 03/19/21 08:26 09:40 11:08 Temperature 98.1 F Pulse Rate 67 66 Pulse Rate [ 71 Sitting Pulse Oximetery] Respiratory 24 18 Rate Blood Pressure 129/72 119/64 O2 Sat by Pulse 97 94 L Oximetry 03/19/21 12:49 Temperature Pulse Rate 69 Pulse Rate [ Sitting Pulse Oximetery] Respiratory 20 Rate Blood Pressure 103/68 O2 Sat by Pulse 96 Oximetry Medical Decision Making - Medical Decision Making Based on the patient's presentation and physical exam, I'm concerned for possible cardiac etiology for the patient's current symptoms. We will also obtain infectious swabs as well as a d-dimer to rule out possibility of pulmonary wasn't. Patient was in agreement this plan. He'll be connected to continuous cardiac monitoring. EKG and chest x-ray will also be obtained. Patient's EKG shows chronic T wave inversions without any acute changes. Chest x-ray reveals no acute cardiopulmonary process. Laboratory studies are remarkable for an indeterminate troponin which is his baseline. Patient's d- dimer is elevated 0.77. The remainder of his labs are unremarkable. Covid, flu, RSV negative. On reevaluation, I explained that to the patient's elevated d-dimer would like to obtain a CT angiogram to a possibility of pulmonary embolus and. He was in agreement with this plan. Patient's CT angiogram revealed no signs of pulmonary embolism. Patient received Ativan prior to CT as he states his anxiety was kaia vated. On reevaluation, patient is feeling improved. He states his anxiety is gone. He states he is asymptomatic and denies any shortness of breath or dyspnea. Exam remains unchanged. Due to his negative workup, as well as multiple weeks of symptoms, as well as response to ant anxiety medications, I do believe it is safe for the patient be discharged home with close follow-up. He has a [facility] appointment later this week. He was in agreement this plan. I instructed the patient to follow up with their PCP in the next 3 days. I explained that the patient should return to the emergency department if they experience any worsening symptoms. Strict return precautions were discussed with the patient. The patient expressed understanding of these instructions. I answered all questions that the patient had. The patient was discharged home in good condition with their prescriptions and follow up information. - Lab Data Result diagrams: 03/19/21 09:33 03/19/21 09:33 Lab Results 03/19/21 03/19/21 03/19/21 Range/Units 09:33 09:33 09:33 WBC 3.6 L (3.8-10.6) k/uL RBC 3.99 L (4.30-5.90) m/uL Hgb 13.7 (13.0-17.5) gm/dL Hct 39.2 (39.0-53.0) % MCV 98.3 (80.0-100.0) fL MCH 34.4 (25.0-35.0) pg MCHC 35.0 (31.0-37.0) g/dL RDW 14.6 (11.5-15.5) % Plt Count 99 L (150-450) k/uL MPV 8.4 Neutrophils % 82 % Lymphocytes % 9 % Monocytes % 7 % Eosinophils % 0 % Basophils % 0 % Neutrophils # 2.9 (1.3-7.7) k/uL Lymphocytes # 0.3 L (1.0-4.8) k/uL Monocytes # 0.3 (0-1.0) k/uL Eosinophils # 0.0 (0-0.7) k/uL Basophils # 0.0 (0-0.2) k/uL Manual Slide Review Performed RBC Morphology Normal PT 10.4 (9.0-12.0) sec INR 1.0 (<1.2) APTT 22.7 (22.0-30.0) sec D-Dimer 0.77 H (<0.60) mg/L FEU Sodium 135 L (137-145) mmol/L Potassium 4.1 (3.5-5.1) mmol/L Chloride 103 (98-107) mmol/L Carbon Dioxide 22 (22-30) mmol/L Anion Gap 10 mmol/L BUN 21 H (9-20) mg/dL Creatinine 0.90 (0.66-1.25) mg/dL Est GFR (CKD-EPI)AfAm >90 (>60 ml/min/1.73 sqM) Est GFR (CKD-EPI)NonAf 82 (>60 ml/min/1.73 sqM) Glucose 112 H (74-99) mg/dL Calcium 9.8 (8.4-10.2) mg/dL Magnesium 1.7 (1.6-2.3) mg/dL Total Bilirubin 2.0 H (0.2-1.3) mg/dL AST 33 (17-59) U/L ALT 26 (4-49) U/L Alkaline Phosphatase 71 (38-126) U/L Troponin I (0.000-0.034) ng/mL NT-Pro-B Natriuret Pep pg/mL Total Protein 7.5 (6.3-8.2) g/dL Albumin 4.0 (3.5-5.0) g/dL Influenza Type A (PCR) (Not Detectd) Influenza Type B (PCR) (Not Detectd) RSV (PCR) (Not Detectd) SARS-CoV-2 (PCR) (Not Detectd) 03/19/21 03/19/21 03/19/21 Range/Units 09:33 09:33 09:33 WBC (3.8-10.6) k/uL RBC (4.30-5.90) m/uL Hgb (13.0-17.5) gm/dL Hct (39.0-53.0) % MCV (80.0-100.0) fL MCH (25.0-35.0) pg MCHC (31.0-37.0) g/dL RDW (11.5-15.5) % Plt Count (150-450) k/uL MPV Neutrophils % % Lymphocytes % % Monocytes % % Eosinophils % % Basophils % % Neutrophils # (1.3-7.7) k/uL Lymphocytes # (1.0-4.8) k/uL Monocytes # (0-1.0) k/uL Eosinophils # (0-0.7) k/uL Basophils # (0-0.2) k/uL Manual Slide Review RBC Morphology PT (9.0-12.0) sec INR (<1.2) APTT (22.0-30.0) sec D-Dimer (<0.60) mg/L FEU Sodium (137-145) mmol/L Potassium (3.5-5.1) mmol/L Chloride (98-107) mmol/L Carbon Dioxide (22-30) mmol/L Anion Gap mmol/L BUN (9-20) mg/dL Creatinine (0.66-1.25) mg/dL Est GFR (CKD-EPI)AfAm (>60 ml/min/1.73 sqM) Est GFR (CKD-EPI)NonAf (>60 ml/min/1.73 sqM) Glucose (74-99) mg/dL Calcium (8.4-10.2) mg/dL Magnesium (1.6-2.3) mg/dL Total Bilirubin (0.2-1.3) mg/dL AST (17-59) U/L ALT (4-49) U/L Alkaline Phosphatase (38-126) U/L Troponin I 0.017 (0.000-0.034) ng/mL NT-Pro-B Natriuret Pep 612 pg/mL Total Protein (6.3-8.2) g/dL Albumin (3.5-5.0) g/dL Influenza Type A (PCR) Not Detected (Not Detectd) Influenza Type B (PCR) Not Detected (Not Detectd) RSV (PCR) Not Detected (Not Detectd) SARS-CoV-2 (PCR) Not Detected (Not Detectd) - EKG Data -: EKG Interpreted by Me EKG Comments: 12-lead Electrocardiogram Interpretation Note EKG was reviewed and interpreted by myself. 12-lead ECG performed at 0832 is interpreted by me as revealing normal sinus rhythm at a rate of 64 beats per minute. [place] is normal. [place] interval is 154 ms, QRS duration is 108 ms, QTc is 447 ms.. Patient has chronic T-wave inversions in the lateral and anterior precordial leads V2 through V6 which are seen on prior EKGs. No acute ST s egment or T-wave changes.. R wave progression across the precordium was satisfactory. By my interpretation this EKG is non-diagnostic for acute ischemia. This EKG reveals chronic T-wave inversions. Disposition Clinical Impression: Dyspnea, Anxiety Disposition: HOME SELF-CARE Condition: Good Is patient prescribed a controlled substance at d/c from ED?: No Referrals: Abner Davenport MD [Primary Care Provider] - 1-2 days
[2021-03-19 12:50] VITALS: BP 103/68; PULSE 69; RESP 20
== END 2021-03-19 12:50 | disposition home or self-care (01) ==
LOC: EC 08:24
DX: R06.00 Dyspnea, unspecified (principal); F41.9 Anxiety disorder, unspecified; K21.9 Gastro-esophageal reflux disease without esophagitis; E78.5 Hyperlipidemia, unspecified; I10 Essential (primary) hypertension; M19.90 Unspecified osteoarthritis, unspecified site; Z79.82 Long term (current) use of aspirin; Z90.89 Acquired absence of other organs; Z87.891 Personal history of nicotine dependence; Z95.2 Presence of prosthetic heart valve; Z20.822 Contact with and (suspected) exposure to COVID-19
CPT/HCPCS: 99285; 96374; 36415; 93005; 85379; 83880; 80053; 83735; 84484; 85025; 85610; 85730; 87636; 71046; 71275; J2060; Q9967

== ENCOUNTER → 2021-06-20 | Outpatient (CLI) | payer MEDICARE, OTHER ==
--- NOTE | 2021-06-20 14:40 | US ---
EXAMINATION TYPE: US venous doppler duplex LE LT DATE OF EXAM: 06/20/2021 2:24 PM COMPARISON: NONE CLINICAL HISTORY: Pain M79.62 R22.42 Swelling left lower limb. Left ankle swelling patient unsure whe n started SIDE PERFORMED: Left TECHNIQUE: The lower extremity deep venous system is examined utilizing real time linear array sonog cesar with graded compression, doppler sonography and color-flow sonography. VESSELS IMAGED: Common Femoral Vein Deep Femoral Vein Greater Saphenous Vein * Femoral Vein Popliteal Vein Small Saphenous Vein * Proximal Calf Veins (* superficial vessels) Left Leg: Negative for DVT No DVT seen at this time. Grayscale, color doppler, spectral doppler imaging performed of the deep veins of the left lower extr emity. There is normal flow, compressibility, vascular waveforms. IMPRESSION: No ultrasound evidence for acute DVT in the left lower extremity.
== END | disposition home or self-care (01) ==
LOC: RADUSWWP 13:58
PROVIDERS: ATTEND Internal Medicine Hematology & Oncology
DX: R22.42 Localized swelling, mass and lump, left lower limb (principal); M79.662 Pain in left lower leg

== ENCOUNTER 2021-12-05 07:47 | Observation (INO) | payer MEDICARE, OTHER ==
[2021-12-05] MEDS ORDERED: IPRATROPIUM-ALBUTEROL 3 ML NEB INHALATION STA (08:04)
--- NOTE | 2021-12-05 08:20 | ED ---
General Adult HPI - General Chief complaint: Shortness of Breath Stated complaint: dif breathing Time Seen by Provider: 12/05/21 07:53 Source: patient, RN notes reviewed, old records reviewed Mode of arrival: ambulatory Limitations: no limitations - History of Present Illness Initial comments: Is a 81-year-old male with past medical history remarkable for cardiac bypass, hypertension, hyperlipidemia, prostate disorder, aortic valve replacement in 2018 who presents emergency Department complaining of shortness of breath. States this has been ongoing for the last few weeks but has gotten worse over the last few days. He is concerned for possible upper respiratory illness, as he is having nasal congestion that is clear as well as a minimal nonproductive cough. Patient states his throat feels dry but is not sore. Also endorses a chest tightness when the breathing is bad because across his chest. At rest she does not have it. States it is somewhat worse when lying down flat. Denies nausea, vomiting, abdominal distention. Endorses very mild chronic lower extremity swelling that is not any worse than normal. Has no history of blood clots. Is not on blood thinners. Denies any headache. Denies any sick contacts. Patient did receive his Covid and pneumonia boosters yesterday, and is concerned this may have contributed to symptoms despite having multiple weeks of symptoms. Patient presents today because of shortness of breath has not improved. Denies PND. Endorses exertional shortness of breath. Denies any recent long distance travel. Presents for further evaluation at this time. - Related Data Home Medications Medication Instructions Recorded Confirmed Tamsulosin [Flomax] 0.4 mg PO HS 11/23/15 03/19/21 Finasteride [Proscar] 5 mg PO DAILY 11/24/15 03/19/21 allopurinoL [Zyloprim] 100 mg PO DAILY 11/24/15 03/19/21 Atorvastatin [Lipitor] 20 mg PO HS 10/26/20 03/19/21 Famotidine [Pepcid] 20 mg PO BID 10/26/20 03/19/21 Metoprolol Tartrate [Lopressor] 25 mg PO DAILY 10/26/20 03/19/21 Albuterol Inhaler [Ventolin Hfa 1 puff INHALATION RT-Q6H PRN 03/19/21 03/19/21 Inhaler] Difluprednate [Durezol] 1 drop BOTH EYES QID 03/19/21 03/19/21 Previous Rx's Medication Instructions Recorded Aspirin 81 mg PO DAILY chew 12/18/17 Allergies Allergy/AdvReac Type Severity Reaction Status Date / Time No Known Allergies Allergy Verified 12/05/21 07:53 Review of Systems ROS Statement: Those systems with pertinent positive or pertinent negative responses have been documented in the HPI. Review of Systems: CONST: Denies fever EYES: Denies blurry vision ENT: Endorses nasal congestion C/V: Denies Chest pain RESP: Endorses shortness of breath GI: Denies abdominal pain : Denies dysuria SKIN: Denies rash. MSK: Denies joint pain. NEURO: Denies headache ROS Other: All systems not noted in ROS Statement are negative. Past Medical History Past Medical History: GERD/Reflux, Hyperlipidemia, Hypertension, Osteoarthritis (OA), Prostate Disorder Additional Past Medical History / Comment(s): hx. gout, occasional SOB w/exertion,sciatica, left leg numb/tingling-supposed to have MRI History of Any Multi-Drug Resistant Organisms: None Reported Past Surgical History: Heart Catheterization, Orthopedic Surgery, Prostate Surgery, Tonsillectomy Additional Past Surgical History / Comment(s): scopes bilat knees, TURP, aortic valve replacement 12/09/17. Past Anesthesia/Blood Transfusion Reactions: No Reported Reaction Past Psychological History: No Psychological Hx Reported Smoking Status: Former smoker Past Alcohol Use History: Daily Past Drug Use History: None Reported - Past Family History Father Family Medical History: Asthma, Pneumonia Additional Family Medical History / Comment(s): ARTHRITIS Mother Additional Family Medical History / Comment(s): BRAIN ANEURYSM General Exam - General Exam Comments Initial Comments: General: Appears in no acute distress. HEAD: Normal with no signs of head trauma. EYES: PERRLA, EOMI, conjunctiva normal, no discharge. ENT: Hearing grossly intact, normal oropharynx. RESPIRATORY: Clear breath sounds bilaterally. No wheezes, rales, or rhonchi. Mildly increased work of breathing. Saturating well on room air. C/V: Regular rate and rhythm. S1 and S2 auscultated, very mild pitting edema at the level of the ankles to mid manuel. peripheral pulses 2+ and intact throughout ABD: Abd is soft, nontender, nondistended EXT: Normal range of motion, no obvious deformity SKIN: No rashes or lesions observed on exposed skin. NEURO: Alert and oriented 4. No focal deficits. Limitations: no limitations Course Vital Signs 12/05/21 12/05/21 12/05/21 07:49 08:14 08:27 Temperature 98.0 F Pulse Rate 66 54 L Respiratory 26 H 18 16 Rate Blood Pressure 123/51 O2 Sat by Pulse 99 Oximetry 12/05/21 12/05/21 12/05/21 08:35 08:57 10:09 Temperature Pulse Rate 68 61 Respiratory 16 18 Rate Blood Pressure 115/74 O2 Sat by Pulse 96 95 Oximetry Medical Decision Making - Medical Decision Making Based on the patient's presentation and physical exam, I'm concerned for an acute cardio pulmonary process, but cannot rule out infectious at this time. We'll obtain cardiac workup as well as PE screening d-dimer. Covid and flu swabs will be obtained. Patient will be given a breathing treatment to evaluate for any improvement. Patient was in agreement with this plan. Vital signs are within normal limits but he does have some mild tachypnea in the low 20s at bedside. EKG shows no acute changes. No signs of acute ischemia. Chronic T wave inversions in the precordial leads.When walking the patient, patient is subjectively dyspneic. Improves with rest. Pulse ox varies between 92 and 96%. Laboratory studies returned for chronic leukopenia with white blood cell count of 3.0. D-dimer is age-adjusted within normal limits at 0.62. Troponin is indeterminate at 0.014. BNP is normal for the patient's age. Covid and flu are negative. Remainder the labs are unremarkable. Chest x-ray shows no acute cardiopulmonary process. It does show borderline cardiomegaly. On reevaluation, I discussed with the patient his workup. I do believe it is safest to admit the patient, and obtain a repeat echo as well as have his circular tank cooper Dr. Young evaluate the patient, as he is applications instructor today. I did speak with the patient regarding this and he wanted me to reach out and see if it is old echo was normal. I was able to talk with Dr. Young via a nurse in the Lab Director, as he was doing a procedure. Last echo was approximately 7 months ago and was within normal limits. I did discuss this with the patient. I do believe the safest treatment the hospital for echo and evaluation. He was in agreement this plan. At rest, his dyspnea does seem to be improved. I spoke with the admitting team, Dr. Martin who admits for Dr. Davenport who accepted the patient. Patient be admitted to telemetry bed. Echo was ordered. We will trend the troponin. - Lab Data Result diagrams: 12/05/21 08:10 12/05/21 08:10 Lab Results 12/05/21 12/05/21 12/05/21 Range/Units 08:10 08:10 08:10 WBC 3.0 L (3.8-10.6) k/uL RBC 3.93 L (4.30-5.90) m/uL Hgb 13.7 (13.0-17.5) gm/dL Hct 39.0 (39.0-53.0) % MCV 99.1 (80.0-100.0) fL MCH 34.7 (25.0-35.0) pg MCHC 35.0 (31.0-37.0) g/dL RDW 15.9 H (11.5-15.5) % Plt Count 75 L (150-450) k/uL MPV 8.7 Neutrophils % 79 % Lymphocytes % 12 % Monocytes % 7 % Eosinophils % 0 % Basophils % 1 % Neutrophils # 2.4 (1.3-7.7) k/uL Lymphocytes # 0.4 L (1.0-4.8) k/uL Monocytes # 0.2 (0-1.0) k/uL Eosinophils # 0.0 (0-0.7) k/uL Basophils # 0.0 (0-0.2) k/uL Manual Slide Review Performed Macrocytosis Slight PT 10.4 (9.0-12.0) sec INR 0.9 (<1.2) APTT 24.0 (22.0-30.0) sec D-Dimer 0.62 H (<0.60) mg/L FEU Sodium 134 L (137-145) mmol/L Potassium 4.2 (3.5-5.1) mmol/L Chloride 104 (98-107) mmol/L Carbon Dioxide 22 (22-30) mmol/L Anion Gap 8 mmol/L BUN 20 (9-20) mg/dL Creatinine 0.89 (0.66-1.25) mg/dL Est GFR (CKD-EPI)AfAm >90 (>60 ml/min/1.73 sqM) Est GFR (CKD-EPI)NonAf 82 (>60 ml/min/1.73 sqM) Glucose 110 H (74-99) mg/dL Calcium 9.2 (8.4-10.2) mg/dL Magnesium 1.6 (1.6-2.3) mg/dL Total Bilirubin 1.4 H (0.2-1.3) mg/dL AST 29 (17-59) U/L ALT 24 (4-49) U/L Alkaline Phosphatase 65 (38-126) U/L Troponin I (0.000-0.034) ng/mL NT-Pro-B Natriuret Pep pg/mL Total Protein 7.3 (6.3-8.2) g/dL Albumin 3.9 (3.5-5.0) g/dL Coronavirus (PCR) (Not Detectd) Influenza Type A RNA (Not Detectd) Influenza Type B (PCR) (Not Detectd) 12/05/21 12/05/21 12/05/21 Range/Units 08:10 08:10 08:10 WBC (3.8-10.6) k/uL RBC (4.30-5.90) m/uL Hgb (13.0-17.5) gm/dL Hct (39.0-53.0) % MCV (80.0-100.0) fL MCH (25.0-35.0) pg MCHC (31.0-37.0) g/dL RDW (11.5-15.5) % Plt Count (150-450) k/uL MPV Neutrophils % % Lymphocytes % % Monocytes % % Eosinophils % % Basophils % % Neutrophils # (1.3-7.7) k/uL Lymphocytes # (1.0-4.8) k/uL Monocytes # (0-1.0) k/uL Eosinophils # (0-0.7) k/uL Basophils # (0-0.2) k/uL Manual Slide Review Macrocytosis PT (9.0-12.0) sec INR (<1.2) APTT (22.0-30.0) sec D-Dimer (<0.60) mg/L FEU Sodium (137-145) mmol/L Potassium (3.5-5.1) mmol/L Chloride (98-107) mmol/L Carbon Dioxide (22-30) mmol/L Anion Gap mmol/L BUN (9-20) mg/dL Creatinine (0.66-1.25) mg/dL Est GFR (CKD-EPI)AfAm (>60 ml/min/1.73 sqM) Est GFR (CKD-EPI)NonAf (>60 ml/min/1.73 sqM) Glucose (74-99) mg/dL Calcium (8.4-10.2) mg/dL Magnesium (1.6-2.3) mg/dL Total Bilirubin (0.2-1.3) mg/dL AST (17-59) U/L ALT (4-49) U/L Alkaline Phosphatase (38-126) U/L Troponin I 0.014 (0.000-0.034) ng/mL NT-Pro-B Natriuret Pep 954 pg/mL Total Protein (6.3-8.2) g/dL Albumin (3.5-5.0) g/dL Coronavirus (PCR) (Not Detectd) Influenza Type A RNA Not Detected (Not Detectd) Influenza Type B (PCR) Not Detected (Not Detectd) 12/05/21 Range/Units 08:10 WBC (3.8-10.6) k/uL RBC (4.30-5.90) m/uL Hgb (13.0-17.5) gm/dL Hct (39.0-53.0) % MCV (80.0-100.0) fL MCH (25.0-35.0) pg MCHC (31.0-37.0) g/dL RDW (11.5-15.5) % Plt Count (150-450) k/uL MPV Neutrophils % % Lymphocytes % % Monocytes % % Eosinophils % % Basophils % % Neutrophils # (1.3-7.7) k/uL Lymphocytes # (1.0-4.8) k/uL Monocytes # (0-1.0) k/uL Eosinophils # (0-0.7) k/uL Basophils # (0-0.2) k/uL Manual Slide Review Macrocytosis PT (9.0-12.0) sec INR (<1.2) APTT (22.0-30.0) sec D-Dimer (<0.60) mg/L FEU Sodium (137-145) mmol/L Potassium (3.5-5.1) mmol/L Chloride (98-107) mmol/L Carbon Dioxide (22-30) mmol/L Anion Gap mmol/L BUN (9-20) mg/dL Creatinine (0.66-1.25) mg/dL Est GFR (CKD-EPI)AfAm (>60 ml/min/1.73 sqM) Est GFR (CKD-EPI)NonAf (>60 ml/min/1.73 sqM) Glucose (74-99) mg/dL Calcium (8.4-10.2) mg/dL Magnesium (1.6-2.3) mg/dL Total Bilirubin (0.2-1.3) mg/dL AST (17-59) U/L ALT (4-49) U/L Alkaline Phosphatase (38-126) U/L Troponin I (0.000-0.034) ng/mL NT-Pro-B Natriuret Pep pg/mL Total Protein (6.3-8.2) g/dL Albumin (3.5-5.0) g/dL Coronavirus (PCR) Not Detected (Not Detectd) Influenza Type A RNA (Not Detectd) Influenza Type B (PCR) (Not Detectd) - EKG Data -: EKG Interpreted by Me EKG Comments: 12-lead Electrocardiogram Interpretation Note EKG was reviewed and interpreted by myself. 12-lead ECG performed at 0800 is interpreted by me as revealing normal sinus rhythm at a rate of 69 beats per minute. Left axis deviation. DC interval is 169 ms, QRS duration is 112 ms, QTc is 416 ms.. There were no acute ST or T wave abnormalities to suggest myocardial ischemia or injury. There are chronic T wave inversions in the precordial leads are unchanged from prior EKGs, last seen March 2021. R wave progression across the precordium was satisfactory. By my interpretation this EKG is non-diagnostic for acute ischemia. Shows chronic EKG changes. Disposition Clinical Impression: Dyspnea Disposition: ADMITTED IP TO THIS HOSP Condition: Stable Referrals: Abner Davenport MD [Primary Care Provider] - 1-2 days Time of Disposition: 10:05
[2021-12-05 08:38] LABS: ALT 24 U/L (4-49); AST 29 U/L (17-59); African American GFR (CKD) >90 (>60 ml/min/1.73 sqM); Albumin 3.9 g/dL (3.5-5.0); Alkaline Phosphatase 65 U/L (38-126); Anion Gap 8 mmol/L; Basophils % (A) 1 %; Blood Urea Nitrogen 20 mg/dL (9-20); Calcium 9.2 mg/dL (8.4-10.2); Carbon Dioxide 22 mmol/L (22-30); Chloride 104 mmol/L (98-107); Eosinophils % (A) 0 %; Glucose 110 mg/dL (74-99); HGB 13.7 gm/dL (13.0-17.5); INR 0.9 (<1.2); Lymphocytes # (A) 0.4 k/uL (1.0-4.8); Lymphocytes % (A) 12 %; MCH 34.7 pg (25.0-35.0); MCV 99.1 fL (80.0-100.0); Macrocytosis Slight; Magnesium 1.6 mg/dL (1.6-2.3); Mean Platelet Volume 8.7; Monocytes # (A) 0.2 k/uL (0-1.0); Monocytes % (A) 7 %; Neutrophils # (A) 2.4 k/uL (1.3-7.7); Neutrophils % (A) 79 %; Non-African American GFR(CKD) 82 (>60 ml/min/1.73 sqM); Potassium 4.2 mmol/L (3.5-5.1); RBC 3.93 m/uL (4.30-5.90); RDW 15.9 % (11.5-15.5); Sodium 134 mmol/L (137-145); Total Bilirubin 1.4 mg/dL (0.2-1.3); Total Protein 7.3 g/dL (6.3-8.2)
[2021-12-05 08:39] LABS: Prothrombin Time 10.4 sec (9.0-12.0)
--- NOTE | 2021-12-05 08:52 | XR ---
EXAMINATION TYPE: XR chest 2V DATE OF EXAM: 12/05/2021 COMPARISON: 03/19/2021 HISTORY: 81 year-old male shortness of breath, difficulty breathing TECHNIQUE: PA and lateral views FINDINGS: Median sternotomy wires are present with prosthetic aortic valve. Heart borderline to mildly enlarged . Mild interstitial prominence is unchanged. No consolidation or pleural effusion. IMPRESSION: Borderline to mild cardiomegaly. Otherwise, no acute process seen.
[2021-12-05 09:56] LABS: Platelet Count 75 k/uL (150-450)
[2021-12-05] MEDS ORDERED: LORazepam 1 MG TAB PO STA (10:04)
[2021-12-05] MEDS ORDERED: NALOXONE 0.4 MG/ML 1 ML VIAL IV PRN (10:12)
[2021-12-05] MEDS ORDERED: ALBUTEROL NEBULIZED 2.5 MG/3 ML INHALATION PRN (10:13)
--- NOTE | 2021-12-05 11:45 | CA ---
Transthoracic Echo Report Name: David Hernandez Age: 81 Gender: M : 1940 Exam Date: 12/05/2021 10:44 Exam Location: [facility] Ht (in): 72 Wt (lb): 245 Ordering Physician: Sergey Stephenson MD Attending/Referring Phys: Rn Review Nessa Greenberg RDCS Procedure CPT: Indications: dyspnea Cardiac Hx: Bioprosthetic AOV Technical Quality: Technically difficult study Contrast 1: Lumason Total Dose (mL): 3 Contrast 2: Total Dose (mL): MEASUREMENTS (Male / Female) Normal Values 2D ECHO LV Diastolic Diameter PLAX 4.5 cm 4.2 - 5.9 / 3.9 - 5.3 cm LV Systolic Diameter PLAX 3.2 cm IVS Diastolic Thickness 1.4 cm 0.6 - 1.0 / 0.6 - 0.9 cm LVPW Diastolic Thickness 1.3 cm 0.6 - 1.0 / 0.6 - 0.9 cm LV Relative Wall Thickness 0.6 RV Internal Dim ED PLAX 3.7 cm LA Volume 56.8 cm??? 18 - 58 / 22 - 52 cm??? M-MODE Aortic Root Diameter MM 3.9 cm AV Cusp Separation MM 2.0 cm DOPPLER AV Peak Velocity 329.2 cm/s AV Peak Gradient 43.4 mmHg AV Mean Velocity 217.5 cm/s AV Mean Gradient 22.4 mmHg AV Velocity Time Integral 70.2 cm LVOT Peak Velocity 129.8 cm/s LVOT Peak Gradient 6.7 mmHg MV Area PHT 2.7 cm??? Mitral E Point Velocity 68.5 cm/s Mitral A Point Velocity 85.7 cm/s Mitral E to A Ratio 0.8 MV Deceleration Time 276.3 ms MV E' Velocity 4.5 cm/s Mitral E to MV E' Ratio 15.1 TR Peak Velocity 283.8 cm/s TR Peak Gradient 32.2 mmHg Right Ventricular Systolic Press 36.5 mmHg FINDINGS Left Ventricle Left ventricular ejection fraction is estimated at 55-60%. Left ventricular cavity size normal. Mild concentric left ventricular hypertrophy. Right Ventricle Mild right ventricular dilatation. RVSP 36 Right Atrium Normal right atrial size. Left Atrium Normal left atrial size. Mitral Valve Trace mitral regurgitation. Aortic Valve Mild bioprosthetic aortic stenosis with a peak gradient of 43 mmHg and a mean gradient of 22 mmHg. no aortic regurgitation Tricuspid Valve Mild tricuspid regurgitation. Pulmonic Valve Trace to mild pulmonic regurgitation. Pericardium Normal pericardium. No pericardial effusion. Aorta Moderate aortic dilatation at the level of the sinuses of valsalva 39 mm CONCLUSIONS Normal left ventricular ejection fraction 55-60% Mild LVH RVSP 36 Trace mitral regurgitation Normally functioning bioprosthetic valve with mildly increased gradients mean gradient 22 mmHg Mild tricuspid regurgitation No pericardial effusion Mild aortic root dilation 3.9 cm Previewed by: Dr. Raman Long DO (Electronically Signed) Final Date: 05 December 2021 11:44
[2021-12-05] MEDS ORDERED: METOPROLOL TARTRATE 12.5 MG TAB PO SCH (21:00)
[2021-12-05] MEDS ORDERED: ATORVASTATIN 20 MG TAB PO SCH (21:00)
[2021-12-05] MEDS ORDERED: TAMSULOSIN 0.4 MG CAP.ER.24H PO SCH (21:00)
[2021-12-05] MEDS: FAMOTIDINE 20 MG TAB PO SCH (21:10)
[2021-12-05] MEDS: HEPARIN SODIUM,PORCINE/PF 5,000 UNIT/0.5 ML SYRINGE SQ SCH (21:11)
[2021-12-05] MEDS ORDERED: LORazepam 0.5 MG TAB PO ONE (21:26)
[2021-12-05] MEDS ORDERED: MELATONIN 5 MG TABLET PO SCH (21:30)
--- NOTE | 2021-12-06 00:39 | P.HPIM ---
History of Present Illness H&P Date: 12/05/21 Chief Complaint: JASON Patient is a 81-year-old male with a known history of coronary artery disease, aortic valve replacement, hyperlipidemia, GERD, osteoarthritis, chronic low back pain with left leg sciatica and left foot gout, BPH s/p TURP and previous history of smoking presents to ER with complaints of shortness of breath for the past 1 month and is getting worse. Patient has been having exertional dyspnea and feels too weak after walking couple of blocks. Denies any complaints of chest pain. Feels chest tightness with shortness of breath. No cough or sputum production. No fever no chills. Denies any recent illnesses. Denies any nausea vomiting abdominal pain or diarrhea. No headache or dizziness or lightheadedness. No recent travel. Chest x-ray showed borderline to mild cardiomegaly. Otherwise no acute process seen. EKG showed left axis deviation sinus rhythm. On admission blood pressure 123/51 heart rate 66 respiration 26 and pulse ox 99% on room air. Level data showed WBC 3.0 hemoglobin 13.7 platelets 75 D-dimer level is 0.62 Sodium 134 potassium 4.2 chloride 104 bicarb is 22 BUN 20 and creatinine 0.89 and total bilirubin level is 1.4 Troponin x3 negative NT proBNP 954 Coronavirus PCR not detected. Influenza A and B-. Review of Systems Constitutional: Patient denies any fever or chills . Generalized weakness. Abdomen: Patient denied any nausea or vomiting or abd. pain Cardiovascular: Patient denies any chest pain or short of breath no palpitations.Patient does have exertional dyspnea Respiratory: patient denied any cough is from production. No shortness of breath Neurologic: Patient denied any numbness or tingling headache. Musculoskeletal: Patient denies any complaints of joint swelling or deformity. Skin: Negative Psychiatric: Negative Endocrine: No heat or cold intolerance. No recent weight gain. Genitourinary: No dysuria or hematuria. All other 14 point ROS negative except the above Past Medical History Past Medical History: GERD/Reflux, Hyperlipidemia, Osteoarthritis (OA), Prostate Disorder, Vascular Disorder Additional Past Medical History / Comment(s): Arthritis in multiple joints/back, chronic low back pain with L leg sciatica, gout in L foot, caratid artery disease, nonsustained VT after stress test, mild bilateral lower extremity edema, varicose veins, sinus problems, BPH/surgery. History of Any Multi-Drug Resistant Organisms: None Reported Past Surgical History: Cardiac Valve Replacement, Heart Catheterization, Orthopedic Surgery, Prostate Surgery, Tonsillectomy Additional Past Surgical History / Comment(s): 12/09/17 Aortic valve replacement/bioprosthetic, TURP d/t BPH, surgery for varicosities, L foot bunionectomy, bilateral knee arthroscopies. Past Anesthesia/Blood Transfusion Reactions: No Reported Reaction Smoking Status: Former smoker - Past Family History Father Family Medical History: Asthma, Osteoarthritis (OA), Pneumonia Additional Family Medical History / Comment(s): ARTHRITIS Mother Family Medical History: Vascular Disorder Additional Family Medical History / Comment(s): BRAIN ANEURYSM Medications and Allergies Home Medications Medication Instructions Recorded Confirmed Type Tamsulosin [Flomax] 0.4 mg PO HS 11/23/15 12/05/21 History Finasteride [Proscar] 5 mg PO DAILY 11/24/15 12/05/21 History allopurinoL [Zyloprim] 100 mg PO DAILY 11/24/15 12/05/21 History Aspirin 81 mg PO DAILY chew 12/18/17 12/05/21 Rx Atorvastatin [Lipitor] 20 mg PO HS 10/26/20 12/05/21 History Famotidine [Pepcid] 20 mg PO BID 10/26/20 12/05/21 History Metoprolol Tartrate [Lopressor] 12.5 mg PO BID 10/26/20 12/05/21 History Albuterol Inhaler [Ventolin Hfa 2 puff INHALATION RT-Q6H PRN 03/19/21 12/05/21 History Inhaler] Celecoxib [CeleBREX] 200 mg PO DAILY 12/05/21 12/05/21 History Furosemide [Lasix] 20 mg PO DAILY 12/05/21 12/05/21 History Allergies Allergy/AdvReac Type Severity Reaction Status Date / Time No Known Allergies Allergy Verified 12/05/21 07:53 Physical Exam Vitals: Vital Signs Temp Pulse Resp BP Pulse Ox 12/05/21 11:46 63 18 132/69 98 12/05/21 11:40 69 18 132/69 97 12/05/21 10:09 61 18 115/74 95 12/05/21 08:57 96 12/05/21 08:35 68 16 12/05/21 08:27 54 L 16 12/05/21 08:14 18 12/05/21 07:49 98.0 F 66 26 H 123/51 99 Intake and Output 12/04/21 12/05/21 12/05/21 22:59 06:59 14:59 Other: Weight 112.491 kg PHYSICAL EXAMINATION: Patient is lying in the bed comfortably, no acute distress, awake alert and oriented.. HEENT: Normocephalic. Neck is supple. Pupils reactive. Nostrils clear. Oral cavity is moist. Neck reveals no JVD, carotid bruits, or thyromegaly. CHEST EXAMINATION: Trachea is central. Symmetrical expansion. Lung moreno clear to auscultation and percussion. CARDIAC: Normal S1, S2 with no gallops. No murmurs ABDOMEN: Soft. Bowel sounds present. Nontender. No organomegaly. No abdominal bruits. Extremities: reveal no edema. No clubbing or cyanosis Neurologically awake, alert, oriented x3 with well-coordinated movements. No focal deficits noted Skin: No rash or skin lesions. Psychiatric: Coperative. Nonsuicidal, anxious. Musculoskeletal: No joint swelling or deformity. Normal range of motion. Results CBC & Chem 7: 12/05/21 08:10 12/05/21 08:10 Labs: Abnormal Lab Results - Last 24 Hours (Table) 12/05/21 12/05/21 12/05/21 Range/Units 08:10 08:10 08:10 WBC 3.0 L (3.8-10.6) k/uL RBC 3.93 L (4.30-5.90) m/uL RDW 15.9 H (11.5-15.5) % Plt Count 75 L (150-450) k/uL Lymphocytes # 0.4 L (1.0-4.8) k/uL D-Dimer 0.62 H (<0.60) mg/L FEU Sodium 134 L (137-145) mmol/L Glucose 110 H (74-99) mg/dL Total Bilirubin 1.4 H (0.2-1.3) mg/dL Thrombosis Risk Factor Assmnt - DVT/VTE Prophylaxis DVT/VTE Prophylaxis: Pharmacologic Prophylaxis ordered - Choose All That Apply Any of the Below Risk Factors Present?: Yes Each Factor Represents 1 point: Obesity (BMI >25), Varicose veins Other Risk Factors: Yes Each Risk Factor Represents 3 Points: Age 75 years or older Other congenital or acquired thrombophilia - If yes, enter type in comment: No Thrombosis Risk Factor Assessment Total Risk Factor Score: 5 Thrombosis Risk Factor Assessment Level: High Risk Assessment and Plan Assessment: Exertional dyspnea. Unclear etiology. Aortic stenosis status post valve replacement in 2018 Neutropenia and Chronic thrombocytopenia Mild elevated D-dimer level which is normal age-adjusted Hyperlipidemia Hypertension Osteoarthritis BPH GERD Previous history of smoking DVT prophylaxis with heparin subcu Plan: Patient will be continued on telemetry monitoring. Continue with DuoNebs. BNP is not elevated and lung exam showed no evidence of wheezing. 2D echocardiogram was ordered to evaluate for exertional dyspnea. Cardiology consulted. Continue with home medications and repeat CBC due to bicytopenia. Patient is also vaccinated against COVID-19 virus. TSH, CRP and CMP annually. Follow-up closely. Time with Patient: Greater than 30
[2021-12-06 09:00] VITALS: BP 114/66; PULSE 57; RESP 18; TEMP 98
[2021-12-06] MEDS ORDERED: ASPIRIN 81 MG PO SCH (09:00)
[2021-12-06] MEDS ORDERED: FINASTERIDE 5 MG TAB PO SCH (09:00)
[2021-12-06] MEDS ORDERED: allopurinoL 100 MG TAB PO SCH (09:00)
[2021-12-06] MEDS ORDERED: FUROSEMIDE 20 MG TAB PO SCH (09:00)
[2021-12-06] MEDS ORDERED: MELOXICAM 7.5 MG TAB PO SCH (09:00)
[2021-12-06 09:11] LABS: ALT 19 U/L (10-49); AST 22 U/L (14-35); African American GFR (CKD) 93.8 (60.0-200.0); Albumin 3.8 g/dL (3.8-4.9); Albumin/Globulin Ratio 1.52 (1.60-3.17); Alkaline Phosphatase 47 U/L (41-126); BUN/Creat Ratio 22.22 Ratio (12.00-20.00); Calcium 8.5 mg/dL (8.7-10.3); Carbon Dioxide 23.5 mmol/L (20.0-27.5); Chloride 100 mmol/L (96-109); Globulin 2.5 g/dL (1.6-3.3); Glucose 108 mg/dL (70-110); LDH 200 U/L (120-246); Non-African American GFR(CKD) 80.9 (60.0-200.0); Potassium 3.9 mmol/L (3.5-5.5); Sodium 133 mmol/L (135-145); Total Protein 6.3 g/dL (6.2-8.2)
[2021-12-06] MEDS: FAMOTIDINE 20 MG TAB PO SCH (09:12)
[2021-12-06] MEDS: HEPARIN SODIUM,PORCINE/PF 5,000 UNIT/0.5 ML SYRINGE SQ SCH (09:12)
[2021-12-06 09:44] LABS: Basophils # (A) 0.01 X 10*3/uL (0.00-0.10); Basophils % (A) 0.5 %; Eosinophils # (A) 0.01 X 10*3/uL (0.04-0.35); Eosinophils % (A) 0.5 %; HCT 34.1 % (39.6-50.0); HGB 11.5 g/dL (13.0-17.0); Lymphocytes # (A) 0.57 X 10*3/uL (0.90-5.00); Lymphocytes % (A) 28.2 %; MCH 32.8 pg (27.0-32.0); MCHC 33.7 g/dL (32.0-37.0); MCV 97.2 fL (80.0-97.0); Mean Platelet Volume 10.9 fL (9.5-12.2); Monocytes # (A) 0.22 X 10*3/uL (0.20-1.00); Monocytes % (A) 10.9 %; Neutrophils # (A) 1.19 X 10*3/uL (1.80-7.70); Neutrophils % (A) 58.9 %; Platelet Count 54 X 10*3/uL (140-440); RBC 3.51 X 10*6/uL (4.40-5.60); RDW 15.3 % (11.5-14.5); WBC 2.02 X 10*3/uL (4.50-10.00)
[2021-12-06 09:45] LABS: Immature Platelet Fraction 5.5 % (1.1-6.1)
--- NOTE | 2021-12-06 10:32 | P.CRDCN ---
History of Present Illness History of present illness: HISTORY OF PRESENTING ILLNESS This is a pleasant 81-year-old male past medical history significant for aortic valve insufficiency status post aortic valve replacement 2018, hypertension, dyslipidemia, NSVT, carotid stenosis. He follows in the office with Dr. Young. We have been asked to see in consultation for dyspnea. Patient presents emergency department with complaints of worsening shortness of breath yesterday. He states over the past couple weeks he's noticed some shortness of breath. This shortness of breath with nonexertional. Sometimes he notices it when he gets up too fast. He denies any chest pain. He also has been having episodes of lightheadedness, occasional dizziness. Sometimesthe shortness of breath and lightheadedness. He states his episodes last about 10 seconds and resolved. No syncope, palpitations or loss of consciousness. Yesterday he states his shortness of breath and some lightheadedness lasted for about 1 minute, he states his was concerned and he presented to the emergency department for further evaluation. His symptoms have resolved. Patient does not have a history of CAD, TN, stroke, diabetes. He denies any fever, cough, chills. He recently underwent a Lexiscan stress test in the office in 10/29/2021 which was negative for reversible ischemia DIAGNOSTICS * EKG reveals sinus rhythm, heart rate 69, T wave inversion in lead 3, no significant ST or T-wave abnormalities suggest ischemia * Recent Lexiscan stress test in the office- 10/29/2021 revealed negative for reversible ischemia * Echocardiogram revealed EF 5560 %, mildly infected right ventricular dilatation, RVSP 36, mild prosthetic aortic valve stenosis, normally f unctioning bioprosthetic valve. Mean gradient 22 mmHg trace mitral regurgitation, trace mitral regurgitation, mild LVH * Telemetry tracings indicate sinus rhythm, heart rate 4850s, occasional PVCs * Chest xray no acute cardiopulmonary process * Laboratory reviewed, WBC 3.0, hemoglobin 13.7, platelets 75, d-dimer 0.62, sodium 132, potassium 4.2, BUN 20, serum creatinine 0.8, 97.6, troponin negative, proBNP 954 * Current home cardiac medications include metoprolol titrate 25 mg twice a day, atorvastatin 20 mg nightly, aspirin 81 mg daily * Cardiac catheterization in 2018 revealed normal coronaries, 4+ aortic regurgitation REVIEW OF SYSTEMS At the time of my exam: CONSTITUTIONAL: Denies fever or chills. CARDIOVASCULAR: Denies chest pain, +shortness of breath, Denies orthopnea, PND or palpitations. RESPIRATORY: Denies cough. GASTROINTESTINAL: Denies abdominal pain, diarrhea, constipation, nausea or vomiting. MUSCULOSKELETAL: Denies myalgias. NEUROLOGIC: Denies numbness, tingling, headacbe or weakness. +lightheaded ENDOCRINE: Denies fatigue, weight change, polydipsia or polyurina. GENITOURINARY: Denies burning, hematuria or urgency with micturation. HEMATOLOGIC: Denies history of anemia or bleeding. PHYSICAL EXAMINATION Vitals reviewed CONSTITUTIONAL: No apparent distress. HEENT: Head is normocephalic. Pupils are equal, round. Sclerae anicteric. Mucous membranes of the mouth are moist. No JVD. No carotid bruit. CHEST EXAMINATION: Lungs are clear to auscultation. No chest wall tenderness is noted on palpation or with deep breathing. HEART EXAMINATION: Regular rate and rhythm. S1, S2 heard. mild systolic murmur at base ABDOMEN: Soft, nontender. Positive bowel sounds. EXTREMITIES: 2+ peripheral pulses, no lower extremity edema and no calf tenderness. NEUROLOGIC EXAMINATION: Patient is awake, alert and oriented x3. ASSESSMENT Shortness of breath and Lightheadedness, resolved, unclear etiology, acute coronary syndrome has been ruled out. No evidence of pneumonia or infection, Recent Lexiscan negative, Echocardiogram with no acute findings Sinus bradycardia History of aortic valve insufficiency status post aortic valve replacement 2018 Hypertension Dyslipidemia History of NSVT History of carotid stenosis PLAN Recent Lexiscan stress test in the office in 10/29/2021 which was negative for reversible ischemia. Echocardiogram reviewed with EF 55-60%, normally functioning bioprosthetic valve, no stomach abnormal motion or valvular abnormalities. Recommend discontinue metoprolol at this time given sinus bradycardia Recommend 30 day event monitor From cardiology respective, patient was stable to be discharged home after event monitor placed. Follow up outpatient with Dr. Young Nurse practitioner note has been reviewed by physician. Signing provider agrees with the documented findings, assessment, and plan of care. Past Medical History Past Medical History: GERD/Reflux, Hyperlipidemia, Osteoarthritis (OA), Prostate Disorder, Vascular Disorder Additional Past Medical History / Comment(s): Arthritis in multiple joints/back, chronic low back pain with L leg sciatica, gout in L foot, caratid artery disease, nonsustained VT after stress test, mild bilateral lower extremity edema , varicose veins, sinus problems, BPH/surgery. History of Any Multi-Drug Resistant Organisms: None Reported Past Surgical History: Cardiac Valve Replacement, Heart Catheterization, Orthopedic Surgery, Prostate Surgery, Tonsillectomy Additional Past Surgical History / Comment(s): 12/09/17 Aortic valve replacement/bioprosthetic, TURP d/t BPH, surgery for varicosities, L foot bunionectomy, bilateral knee arthroscopies. Past Anesthesia/Blood Transfusion Reactions: No Reported Reaction Smoking Status: Former smoker - Past Family History Father Family Medical History: Asthma, Osteoarthritis (OA), Pneumonia Additional Family Medical History / Comment(s): ARTHRITIS Mother Family Medical History: Vascular Disorder Additional Family Medical History / Comment(s): BRAIN ANEURYSM Medications and Allergies Home Medications Medication Instructions Recorded Confirmed Type Tamsulosin [Flomax] 0.4 mg PO HS 11/23/15 12/05/21 History Finasteride [Proscar] 5 mg PO DAILY 11/24/15 12/05/21 History allopurinoL [Zyloprim] 100 mg PO DAILY 11/24/15 12/05/21 History Aspirin 81 mg PO DAILY chew 12/18/17 12/05/21 Rx Atorvastatin [Lipitor] 20 mg PO HS 10/26/20 12/05/21 History Famotidine [Pepcid] 20 mg PO BID 10/26/20 12/05/21 History Albuterol Inhaler [Ventolin Hfa 2 puff INHALATION RT-Q6H PRN 03/19/21 12/05/21 History Inhaler] Celecoxib [CeleBREX] 200 mg PO DAILY 12/05/21 12/05/21 History Furosemide [Lasix] 20 mg PO DAILY 12/05/21 12/05/21 History Allergies Allergy/AdvReac Type Severity Reaction Status Date / Time No Known Allergies Allergy Verified 12/05/21 07:53 Physical Exam Vitals: Vital Signs Temp Pulse Resp BP Pulse Ox 12/05/21 13:12 62 18 137/81 96 12/05/21 11:46 63 18 132/69 98 12/05/21 11:40 69 18 132/69 97 12/05/21 10:09 61 18 115/74 95 12/05/21 08:57 96 12/05/21 08:35 68 16 12/05/21 08:27 54 L 16 12/05/21 08:14 18 12/05/21 07:49 98.0 F 66 26 H 123/51 99 Intake and Output 12/04/21 12/05/21 12/05/21 22:59 06:59 14:59 Other: Weight 112.491 kg Results 12/06/21 04:14 12/06/21 04:11 Cardiac Enzymes 12/05/21 12/05/21 Range/Units 08:10 08:10 AST 29 (17-59) U/L Troponin I 0.014 (0.000-0.034) ng/mL Coagulation 12/05/21 Range/Units 08:10 PT 10.4 (9.0-12.0) sec APTT 24.0 (22.0-30.0) sec CBC 12/05/21 Range/Units 08:10 WBC 3.0 L (3.8-10.6) k/uL RBC 3.93 L (4.30-5.90) m/uL Hgb 13.7 (13.0-17.5) gm/dL Hct 39.0 (39.0-53.0) % Plt Count 75 L (150-450) k/uL Comprehensive Metabolic Panel 12/05/21 Range/Units 08:10 Sodium 134 L (137-145) mmol/L Potassium 4.2 (3.5-5.1) mmol/L Chloride 104 (98-107) mmol/L Carbon Dioxide 22 (22-30) mmol/L BUN 20 (9-20) mg/dL Creatinine 0.89 (0.66-1.25) mg/dL Glucose 110 H (74-99) mg/dL Calcium 9.2 (8.4-10.2) mg/dL AST 29 (17-59) U/L ALT 24 (4-49) U/L Alkaline Phosphatase 65 (38-126) U/L Total Protein 7.3 (6.3-8.2) g/dL Albumin 3.9 (3.5-5.0) g/dL Current Medications Generic Name Dose Route Start Last Admin Trade Name Freq PRN Reason Stop Dose Admin Albuterol Sulfate 2.5 mg 12/05/21 10:13 Albuterol Nebulized 2.5 Mg/3 Ml INHALATION RT-Q6H PRN Shortness Of Breath Allopurinol 100 mg 12/06/21 09:00 Allopurinol 100 Mg Tab PO DAILY [facility] Aspirin 81 mg 12/06/21 09:00 Aspirin 81 Mg PO DAILY [facility] Atorvastatin Calcium 20 mg 12/05/21 21:00 Atorvastatin 20 Mg Tab PO HS [facility] Famotidine 20 mg 12/05/21 21:00 Famotidine 20 Mg Tab PO BID [facility] Finasteride 5 mg 12/06/21 09:00 Finasteride 5 Mg Tab PO DAILY [facility] Furosemide 20 mg 12/06/21 09:00 Furosemide 20 Mg Tab PO DAILY [facility] Heparin Sodium (Porcine) 5,000 unit 12/05/21 21:00 Heparin Sodium,Porcine/Pf 5,000 Unit/0.5 Ml Syringe SQ Q12HR [facility] Meloxicam 7.5 mg 12/06/21 09:00 Meloxicam 7.5 Mg Tab PO DAILY [facility] Metoprolol Tartrate 12.5 mg 12/05/21 21:00 Metoprolol Tartrate 12.5 Mg Tab PO BID [facility] Naloxone HCl 0.2 mg 12/05/21 10:12 Naloxone 0.4 Mg/Ml 1 Ml Vial IV Q2M PRN Opioid Reversal Tamsulosin HCl 0.4 mg 12/05/21 21:00 Tamsulosin 0.4 Mg Cap.Er.24h PO HS [facility] Intake and Output 12/04/21 12/05/21 12/05/21 22:59 06:59 14:59 Other: Weight 112.491 kg Patient Weight 12/06/21 06:59 Weight 112.491 kg 12/05/21 08:10 12/05/21 08:10
--- NOTE | 2021-12-11 16:34 | P.DS ---
Providers Date of admission: 12/05/21 10:13 Expected date of discharge: 12/06/21 Attending physician: Chloe Martin Consults: 12/05/21 10:04 Consult Physician Routine Consulting Provider: Hima Young Consult Reason/Comments: unexplained dyspnea, echo pending Do you want consulting provider notified?: Yes Primary care physician: Abner Davenport Hospital Course: Final diagnosis Exertional dyspnea. Unclear etiology. Aortic stenosis status post valve replacement in 2018 Neutropenia and Chronic thrombocytopenia Mild elevated D-dimer level which is normal age-adjusted Hyperlipidemia Hypertension Osteoarthritis BPH GERD Previous history of smoking DVT prophylaxis Discharge disposition Patient is being discharged in a stable condition with guarded prognosis to [facility]. Patient will follow-up with Dr. Davenport in the outpatient setting upon discharge. Patient is to follow-up with cardiology Dr. Young as scheduled. Total time taken is greater than 35 minutes. Hospital course This is a 81-year-old male who was recently admitted with increasing dyspnea with exertion along with some chest tightness and weakness. Patient was evaluated by cardiology recommending an event monitor and outpatient follow-up. Patient follows with Dr. Davenport and encourage the patient to follow-up this week along with repeat labs and cardiology follow-up as discussed. Currently no re ports of chest pain, shortness of breath, or palpitations. Patient is afebrile. No reports of nausea or vomiting and patient is tolerating diet. Patient will be going to [facility] today. Physical exam: Gen: This is a 81-year-old male awake, alert and oriented 3, well-developed, well-nourished, obese HEENT: Head is atraumatic, normocephalic. Pupils equal, round. Sclerae is anict bar. NECK: Supple. No JVD. No lymphadenopathy. No thyromegaly. LUNGS: diminished breath sounds bilaterally with some scattered rhonchi noted No intercostal retractions. HEART: Regular rate and rhythm. No murmur. ABDOMEN: Soft. Bowel sounds are present. No masses. No tenderness. EXTREMITIES: No pedal edema. No calf tenderness. NEUROLOGICAL: Patient is awake, alert and oriented x3. Cranial nerves 2 through 12 are grossly intact. Please refer to medication reconciliation sheet for a list of medications. The impression and plan of care has been dictated by Cyn Rhodes, Nurse Practitioner as directed. Dr. Mario MD I have performed a history and examination and MDM of this patient, discussed the same with the dictator, and agree with the dictator's assessment and plan as written ,documented as a scribe. Based on total visit time, I have performed more than 50% of the visit. Patient Condition at Discharge: Stable Plan - Discharge Summary Discharge Rx Participant: No New Discharge Prescriptions: Continue Tamsulosin [Flomax] 0.4 mg PO HS allopurinoL [Zyloprim] 100 mg PO DAILY Finasteride [Proscar] 5 mg PO DAILY Aspirin 81 mg PO DAILY chew Atorvastatin [Lipitor] 20 mg PO HS Albuterol Inhaler [Ventolin Hfa Inhaler] 2 puff INHALATION RT-Q6H PRN PRN Reason: Shortness Of Breath Celecoxib [CeleBREX] 200 mg PO DAILY Famotidine [Pepcid] 20 mg PO BID Furosemide [Lasix] 20 mg PO DAILY Discontinued Metoprolol Tartrate [Lopressor] 12.5 mg PO BID Discharge Medication List Tamsulosin [Flomax] 0.4 mg PO HS 11/23/15 [History] Finasteride [Proscar] 5 mg PO DAILY 11/24/15 [History] allopurinoL [Zyloprim] 100 mg PO DAILY 11/24/15 [History] Aspirin 81 mg PO DAILY chew 12/18/17 [Rx] Atorvastatin [Lipitor] 20 mg PO HS 10/26/20 [History] Famotidine [Pepcid] 20 mg PO BID 10/26/20 [History] Albuterol Inhaler [Ventolin Hfa Inhaler] 2 puff INHALATION RT-Q6H PRN 03/19/21 [History] Celecoxib [CeleBREX] 200 mg PO DAILY 12/05/21 [History] Furosemide [Lasix] 20 mg PO DAILY 12/05/21 [History] Follow up Appointment(s)/Referral(s): Abner Davenport MD [Primary Care Provider] - 1-2 days Hima Young MD [Family Provider] - 12/13/21 4:30 pm () Ambulatory/Diagnostic Orders: Complete Blood Count w/diff [LAB.AMB] Time Frame: 3 Days, Location: None Selected Patient Instructions/Handouts: Dyspnea (DC) Activity/Diet/Wound Care/Special Instructions: Activity Limited until follow-up Continue with event monitor and follow-up with Dr. Young in 1-2 weeks Continue holding metoprolol until follow-up Follow-up with primary care provider on discharge Recommend repeat labs in 2-3 days Continue heart healthy diet Discharge Disposition: HOME SELF-CARE
== END 2021-12-06 13:13 | disposition home or self-care (01) ==
LOC: EC 07:47 → 6NMEDSUR 10:13
PROVIDERS: ADMIT Internal Medicine; ATTEND Internal Medicine
DX: R06.09 Other forms of dyspnea (principal); T82.857A Stenosis of other cardiac prosthetic devices, implants and grafts, initial encounter; I11.9 Hypertensive heart disease without heart failure; R79.89 Other specified abnormal findings of blood chemistry; D69.6 Thrombocytopenia, unspecified; D70.9 Neutropenia, unspecified; I07.1 Rheumatic tricuspid insufficiency; R00.1 Bradycardia, unspecified; R42 Dizziness and giddiness; E78.5 Hyperlipidemia, unspecified; K21.9 Gastro-esophageal reflux disease without esophagitis; N40.0 Benign prostatic hyperplasia without lower urinary tract symptoms; I65.29 Occlusion and stenosis of unspecified carotid artery; M10.9 Gout, unspecified; M54.32 Sciatica, left side; I25.10 Atherosclerotic heart disease of native coronary artery without angina pectoris; G89.29 Other chronic pain; M54.50 Low back pain, unspecified; I83.90 Asymptomatic varicose veins of unspecified lower extremity; M15.9 Polyosteoarthritis, unspecified; M47.9 Spondylosis, unspecified; E66.9 Obesity, unspecified; Z68.33 Body mass index [BMI] 33.0-33.9, adult; Z20.822 Contact with and (suspected) exposure to COVID-19; Z79.82 Long term (current) use of aspirin; Z79.1 Long term (current) use of non-steroidal anti-inflammatories (NSAID); Z79.899 Other long term (current) drug therapy; Z95.1 Presence of aortocoronary bypass graft; Z95.3 Presence of xenogenic heart valve; Z90.79 Acquired absence of other genital organ(s); Z86.79 Personal history of other diseases of the circulatory system; Z87.891 Personal history of nicotine dependence; Y83.1 Surgical operation with implant of artificial internal device as the cause of abnormal reaction of the patient, or of later complication, without mention of misadventure at the time of the procedure; Z82.5 Family history of asthma and other chronic lower respiratory diseases; Z82.61 Family history of arthritis; Z82.49 Family history of ischemic heart disease and other diseases of the circulatory system
CPT/HCPCS: 96372 ×2; 99285; 36415; 94640; 93005; 93270; 85379; 83880; 80053 ×2; 84443; 83615; 83735; 84484; 85025 ×2; 85610; 85730; 86140; 87502; 87635; 71046; G0378 ×2; C8929; S0138; Q9950; J1644 ×2; 93306

== ENCOUNTER → 2022-01-22 | Outpatient (CLI) | payer MEDICARE, OTHER ==
[2022-01-22 14:47] LABS: Basophils # (A) 0.01 X 10*3/uL (0.00-0.10); Basophils % (A) 0.3 %; Eosinophils % (A) 3.4 %; HCT 38.5 % (39.6-50.0); HGB 13.2 g/dL (13.0-17.0); Immature Grans, Automated 0.3 %; Immature Platelet Fraction 5.4 % (1.1-6.1); Lymphocytes # (A) 1.46 X 10*3/uL (0.90-5.00); Lymphocytes % (A) 49.5 %; MCH 33.5 pg (27.0-32.0); MCHC 34.3 g/dL (32.0-37.0); MCV 97.7 fL (80.0-97.0); Monocytes # (A) 0.18 X 10*3/uL (0.20-1.00); Monocytes % (A) 6.1 %; NRBC Per 100 WBC 0 /100 WBCS (0.0-0.0); Neutrophils # (A) 1.19 X 10*3/uL (1.80-7.70); Neutrophils % (A) 40.4 %; Platelet Count 72 X 10*3/uL (140-440); RBC 3.94 X 10*6/uL (4.40-5.60); RDW 15.2 % (11.5-14.5); WBC 2.95 X 10*3/uL (4.50-10.00)
[2022-01-22 15:04] LABS: African American GFR (CKD) 81.6 (60.0-200.0); Anion Gap 10.7 mmol/L (10.00-18.00); Blood Urea Nitrogen 16.1 mg/dL (9.0-27.0); Carbon Dioxide 26.2 mmol/L (20.0-27.5); Non-African American GFR(CKD) 70.4 (60.0-200.0); Potassium 4.6 mmol/L (3.5-5.5)
== END | disposition home or self-care (01) ==
LOC: LABPAT 07:33
PROVIDERS: ATTEND Internal Medicine Clinical Cardiac Electrophysiology
DX: Z01.812 Encounter for preprocedural laboratory examination (principal); I48.0 Paroxysmal atrial fibrillation; I49.5 Sick sinus syndrome
CPT/HCPCS: 80051; 82565; 84520; 85025

== ENCOUNTER 2022-02-03 09:33 | Day surgery (SDC) | payer MEDICARE, OTHER ==
[2022-01-31 09:17] VITALS: BMI 33.3
[2022-02-03] MEDS: SODIUM CHLORIDE 0.9% 1,000 ML IV SCH (10:20)
[2022-02-03] MEDS ORDERED: HEPARIN SODIUM,PORCINE 10,000 UNIT/ML 1 ML VIAL ONE (11:36)
[2022-02-03] MEDS ORDERED: ISOPROTERENOL 250 MCG/1.25 ML SYR IV ONE (11:36)
[2022-02-03] MEDS ORDERED: fentaNYL (PF) 50 MCG/ML 2 ML AMP ONE (11:36)
[2022-02-03] MEDS ORDERED: LIDOCAINE 2% INJ 20 MG/ML (2 ML VIAL) ONE (11:36)
[2022-02-03] MEDS ORDERED: MIDAZOLAM 2 MG/2 ML VIAL ONE (11:36)
[2022-02-03] MEDS ORDERED: PROPOFOL 10 MG/ML 20 ML VIAL IV ONE (11:36)
[2022-02-03] MEDS ORDERED: ePHEDrine 50 MG/ML 1 ML VIAL ONE (11:36)
[2022-02-03] MEDS ORDERED: PHENYLEPHRINE-0.9% NACL SYG 1,000 MCG/10 ML SYRINGE ONE (11:36)
[2022-02-03] MEDS ORDERED: SUCCINYLCHOLINE CHLORIDE 200 MG/10 ML VIAL IV ONE (11:36)
[2022-02-03] MEDS ORDERED: LIDOCAINE 1% INJ 10MG/ML (30 ML VIAL-PF) SQ ONE (12:20)
[2022-02-03] MEDS ORDERED: IOPAMIDOL-370 100ML BTL INJ ONE (13:45)
[2022-02-03] MEDS ORDERED: ACETAMINOPHEN TAB 325 MG TAB PO PRN (14:29)
--- NOTE | 2022-02-03 14:29 | P.EPPROC ---
- EP Procedure Note Electrophysiology Procedure Note: PROCEDURE A. fib ablation/PVI and left septal ablation DIAGNOSIS Paroxysmal Atrial fibrillation, symptomatic, refractory to therapy RESULT No left atrial appendage mass seen on intracardiac echo Successful A. fib ablation/pulmonary vein isolation of all veins using cryo- ablation Complete entrance block in all 4 veins confirmed Left atrial septal ablation No evidence for phrenic nerve injury Esophageal deflection YES, right-sided esophagus PROCEDURE DETAILS Patient was brought to the EP lab in a fasting state after obtaining written informed consent. Procedure performed under general anesthesia Esophagus was intubated. Esophageal temperature monitoring with circa catheter. Esophageal deflection with an endoscope to avoid hypothermia of the esophagus. After initial muscle relaxant use, muscle relaxants were not given thereafter in order to assess phrenic nerve during procedure. Patient prepped and draped as per protocol Cryo ablation-set up with standard preparation of the cryoablation tools done. Femoral Venous access obtained on the right and left groins and sheaths placed Diagnostic catheters for the high right atrium, phrenic nerve stimulation and pacing, His bundle, coronary sinus placed Intracardiac echo catheter placed. Long sheath placed in the right atrium Left and right transseptal catheterization performed under intracardiac echo guidance. Intravenous heparin with aCT above 300 Later, catheter positioning and balloon positioning in the left atrium and pulmonary veins, under intracardiac echo guidance Diagnostic EP study with coronary sinus pacing and recording Baseline measurements: Sinus cycle length 970 ms, WV interval 157 ms, QRS 102 ms and QT 373 ms AH 76 ms and HV 46 ms Sinus node recovery times at 600, 504 100 ms were 1218, 1192 and 1121 ms. Corresponding corrected sinus node recovery times abnormal AV node Wenckebach block 390 ms Isuprel was infused Burst stimulation well-hydrated atrium was performed No atrial fibrillation induced Transseptal catheterization performed RA pressure 9/7/8 LA pressure 21/10/15 Transseptal catheterization performed with standard sheath. The cryoablation sheath was then placed with an over the wire exchange without any acute complications. The cryoablation balloon was placed in the office of each pulmonary vein and all 4 pulmonary veins were isolated. IV dye was injected to confirm occlusion. Goal: achieve complete occlusion of the pulmonary vein, achieve -30 degrees C at 30 seconds and achieve -40 degrees C at 60 seconds and a time to effect of less than 60 seconds. If not, the balloon was repositioned to obtain this result After completion of Cryoblation with durations from 180-240 seconds, entrance block was confirmed with the Attain circular catheter in a roving fashion around the antrum of the pulmonary veins Phrenic nerve pacing was performed from the SVC, right innominate vein area and diaphragm voltage was monitored. Diaphragmatic contractions were also monitored manually for strength of contraction. Phrenic burst stimulation performed from the SVC and RS PV. Negative stimulation in the RS PV At the end of the procedure the Achieve catheter was once again used to check for entrance block Left septal ablation performed for 3 minute lesion, achieve placed in the right middle pulmonary vein Phrenic nerve stimulation was performed to confirm diaphragmatic stimulation the end of the procedure Cine fluoroscopy was performed at the very end of the procedure to confirm movement of both diaphragms with inspiration and expiration At the end of the procedure the patient was extubated Venous sheaths were removed and hemostasis assured with a closure device PROCEDURES PERFORMED Diagnostic EP study CS pacing and recording Left and right transseptal catheterization Catheter the mapping of the tachycardia Intracardiac echocardiography Pulmonary vein isolation with transseptal and comprehensive EPS, [id number] Drug infusion, [id number] Linear ablation, left atrium, +[id number]
--- NOTE | 2022-02-03 14:33 | P.PRLE ---
RE: David Hernandez Dear Abner Hernandez underwent successful AF ablation for management of symptomatic paroxysmal A. fib without any acute complications He will continue his current cardiac medications including ELIQUIS Thank you for entrusting me with the care of the patient Warm regards Sincerely Hima Young
[2022-02-03 15:08] VITALS: RESP 16
[2022-02-03] MEDS ORDERED: ACETAMINOPHEN IV (For NPO) 1,000 MG in EMPTY BAG 1 BAG IVPB ONE (15:15)
[2022-02-03] MEDS: APIXABAN 5 MG TAB PO SCH (20:11)
[2022-02-03] MEDS: FAMOTIDINE 20 MG TAB PO SCH (20:12)
[2022-02-03] MEDS ORDERED: TAMSULOSIN 0.4 MG CAP.ER.24H PO SCH (21:00)
[2022-02-03] MEDS ORDERED: ATORVASTATIN 20 MG TAB PO SCH (21:00)
[2022-02-04 05:32] VITALS: TEMP 97.9
[2022-02-04] MEDS: SODIUM CHLORIDE 0.9% 1,000 ML IV SCH (06:59)
[2022-02-04] MEDS ORDERED: FUROSEMIDE 20 MG TAB PO SCH (09:00)
[2022-02-04] MEDS ORDERED: FINASTERIDE 5 MG TAB PO SCH (09:00)
[2022-02-04 09:22] VITALS: BP 112/66; PULSE 86
[2022-02-04] MEDS: FAMOTIDINE 20 MG TAB PO SCH (09:24)
[2022-02-04] MEDS: APIXABAN 5 MG TAB PO SCH (09:25)
--- NOTE | 2022-02-07 08:10 | P.DS ---
Providers Attending physician: Hima Young Primary care physician: Abner Davenport [facility] Course: Patient examined pneumonic following A. fib ablation Doing well no chest discomfort no dizziness no lightheadedness no undue shortness of breath On examination normal heart sounds regular Normal breath sounds no rhonchi no crackles Groins of healed well line vitals stable Impression Paroxysmal atrial fibrillation, symptomatic A. fib ablation with cryoablation of all 4 pulmonary veins including left atrial septal ablation Plan Continue anticoagulation Continue current medications Discharge home and follow-up with Dr. Young in a week Patient Condition at Discharge: Stable Plan - Discharge Summary Discharge Rx Participant: No New Discharge Prescriptions: Continue Tamsulosin [Flomax] 0.4 mg PO HS allopurinoL [Zyloprim] 100 mg PO DAILY Finasteride [Proscar] 5 mg PO DAILY Atorvastatin [Lipitor] 20 mg PO HS Albuterol Inhaler [Ventolin Hfa Inhaler] 2 puff INHALATION RT-Q6H PRN PRN Reason: Shortness Of Breath Famotidine [Pepcid] 20 mg PO BID Furosemide [Lasix] 20 mg PO DAILY Apixaban [Eliquis] 5 mg PO BID Discharge Medication List Tamsulosin [Flomax] 0.4 mg PO HS 11/23/15 [History] Finasteride [Proscar] 5 mg PO DAILY 11/24/15 [History] allopurinoL [Zyloprim] 100 mg PO DAILY 11/24/15 [History] Atorvastatin [Lipitor] 20 mg PO HS 10/26/20 [History] Famotidine [Pepcid] 20 mg PO BID 10/26/20 [History] Albuterol Inhaler [Ventolin Hfa Inhaler] 2 puff INHALATION RT-Q6H PRN 03/19/21 [History] Furosemide [Lasix] 20 mg PO DAILY 12/05/21 [History] Apixaban [Eliquis] 5 mg PO BID 01/31/22 [History] Follow up Appointment(s)/Referral(s): Hima Young MD [STAFF PHYSICIAN] - 02/11/22 1:00 pm () Patient Instructions/Handouts: A-fib (Atrial Fibrillation) (DC), Cardiac Ablation (DC) Activity/Diet/Wound Care/Special Instructions: Post EP study - Ablation instructions 1. Keep access sites dry for 2 days. 2. No heavy lifting or straining for 2 days. 3. Avoid bending the hips repeatedly for 2 days. 4. You may go up and down stairs slowly Call if the following is noted 1. Bleeding, increasing swelling or pain at the access sites. 2. Increasing chest discomfort, especially upon taking a deep breath. 3. Increasing shortness of breath, at rest or with exertion. 4. Undue cough / phlegm 5. Difficulty or pain while swallowing. 6. Pain or change in color in the extremities. 7. Fever, chills, rigors. 8. Increasing headache or neurologic symptoms. 9. Dizziness, fainting, palpitations Do not stop ELIQUIS Discharge Disposition: HOME SELF-CARE
== END 2022-02-04 11:40 | disposition home or self-care (01) ==
LOC: CATHEP 09:33 → 3SCARD 14:11 → CATHEP 02-04 11:40
PROVIDERS: ATTEND Internal Medicine Clinical Cardiac Electrophysiology
DX: I48.0 Paroxysmal atrial fibrillation (principal); I49.5 Sick sinus syndrome; I35.0 Nonrheumatic aortic (valve) stenosis; I10 Essential (primary) hypertension; E78.5 Hyperlipidemia, unspecified; I47.1 Supraventricular tachycardia; I65.29 Occlusion and stenosis of unspecified carotid artery; Z79.01 Long term (current) use of anticoagulants; Z79.899 Other long term (current) drug therapy; Z20.822 Contact with and (suspected) exposure to COVID-19
CPT/HCPCS: 93623; 93656; 93657; 86900; 86901; 86850; 87635; C1894 ×2; C1769 ×4; C1760; C1759; C1893; C1733; C1766; C1730; S0138; J0690; J2001; Q9967

== ENCOUNTER 2022-03-10 11:12 | Emergency (ER) | payer MEDICARE, OTHER ==
[2022-03-10 11:27] VITALS: BP 151/74; PULSE 82; RESP 20; TEMP 98.7
--- NOTE | 2022-03-10 11:51 | XR ---
EXAMINATION TYPE: XR chest 2V DATE OF EXAM: 03/10/2022 COMPARISON: 12/05/2021 HISTORY: Shortness of breath TECHNIQUE: Frontal and lateral views of the chest are obtained. FINDINGS: Scattered senescent parenchymal changes noted. Hyperinflation compatible with COPD. No evidence for infiltrate. No evidence for atelectasis. Continued cardiomegaly without overt failure. Sternotomy wires mediastinal clips. Mediastinal structures are stable and grossly unremarkable. No evidence for hilar prominence. Degenerative changes dorsal spine. IMPRESSION: 1. No evidence for acute pulmonary disease.
--- NOTE | 2022-03-10 11:54 | ED ---
Recheck HPI - General Chief Complaint: Recheck/Abnormal Lab/Rx Stated Complaint: SOB,reaction to covid shot Time Seen by Provider: 03/10/22 11:54 Source: patient, RN notes reviewed Mode of arrival: ambulatory Limitations: no limitations - History of Present Illness Initial Comments: Patient is a 81-year-old male presenting to the emergency room with complaints of body aches, slight shortness of breath and decreased appetite since receiving his Covid vaccination yesterday. He denies any other symptoms including chest pain, cough, abdominal pain, nausea, vomiting, diarrhea, fevers or chills. He has previously received covid vaccinations without any significant side effects however he has not received this brand of vaccination previously. He has a past medical history significant for hyperlipidemia, GERD, varicose veins, BPH, arthritis and chronic bilateral lower extremity edema. - Related Data Home Medications Medication Instructions Recorded Confirmed Tamsulosin [Flomax] 0.4 mg PO HS 11/23/15 02/03/22 Finasteride [Proscar] 5 mg PO DAILY 11/24/15 02/03/22 allopurinoL [Zyloprim] 100 mg PO DAILY 11/24/15 02/03/22 Atorvastatin [Lipitor] 20 mg PO HS 10/26/20 02/03/22 Famotidine [Pepcid] 20 mg PO BID 10/26/20 02/03/22 Albuterol Inhaler [Ventolin Hfa 2 puff INHALATION RT-Q6H PRN 03/19/21 01/31/22 Inhaler] Furosemide [Lasix] 20 mg PO DAILY 12/05/21 02/03/22 Apixaban [Eliquis] 5 mg PO BID 01/31/22 02/03/22 Allergies Allergy/AdvReac Type Severity Reaction Status Date / Time No Known Allergies Allergy Verified 03/10/22 11:27 Review of Systems ROS Statement: Those systems with pertinent positive or pertinent negative responses have been documented in the HPI. ROS Other: All systems not noted in ROS Statement are negative. 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 History of Any Multi-Drug Resistant Organisms: None Reported Past Surgical History: Cardiac Valve Replacement, Heart Catheterization, Orthopedic Surgery, Prostate Surgery, Tonsillectomy Additional Past Surgical History / Comment(s): 12/09/17 Aortic valve replacement/bioprosthetic, TURP d/t BPH, surgery for varicosities, L foot bunionectomy, bilateral knee arthroscopies. Past Anesthesia/Blood Transfusion Reactions: No Reported Reaction Past Psychological History: Anxiety Smoking Status: Never smoker Past Alcohol Use History: Daily Past Drug Use History: None Reported - Past Family History Father Family Medical History: Asthma, Osteoarthritis (OA), Pneumonia Additional Family Medical History / Comment(s): ARTHRITIS Mother Family Medical History: Vascular Disorder Additional Family Medical History / Comment(s): BRAIN ANEURYSM General Exam Limitations: no limitations General appearance: alert, in no apparent distress Head exam: Present: atraumatic, normocephalic, normal inspection Eye exam: Present: normal appearance, PERRL, EOMI. Absent: scleral icterus, conjunctival injection, periorbital swelling ENT exam: Present: normal exam, mucous membranes moist Neck exam: Present: normal inspection, full ROM. Absent: lymphadenopathy Respiratory exam: Present: normal lung sounds bilaterally. Absent: respiratory distress, wheezes, rales, rhonchi, stridor Cardiovascular Exam: Present: regular rate, normal rhythm, normal heart sounds, systolic murmur. Absent: bradycardia, tachycardia, irregular rhythm, diastolic murmur, rubs, gallop, clicks GI/Abdominal exam: Present: soft, normal bowel sounds. Absent: distended, tenderness, guarding, rebound, rigid Extremities exam: Present: pedal edema (Bilateral lower extremity) Back exam: Present: normal inspection Neurological exam: Present: alert, oriented X3, CN II-XII intact Psychiatric exam: Present: normal affect, normal mood Course Vital Signs 03/10/22 11:25 Temperature 98.7 F Pulse Rate 82 Respiratory 20 Rate Blood Pressure 151/74 O2 Sat by Pulse 98 Oximetry Medical Decision Making - Medical Decision Making 81-year-old male presenting to the emergency room with complaints of shortness of breath and body aches after having his Covid vaccination yesterday. Denies any other associated symptoms. Will check Covid test and chest x-ray. No indication for other laboratory studies at this time. Covid swab negative. Chest x-ray negative for acute cardiopulmonary process. No indication for further imaging or laboratory studies. Long discussion with patient regarding side effects from vaccination and typical course of resolution. Encouraged good hydration and use of Motrin or Tylenol as needed for body aches. Advised to follow-up with his primary care provider. Case discussed with Dr. Moe. - Lab Data Lab Results 03/10/22 Range/Units 11:28 Coronavirus (PCR) Not Detected (Not Detectd) - Radiology Data Radiology results: report reviewed, image reviewed Chest x-ray two-view impression no evidence of acute pulmonary process. Disposition Clinical Impression: Side effects of vaccination Disposition: HOME SELF-CARE Condition: Good Additional Instructions: Please follow-up with your primary care provider. Please continue good hydration and use of [id number] Tylenol or ibuprofen as needed for body aches. Please return to the Emergency Department if symptoms worsen or any other concerns. Is patient prescribed a controlled substance at d/c from ED?: No Referrals: Abner Davenport MD [Primary Care Provider] - 1-2 days Time of Disposition: 12:16
== END 2022-03-10 12:34 | disposition home or self-care (01) ==
LOC: EC 11:12
DX: T50.Z95A Adverse effect of other vaccines and biological substances, initial encounter (principal); K21.9 Gastro-esophageal reflux disease without esophagitis; E78.5 Hyperlipidemia, unspecified; M19.90 Unspecified osteoarthritis, unspecified site; Z79.899 Other long term (current) drug therapy; Z20.822 Contact with and (suspected) exposure to COVID-19
CPT/HCPCS: 71046; 87635; 99285

== ENCOUNTER 2023-01-04 09:34 | Emergency (ER) | payer MEDICARE, OTHER ==
[2023-01-04 09:45] VITALS: RESP 18
[2023-01-04] MEDS ORDERED: MECLIZINE 12.5 MG TAB PO STA ×2 (09:57→10:19)
[2023-01-04] MEDS ORDERED: SODIUM CHLORIDE 0.9% 1,000 ML IV STA (09:57)
[2023-01-04] MEDS ORDERED: METOCLOPRAMIDE 5 MG/ML 2 ML VIAL IVP STA (09:58)
[2023-01-04 10:39] LABS: Basophils % (A) 0 %; Eosinophils % (A) 1 %; HCT 42.7 % (39.0-53.0); HGB 14.7 gm/dL (13.0-17.5); Lymphocytes # (A) 1.7 k/uL (1.0-4.8); Lymphocytes % (A) 57 %; MCH 33.9 pg (25.0-35.0); MCHC 34.3 g/dL (31.0-37.0); MCV 98.6 fL (80.0-100.0); Macrocytosis Slight; Mean Platelet Volume 8.7; Monocytes # (A) 0.2 k/uL (0-1.0); Monocytes % (A) 5 %; Neutrophils % (A) 34 %; RBC 4.33 m/uL (4.30-5.90); RDW 15.8 % (11.5-15.5)
--- NOTE | 2023-01-04 10:50 | ED ---
Dizziness HPI - General Chief Complaint: Dizziness Stated Complaint: Lightheadedness Time Seen by Provider: 01/04/23 09:48 Source: patient, RN notes reviewed Mode of arrival: ambulatory Limitations: no limitations - History of Present Illness Initial Comments: 82-year-old male presents emergency Department with multiple complaints. Patient states the last few days he's not felt well he states he's had some lightheadedness, nausea, mild cough, body aches. He states symptoms, go there is no persistent symptoms. Denies any chest pain denies any severe shortness of breath, abdominal pain. No change in bowel habits he felt that he didn't have some diarrhea but that never happened. He states he does not have any focal weakness. Patient offers no associated symptoms. Patient does admit that he had recent flu vaccine. - Related Data Home Medications Medication Instructions Recorded Confirmed Tamsulosin [Flomax] 0.4 mg PO HS 11/23/15 02/03/22 Finasteride [Proscar] 5 mg PO DAILY 11/24/15 02/03/22 allopurinoL [Zyloprim] 100 mg PO DAILY 11/24/15 02/03/22 Atorvastatin [Lipitor] 20 mg PO HS 10/26/20 02/03/22 Famotidine [Pepcid] 20 mg PO BID 10/26/20 02/03/22 Albuterol Inhaler [Ventolin Hfa 2 puff INHALATION RT-Q6H PRN 03/19/21 01/31/22 Inhaler] Furosemide [Lasix] 20 mg PO DAILY 12/05/21 02/03/22 Apixaban [Eliquis] 5 mg PO BID 01/31/22 02/03/22 Allergies Allergy/AdvReac Type Severity Reaction Status Date / Time No Known Allergies Allergy Verified 01/04/23 09:45 Review of Systems ROS Statement: Those systems with pertinent positive or pertinent negative responses have been documented in the HPI. ROS Other: All systems not noted in ROS Statement are negative. 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 History of Any Multi-Drug Resistant Organisms: None Reported Past Surgical History: Cardiac Valve Replacement, Heart Catheterization, Orthopedic Surgery, Prostate Surgery, Tonsillectomy Additional Past Surgical History / Comment(s): 12/09/17 Aortic valve replacement /bioprosthetic, TURP d/t BPH, surgery for varicosities, L foot bunionectomy, bilateral knee arthroscopies. Past Anesthesia/Blood Transfusion Reactions: No Reported Reaction Past Psychological History: Anxiety Smoking Status: Never smoker Past Alcohol Use History: Daily Past Drug Use History: None Reported - Past Family History Father Family Medical History: Asthma, Osteoarthritis (OA), Pneumonia Additional Family Medical History / Comment(s): ARTHRITIS Mother Family Medical History: Vascular Disorder Additional Family Medical History / Comment(s): BRAIN ANEURYSM General Exam Limitations: no limitations General appearance: alert, in no apparent distress Head exam: Present: atraumatic, normocephalic, normal inspection Eye exam: Present: normal appearance, PERRL, EOMI. Absent: scleral icterus, conjunctival injection, periorbital swelling ENT exam: Present: normal exam, mucous membranes moist Neck exam: Present: normal inspection, full ROM. Absent: tenderness, meningismus, lymphadenopathy Respiratory exam: Present: normal lung sounds bilaterally. Absent: respiratory distress, wheezes, rales, rhonchi, stridor Cardiovascular Exam: Present: regular rate, normal rhythm, normal heart sounds. Absent: systolic murmur, diastolic murmur, rubs, gallop, clicks GI/Abdominal exam: Present: soft, normal bowel sounds. Absent: distended, tenderness, guarding, rebound, rigid Neurological exam: Present: alert, oriented X3, CN II-XII intact Course Vital Signs 01/04/23 01/04/23 01/04/23 09:38 10:07 11:00 Temperature 98 F Pulse Rate 66 64 56 L Respiratory 18 18 18 Rate Blood Pressure 113/73 127/73 O2 Sat by Pulse 96 97 100 Oximetry 01/04/23 01/04/23 12:00 12:50 Temperature 97.9 F Pulse Rate 61 70 Respiratory 18 18 Rate Blood Pressure 137/63 108/62 O2 Sat by Pulse 88 L 99 Oximetry EKG Findings - EKG Comments: EKG Findings:: EKG performed at 10:14 sinus rhythm with left axis deviation with a rate of 61 NE 160 QRS 117 QT/ QTC 424/427 - EKG Results: EKG: interpreted by CAMELIAD Medical Decision Making - Medical Decision Making Was pt. sent in by a medical professional or institution (, PA, PASTRY SUPERVISOR, urgent care, hospital, or [facility]...) When possible be specific @ -No Did you speak to anyone other than the patient for history (EMS, parent, family, police, friend...)? What history was obtained from this source @ -No Did you review nursing and triage notes (agree or disagree)? Why? @ -I reviewed and agree with nursing and triage notes Were old charts reviewed (outside hosp., previous admission, EMS record, old EKG, old radiological studies, urgent care reports/EKG's, [facility] records)? Report findings @ -No old charts were reviewed Differential Diagnosis (chest pain, altered mental status, abdominal pain women, abdominal pain men, vaginal bleeding, weakness, fever, dyspnea, syncope, headache, dizziness, GI bleed, back pain, seizure, CVA, palpatations, mental health, musculoskeletal)? @ -1 Differential Dizziness: Benign paroxysmal positional Vertigo, Menieres disease, otitis media, acoustic neuroma, vertebrobasilar insufficiency, cerebellar stroke, encephalitis, hypovolemic, arrhythmia, coronary artery syndrome, anemia, this is not meant to be an all-inclusive list] EKG interpreted by me (3pts min.). @ -As above X-rays interpreted by me (1pt min.). @ -none. CT interpreted by me (1pt min.). @ -None done U/S interpreted by me (1pt. min.). @ -None done What testing was considered but not performed or refused? (CT, X-rays, U/S, labs)? Why? @ -None What meds were considered but not given or refused? Why? @ -None Did you discuss the management of the patient with other professionals (professionals i.e. , DELANEY, PASTRY SUPERVISOR, lab, RT, psych nurse, bilingual social worker, admiralty lawyer, teacher, booking officer, case operator)? Give summary @ -No Was smoking cessation discussed for >3mins.? @ -No Was critical care preformed (if so, how long)? @ -No Were there social determinants of health that impacted care today? How? (Homelessness, low income, unemployed, alcoholism, drug addiction, transportation, low edu. Level, literacy, decrease access to med. care, intermediate, rehab)? @ -No Was there de-escalation of care discussed even if they declined (Discuss DNR or withdrawal of care, Hospice)? DNR status @ -No What co-morbidities impacted this encounter? (DM, HTN, Smoking, COPD, CAD, Can cer, CVA, ARF, Chemo, Hep., AIDS, mental health diagnosis, sleep apnea, morbid obesity)? @ -GERD, hyperlipidemia Was patient admitted / discharged? Hospital course, mention meds given and route, prescriptions, significant lab abnormalities, going to OR and other pertinent info. @ -Discharge patient feels greatly improved after IV fluids, laboratory studies are unremarkable. Patient is requesting to be discharged. We discussed return parameters. Undiagnosed new problem with uncertain prognosis? @ -No Drug Therapy requiring intensive monitoring for toxicity (Heparin, Nitro, Insu kamilla, Cardizem)? @ -No Were any procedures done? @ -No Diagnosis/symptom? @ -Nausea, lightheadedness Acute, or Chronic, or Acute on Chronic? @ -Acute Uncomplicated (without systemic symptoms) or Complicated (systemic symptoms)? @ -complicated Side effects of treatment? @ -No Exacerbation, Progression, or Severe Exacerbation? @ -No Poses a threat to life or bodily function? How? (Chest pain, USA, PR, pneumonia, PE, COPD, DKA, ARF, appy, cholecystitis, CVA, Diverticulitis, Homicidal, Suicidal, threat to staff... and all critical care pts) @ -No - Lab Data Result diagrams: 01/04/23 10:09 01/04/23 10:09 Lab Results 01/04/23 01/04/23 01/04/23 Range/Units 10:09 10:09 10:09 WBC 3.0 L (3.8-10.6) k/uL RBC 4.33 (4.30-5.90) m/uL Hgb 14.7 (13.0-17.5) gm/dL Hct 42.7 (39.0-53.0) % MCV 98.6 (80.0-100.0) fL MCH 33.9 (25.0-35.0) pg MCHC 34.3 (31.0-37.0) g/dL RDW 15.8 H (11.5-15.5) % Plt Count 77 L (150-450) k/uL MPV 8.7 Neutrophils % 34 % Lymphocytes % 57 % Monocytes % 5 % Eosinophils % 1 % Basophils % 0 % Neutrophils # 1.0 L (1.3-7.7) k/uL Lymphocytes # 1.7 (1.0-4.8) k/uL Monocytes # 0.2 (0-1.0) k/uL Eosinophils # 0.0 (0-0.7) k/uL Basophils # 0.0 (0-0.2) k/uL Manual Slide Review Performed Macrocytosis Slight Sodium 140 (137-145) mmol/L Potassium 4.3 (3.5-5.1) mmol/L Chloride 104 (98-107) mmol/L Carbon Dioxide 27 (22-30) mmol/L Anion Gap 9 mmol/L BUN 17 (9-20) mg/dL Creatinine 0.91 (0.66-1.25) mg/dL Est GFR (CKD-EPI)AfAm >90 (>60 ml/min/1.73 sqM) Est GFR (CKD-EPI)NonAf 79 (>60 ml/min/1.73 sqM) Glucose 100 H (74-99) mg/dL Calcium 9.6 (8.4-10.2) mg/dL Magnesium 2.2 (1.6-2.3) mg/dL Total Bilirubin 1.2 (0.2-1.3) mg/dL AST 37 (17-59) U/L ALT 34 (4-49) U/L Alkaline Phosphatase 71 (38-126) U/L Troponin I <0.012 (0.000-0.034) ng/mL Total Protein 8.4 H (6.3-8.2) g/dL Albumin 4.2 (3.5-5.0) g/dL Urine Color Urine Appearance (Clear) Urine pH (5.0-8.0) Ur Specific [place] (1.001-1.035) Urine Protein (Negative) Urine Glucose (UA) (Negative) Urine Ketones (Negative) Urine Blood (Negative) Urine Nitrite (Negative) Urine Bilirubin (Negative) Urine Urobilinogen (<2.0) mg/dL Ur Leukocyte Esterase (Negative) Coronavirus (PCR) (Not Detectd) 08/20/23 08/20/23 Range/Units 10:34 11:38 WBC (3.8-10.6) k/uL RBC (4.30-5.90) m/uL Hgb (13.0-17.5) gm/dL Hct (39.0-53.0) % MCV (80.0-100.0) fL MCH (25.0-35.0) pg MCHC (31.0-37.0) g/dL RDW (11.5-15.5) % Plt Count (150-450) k/uL MPV Neutrophils % % Lymphocytes % % Monocytes % % Eosinophils % % Basophils % % Neutrophils # (1.3-7.7) k/uL Lymphocytes # (1.0-4.8) k/uL Monocytes # (0-1.0) k/uL Eosinophils # (0-0.7) k/uL Basophils # (0-0.2) k/uL Manual Slide Review Macrocytosis Sodium (137-145) mmol/L Potassium (3.5-5.1) mmol/L Chloride (98-107) mmol/L Carbon Dioxide (22-30) mmol/L Anion Gap mmol/L BUN (9-20) mg/dL Creatinine (0.66-1.25) mg/dL Est GFR (CKD-EPI)AfAm (>60 ml/min/1.73 sqM) Est GFR (CKD-EPI)NonAf (>60 ml/min/1.73 sqM) Glucose (74-99) mg/dL Calcium (8.4-10.2) mg/dL Magnesium (1.6-2.3) mg/dL Total Bilirubin (0.2-1.3) mg/dL AST (17-59) U/L ALT (4-49) U/L Alkaline Phosphatase (38-126) U/L Troponin I (0.000-0.034) ng/mL Total Protein (6.3-8.2) g/dL Albumin (3.5-5.0) g/dL Urine Color Yellow Urine Appearance Clear (Clear) Urine pH 5.5 (5.0-8.0) Ur Specific [place] 1.010 (1.001-1.035) Urine Protein Negative (Negative) Urine Glucose (UA) Negative (Negative) Urine Ketones Negative (Negative) Urine Blood Negative (Negative) Urine Nitrite Negative (Negative) Urine Bilirubin Negative (Negative) Urine Urobilinogen <2.0 (<2.0) mg/dL Ur Leukocyte Esterase Negative (Negative) Coronavirus (PCR) Not Detected (Not Detectd) Disposition Clinical Impression: Lightheaded, Nausea Disposition: HOME SELF-CARE Condition: Stable Instructions (If sedation given, give patient instructions): Dizziness (ED) Additional Instructions: Please return to the Emergency Department if symptoms worsen or any other con cerns. Is patient prescribed a controlled substance at d/c from ED?: No Referrals: Abner Davenport MD [Primary Care Provider] - 1-2 days Time of Disposition: 12:45
[2023-01-04 11:01] LABS: ALT 34 U/L (4-49); AST 37 U/L (17-59); African American GFR (CKD) >90 (>60 ml/min/1.73 sqM); Albumin 4.2 g/dL (3.5-5.0); Alkaline Phosphatase 71 U/L (38-126); Anion Gap 9 mmol/L; Blood Urea Nitrogen 17 mg/dL (9-20); Calcium 9.6 mg/dL (8.4-10.2); Carbon Dioxide 27 mmol/L (22-30); Chloride 104 mmol/L (98-107); Glucose 100 mg/dL (74-99); Non-African American GFR(CKD) 79 (>60 ml/min/1.73 sqM); Potassium 4.3 mmol/L (3.5-5.1); Sodium 140 mmol/L (137-145); Total Bilirubin 1.2 mg/dL (0.2-1.3); Total Protein 8.4 g/dL (6.3-8.2)
[2023-01-04 11:31] LABS: Platelet Count 77 k/uL (150-450)
[2023-01-04 12:01] LABS: Appearance,Urine Clear (Clear); Bilirubin,Urine Negative (Negative); Blood,Urine Negative (Negative); Color,Urine Yellow; Glucose,Urine (UA) Negative (Negative); Ketones,Urine Negative (Negative); Leukocyte Esterase,Urine Negative (Negative); Nitrite,Urine Negative (Negative); PH, Urine 5.5 (5.0-8.0); Protein,Urine Negative (Negative); Urobilinogen,Urine <2.0 mg/dL (<2.0)
[2023-01-04 12:04] LABS: Magnesium 2.2 mg/dL (1.6-2.3)
[2023-01-04 12:57] VITALS: BP 108/62; PULSE 70; TEMP 97.9
== END 2023-01-04 12:59 | disposition home or self-care (01) ==
LOC: EC 09:34
DX: R42 Dizziness and giddiness (principal); R11.0 Nausea; E78.5 Hyperlipidemia, unspecified; M19.90 Unspecified osteoarthritis, unspecified site; F41.9 Anxiety disorder, unspecified; Z79.01 Long term (current) use of anticoagulants; Z79.899 Other long term (current) drug therapy; Z20.822 Contact with and (suspected) exposure to COVID-19
CPT/HCPCS: 36415; 93005; 80053; 83735; 84484; 85025; 81003; 87635; 99284; 96374; 96361; J2765